=== PATIENT | male | born 1960 | race Caucasian/White ===

== ENCOUNTER 2016-05-22 06:26 | Inpatient (IN) | payer OTHER ==
[2016-05-04 11:10] VITALS: BMI 38.0
--- NOTE | 2016-05-04 11:44 | PAT Medication Instructions ---
Service Date May 04, 2016. Current Home Medication List Cyclobenzaprine Hcl (Flexeril), 10 MG PO TID PRN for PRN Ibuprofen (Ibuprofen), 600 MG PO PRN Magnesium Oxide (Mag-Ox), 400 MG PO PRN Scopolamine (Transderm-Scop), 1 DOSE TOP PRN Medication Instructions For Your Scheduled Surgery No Medications the morning of the surgery. You may take all of your medications the day prior to surgery. Nothing to eat or drink after midnight If you have any questions please call us at [phone] or [phone] or [phone]
[2016-05-04 12:28] LABS: URINE APPEARANCE CLEAR (CLEAR); URINE BILIRUBIN NEG (NEG); URINE COLOR YELLOW; URINE NITRITE NEG (NEG); URINE SPECIFIC GRAVITY 1.018 (1.000-1.030); UROBILINOGEN NEG (NEG)
[2016-05-04 12:29] LABS: MANUAL MICROSCOPIC REQUIRED? NO; REVIEW REQ? NO
[2016-05-04 12:40] LABS: BASO % 0.3 %; BASO ABS # 0.02 K/uL (0-0.2); COMPLETE YES; EOS % 1.1 %; HEMATOCRIT 42.6 % (42-52); IG% 0.2 %; LYMPH % 37.6 %; MEAN CELL VOLUME 88.6 fL (80-100); MEAN CORPUSCULAR HEMOGLOBIN 30.8 pg (25-34); MEAN CORPUSCULAR HGB CONC 34.7 g/dl (32-36); MEAN PLATELET VOLUME 9.8 fL (7.4-10.4); MONO % 11.4 %; NEUT % 49.4 %; PLATELET COUNT 284 K/uL (130-400); RED BLOOD COUNT 4.81 M/uL (4.7-6.1); WHITE BLOOD COUNT 6.39 K/uL (4.8-10.8)
[2016-05-04 12:42] LABS: PROTHROMBIN TIME (PATIENT) 10.7 SECONDS (9.0-12.0)
[2016-05-04 12:53] LABS: ESTIMATED AVERAGE GLUCOSE 117 mg/dl; HA1C FLAG Normal (Normal)
[2016-05-04 12:54] LABS: BUN/CREATININE RATIO 15.6 (10-20); CALCIUM 9.1 mg/dl (8.5-10.1); POTASSIUM 4.4 mmol/L (3.5-5.1)
--- NOTE | 2016-05-14 10:20 | HISTORY & PHYSICAL EXAMINATION ---
DATE OF ADMISSION: 05/22/2016 SUBJECTIVE CHIEF COMPLAINT: Left knee pain. HISTORY OF PRESENT ILLNESS: The patient is a 56-year-old male who is here for left knee pain. Says the pain has been getting progressively worse over time. It occurs constantly now. The pain is described as aching, sharp and throbbing. He would like to discuss a left total knee arthroplasty. He has failed conservative therapies which include nonsteroidal anti-inflammatories, physical therapy, cortisone and viscosupplementation. PAST MEDICAL HISTORY: The patient has no past medical history. PAST SURGICAL HISTORY: Elbow arthroscopy and appendectomy. SOCIAL HISTORY: The patient quit smoking in June 2014. Denies alcohol use. He denies IV drug use or illegal drug use. He lives in a 2-story house. 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 FAMILY HISTORY: Noncontributory. MEDICATIONS: None. ALLERGIES: No known drug allergies. REVIEW OF SYSTEMS: He denies fevers, chills, headaches, weight loss, double vision, blurry vision, sore throat, hearing loss, tremors, dizziness, numbness, tingling, tired, thirsty, hot and cold intolerance, abdominal pain, nausea, vomiting, diarrhea, heartburn, chest pain, swelling into the legs or feet, frequency going to the bathroom, pain or burning with urination, wheezing, cough, shortness of breath, depression, thoughts to harm himself or harm others, nervousness or anxiousness. He is positive for joint pain, stiffness and swelling of the left knee. OBJECTIVE: GENERAL APPEARANCE: The patient is a 56-year-old male who is in no acute distress. He is awake, alert and oriented x3. He is well dressed, well nourished. VITAL SIGNS: He is 6 foot 3 inches tall, 308 pounds, blood pressure is 110/80. HEAD, EYES, EARS, NOSE, AND THROAT: Extraocular movements are intact, PERRLA, mucosa was moist. No septal deviation. NECK: Supple, no lymphadenopathy, no JVD, no thyromegaly. HEART: Regular rate and rhythm. No murmurs or gallops. LUNGS: Clear to auscultation. No wheezing or rhonchi. ABDOMEN: Soft, nontender, nondistended. Normal bowel sounds, no hepatosplenomegaly. EXTREMITIES: Paying particular attention to the left knee, he is able to extend to 0 degrees actively, flex to 90 degrees actively. He has medial joint line tenderness, negative anterior drawer, negative posterior drawer, negative Marquez's. NEUROLOGIC: Cranial nerves II-XII are intact. Pulses were compared bilaterally and were equal. IMAGING: Four view x-ray shows [id number] medial compartment, osteophyte formation of the medial tibial plateau, subchondral sclerosis. IMPRESSION: Severe end-stage left knee osteoarthritis. PLAN: The patient is scheduled for a left total knee arthroplasty. He has failed conservative therapies which include cortisone injections, viscosupplementation, anti-inflammatories and physical therapy. He notes that the pain decreases his quality of life and he is unable to perform activities of daily living. He wishes to proceed with a left total knee arthroplasty. Risks and benefits to surgery were discussed and included but not limited to blood clot, nerve damage, blood vessel damage, infection, failure to relieve all symptoms, revision surgeries and anesthesia risks were all discussed and the patient wishes to proceed. The patient will go home with self care after the surgery. He is a potential study patient for the [facility] \T\ Nephew rehab study for total knee arthroplasties. We discussed with him entering the study and he will be contacted as to his decision. JOSAFAT
[~2016-05-22] VITALS: Ht 190.5 cm; Wt 139.3 kg
[2016-05-22] VITALS (7 sets, daily range): BP systolic 107–143; BP diastolic 63–91; PULSE 62–78; TEMP 36.8–36.9; O2SAT 95–98; Ht 190.5 cm; Wt 139.3 kg
[~2016-05-22 06:26] MED LIST: ACETAMINOPHEN 500 MG TAB PO SCH; BUPIVACAINE 0.5 % 5 MG/1 ML PF 10ML VIAL ONE; CEFAZOLIN 3000 MG/65 ML D5W 65 ML IV SCH; CYCL10TA6 PO; CeleBREX 200 MG CAP PO SCH; DEXAMETHASONE 4 MG TAB PO SCH; FAMOTIDINE 20 MG TAB PO SCH; GABAPENTIN 300 MG CAP PO SCH; IBUP1CAP9 PO; LACTATED RINGER'S 1000ML 1,000 ML IV SCH; LACTATED RINGER'S 1000ML IV SCH; LACTATED RINGER'S 500 ML IV SCH; MAGN400T6 PO; METOCLOPRAMIDE HCL 10 MG TAB PO SCH; ROPIVACAINE 5MG/ML 30 ML 150 MG, BUPIVACAINE/EPINEPHR 0.5% MPF 30 ML, KETOROLAC TROMETH... INFIL SCH; SCPTP TOP
[2016-05-22] MEDS: TRANEXAMIC ACID INJ 1,000 MG in SODIUM CHLORIDE 0.9% 100ML 100 ML IV SCH ×2 (06:30→07:53)
[2016-05-22] MEDS ORDERED: FENTANYL CITRATE INJ 50 MCG/1 ML 2 ML VIAL IV PRN (07:00)
[2016-05-22] MEDS ORDERED: ONDANSETRON INJ 2 MG/ML 2 ML VIAL IV PRN ×2 (07:00→11:15)
[2016-05-22] MEDS ORDERED: EpHEDrine SULFATE INJ 50 MG/ML AMP IV PRN (07:00)
[2016-05-22] MEDS ORDERED: ATROPINE SULFATE 0.1 MG/ML 5ML SYR IV PRN (07:00)
--- NOTE | 2016-05-22 07:05 | History & Physical Bridge Note ---
H&P Re-Evaluation Bridge Note: I have examined the patient, reviewed the History & Physical and in the interval since the performance of the History & Physical I have noted the following changes of clinical significance: No changes noted
[2016-05-22] MEDS ORDERED: FENTANYL CITRATE INJ 50 MCG/1 ML 2 ML VIAL ONE (07:32)
[2016-05-22] MEDS ORDERED: MIDAZOLAM HCL 1 MG/ML 2ML VIAL ONE ×2 (07:32→07:34)
[2016-05-22] MEDS ORDERED: PROPOFOL IV EMULSION 10 MG/ML 20 ML VIAL IV ONE ×3 (07:34→10:49)
[2016-05-22] MEDS ORDERED: BACITRACIN 50000 UNIT VIAL ONE (08:13)
[2016-05-22] MEDS ORDERED: ORTHO JOINT ANESTHETIC ONE (08:13)
[2016-05-22] MEDS ORDERED: POVIDONE-IODINE OP SOLN 30 ML BTL ONE (08:13)
[2016-05-22] MEDS ORDERED: LIDOCAINE HCL 2% 2 ML VIAL (20MG/ML) ONE (08:53)
--- NOTE | 2016-05-22 10:40 | [facility] Post Operative Brief Note ---
Immediate Operative Summary Operative Date May 22, 2016. Pre-Operative Diagnosis Severe end-stage left knee osteoarthritis Post-Operative Diagnosis Severe end-stage left knee osteoarthritis Procedure(s) Performed Left total knee arthroplasty Surgeon Dr Ferny Muniz [employer] Surgeon(s) Dr Josafat Lawson Estimated Blood Loss 20ML Findings above Specimens A: left knee bone and tissue Drains 2 hemovac Anesthesia spinal Complication(s) None Disposition Recovery Room / PACU
[2016-05-22] MEDS ORDERED: TAMSULOSIN HCL 0.4 MG CAP PO PRN (11:15)
[2016-05-22] MEDS ORDERED: ALUMINUM/MAGNESIUM/SIMETH (MAALOX MAX) 30 ML UDC PO PRN (11:15)
[2016-05-22] MEDS ORDERED: MAGNESIUM HYDROXIDE SUSP 30 ML UDC PO PRN (11:15)
[2016-05-22] MEDS ORDERED: ZOLPIDEM TARTRATE 5 MG TAB PO PRN (11:15)
[2016-05-22] MEDS ORDERED: BISACODYL 10 MG SUPP PR PRN (11:15)
[2016-05-22] MEDS ORDERED: MoRPHine SULFATE 2 MG/ML CARP IV PRN (11:15)
[2016-05-22] MEDS ORDERED: DiphenhydrAMINE HCL 50 MG/ML VIAL IV PRN (11:15)
--- NOTE | 2016-05-22 11:35 | OPERATIVE REPORT ---
DATE OF OPERATION: 05/22/2016 PREOPERATIVE DIAGNOSIS: Left knee degenerative joint disease. POSTOPERATIVE DIAGNOSIS: Same. PROCEDURE: Left total knee arthroplasty. SURGEON: Dr. Muniz. SALES OFFICE MANAGER: TESSA Horner, who was necessary for assistance with the procedure with positioning, prepping, draping, retraction and closure. ANESTHESIA: Spinal with adductor canal block. SPECIMEN: Bone and tissue. IMPLANTS: Spencer \T\ Nephew Journey version II. DRAINS: Two Hemovac. COMPLICATION: None. ESTIMATED BLOOD LOSS: 20 mL INDICATIONS: The patient is a 56-year-old male with longstanding degenerative joint disease of bilateral knees. He has failed conservative measures including injection, anti-inflammatories and rehab. Failing conservative measures, he wished to proceed with left total knee arthroplasty. Risks, benefits and alternatives of surgery including but not limited to infection, DVT, pain, stiffness, need for revision surgery, failure to relieve all symptoms, damage to blood vessels, damage to nerves, risks of anesthesia discussed with the patient and he wished to proceed. DESCRIPTION OF PROCEDURE: The patient was identified, laterality was confirmed and marked. He received a preoperative antibiotic as well as a spinal and adductor canal block. A well-padded tourniquet was placed on the thigh, and limb was prepped and draped in usual sterile manner with ChloraPrep. Limb was exsanguinated and tourniquet was inflated. I made a longitudinal incision on the anterior aspect of the knee, sharply incising through the skin, utilizing Bovie electrocautery to achieve hemostasis. I made a medial parapatellar arthrotomy, mobilized the patella laterally and then prepared the patella with a free hand cut with a sagittal saw and then sizing and drilling for a size 38 patella. I then elevated deep MCL as he had a fairly significant varus deformity, then excised the anterior horns of the medial and lateral menisci as well as the patellar fat pad. I then pinned into place a patient-matched distal femoral cutting guide, made my distal femoral resection, and then pinned in place a size 7, 5-in-1 cutting guide, made my anterior, posterior and chamfer cuts. I then pinned into place a tibial cutting guide, made my tibial resection. I then removed the remaining portions of the meniscus and the cruciates. We had preoperatively templated for a size 8 but this was a bit large, we downsized to a size 7 tibia, placed this 7 tibia into position and cut for the post, pinned it into place. We then removed the posterior osteophytes and placed the size [address] and then reamed for the trochlear component. I then started trialing with a size 9 tibia. He was tight in both flexion as well as in extension and still had a flexion contracture. I then removed the trial components, took an additional 2 mm off the tibia, and then placed the trial components once again, this gave us full range of motion and much better soft tissue balancing. I then placed the patella into position. He had good tracking to the patella, no lateral release was needed. Removed all the trial components. Wound was thoroughly irrigated. Deep tissues were anesthetized with Exparel solution and then with HV with gent cement, cemented my definitive components. This was Spencer \T\ Nephew Journey version II femur 7, tibia 7, poly 9, patella 38 oval. A deep drain was placed, a Betadine soak was performed prior to drain placement. Arthrotomy was closed with interrupted #1 Vicryl suture, subcutaneous tissue with interrupted 2-0 Vicryl suture, and skin with brenda. Sterile dressing was applied and the tourniquet was released. All needle and sponge counts were correct at the end of procedure. The patient was transferred to the PACU in stable condition without apparent complication. I attest to the content of the Intraoperative Record and any orders documented therein. Any exceptions are noted below. JOSAFAT
[2016-05-22] MEDS ORDERED: MoRPHine SULFATE 10 MG/ML CARP/VIAL IV PRN (11:45)
[2016-05-22] MEDS ORDERED: MoRPHine SULFATE 4 MG/ML 1 ML CARP\\VIAL IV PRN (11:45)
--- NOTE | 2016-05-22 11:56 | Anesthesiology Progress Note ---
Anesthesia Post Op Note Date & Time May 22, 2016 at 11:56 Vital Signs Pain Intensity: 0 Vital Signs Past 12 Hours Date Time Temp Pulse Resp B/P Pulse Ox O2 Delivery O2 Flow Rate FiO2 05/22/16 11:50 36.1 61 18 109/74 97 Nasal Cannula 2 05/22/16 11:40 66 17 102/66 95 Nasal Cannula 2 05/22/16 11:30 61 12 111/74 93 Nasal Cannula 2 05/22/16 11:20 64 12 108/73 95 Nasal Cannula 2 05/22/16 11:12 36.5 68 14 106/67 97 Nasal Cannula 2 05/22/16 06:54 36.8 65 20 143/91 95 Room Air Notes Mental Status: alert / awake / arousable, participated in evaluation Pt Amnestic to Procedure: Yes Nausea / Vomiting: adequately controlled Pain: adequately controlled Airway Patency, RR, SpO2: stable & adequate BP & HR: stable & adequate Hydration State: stable & adequate Neuraxial Anesthesia: was administered, sensory block is resolving Anesthetic Complications: no major complications apparent
--- NOTE | 2016-05-22 12:09 | DIAGNOSTIC IMAGING REPORT ---
LEFT KNEE 2 VIEWS History: Left total knee arthroplasty. Degenerative arthritis. Postop. FINDINGS: The patient is status post a left total knee arthroplasty. The hardware is intact. No fracture or dislocation. Skin brenda and surgical drains are in place. IMPRESSION: Left total knee arthroplasty. No evidence for hardware complication. Electronically signed by: Glenroy Membreno M.D. 05/22/2016 12:08 PM Dictated Date/Time: 05/22/2016 12:07 PM
[2016-05-22] MEDS: ACETAMINOPHEN 500 MG TAB PO SCH ×2 (14:30→22:11)
[2016-05-22] MEDS: D5W AND 1/2NSS + 20MEQ KCL 1,000 ML IV SCH ×2 (14:30→23:58)
[2016-05-22] MEDS: CEFAZOLIN IV 2,000 MG in DEXTROSE 5% 50ML 50 ML IV SCH ×2 (18:04→23:58)
[2016-05-22] MEDS: KETOROLAC TROMETHAMINE 30 MG/ML VIAL IV. SCH ×2 (18:05→22:15)
[2016-05-22] MEDS: FERROUS GLUCONATE 324 MG TAB PO SCH (18:14)
[2016-05-22] MEDS: OXYCODONE HCL IR 5 MG TAB (IMMEDIATE RELEASE) PO PRN (18:15)
[2016-05-22] MEDS: OXYCODONE HCL 10 MG TABCR (OXYCONTIN) PO SCH (22:10)
[2016-05-22] MEDS: DOCUSATE SODIUM 100 MG CAP PO SCH (22:11)
[2016-05-22] MEDS: SENNA 8.6 MG TAB PO SCH (22:11)
[2016-05-22] MEDS: ASPIRIN 81 MG ECTAB PO SCH (22:12)
[2016-05-23] VITALS (7 sets, daily range): BP systolic 117–135; BP diastolic 66–106; PULSE 61–86; TEMP 36.5–37; O2SAT 96–97
[2016-05-23] MEDS: KETOROLAC TROMETHAMINE 30 MG/ML VIAL IV. SCH ×2 (03:28→09:13)
[2016-05-23] MEDS: ACETAMINOPHEN 500 MG TAB PO SCH ×3 (05:34→16:15)
[2016-05-23 05:40] LABS: HEMATOCRIT 34.4 % (42-52); MEAN CELL VOLUME 87.8 fL (80-100); MEAN CORPUSCULAR HEMOGLOBIN 30.1 pg (25-34); MEAN CORPUSCULAR HGB CONC 34.3 g/dl (32-36); MEAN PLATELET VOLUME 9.5 fL (7.4-10.4); PLATELET COUNT 254 K/uL (130-400); RED BLOOD COUNT 3.92 M/uL (4.7-6.1); WHITE BLOOD COUNT 17.04 K/uL (4.8-10.8)
[2016-05-23 06:19] LABS: BUN/CREATININE RATIO 16.1 (10-20); CALCIUM 8.3 mg/dl (8.5-10.1); CREATININE 0.95 mg/dl (0.60-1.40); POTASSIUM 4.4 mmol/L (3.5-5.1)
--- NOTE | 2016-05-23 06:45 | Orthopedic Progress Note ---
Orthopedic Progress Note Date of Service May 23, 2016. Subjective Post OP Day: 1 (s/p Left TKA) Reports: feeling well, pain controlled w PO medications, Denies: SOB, calf pain , chest pain, complaints, light headedness, nausea / vomiting Objective calves soft nontender, N/V intact, capillary refill less than 2 sec., dressing C /D/I, A&O x3, toes mobile, hemovac drainage (225cc/8 hours) Date Time Temp Pulse Resp B/P Pulse Ox O2 Delivery O2 Flow Rate FiO2 05/23/16 03:21 36.9 76 16 119/72 96 Room Air 05/23/16 00:00 37.0 86 15 117/66 96 Room Air 05/23/16 00:00 Room Air 05/22/16 20:04 36.8 78 16 107/63 96 Room Air 05/22/16 16:00 95 Nasal Cannula 2.0 05/22/16 15:21 36.9 65 16 117/78 95 Nasal Cannula 2.0 05/22/16 13:53 73 16 115/76 98 2.0 05/22/16 13:07 62 16 120/80 96 2.0 05/22/16 12:00 36.9 64 16 112/73 97 Nasal Cannula 2.0 05/22/16 12:00 97 Nasal Cannula 2.0 05/22/16 12:00 97 Nasal Cannula 05/22/16 11:50 36.1 61 18 109/74 97 Nasal Cannula 2 05/22/16 11:40 66 17 102/66 95 Nasal Cannula 2 05/22/16 11:30 61 12 111/74 93 Nasal Cannula 2 05/22/16 11:20 64 12 108/73 95 Nasal Cannula 2 05/22/16 11:12 36.5 68 14 106/67 97 Nasal Cannula 2 05/22/16 06:54 36.8 65 20 143/91 95 Room Air Laboratory Results 24 Hours: Test 05/23/16 05:30 Hematocrit 34.4 % Hemoglobin 11.8 g/dL Assessment & Plan Assessment: POD #1 s/p Left TKA -PT/OT -dvt proph with ASHLEY/SCD/ASA Discharge Planning DVT Prophylaxis: TEDs, SCDs, ASA Therapy: Physical Therapy
[2016-05-23] MEDS: MULTIVITAMIN TAB PO SCH (08:56)
[2016-05-23] MEDS: ASPIRIN 81 MG ECTAB PO SCH ×2 (08:56→20:45)
[2016-05-23] MEDS: PANTOprazole SOD 40 MG TAB PO SCH (08:56)
[2016-05-23] MEDS: DOCUSATE SODIUM 100 MG CAP PO SCH ×2 (08:58→20:45)
[2016-05-23] MEDS: FERROUS GLUCONATE 324 MG TAB PO SCH ×3 (08:58→17:59)
[2016-05-23] MEDS: OXYCODONE HCL 10 MG TABCR (OXYCONTIN) PO SCH ×2 (09:10→20:46)
[2016-05-23] MEDS: OXYCODONE HCL IR 5 MG TAB (IMMEDIATE RELEASE) PO PRN ×3 (09:10→19:28)
[2016-05-23] MEDS: D5W AND 1/2NSS + 20MEQ KCL 1,000 ML IV SCH (09:13)
[2016-05-23] MEDS: SENNA 8.6 MG TAB PO SCH (20:45)
[2016-05-24 00:22] VITALS: BP 141/93; PULSE 79; TEMP 36.6; O2SAT 100
[2016-05-24] MEDS: OXYCODONE HCL IR 5 MG TAB (IMMEDIATE RELEASE) PO PRN ×3 (00:26→10:40)
[2016-05-24 06:04] VITALS: BP 139/91; PULSE 78; TEMP 36.8; O2SAT 99
[2016-05-24] MEDS: ACETAMINOPHEN 500 MG TAB PO SCH (06:10)
[2016-05-24] MEDS ORDERED: KETOROLAC TROMETHAMINE 30 MG/ML VIAL IV STA (06:24)
--- NOTE | 2016-05-24 06:25 | Orthopedic Progress Note ---
Orthopedic Progress Note Date of Service May 24, 2016. Subjective Post OP Day: 2 Reports: feeling well, Denies: SOB, calf pain, chest pain, complaints, light headedness, nausea / vomiting Additional Notes: increased pain through the night, states when he is due for his meds his pain is controlled. Objective calves soft nontender, N/V intact, capillary refill less than 2 sec., dressing C /D/I, A&O x3, toes mobile Date Time Temp Pulse Resp B/P Pulse Ox O2 Delivery O2 Flow Rate FiO2 05/24/16 06:04 36.8 78 16 139/91 99 Room Air 05/24/16 00:22 36.6 79 18 141/93 100 Room Air 05/23/16 23:25 Room Air 05/23/16 16:15 97 Room Air 05/23/16 15:29 36.5 64 18 118/78 97 Room Air 05/23/16 11:55 36.5 66 18 135/106 97 Room Air 05/23/16 10:20 97 Room Air 05/23/16 08:03 36.7 61 18 124/78 97 Room Air Assessment & Plan Assessment: POD #2 s/p Left TKA -PT/OT -dvt proph with ASHLEY/SCD/ASA Discharge Planning Discharge Planning: home with oppt DVT Prophylaxis: TEDs, SCDs, ASA Therapy: Physical Therapy
[2016-05-24] MEDS ORDERED: ACET-1138 PO (06:30)
[2016-05-24] MEDS ORDERED: ASPEC81 PO (06:30)
[2016-05-24] MEDS ORDERED: OXYSR10 PO (06:30)
[2016-05-24] MEDS ORDERED: CLC100 PO (06:30)
[2016-05-24] MEDS ORDERED: RXC5 PO (06:30)
[2016-05-24] MEDS ORDERED: ONDA8TAB6 PO (06:30)
[2016-05-24] MEDS ORDERED: CLB200 PO (06:30)
--- NOTE | 2016-05-24 06:32 | Discharge Instructions ---
Discharge Instructions Admission Reason for Admission: Left Knee Osteoarthritis Discharge Discharge Diagnosis / Problem: Left Total Knee Replacement Discharge Goals Goal(s): Decrease discomfort, Improve function, Increase independence Activity Recommendations Activity Limitations: as noted below Weightbearing Status: Left weightbearing (as tolerated) . Instructions / Follow-Up Instructions / Follow-Up ACTIVITY RECOMMENDATIONS: SELF CARE INSTRUCTIONS AFTER TOTAL KNEE REPLACEMENT A. You may need to continue a physical therapy program after discharge from the hospital. There are several options available to you. Your doctor will assist you in selecting the best one for you. 1. An out-patient facility 2 to 3 times a week for therapy or home therapy. 2. Continue working on all exercises taught to you in the hospital. Your goals should be to increase bending of your knee to 90 degrees and beyond and to fully straighten your knee. B. You may progress at your own pace from walking with a walker or crutches to a cane; then to no assistive devices. C. Make walking a part of your daily routine. Be up as much as comfortable with rest periods throughout the day. Rest with leg elevation is very important. Use the ice wrap frequently for the first 3-4 weeks. D. There are no restrictions on activities. You may ride in a car, shop, participate in installation service representative and all social activities. E. Wear the long elastic stockings (ASHLEY hose) 20 hours a day for 2 weeks after surgery. They can be removed several times a day for laundering and for a bath. F. You may shower, no tub baths until cleared by your doctor. SPECIAL CARE INSTRUCTIONS: VERY IMPORTANT TO READ AND REVIEW A. There are a few signs you need to watch for after you are home. Call [facility] if you notice any of the followin. Increased severe knee pain. Some pain is expected especially when you exercise. 2. Increased swelling in your leg or knee; pain or swelling of the calf muscle in either lower leg. 3. Any fluid drainage from the incision. 4. Shortness of breath or chest pain. B. Please call [facility] at if you have any concerns or questions about your operation or recovery. The doctor or his nurse will return your call promptly. C. You must take antibiotics before dental work, bladder, bowel or other surgery. Your doctor will provide you with a permanent care to carry describing this precaution. IMPORTANT: * REMEMBER TO TAKE ASPIRIN, 81 MG, TWICE DAILY FOR 4 WEEKS UNLESS OTHERWISE DIRECTED. THIS IS YOUR BLOOD THINNER. * HIGH RISK PATIENTS MAY BE PRESCRIBED A STRONGER BLOOD THINNER. THIS WILL BE PROVIDED AT DISCHARGE. * CALL IF INCREASED PAIN, REDNESS, DRAINAGE OR FEVER GREATER THAT 101. * WEAR ASHLEY HOSE 20 HOURS PER DAY FOR 2 WEEKS. * YOU MAY HAVE A LARGE BAND-AID LIKE DRESSING (SILVERON). THIS WILL REMAIN ON YOUR INCISION FOR 7 DAYS, THEN CAN BE REMOVED. IF INCISION IS LEAKING THROUGH DRESSING, CALL THE OFFICE . FOLLOW UP VISIT: If appointment is not already scheduled: Please call [facility] to make a follow-up appointment for 2 weeks after your surgery at . Current Hospital Diet Patient's current hospital diet: Regular Diet Discharge Diet Recommended Diet: Regular Diet Procedures Procedures Performed: Left total knee arthroplasty Pending Studies Studies pending at discharge: no Laboratory Results Hemoglobin A1c Test 05/04/16 11:53 Range/Units Estimated Average Glucose 117 mg/dl Hemoglobin A1c 5.7 H 4.5-5.6 % Medical Emergencies . Who to Call and When: Medical Emergencies: If at any time you feel your situation is an emergency, please call [phone] immediately. . Non-Emergent Contact Non-Emergency issues call your: Primary Care Provider, Surgeon . "Provider Documentation" section prepared by Chandrakant Sethi. VTE Core Measure Inpt VTE Proph given/why not?: Other Anticoagulation (ASA 81mg po bid x 1 month ), T.E.D. Stockings, SCD's
[2016-05-24] MEDS: FERROUS GLUCONATE 324 MG TAB PO SCH (07:39)
[2016-05-24] MEDS: DOCUSATE SODIUM 100 MG CAP PO SCH (07:39)
[2016-05-24] MEDS: ASPIRIN 81 MG ECTAB PO SCH (07:39)
[2016-05-24] MEDS: MULTIVITAMIN TAB PO SCH (07:39)
[2016-05-24] MEDS: PANTOprazole SOD 40 MG TAB PO SCH (07:39)
[2016-05-24] MEDS: OXYCODONE HCL 10 MG TABCR (OXYCONTIN) PO SCH (07:40)
[2016-05-24 08:43] VITALS: BP 110/62
[2016-05-24 10:05] VITALS: BP 110/62; PULSE 78; TEMP 36.8; O2SAT 99
--- NOTE | 2016-05-25 16:04 | DISCHARGE SUMMARY ---
DISCHARGE DIAGNOSIS: Degenerative joint disease, left knee. SECONDARY DIAGNOSES: Essentially benign and the patient used to be a smoker, but quit in 2014. CONSULTATIONS: None. COMPLICATIONS: None. PROCEDURES: Left total knee arthroplasty performed by Dr. Muniz on 05/22/2016. BRIEF HISTORY OF PRESENT ILLNESS: As dictated in history and physical. HOSPITAL SUMMARY: The patient was admitted on the above date and had the above-noted surgery performed which he tolerated well. On his first postoperative day, he was feeling well and pain was controlled. He had no complaints. Calves were soft, nontender, neurovascularly intact. Capillary refill was less than 2 seconds. Dressings were clean, dry and intact. Toes were mobile. Vital signs were stable. He was afebrile. Hemoglobin was 11.8 and he was started on physical therapy protocol and continued on DVT prophylaxis and pain management. By his second postoperative day, he was feeling well. He denied shortness of breath, calf pain or chest pain. He has had increased pain through the night but says when he was due for his meds, his pain was controlled. Calves were soft and nontender, neurovascularly intact. Dressings were clean, dry and intact. Toes were mobile. Vital signs were stable. He was afebrile. He was progressing well with his physical therapy, had remained stable and it was felt he could be discharged to home with home health PT. For further review, please see chart. LABORATORY AND X-RAY DATA: As per chart. DISCHARGE INSTRUCTIONS: The patient was discharged to home in satisfactory condition on 05/24/2016. DIET: Regular. ACTIVITY: Weightbearing as tolerated left lower extremity. Follow TKA instruction sheets and special care instructions as noted. Follow up with Dr. Muniz in 2 weeks. The patient to call for appointment if one has not been made for you. DISCHARGE MEDICATIONS: Acetaminophen 1000 mg p.o. q. 8 hours, aspirin 81 mg p.o. b.i.d., Celebrex 200 mg p.o. b.i.d., Colace 100 mg p.o. b.i.d., Zofran 8 mg p.o. q. 8 hours p.r.n. nausea, OxyContin 10 mg p.o. q. 12 hours, oxycodone 5-10 mg p.o. q. 4 hours p.r.n. Continue taking Flexeril 10 mg p.o. t.i.d. p.r.n., Mag-Ox 400 mg p.o. p.r.n., scopolamine 1.5 mg transdermal patch 1 dose topically p.r.n. and stop taking ibuprofen.
--- NOTE | 2016-05-27 13:49 | DISCHARGE SUMMARY ---
ADMISSION DIAGNOSIS: Left knee DJD. DISCHARGE DIAGNOSIS: Status post left TKA. CONSULTS: None. PROCEDURE: On 05/22/2016 the patient had a left TKA performed. HISTORY OF PRESENT ILLNESS: The patient is a 56-year-old male who is here for left knee pain. He says the pain has been getting progressively worse over time and occurs constantly. Now the pain is described as aching, sharp and throbbing. He would like to discuss left total knee arthroplasty. He has failed conservative therapies which include nonsteroidal antiinflammatories, physical therapy, cortisone and viscosupplementation. HOSPITAL COURSE: Postop day 1 the patient was feeling well. Pain was controlled with p.o. medications. He denied shortness of breath, calf pain, chest pain, lightheadedness or dizziness. His Hemovac drainage was 225 cc per 8 hours. Postop day 2 the patient is feeling well. The pain increased through the night and once given his pain medication it was controlled. He denied shortness of breath, chest pain, lightheadedness, nausea or vomiting. His discharge condition was stable. DISPOSITION: Home with home health. MEDICATIONS: Acetaminophen 1000 mg by mouth every 8 hours, aspirin 81 mg by mouth twice daily for 30 days, Celebrex 200 mg by out twice daily, docusate 100 mg by mouth twice daily for 10 days, Zofran 8 mg by mouth every 8 hours as needed for nausea, OxyContin 10 mg by mouth every 12 hours, oxycodone 5-10 mg by mouth every 4 hours as needed for pain, Flexeril 10 mg by mouth three times daily as needed, magnesium 400 mg by mouth as needed. The patient is to be weightbearing on the left lower extremity as tolerated. He is allowed to have a regular diet. He is to wear long elastic stockings 20 hours a day for 2 weeks after the surgery. He is to start physical therapy 2-3 times a week once discharged home. He may shower, no bathtubs, no hot tubs until cleared by the doctor. He is to call [facility] if he notices severe increase in knee pain, increased swelling or drainage from the incision site, shortness of breath or chest pain. He is to remember to take 81 mg twice a day for four weeks. He is to keep the Silverlon dressing on for 7 days and then it can be removed. He is to followup with Dr. Muniz or his PA in two weeks after the surgery. JOSAFAT
== END 2016-05-24 11:20 | disposition home health service (06) | DRG 470 ==
LOC: ENRESERVTM → ENRESERVDT → C.ACU 06:26 → C.3E 11:20
PROVIDERS: ADMIT Orthopaedic Surgery; ATTEND Orthopaedic Surgery
PROC: 0SRD0J9 Replacement of Left Knee Joint with Synthetic Substitute, Cemented, Open Approach (ICD-10-PCS; principal; 2016-05-22 08:45)
DX: M17.12 Unilateral primary osteoarthritis, left knee (principal); E66.9 Obesity, unspecified; Z68.38 Body mass index [BMI] 38.0-38.9, adult; Z79.1 Long term (current) use of non-steroidal anti-inflammatories (NSAID); Z87.891 Personal history of nicotine dependence; Z79.899 Other long term (current) drug therapy

== ENCOUNTER → 2016-08-04 | Outpatient (CLI) | payer OTHER ==
[~2016-08-04] MED LIST changes: +ACET-1138 PO; -ACETAMINOPHEN 500 MG TAB PO SCH; +ASPEC81 PO; -BUPIVACAINE 0.5 % 5 MG/1 ML PF 10ML VIAL ONE; -CEFAZOLIN 3000 MG/65 ML D5W 65 ML IV SCH; +CLB200 PO; +CLC100 PO; -CeleBREX 200 MG CAP PO SCH; -DEXAMETHASONE 4 MG TAB PO SCH; -FAMOTIDINE 20 MG TAB PO SCH; -GABAPENTIN 300 MG CAP PO SCH; -IBUP1CAP9 PO; -LACTATED RINGER'S 1000ML 1,000 ML IV SCH; -LACTATED RINGER'S 1000ML IV SCH; -LACTATED RINGER'S 500 ML IV SCH; -METOCLOPRAMIDE HCL 10 MG TAB PO SCH; +ONDA8TAB6 PO; +OXYSR10 PO; -ROPIVACAINE 5MG/ML 30 ML 150 MG, BUPIVACAINE/EPINEPHR 0.5% MPF 30 ML, KETOROLAC TROMETH... INFIL SCH; +RXC5 PO
== END | disposition home or self-care (01) ==
LOC: C.PATHSPEC 17:23
PROVIDERS: ATTEND Nurse Practitioner Adult Health
DX: R31.29 Other microscopic hematuria (principal)

== ENCOUNTER → 2016-08-05 | Outpatient (CLI) | payer OTHER ==
[~2016-08-05] MED LIST changes: +OPTIRAY 320 IV PRN
--- NOTE | 2016-08-05 16:52 | DIAGNOSTIC IMAGING REPORT ---
ABDOMEN AND PELVIS CT EXAMINATION PRE AND POST INTRAVENOUS CONTRAST CT DOSE: 2320.62 mGycm HISTORY: Hematuria R31.29 Microhematuria not diabetic, no latex allergy, no iodine a TECHNIQUE: Multiaxial CT images of the abdomen and pelvis were performed pre and post intravenous contrast enhancement. COMPARISON STUDY: 06/23/2010. FINDINGS: no abnormal calcifications. Kidneys enhance uniformly. Collecting systems appear unremarkable. No significant filling defects within the bladder. Bowel pattern is considered nonobstructive. Liver spleen and pancreas are unremarkable. IMPRESSION: No significant abnormality identified within the abdomen or pelvis. Electronically signed by: Chandrakant Lowe M.D. 08/05/2016 4:51 PM Dictated Date/Time: 08/05/2016 4:41 PM
== END | disposition home or self-care (01) ==
LOC: C.CTS 16:10
PROVIDERS: ATTEND Nurse Practitioner Adult Health
DX: R31.29 Other microscopic hematuria (principal)

== ENCOUNTER 2017-03-31 17:57 | Emergency (ER) | payer OTHER ==
[~2017-03-31] VITALS: Ht 190.5 cm; Wt 140.4 kg
[~2017-03-31 17:57] MED LIST changes: -ASPEC81 PO; +ASPI-320 PO; -ONDA8TAB6 PO; -OPTIRAY 320 IV PRN
[2017-03-31 18:01] VITALS: TEMP 36.5; Ht 190.5 cm; Wt 140.4 kg
[2017-03-31] MEDS ORDERED: PANTOprazole SOD 40 MG TAB PO STA (18:05)
[2017-03-31] MEDS ORDERED: SODIUM CHLORIDE 0.9% 1000ML 1,000 ML IV STA (18:05)
[2017-03-31] MEDS ORDERED: THIAMINE HCL 100 MG/ML 2 ML VIAL IV STA (18:05)
--- NOTE | 2017-03-31 18:07 | EMERGENCY ROOM VISIT NOTE ---
History Report prepared by Tae: Mark Thomas Under the Supervision of: Dr. Mahendra Burns D.O. First contact with patient: 17:58 Chief Complaint: ALCOHOL OVERDOSE Stated Complaint: ETOH History of Present Illness The patient is a 57 year old male who presents to the Emergency Room with complaints of a constant alcohol overdose that began recently. Patient is present with his son, who is acting as a deck builder. Son states that the patient has been drinking "a lot" for the past 4 days. Son adds that the patient has been drinking vodka, wine, beer, and champagne. He states that this has happened before with the patient. Patient has a history of alcoholism. Son states that the patient does not drink all the time, but when he does it is for a week straight. In previous instances, the patient has both detoxified himself at home and has also previously been admitted to a hospital to be detoxified. The last time the patient was detoxified was a month ago. Son states that the patient has associated symptoms of heart "aches" and lower back pain. Son states that the patient has chronic lower back pain. EMS states that the patient was vomiting upon arrival. Patient denies passing out or falling down. Pertinent past medical history includes knee surgery 6 months ago. Patient denies any allergies to medications. He denies a history of hypertension and diabetes. Patient denies any depression symptoms and suicidal ideations. Patient denies a history of recent falls. He denies taking medications every day. Source of History: family (Son) History Limited By: language (History obtained by son) Onset: Recent Position: other (Alcohol overdose) Timing: constant Associated Symptoms: + vomiting, + back pain (Lower) Note: Patient has heart "aches". Patient denies any suicidal ideations and recent falls. Review of Systems See HPI for pertinent positives & negatives. A total of 10 systems reviewed and were otherwise negative. Past Medical & Surgical Medical Problems: (1) Alcoholism (2) Appendectomy (3) Left knee DJD Family History Unobtainable Social History Smoking Status: Former Smoker Alcohol Use: heavy Marital Status: Housing Status: lives with significant other Current/Historical Medications Unable to Obtain Active Prescriptions or Reported Meds Allergies Coded Allergies: No Known Allergies (Verified , 05/22/16) Physical Exam Vital Signs Date Time Temp Pulse Resp B/P (MAP) Pulse Ox O2 Delivery O2 Flow Rate FiO2 1/3/18 21:30 95 18 126/89 94 03/31/17 19:47 91 18 134/79 93 Room Air 03/31/17 19:34 97 03/31/17 18:01 36.5 93 12 101/87 93 Room Air Physical Exam GENERAL: Patient is awake, alert, and mildly anxious but overall comfortable. EYES: Pupils were dilated but reactive to light bilaterally, bilaterally conjunctiva bilateral. EARS, NOSE, MOUTH AND THROAT: The nose is without any evidence of any deformity. Mucous membranes are moist tongue is midline NECK: The neck is nontender and supple. RESPIRATORY: Normal respiratory effort is noted there is no evidence of wheezing rhonchi or rales CARDIOVASCULAR: Regular rate and rhythm noted there no murmurs rubs or gallops normal S1 normal S2 GASTROINTESTINAL: Mildly distended abdomen but soft with no guarding or rigidity. MUSCULOSKELETAL/EXTREMITIES: There is no evidence of gross deformity full range of motion is noted in the hips and shoulders SKIN: There is no obvious evidence of any rash. There are no petechiae, pallor or cyanosis noted. NEUROLOGIC: At baseline according to son. Moves all extremities symmetrically. Patellar tendon movement 2+ bilaterally. Medical Decision & Procedures ER Provider Diagnostic Interpretation: Radiology results as stated below per my review and radiologist interpretation: CHEST ONE VIEW PORTABLE CLINICAL HISTORY: 57 years-old Male presenting with ABDOMINAL PAIN/GI. TECHNIQUE: Portable upright AP view of the chest was obtained. COMPARISON: 09/13/2015. FINDINGS: Multiple overlying leads degrade image quality. Atherosclerosis of the aortic arch. Cardiac silhouette remains enlarged. Minimal basilar opacities. No pleural effusion or pneumothorax. Degenerative changes of the thoracic spine. IMPRESSION: 1. Cardiomegaly. 2. Minimal basilar atelectasis. 3. Otherwise no evidence of acute cardiopulmonary disease. Electronically signed by: Ferny Sales M.D. 03/31/2017 6:55 PM Laboratory Results 03/31/17 18:20 Red Blood Count 4.57, Mean Corpuscular Volume 83.8, Mean Corpuscular Hemoglobin 29.8, Mean Corpuscular Hemoglobin Concent 35.5, Mean Platelet Volume 8.7, Neutrophils (%) (Auto) 63.7, Lymphocytes (%) (Auto) 31.1, Monocytes (%) (Auto) 4.7, Eosinophils (%) (Auto) 0.0, Basophils (%) (Auto) 0.3, Neutrophils # (Auto) 7.02, Lymphocytes # (Auto) 3.42, Monocytes # (Auto) 0.52, Eosinophils # (Auto) 0.00, Basophils # (Auto) 0.03 03/31/17 18:20 Test 03/31/17 18:20 03/31/17 19:17 White Blood Count 11.01 K/uL (4.8-10.8) Red Blood Count 4.57 M/uL (4.7-6.1) Hemoglobin 13.6 g/dL (14.0-18.0) Hematocrit 38.3 % (42-52) Mean Corpuscular Volume 83.8 fL (80-100) Mean Corpuscular Hemoglobin 29.8 pg (25-34) Mean Corpuscular Hemoglobin Concent 35.5 g/dl (32-36) Platelet Count 252 K/uL (130-400) Mean Platelet Volume 8.7 fL (7.4-10.4) Neutrophils (%) (Auto) 63.7 % Lymphocytes (%) (Auto) 31.1 % Monocytes (%) (Auto) 4.7 % Eosinophils (%) (Auto) 0.0 % Basophils (%) (Auto) 0.3 % Neutrophils # (Auto) 7.02 K/uL (1.4-6.5) Lymphocytes # (Auto) 3.42 K/uL (1.2-3.4) Monocytes # (Auto) 0.52 K/uL (0.11-0.59) Eosinophils # (Auto) 0.00 K/uL (0-0.5) Basophils # (Auto) 0.03 K/uL (0-0.2) RDW Standard Deviation 52.9 fL (36.4-46.3) RDW Coefficient of Variation 17.2 % (11.5-14.5) Immature Granulocyte % (Auto) 0.2 % Immature Granulocyte # (Auto) 0.02 K/uL (0.00-0.02) Prothrombin Time 10.3 SECONDS (9.0-12.0) Prothromb Time International Ratio 1.0 (0.9-1.1) Activated Partial Thromboplast Time 24.5 SECONDS (21.0-31.0) Partial Thromboplastin Ratio 0.9 Anion Gap 8.0 mmol/L (3-11) Est Creatinine Clear Calc Drug Dose 127.2 ml/min Estimated GFR () 99.5 Estimated GFR (Non- 85.8 BUN/Creatinine Ratio 8.6 (10-20) Calcium Level 8.1 mg/dl (8.5-10.1) Total Bilirubin 0.4 mg/dl (0.2-1) Direct Bilirubin < 0.1 mg/dl (0-0.2) Aspartate Amino Transf (AST/SGOT) 58 U/L (15-37) Alanine Aminotransferase (ALT/SGPT) 44 U/L (12-78) Alkaline Phosphatase 137 U/L (45-117) Total Creatine Kinase 1637 U/L (39-308) Creatine Kinase MB 10.2 ng/ml (0.5-3.6) Creatine Kinase MB Ratio 0.6 (0-3.0) Troponin I < 0.015 ng/ml (0-0.045) Total Protein 8.0 gm/dl (6.4-8.2) Albumin 3.9 gm/dl (3.4-5.0) Amylase Level 68 U/L (25-115) Lipase 297 U/L (73-393) Ethyl Alcohol mg/dL 399.0 mg/dl (0-3) Urine Color YELLOW Urine Appearance CLEAR (CLEAR) Urine pH 6.5 (4.5-7.5) Urine Specific [place] 1.009 (1.000-1.030) Urine Protein NEG (NEG) Urine Glucose (UA) NEG (NEG) Urine Ketones NEG (NEG) Urine Occult Blood 1+ (NEG) Urine Nitrite NEG (NEG) Urine Bilirubin NEG (NEG) Urine Urobilinogen NEG (NEG) Urine Leukocyte Esterase NEG (NEG) Urine WBC (Auto) 0 /hpf (0-5) Urine RBC (Auto) 0-4 /hpf (0-4) Urine Hyaline Casts (Auto) 0 /lpf (0-5) Urine Epithelial Cells (Auto) 0-5 /lpf (0-5) Urine Bacteria (Auto) NEG (NEG) Urine Opiates Screen NEG (NEG) Urine Methadone, Qualitative NEG (NEG) Urine Barbiturates NEG (NEG) Urine Phencyclidine (PCP) Level NEG (NEG) Ur Amphetamine/Methamphetamine NEG (NEG) MDMA (Ecstasy) Screen NEG (NEG) Urine Benzodiazepines Screen NEG (NEG) Urine Cocaine Metabolite NEG (NEG) Urine Marijuana (THC) NEG (NEG) Laboratory results per my review. Medications Administered Medications (Trade) Dose Ordered Sig/Key Route Start Time Stop Time Status Last Admin Dose Admin Sodium Chloride 1,000 ml @ 999 mls/hr Q1H1M STAT IV 03/31/17 18:05 03/31/17 19:05 DC 03/31/17 19:00 999 MLS/HR Thiamine HCl (Vitamin B-1 Inj) 100 mg NOW STAT IV 03/31/17 18:05 03/31/17 18:07 DC 03/31/17 19:15 100 MG Pantoprazole Sodium (Protonix Tab) 40 mg NOW STAT PO 03/31/17 18:05 03/31/17 18:07 DC 03/31/17 19:14 40 MG ECG Indication: other (Alcohol overdose) Rate (beats per minute): 92 Rhythm: normal sinus Findings: no ectopy, other (No acute ST segment changes) Comparison ECG Date: 05/04/16 Change: no significant change ED Course 1800: The patient was evaluated in room C9. A complete history and physical examination were performed. 1805: Protonix Tab 40mg PO, Thiamine HCl 100mg IV, NSS 1,000 ml @ 999 mls/hr IV 2040: Upon reevaluation, the patient is resting comfortably. I discussed the results and treatment plan with him. He verbalized agreement of the treatment plan. He was discharged home. Medical Decision Differential diagnosis: Etiologies such as cardiac ischemia, aortic dissection, pulmonary embolism, pneumonia, pneumothorax, musculoskeletal, infections, pericarditis, myocarditis , esophageal rupture, gastrointestinal, as well as others were entertained. Nursing notes reviewed. The patient is a 57-year-old male who presented to the emergency department with his son. The patient has a history of alcohol abuse. The patient has been drinking much more than usual. He's also been complaining of other symptoms such as chest and abdominal pain. I discussed the patient's laboratory and radiographic studies with him and his son. He appeared to have an elevated CPK which could be from the alcohol use. His alcohol level was also significantly elevated. He was evaluated by the mental health rehabilitation caseworker and given information about detox. I also recommended that he be evaluated by the hospitalist for further inpatient management especially with the chest pain and the elevated CPK. The patient did not wish to stay in the hospital and chose to leave. He was encouraged to drink plenty clear liquids and follow-up with his family doctor soon as possible. He was also encouraged to avoid any further alcohol beverages and not drive a vehicle for next 24 hours. I also discussed with his son bring him back to the emergency apartment immediately if symptoms change worsen or the need arises. Medication Reconcilliation Current Medication List: was personally reviewed by me Blood Pressure Screening Patient's blood pressure: Normal blood pressure Blood pressure disposition: Did not require urgent referral Impression Primary Impression: Chest pain Additional Impressions: Rhabdomyolysis Alcohol intoxication Scribe Attestation The scribe's documentation has been prepared under my direction and personally reviewed by me in its entirety. I confirm that the note above accurately reflects all work, treatment, procedures, and medical decision making performed by me. Departure Information Dispostion Home / Self-Care Prescriptions Unable to Obtain Active Prescriptions or Reported Meds Referrals Jason Renee MD (PCP) Forms HOME CARE DOCUMENTATION FORM, IMPORTANT VISIT INFORMATION Patient Instructions Addiction Alcohol, ED Chest Pain Atypical Unkn Cause, [facility], Rhabdomyolysis Additional Instructions Call your family to schedule a follow-up appointment. Drink plenty clear liquids. Avoid any further alcoholic beverages. Do not operate any heavy machinery including driving a vehicle for the next 24 hours. Return to the emergency apartment immediately if symptoms change worsen or the need arises. Problem Qualifiers Primary Impression: Chest pain Chest pain type: unspecified Qualified Codes: R07.9 - Chest pain, unspecified Additional Impressions: Rhabdomyolysis Rhabdomyolysis type: non-traumatic Qualified Codes: M62.82 - Rhabdomyolysis Alcohol intoxication Complication of substance-induced condition: uncomplicated Qualified Codes: F10.920 - Alcohol use, unspecified with intoxication, uncomplicated
[2017-03-31 18:40] LABS: BASO % 0.3 %; BASO ABS # 0.03 K/uL (0-0.2); HEMATOCRIT 38.3 % (42-52); HEMOGLOBIN 13.6 g/dL (14.0-18.0); IG# 0.02 K/uL (0.00-0.02); LYMPH % 31.1 %; LYMPH ABS # 3.42 K/uL (1.2-3.4); MEAN CELL VOLUME 83.8 fL (80-100); MEAN CORPUSCULAR HEMOGLOBIN 29.8 pg (25-34); MEAN CORPUSCULAR HGB CONC 35.5 g/dl (32-36); MEAN PLATELET VOLUME 8.7 fL (7.4-10.4); MONO % 4.7 %; MONO ABS # 0.52 K/uL (0.11-0.59); NEUT % 63.7 %; NEUT ABS # 7.02 K/uL (1.4-6.5); PLATELET COUNT 252 K/uL (130-400); RED CELL DISTRIBUTION WIDTH CV 17.2 % (11.5-14.5); RED CELL DISTRIBUTION WIDTH SD 52.9 fL (36.4-46.3); WHITE BLOOD COUNT 11.01 K/uL (4.8-10.8)
[2017-03-31 18:55] LABS: PTT PATIENT 24.5 SECONDS (21.0-31.0)
--- NOTE | 2017-03-31 18:56 | DIAGNOSTIC IMAGING REPORT ---
CHEST ONE VIEW PORTABLE CLINICAL HISTORY: 57 years-old Male presenting with ABDOMINAL PAIN/GI. TECHNIQUE: Portable upright AP view of the chest was obtained. COMPARISON: 09/13/2015. FINDINGS: Multiple overlying leads degrade image quality. Atherosclerosis of the aortic arch. Cardiac silhouette remains enlarged. Minimal basilar opacities. No pleural effusion or pneumothorax. Degenerative changes of the thoracic spine. IMPRESSION: 1. Cardiomegaly. 2. Minimal basilar atelectasis. 3. Otherwise no evidence of acute cardiopulmonary disease. Electronically signed by: Ferny Sales M.D. 03/31/2017 6:55 PM Dictated Date/Time: 03/31/2017 6:54 PM
[2017-03-31 19:02] LABS: ALBUMIN 3.9 gm/dl (3.4-5.0); ALT/SGPT 44 U/L (12-78); AST/SGOT 58 U/L (15-37); BLOOD UREA NITROGEN 8 mg/dl (7-18); CALCIUM 8.1 mg/dl (8.5-10.1); CARBON DIOXIDE 26 mmol/L (21-32); CREATININE 0.98 mg/dl (0.60-1.40); GLUCOSE 111 mg/dl (70-99); LIPASE 297 U/L (73-393); POTASSIUM 3.5 mmol/L (3.5-5.1); SODIUM 140 mmol/L (136-145)
[2017-03-31 19:15] LABS: ALKALINE PHOSPHATASE 137 U/L (45-117); CKMB 10.2 ng/ml (0.5-3.6)
[2017-03-31 21:30] VITALS: BP 126/89; PULSE 95; O2SAT 94
== END 2017-03-31 22:12 | disposition home or self-care (01) ==
LOC: EDBD 17:57 → C.EDC 17:58
DX: F10.229 Alcohol dependence with intoxication, unspecified (principal); R07.9 Chest pain, unspecified; M62.82 Rhabdomyolysis; R10.9 Unspecified abdominal pain; I51.7 Cardiomegaly; Z87.891 Personal history of nicotine dependence

== ENCOUNTER 2021-05-11 15:10 | Inpatient (IN) ==
--- NOTE | 2021-05-11 15:30 | Emergency Department Note ---
Impression & Plan Alcohol abuse, Thrombocytopenia, Weakness, Elevated lactic acid level, Elevated LFTs, Myalgia, Contusion of abdominal wall, Hypokalemia ED Provider Note Provider: Maximo Lowry MD DATE OF SERVICE: 05/11/2021 CHIEF COMPLAINT: Body pain, heavy drinking HISTORY OF PRESENT ILLNESS: Patient is a 61-year-old gentleman history of alcohol use presenting via ambulance from his home today. Citizen Of [place] translation services used. Patient relays over the past 2 weeks heavy drinking of vodka at least a quart every day. States over the past weeks developed diffuse pain everywhere. States he initially had some diarrhea but that stopped has not been able to eat anything. Is unsure if he is fallen. Reports diffuse pain to his head, chest, abdomen, and limbs. Patient denies anybody else being sick to his knowledge but lives at home with his . Patient states this has happened before sometimes with heavy drinking. He knows the drinking is a problem. Patient states he just wants us to help him as everything hurts. REVIEW OF SYSTEMS: A total of 10 review of systems was obtained and negative except as stated above in the HPI. PAST MEDICAL HISTORY: As noted above MEDICATIONS: None reported SOCIAL HISTORY: Lives at home with , history of alcohol abuse, primary language Citizen Of [place] PHYSICAL EXAM: GENERAL: alert and oriented in no acute distress on stretcher fatigued appearing Head: normocephalic and atraumatic EYES: No injection, discharge or icterus. PERRL NECK: Trachea midline. Supple. ENT: Mucous membranes pink and moist. LUNGS: Airway patent. No retractions. Breath sounds clear HEART: Regular rate and rhythm. No chest wall tenderness ABDOMEN: Soft mild diffuse tenderness. A little bit of bruising approximately 5 cm in the right side of the abdomen noted in the subcutaneous region. No fluctuance or wound noted here. SKIN: Acyanotic, warm, dry EXTREMITIES: Trace edema. No significant tenderness or deformity of the lower legs. NEUROLOGICAL: No focal deficits. No facial droop or slurred speech. Normal strength and tone in the extremities. Sensation to gross touch normal. EK bpm sinus rhythm with first-degree AV block. No PVC or PAC. No acute ST segment elevation or depression. QTC 443. CONTINUOUS CARDIAC MONITORING: was ordered and showed a heart rate of 70s-80s bpm in normal sinus rhythm Patient's laboratory studies and imaging reviewed. Differential includes Infection, dehydration, metabolic abnormality, hypo/hyperglycemia, electrolyte disturbance, anemia, hypoxia, cardiac sources, intracerebral event, toxicologic, neurologic, as well as other pathologies. IMPRESSION/MEDICAL DECISION MAKING: Patient with some diffuse body pains and reported heavy alcohol use the last 2 weeks. Mild contusion of the right abdomen. He is unsure if he is fallen. Blood work without leukocytosis and minimal anemia. Significant thrombocytopeni a. INR not elevated today. Some hypokalemia noted with some anion gap and an elevated lactate of 3.5. Questions related to decreased intake. Procalcitonin not significantly elevated do not see clear infectious etiology at this time. Alcohol level is elevated today. Covid test negative. AST ALT and alkaline phosphatase mildly elevated. Lipase mildly elevated. CT head and cervical spine given questionable history was obtained without evidence per radiology of acute traumatic injury or bleeding. IV fluids were given. Potassium chloride given IV for mild hypokalemia. CT of the chest without noted acute traumatic injury or pulmonary embolism. No pneumonia noted per radiology. (Transient episode of hypoxia on room air to 89% likely related to positioning is a quickly improved.) CT the abdomen pelvis per radiology with some hepatic steatosis but no other acute abnormality noted. Patient reassessment still feeling weak and fatigued. Given mild LFT abnormality we will give a small dose of Toradol rather than Tylenol. Discussed with the patient via translation services findings. Patient does have a history of hallucinations but no seizures in the past with alcohol withdrawal. Would be interested in alcohol rehab services but he is unsure of the financial considerations. Believe the majority of his symptoms are related to his binge of alcohol drinking recently. DIAGNOSIS: Alcohol abuse, thrombocytopenia, elevated lactate, weakness, myalgia, elevate LFTs, abdominal wall contusion, hypokalemia DISPOSITION: Hospitalist will evaluate Patient was agreeable with this plan. Past Med/Surg History Medical History Alcoholism History of violent behavior Per daughter (Lindsey), pt will become violent when drinking Morbid obesity Osteoarthritis Surgical History Hx of elbow surgery ? 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 Beliefs That Will Affect Care: None Current Living Situation: Spouse Assistive Devices: Denture - Upper and Denture - Lower Allergies Allergies Allergy/AdvReac Type Severity Reaction Status Date / Time No Known Allergies Allergy Verified 05/11/21 15:42 Home Meds Home Medications Medication Instructions Recorded Confirmed No Known Home Medications 05/11/21 05/11/21 Results & Data (ED) Vital Signs Vital Signs - 24 hr 05/11/21 15:29 05/11/21 15:32 05/11/21 17:04 Temperature 37.1 C Temperature Source Oral Pulse Rate 86 84 Pulse Rate [Left Radial] 80 87 Pulse Rhythm Regular Regular Pulse Rhythm [Left Radial] Regular Regular Pulse Strength Normal Pulse Strength [Left Radial] Normal Normal Respiratory Rate 14 14 14 Respiratory Effort / Characteristics Non-Labored Non-Labored Non-Labored Respiratory Depth Normal Normal Normal Respiratory Pattern Regular Regular Regular Blood Pressure 162/99 H Blood Pressure [Left Arm] 147/95 H 116/88 Blood Pressure Mean 120 Blood Pressure Mean [Left Arm] 112 97 Blood Pressure Position Lying Blood Pressure Position [Left Arm] Lying Lying Pulse Oximetry 94 98 98 Oxygen Delivery Method Room Air Room Air Room Air Sepsis Recent Fever Within 48 Hours No Sepsis New/Unexplained Change in Mental Status No Sepsis Action Taken by Nursing No Action Required 05/11/21 19:00 Temperature Temperature Source Pulse Rate Pulse Rate [Left Radial] 80 Pulse Rhythm Pulse Rhythm [Left Radial] Regular Pulse Strength Pulse Strength [Left Radial] Normal Respiratory Rate 14 Respiratory Effort / Characteristics Non-Labored Respiratory Depth Normal Respiratory Pattern Regular Blood Pressure Blood Pressure [Left Arm] 162/92 H Blood Pressure Mean Blood Pressure Mean [Left Arm] 115 Blood Pressure Position Blood Pressure Position [Left Arm] Lying Pulse Oximetry 98 Oxygen Delivery Method Room Air Sepsis Recent Fever Within 48 Hours Sepsis New/Unexplained Change in Mental Status Sepsis Action Taken by Nursing Laboratory Data Result diagrams: 05/11/21 15:40 05/11/21 15:40 Lab Results 05/11/21 05/11/2122 Range/Units 15:40 15:40 15:40 WBC 6.26 (4.8-10.8) K/uL RBC 4.69 L (4.7-6.1) M/uL Hgb 13.5 L (14.0-18.0) g/dL Hct 39.9 L (42-52) % MCV 85.1 (80-100) fL MCH 28.8 (25-34) pg MCHC 33.8 (32-36) g/dL RDW Std Deviation 55.4 H (36.4-46.3) fL RDW Coeff of Vincenzo 18.4 H (11.5-14.5) % Plt Count 45 L (130-400) K/uL MPV 10.0 (7.4-10.4) fL Immature Gran % (Auto) 0.6 % Neut % (Auto) 76.3 % Lymph % (Auto) 17.1 % [place] % (Auto) 5.8 % Eos % (Auto) 0.0 % Baso % (Auto) 0.2 % Neut # (Auto) 4.78 (1.4-6.5) K/uL Lymph # (Auto) 1.07 L (1.2-3.4) K/uL [place] # (Auto) 0.36 (0.11-0.59) K/uL Eos # (Auto) 0.00 (0-0.5) K/uL Baso # (Auto) 0.01 (0-0.2) K/uL Immature Gran # (Auto) 0.04 H (0.00-0.02) K/uL Platelet Estimate Decreased L (Normal) Target Cells 1+ PT 10.6 (9.0-12.0) Seconds INR 1.0 (0.9-1.1) APTT 26.1 (21.0-31.0) Seconds PTT Ratio 1.0 Sodium (136-145) mmol/L Potassium (3.5-5.1) mmol/L Chloride (98-107) mmol/L Carbon Dioxide (21-32) mmol/L Anion Gap (3-11) BUN (6-23) mg/dl Creatinine (0.6-1.4) mg/dl Est Cr Clr Drug Dosing Est GFR ( Amer) ml/min Est GFR (Non-Af Amer) ml/min BUN/Creatinine Ratio (10-20) Glucose (70-99(Fasting)) mg/dl Lactate 3.5 H* (0.4-2.0) mmol/L Calcium (8.5-10.1) mg/dl Magnesium (1.7-2.4) mg/dl Total Bilirubin (0.2-1.0) mg/dl AST (13-39) U/L ALT (7-52) U/L Alkaline Phosphatase (34-104) U/L Ammonia (18-72) umol/L Total Creatine Kinase (30-223) U/L Troponin I (0-0.04) ng/ml Total Protein (6.0-8.3) gm/dl Albumin (3.4-5.0) gm/dl Globulin (2.5-4.0) gm/dl Albumin/Globulin Ratio (0.9-2) Lipase (11-82) U/L Procalcitonin (0-0.5) ng/ml TSH (0.300-4.500) uIu/ml Urine Color Urine Appearance (Clear) Urine pH (4.5-7.5) Ur Specific [place] (1.000-1.030) Urine Protein (Negative) Urine Glucose (UA) (Negative) Urine Ketones (Negative) Urine Blood (Negative) Urine Nitrite (Negative) Urine Bilirubin (Negative) Urine Urobilinogen (Negative) Ur Leukocyte Esterase (Negative) Urine WBC (Auto) (0-5) /hpf Urine RBC (Auto) (0-4) /hpf U Hyaline Cast (Auto) (0-5) /lpf U Epithel Cells (Auto) (0-5) /lpf Urine Bacteria (Auto) (Negative) Ethyl Alcohol mg/dL (<10.0) mg/dl SARS-CoV-2, RNA, NAAT (NEGATIVE) 05/11/21 05/11/21 05/11/21 Range/Units 15:40 15:40 15:40 WBC (4.8-10.8) K/uL RBC (4.7-6.1) M/uL Hgb (14.0-18.0) g/dL Hct (42-52) % MCV (80-100) fL MCH (25-34) pg MCHC (32-36) g/dL RDW Std Deviation (36.4-46.3) fL RDW Coeff of Vincenzo (11.5-14.5) % Plt Count (130-400) K/uL MPV (7.4-10.4) fL Immature Gran % (Auto) % Neut % (Auto) % Lymph % (Auto) % [place] % (Auto) % Eos % (Auto) % Baso % (Auto) % Neut # (Auto) (1.4-6.5) K/uL Lymph # (Auto) (1.2-3.4) K/uL [place] # (Auto) (0.11-0.59) K/uL Eos # (Auto) (0-0.5) K/uL Baso # (Auto) (0-0.2) K/uL Immature Gran # (Auto) (0.00-0.02) K/uL Platelet Estimate (Normal) Target Cells PT (9.0-12.0) Seconds INR (0.9-1.1) APTT (21.0-31.0) Seconds PTT Ratio Sodium 139 (136-145) mmol/L Potassium 3.1 L (3.5-5.1) mmol/L Chloride 97 L (98-107) mmol/L Carbon Dioxide 24 (21-32) mmol/L Anion Gap 18 H (3-11) BUN 8 (6-23) mg/dl Creatinine 0.83 (0.6-1.4) mg/dl Est Cr Clr Drug Dosing Not Reportable Est GFR ( Amer) 110.8 ml/min Est GFR (Non-Af Amer) 95.6 ml/min BUN/Creatinine Ratio 9.6 L (10-20) Glucose 92 (70-99(Fasting)) mg/dl Lactate (0.4-2.0) mmol/L Calcium 8.2 L (8.5-10.1) mg/dl Magnesium 1.8 (1.7-2.4) mg/dl Total Bilirubin 1.1 H (0.2-1.0) mg/dl AST 98 H (13-39) U/L ALT 70 H (7-52) U/L Alkaline Phosphatase 112 H (34-104) U/L Ammonia (18-72) umol/L Total Creatine Kinase 298 H (30-223) U/L Troponin I < 0.03 (0-0.04) ng/ml Total Protein 7.0 (6.0-8.3) gm/dl Albumin 4.1 (3.4-5.0) gm/dl Globulin 2.9 (2.5-4.0) gm/dl Albumin/Globulin Ratio 1.4 (0.9-2) Lipase 133 H (11-82) U/L Procalcitonin (0-0.5) ng/ml TSH 0.916 (0.300-4.500) uIu/ml Urine Color Urine Appearance (Clear) Urine pH (4.5-7.5) Ur Specific [place] (1.000-1.030) Urine Protein (Negative) Urine Glucose (UA) (Negative) Urine Ketones (Negative) Urine Blood (Negative) Urine Nitrite (Negative) Urine Bilirubin (Negative) Urine Urobilinogen (Negative) Ur Leukocyte Esterase (Negative) Urine WBC (Auto) (0-5) /hpf Urine RBC (Auto) (0-4) /hpf U Hyaline Cast (Auto) (0-5) /lpf U Epithel Cells (Auto) (0-5) /lpf Urine Bacteria (Auto) (Negative) Ethyl Alcohol mg/dL 273.0 H (<10.0) mg/dl SARS-CoV-2, RNA, NAAT (NEGATIVE) 05/11/21 05/11/21 05/11/21 Range/Units 15:40 15:40 15:40 WBC (4.8-10.8) K/uL RBC (4.7-6.1) M/uL Hgb (14.0-18.0) g/dL Hct (42-52) % MCV (80-100) fL MCH (25-34) pg MCHC (32-36) g/dL RDW Std Deviation (36.4-46.3) fL RDW Coeff of Vincenzo (11.5-14.5) % Plt Count (130-400) K/uL MPV (7.4-10.4) fL Immature Gran % (Auto) % Neut % (Auto) % Lymph % (Auto) % [place] % (Auto) % Eos % (Auto) % Baso % (Auto) % Neut # (Auto) (1.4-6.5) K/uL Lymph # (Auto) (1.2-3.4) K/uL [place] # (Auto) (0.11-0.59) K/uL Eos # (Auto) (0-0.5) K/uL Baso # (Auto) (0-0.2) K/uL Immature Gran # (Auto) (0.00-0.02) K/uL Platelet Estimate (Normal) Target Cells PT (9.0-12.0) Seconds INR (0.9-1.1) APTT (21.0-31.0) Seconds PTT Ratio Sodium (136-145) mmol/L Potassium (3.5-5.1) mmol/L Chloride (98-107) mmol/L Carbon Dioxide (21-32) mmol/L Anion Gap (3-11) BUN (6-23) mg/dl Creatinine (0.6-1.4) mg/dl Est Cr Clr Drug Dosing Est GFR ( Amer) ml/min Est GFR (Non-Af Amer) ml/min BUN/Creatinine Ratio (10-20) Glucose (70-99(Fasting)) mg/dl Lactate (0.4-2.0) mmol/L Calcium (8.5-10.1) mg/dl Magnesium (1.7-2.4) mg/dl Total Bilirubin (0.2-1.0) mg/dl AST (13-39) U/L ALT (7-52) U/L Alkaline Phosphatase (34-104) U/L Ammonia (18-72) umol/L Total Creatine Kinase (30-223) U/L Troponin I (0-0.04) ng/ml Total Protein (6.0-8.3) gm/dl Albumin (3.4-5.0) gm/dl Globulin (2.5-4.0) gm/dl Albumin/Globulin Ratio (0.9-2) Lipase (11-82) U/L Procalcitonin 0.08 (0-0.5) ng/ml TSH (0.300-4.500) uIu/ml Urine Color [place] Urine Appearance Clear (Clear) Urine pH 6.5 (4.5-7.5) Ur Specific [place] 1.021 (1.000-1.030) Urine Protein 2+ H (Negative) Urine Glucose (UA) Negative (Negative) Urine Ketones 3+ H (Negative) Urine Blood 2+ H (Negative) Urine Nitrite Negative (Negative) Urine Bilirubin 1+ H (Negative) Urine Urobilinogen Negative (Negative) Ur Leukocyte Esterase Negative (Negative) Urine WBC (Auto) 1-5 (0-5) /hpf Urine RBC (Auto) 10-30 H (0-4) /hpf U Hyaline Cast (Auto) 1-5 (0-5) /lpf U Epithel Cells (Auto) 10-20 H (0-5) /lpf Urine Bacteria (Auto) Negative (Negative) Ethyl Alcohol mg/dL (<10.0) mg/dl SARS-CoV-2, RNA, NAAT NEGATIVE (NEGATIVE) 05/11/21 05/11/21 Range/Units 18:01 18:01 WBC (4.8-10.8) K/uL RBC (4.7-6.1) M/uL Hgb (14.0-18.0) g/dL Hct (42-52) % MCV (80-100) fL MCH (25-34) pg MCHC (32-36) g/dL RDW Std Deviation (36.4-46.3) fL RDW Coeff of Vincenzo (11.5-14.5) % Plt Count (130-400) K/uL MPV (7.4-10.4) fL Immature Gran % (Auto) % Neut % (Auto) % Lymph % (Auto) % [place] % (Auto) % Eos % (Auto) % Baso % (Auto) % Neut # (Auto) (1.4-6.5) K/uL Lymph # (Auto) (1.2-3.4) K/uL [place] # (Auto) (0.11-0.59) K/uL Eos # (Auto) (0-0.5) K/uL Baso # (Auto) (0-0.2) K/uL Immature Gran # (Auto) (0.00-0.02) K/uL Platelet Estimate (Normal) Target Cells PT (9.0-12.0) Seconds INR (0.9-1.1) APTT (21.0-31.0) Seconds PTT Ratio Sodium (136-145) mmol/L Potassium (3.5-5.1) mmol/L Chloride (98-107) mmol/L Carbon Dioxide (21-32) mmol/L Anion Gap (3-11) BUN (6-23) mg/dl Creatinine (0.6-1.4) mg/dl Est Cr Clr Drug Dosing Est GFR ( Amer) ml/min Est GFR (Non-Af Amer) ml/min BUN/Creatinine Ratio (10-20) Glucose (70-99(Fasting)) mg/dl Lactate 3.2 H* (0.4-2.0) mmol/L Calcium (8.5-10.1) mg/dl Magnesium (1.7-2.4) mg/dl Total Bilirubin (0.2-1.0) mg/dl AST (13-39) U/L ALT (7-52) U/L Alkaline Phosphatase (34-104) U/L Ammonia 29.0 (18-72) umol/L Total Creatine Kinase (30-223) U/L Troponin I (0-0.04) ng/ml Total Protein (6.0-8.3) gm/dl Albumin (3.4-5.0) gm/dl Globulin (2.5-4.0) gm/dl Albumin/Globulin Ratio (0.9-2) Lipase (11-82) U/L Procalcitonin (0-0.5) ng/ml TSH (0.300-4.500) uIu/ml Urine Color Urine Appearance (Clear) Urine pH (4.5-7.5) Ur Specific [place] (1.000-1.030) Urine Protein (Negative) Urine Glucose (UA) (Negative) Urine Ketones (Negative) Urine Blood (Negative) Urine Nitrite (Negative) Urine Bilirubin (Negative) Urine Urobilinogen (Negative) Ur Leukocyte Esterase (Negative) Urine WBC (Auto) (0-5) /hpf Urine RBC (Auto) (0-4) /hpf U Hyaline Cast (Auto) (0-5) /lpf U Epithel Cells (Auto) (0-5) /lpf Urine Bacteria (Auto) (Negative) Ethyl Alcohol mg/dL (<10.0) mg/dl SARS-CoV-2, RNA, NAAT (NEGATIVE) Administered Medications Discontinued Medications Multivitamins 10 ml/ Thiamine HCl 100 mg/ Folic Acid 1 mg/Sodium Chloride 1,011.2 mls @ 1,011.2 mls/hr IV .Q1H ONE Stop: 05/11/21 16:34 Last Infusion: 05/11/21 16:50 Dose: 0 mls/hr Documented by: [id number] Admin: 05/11/21 15:48 Dose: 1,011.2 mls/hr Documented by: [id number] Lactated Ringer's (Lr) 1,000 mls @ 999 mls/hr IV .Q1H1M ONE Stop: 05/11/21 17:25 Last Infusion: 05/11/21 18:06 Dose: 0 mls/hr Documented by: [id number] Admin: 05/11/21 17:03 Dose: 999 mls/hr Documented by: [id number] Potassium Chloride (K Greg / Wtr) 10 meq in 100 mls @ 100 mls/hr IV ONE ONE; Protocol Stop: 05/11/21 17:25 Last Infusion: 05/11/21 18:06 Dose: 0 mls/hr Documented by: [id number] Admin: 05/11/21 17:03 Dose: 100 mls/hr Documented by: [id number] Ioversol (Optiray 320 125ml) 117 ml IV ONCE ONE Stop: 05/11/21 16:54 Last Admin: 05/11/21 16:54 Dose: 117 ml Documented by: [id number] Ketorolac Tromethamine (Ketorolac Tromethamine 15 Mg/Ml Vial) 15 mg IV NOW STA Stop: 05/11/21 17:56 Last Admin: 05/11/21 18:05 Dose: 15 mg Documented by: [id number] Imaging Data Radiologist's Impression: Abdomen/Pelvis CT 05/11/21 15:23 CT abd pelvis IV con only CLINICAL HISTORY: etoh, pain, brusing TECHNIQUE: Helical axial images of the abdomen and pelvis were obtained and displayed. Automated dose lowering techniques and/or adjustment according to patient size were utilized for this exam. This exam was performed with intravenous contrast. COMPARISON: Comparison is made to CT abdomen pelvis 08/05/2016 FINDINGS: Lower chest: No acute abnormality Liver: Hepatic steatosis is noted. Gallbladder and biliary tree: No calcified gallstones. Normal caliber wall. No intra- or extrahepatic biliary ductal dilation. Pancreas: Unremarkable, no focal lesions. Spleen: Unremarkable. Adrenals: Unremarkable. Kidneys and ureters: Subcentimeter hypodensities are too small to characterize. Bladder: Unremarkable. Reproductive organs: Prostatomegaly is seen. Bowel: Unremarkable. Lymph nodes Retroperitoneal: Unremarkable. Mesenteric: Unremarkable. Pelvic: Unremarkable. Peritoneum: Normal. Vessels: Unremarkable. Abdominal wall: Bilateral fat-containing inguinal hernias are seen. Minimal soft tissue stranding is seen in the right mid abdomen. Bones: Degenerative changes in the visualized spine. IMPRESSION: 1. No evidence of acute fracture. No acute abnormality is seen. 2. Hepatic steatosis. 3. Prostatomegaly. ACT 112: Negative or not required by law. Electronically signed by: Pino Aldrich M.D. 05/11/2021 5:[address] 05/11/21 15:23 CT cervical spine wo con CLINICAL HISTORY: pains, etoh TECHNIQUE: Multidetector row helical CT of the cervical spine was performed without administration of intravenous contrast. Coronal and sagittal reformations were obtained. Automated dose lowering techniques and/or adjustment according to patient size were utilized for this exam. Comparison: None available at the time of this dictation. FINDINGS: No acute fractures or subluxations are identified. Degenerative changes are seen in the visualized spine. The alignment is normal. Incidentally noted is sinus disease in the bilateral sphenoid and right maxillary sinus. IMPRESSION: Degenerative changes without evidence of acute bony injury. ACT 112: Negative or not required by law. Electronically signed by: Pino Aldrich M.D. 05/11/2021 5:05 PM Chest X-Ray 05/11/21 15:23 XR chest 1V portable CLINICAL HISTORY: weakness TECHNIQUE: Single frontal radiograph of the chest was obtained. Comparison: Comparison is made to chest 2 views 11/01/2020 FINDINGS: No lines and tubes are seen. The cardiomediastinal silhouette is normal. The lungs are clear. No evidence of pleural effusion or pneumothorax. IMPRESSION: No acute chest disease. ACT 112: Negative or not required by law. Electronically signed by: Pino Aldrich M.D. 05/11/2021 4:[address] 05/11/21 15:23 CT head/brain wo con CLINICAL HISTORY: weak, pain, etoh Technique: Contiguous axial CT images of the head were acquired from the base of the skull to the vertex without intravenous contrast administration. Images were viewed in brain, subdural and bone windows. Automated dose lowering techniques and/or adjustment according to patient size were utilized for this exam. Comparison: Comparison is made to CT head 06/15/2012 Findings: The ventricles, basal cisterns, and cerebral sulci are normal. There is no acute intracranial hemorrhage or evidence of acute territorial infarction. Neither mass effect, shift of the midline structures, nor abnormal extra-axial fluid collections are shown. Imaged portions of the paranasal sinuses and mastoid air cells are clear. The orbits appear normal. There are no acute fractures of the calvaria or scalp swelling. Impression: No acute intracranial hemorrhage, no evidence of acute territorial infarction or other acute intracranial disease process. ACT 112: Negative or not required by law. Electronically signed by: Pino Aldrich M.D. 05/11/2021 5:02 PM Chest CTA 05/11/21 16:24 CT angio chest PE protocol CLINICAL HISTORY: PE, weak sob, hypoxia, falls TECHNIQUE: Multidetector row helical CT of the chest was performed. Coronal and sagittal reformations were obtained. Coronal and sagittal MIPS were obtained from the axial data set and were submitted for review. Automated dose lowering techniques and/or adjustment according to patient size were utilized for this exam. Comparison: None available at the time of this dictation. FINDINGS: Lungs and pleura: Normal. Heart and pericardium: Heart size is normal. No pericardial effusion. Vessels: No evidence of pulmonary embolism. Mediastinum and aric: Subcentimeter lymph nodes are seen. Chest wall and lower neck: Unremarkable. Abdomen: For findings below the diaphragm, please refer to CT of the abdomen dated the same. Bones: Degenerative changes in the thoracic spine. No evidence of acute fractures. IMPRESSION: No acute abnormality. No pulmonary embolism. ACT 112: Negative or not required by law. Electronically signed by: Pino Aldrich M.D. 05/11/2021 5:13 PM Discharge Plan Visit Data Chief Complaint: Illness ED Provider: Maximo Lowry Discharge Problem: Alcohol abuse, Thrombocytopenia, Weakness, Elevated lactic acid level, Elevated LFTs, Myalgia, Contusion of abdominal wall, Hypokalemia Patient Disposition: Being Evaluated by Hospitalist Forms Stand Alone Forms: [facility] [employer] Prescriptions Prescriptions: No Action No Known Home Medications RF: 0 Referrals Referrals: Jason Renee MD [Primary Care Provider] -
[2021-05-11] MEDS ORDERED: MULTI-VITAMIN INFUSION 10 ML, THIAMINE HCL 100 MG, FOLIC ACID 1 MG in SODIUM CHLORIDE 0... IV ONE (15:35)
--- NOTE | 2021-05-11 16:06 | XRay Report ---
XR chest 1V portable CLINICAL HISTORY: weakness TECHNIQUE: Single frontal radiograph of the chest was obtained. Comparison: Comparison is made to chest 2 views 11/01/2020 FINDINGS: No lines and tubes are seen. The cardiomediastinal silhouette is normal. The lungs are clear. No evid ence of pleural effusion or pneumothorax. IMPRESSION: No acute chest disease. ACT 112: Negative or not required by law. Electronically signed by: Pino Aldrich M.D. 05/11/2021 4:04 PM
[2021-05-11 16:13] LABS: Partial Thromboplastin Time 26.1 Seconds (21.0-31.0); Prothrombin Time 10.6 Seconds (9.0-12.0)
[2021-05-11 16:16] LABS: Alanine Aminotransferase 70 U/L (7-52); Albumin Globulin Ratio 1.4 (0.9-2); Albumin Level 4.1 gm/dl (3.4-5.0); Alkaline Phosphatase 112 U/L (34-104); Anion Gap 18 (3-11); Aspartate Aminotransferase 98 U/L (13-39); BUN Creatinine Ratio 9.6 (10-20); Bilirubin,Total 1.1 mg/dl (0.2-1.0); Blood Urea Nitrogen 8 mg/dl (6-23); Calcium 8.2 mg/dl (8.5-10.1); Carbon Dioxide 24 mmol/L (21-32); Chloride 97 mmol/L (98-107); Creatine Kinase 298 U/L (30-223); Est GFR (African American) 110.8 ml/min; Est GFR (Non-African American) 95.6 ml/min; Globulin 2.9 gm/dl (2.5-4.0); Glucose 92 mg/dl (70-99(Fasting)); Lipase 133 U/L (11-82); Magnesium 1.8 mg/dl (1.7-2.4); Potassium 3.1 mmol/L (3.5-5.1); Sodium 139 mmol/L (136-145)
[2021-05-11 16:18] LABS: Troponin I < 0.03 ng/ml (0-0.04)
[2021-05-11 16:23] LABS: Basophils # (auto) 0.01 K/uL (0-0.2); Basophils % (auto) 0.2 %; Hematocrit (blood only) 39.9 % (42-52); Hemoglobin 13.5 g/dL (14.0-18.0); Immature Granulocytes # (auto) 0.04 K/uL (0.00-0.02); Immature Granulocytes % (auto) 0.6 %; Lymphocytes # (auto) 1.07 K/uL (1.2-3.4); Lymphocytes % (auto) 17.1 %; Mean Corpuscular Hemoglobin 28.8 pg (25-34); Mean Corpuscular Hgb Conc 33.8 g/dL (32-36); Mean Corpuscular Volume 85.1 fL (80-100); Monocytes # (auto) 0.36 K/uL (0.11-0.59); Monocytes % (auto) 5.8 %; Neutrophils # (auto) 4.78 K/uL (1.4-6.5); Neutrophils % (auto) 76.3 %; Platelet Count 45 K/uL (130-400); Platelet Estimate Decreased (Normal); RDW Coefficient of Variation 18.4 % (11.5-14.5); RDW Standard Deviation 55.4 fL (36.4-46.3); Red Blood Count 4.69 M/uL (4.7-6.1); Target Cells 1+; White Blood Count 6.26 K/uL (4.8-10.8)
[2021-05-11] MEDS ORDERED: LACTATED RINGER'S 1,000 ML IV ONE (16:25)
[2021-05-11] MEDS ORDERED: POTASSIUM CHLORIDE / WTR 10 MEQ/100 ML PLCT IV ONE (16:26)
[2021-05-11 16:53] LABS: Appearance Urine Clear (Clear); Bacteria Urine Automated Negative (Negative); Blood Urine 2+ (Negative); Color Urine Orange; Glucose Urine UA Negative (Negative); Ketones Urine 3+ (Negative); Leukocyte Esterase Urine Negative (Negative); Nitrite Urine Negative (Negative); Protein Urine 2+ (Negative); Specific Gravity Urine 1.021 (1.000-1.030); Urobilinogen Urine Negative (Negative); pH Urine 6.5 (4.5-7.5)
[2021-05-11] MEDS ORDERED: OPTIRAY 320 125ml IV ONE (16:53)
[2021-05-11 16:55] LABS: Bilirubin Urine 1+ (Negative)
--- NOTE | 2021-05-11 17:04 | CT Scan Report ---
CT head/brain wo con CLINICAL HISTORY: weak, pain, etoh Technique: Contiguous axial CT images of the head were acquired from the base of the skull to the mary dontrell without intravenous contrast administration. Images were viewed in brain, subdural and bone [facility] . Automated dose lowering techniques and/or adjustment according to patient size were utilized for this exam. Comparison: Comparison is made to CT head 06/15/2012 Findings: The ventricles, basal cisterns, and cerebral sulci are normal. There is no acute intracranial hemorrh age or evidence of acute territorial infarction. Neither mass effect, shift of the midline structures , nor abnormal extra-axial fluid collections are shown. Imaged portions of the paranasal sinuses and mastoid air cells are clear. The orbits appear normal. There are no acute fractures of the calvaria or scalp swelling. Impression: No acute intracranial hemorrhage, no evidence of acute territorial infarction or other acute intracra nial disease process. ACT 112: Negative or not required by law. Electronically signed by: Pino Aldrich M.D. 05/11/2021 5:02 PM
--- NOTE | 2021-05-11 17:07 | CT Scan Report ---
CT cervical spine wo con CLINICAL HISTORY: pains, etoh TECHNIQUE: Multidetector row helical CT of the cervical spine was performed without administration of intravenous contrast. Coronal and sagittal reformations were obtained. Automated dose lowering techn iques and/or adjustment according to patient size were utilized for this exam. Comparison: None available at the time of this dictation. FINDINGS: No acute fractures or subluxations are identified. Degenerative changes are seen in the visualized sp ine. The alignment is normal. Incidentally noted is sinus disease in the bilateral sphenoid and right maxillary sinus. IMPRESSION: Degenerative changes without evidence of acute bony injury. ACT 112: Negative or not required by law. Electronically signed by: Pino Aldrich M.D. 05/11/2021 5:05 PM
--- NOTE | 2021-05-11 17:14 | CT Scan Report ---
CT angio chest PE protocol CLINICAL HISTORY: PE, weak sob, hypoxia, falls TECHNIQUE: Multidetector row helical CT of the chest was performed. Coronal and sagittal reformations were obtained. Coronal and sagittal MIPS were obtained from the axial data set and were submitted fo r review. Automated dose lowering techniques and/or adjustment according to patient size were utiliz ed for this exam. Comparison: None available at the time of this dictation. FINDINGS: Lungs and pleura: Normal. Heart and pericardium: Heart size is normal. No pericardial effusion. Vessels: No evidence of pulmonary embolism. Mediastinum and aric: Subcentimeter lymph nodes are seen. Chest wall and lower neck: Unremarkable. Abdomen: For findings below the diaphragm, please refer to CT of the abdomen dated the same. Bones: Degenerative changes in the thoracic spine. No evidence of acute fractures. IMPRESSION: No acute abnormality. No pulmonary embolism. ACT 112: Negative or not required by law. Electronically signed by: Pino Aldrich M.D. 05/11/2021 5:13 PM
--- NOTE | 2021-05-11 17:24 | CT Scan Report ---
CT abd pelvis IV con only CLINICAL HISTORY: etoh, pain, brusing TECHNIQUE: Helical axial images of the abdomen and pelvis were obtained and displayed. Automated dose lowering techniques and/or adjustment according to patient size were utilized for this exam. This e xam was performed with intravenous contrast. COMPARISON: Comparison is made to CT abdomen pelvis 08/05/2016 FINDINGS: Lower chest: No acute abnormality Liver: Hepatic steatosis is noted. Gallbladder and biliary tree: No calcified gallstones. Normal caliber wall. No intra- or extrahepatic biliary ductal dilation. Pancreas: Unremarkable, no focal lesions. Spleen: Unremarkable. Adrenals: Unremarkable. Kidneys and ureters: Subcentimeter hypodensities are too small to characterize. Bladder: Unremarkable. Reproductive organs: Prostatomegaly is seen. Bowel: Unremarkable. Lymph nodes Retroperitoneal: Unremarkable. Mesenteric: Unremarkable. Pelvic: Unremarkable. Peritoneum: Normal. Vessels: Unremarkable. Abdominal wall: Bilateral fat-containing inguinal hernias are seen. Minimal soft tissue stranding is seen in the right mid abdomen. Bones: Degenerative changes in the visualized spine. IMPRESSION: 1. No evidence of acute fracture. No acute abnormality is seen. 2. Hepatic steatosis. 3. Prostatomegaly. ACT 112: Negative or not required by law. Electronically signed by: Pino Aldrich M.D. 05/11/2021 5:23 PM
[2021-05-11] MEDS ORDERED: KETOROLAC TROMETHAMINE 15 MG/ML VIAL IV STA (17:55)
[2021-05-11 19:21] LABS: Amphetamines+Metham, Urine Neg (Neg); Barbiturates, Urine Neg (Neg); Benzodiazepine, Urine Neg (Neg); Cocaine, Urine Neg (Neg); MDMA (Ecstacy), Urine Neg (Neg); Methadone, Urine Neg (Neg); Opiate, Urine Neg (Neg); Phencyclidine, Urine Neg (Neg)
--- NOTE | 2021-05-11 19:44 | History & Physical Report ---
Date of Service May 11, 2021 Assessment & Plan (1) Alcohol withdrawal: Plan: Starting gabapentin protocol and PRN Lorazepam, starting with 4mg IV now in the ER. Patient has a h/o violent behavior per chart. He is currently mentating clearly but is high risk for delirium. Monitor on telemetry. Supportive care with antiemetics as needed. (2) Alcohol abuse: Plan: Heavy abuse, reports drinking for two weeks continuously. Cont with alcohol withdrawal protocol as above. Advocate for rehab once through withdrawal. (3) Thrombocytopenia: Plan: Likely secondary thrombocytopenia, possible related to liver disease vs other. Hold any further NSAIDs (received ketorolac in the ER) and avoid DVT chemoprophylaxis. No evidence of active bleeding at this time. Repeat CBC in am. (4) Elevated LFTs: Plan: 2/2 alcohol use in setting of hepatic steatosis. Trend in am. (5) Elevated blood pressure reading: Plan: Likely situational related to active alcohol withdrawal. Doesn't take anti hypertensives regularly at home. (6) Bacterial conjunctivitis of left eye: Plan: Polymyxin drops ordered. (7) Morbid obesity: (8) DVT prophylaxis: Plan: SCDs, chemoprophylaxis contraindicated in setting of thrombocytopenia. Full Code Dispo-to telemetry. DO Favio [place] Hospitalist History of Present Illness Chief Complaint: heavy alcohol use, withdrawing Primary Care Provider: Jason Renee MD 61 yo Panamanian speaking man presents to the ER today after two weeks of drinking constantly reporting not feeling well. He doesn't states anything hurts focally, just generally feels pain everywhere. He is retching and reports severe nausea. He reports not eating much, only drinking water recently. He reports some diarrhea that has resolved; he cannot tell me if any blood was present. He denies chest pain or shortness of breath. He reports prison heavy drinking but the daily amount was unclear through the interpretation. He has some drainage from his eye but "doesn't know" if it is infected. "anything is possible." He is having trouble sleeping and reports occasional OTC medication for insomnia, but cannot tell me what he takes. He also reports smoking 1 ppd cigarettes, and no other drug use. Allergies Allergy/AdvReac Type Severity Reaction Status Date / Time No Known Allergies Allergy Verified 05/11/21 15:42 Home Medications Medication Instructions Recorded Confirmed Type No Known Home Medications 05/11/21 05/11/21 History Past Med/Surg History Medical History Alcoholism History of violent behavior Per daughter (Lindsey), pt will become violent when drinking Morbid obesity Osteoarthritis Surgical History Hx of elbow surgery ? Left Hx of total knee arthroplasty Right Family History Other No family history of adverse response to anesthesia Social History (Updated 05/11/21 @ 20:10 by Klarissa Bentley DO) Smoking Status: Current every day smoker Cigarettes Per Day: 20+ cigs/day; Second Hand Exposure: Yes; Hx Alcohol Use: Yes Alcohol type: beer and hard liquor Hx Substance Use: No Preferred Language: Panamanian Communication Ability: Impaired Communication Tools: IPad, Facial Expression and Physical Gestures Services Engineer Required: Yes Beliefs That Will Affect Care: None Current Living Situation: Spouse Assistive Devices: Denture - Upper and Denture - Lower Review of Systems Review of Systems: All systems were reviewed and negative except as indicated in HPI above. Physical Exam Physical Exam: CONSTITUTIONAL: obese, vitals as above, generally ill- appearing. EYES: pupils are round and requal bilaterally, injected conjunctivae, no scleral icterus, +left white purulent drainage and tearing with inflammatory changes around eyelid. ENT: external ear and nose normal, oropharynx clear, no TM abnormality, no maxillary or ethmoid sinus tenderness NECK: trachea midline, no lymphadenopathy, normal thyroid RESPIRATORY: clear to auscultation bilaterally, no crackles, rales or wheezes, normal respiratory effort CARDIOVASCULAR: regular rate and rhythm, S1 and 2 heard without murmurs, gallops or rubs, no JVD, no peripheral edema CHEST: inspection of chest was normal GASTROINTESTINAL: soft, generalized tenderness, nondistended, protuberant MUSCULOSKELETAL: strength 5/5 throughout, head is normocephalic and atraumatic SKIN: warm and dry NEUROLOGIC: CN 2-12 grossly intact, normal cognition, normal speech, +tremor PSYCHIATRIC: alert, agitated, frustrated with line of questioning, cooperative and oriented, answering questions appropriately. Makes eye contact, language and speech intact. Results & Data Results & Data ([facility]) Vital Signs (Past 12 Hours) Vital Signs Temp Pulse Pulse Resp BP BP Pulse Ox 05/11/21 19:00 80 14 162/92 H 98 05/11/21 17:04 87 14 116/88 98 05/11/21 15:32 84 80 14 147/95 H 98 05/11/21 15:29 37.1 C 86 14 162/99 H 94 Laboratory Results Short CBC 05/11/21 Range/Units 15:40 WBC 6.26 (4.8-10.8) K/uL Hgb 13.5 L (14.0-18.0) g/dL Hct 39.9 L (42-52) % Plt Count 45 L (130-400) K/uL BMP 05/11/21 15:40 Sodium 139 Potassium 3.1 L Chloride 97 L Carbon Dioxide 24 BUN 8 Creatinine 0.83 Glucose 92 Calcium 8.2 L Cardiac Enzymes 05/11/21 Range/Units 15:40 Total Creatine Kinase 298 H (30-223) U/L Troponin I < 0.03 (0-0.04) ng/ml Liver Function 05/11/21 Range/Units 15:40 Total Bilirubin 1.1 H (0.2-1.0) mg/dl AST 98 H (13-39) U/L ALT 70 H (7-52) U/L Alkaline Phosphatase 112 H (34-104) U/L Albumin 4.1 (3.4-5.0) gm/dl Urine 05/11/21 Range/Units 15:40 Urine Color [place] Urine Appearance Clear (Clear) Urine pH 6.5 (4.5-7.5) Ur Specific [place] 1.021 (1.000-1.030) Urine Protein 2+ H (Negative) Urine Glucose (UA) Negative (Negative) Diagnostic Findings Abdomen/Pelvis CT 05/11/21 15:23 CT abd pelvis IV con only CLINICAL HISTORY: etoh, pain, brusing TECHNIQUE: Helical axial images of the abdomen and pelvis were obtained and displayed. Automated dose lowering techniques and/or adjustment according to patient size were utilized for this exam. This exam was performed with intravenous contrast. COMPARISON: Comparison is made to CT abdomen pelvis 08/05/2016 FINDINGS: Lower chest: No acute abnormality Liver: Hepatic steatosis is noted. Gallbladder and biliary tree: No calcified gallstones. Normal caliber wall. No intra- or extrahepatic biliary ductal dilation. Pancreas: Unremarkable, no focal lesions. Spleen: Unremarkable. Adrenals: Unremarkable. Kidneys and ureters: Subcentimeter hypodensities are too small to characterize. Bladder: Unremarkable. Reproductive organs: Prostatomegaly is seen. Bowel: Unremarkable. Lymph nodes Retroperitoneal: Unremarkable. Mesenteric: Unremarkable. Pelvic: Unremarkable. Peritoneum: Normal. Vessels: Unremarkable. Abdominal wall: Bilateral fat-containing inguinal hernias are seen. Minimal soft tissue stranding is seen in the right mid abdomen. Bones: Degenerative changes in the visualized spine. IMPRESSION: 1. No evidence of acute fracture. No acute abnormality is seen. 2. Hepatic steatosis. 3. Prostatomegaly. ACT 112: Negative or not required by law. Electronically signed by: Pino Aldrich M.D. 05/11/2021 5:[address] 05/11/21 15:23 CT cervical spine wo con CLINICAL HISTORY: pains, etoh TECHNIQUE: Multidetector row helical CT of the cervical spine was performed without administration of intravenous contrast. Coronal and sagittal reformations were obtained. Automated dose lowering techniques and/or adjustment according to patient size were utilized for this exam. Comparison: None available at the time of this dictation. FINDINGS: No acute fractures or subluxations are identified. Degenerative changes are seen in the visualized spine. The alignment is normal. Incidentally noted is sinus disease in the bilateral sphenoid and right maxillary sinus. IMPRESSION: Degenerative changes without evidence of acute bony injury. ACT 112: Negative or not required by law. Electronically signed by: Pino Aldrich M.D. 05/11/2021 5:05 PM Chest X-Ray 05/11/21 15:23 XR chest 1V portable CLINICAL HISTORY: weakness TECHNIQUE: Single frontal radiograph of the chest was obtained. Comparison: Comparison is made to chest 2 views 11/01/2020 FINDINGS: No lines and tubes are seen. The cardiomediastinal silhouette is normal. The lungs are clear. No evidence of pleural effusion or pneumothorax. IMPRESSION: No acute chest disease. ACT 112: Negative or not required by law. Electronically signed by: Pino Aldrich M.D. 05/11/2021 4:[address] 05/11/21 15:23 CT head/brain wo con CLINICAL HISTORY: weak, pain, etoh Technique: Contiguous axial CT images of the head were acquired from the base of the skull to the vertex without intravenous contrast administration. Images were viewed in brain, subdural and bone windows. Automated dose lowering techniques and/or adjustment according to patient size were utilized for this exam. Comparison: Comparison is made to CT head 06/15/2012 Findings: The ventricles, basal cisterns, and cerebral sulci are normal. There is no acute intracranial hemorrhage or evidence of acute territorial infarction. Neither mass effect, shift of the midline structures, nor abnormal extra-axial fluid collections are shown. Imaged portions of the paranasal sinuses and mastoid air cells are clear. The orbits appear normal. There are no acute fractures of the calvaria or scalp swelling. Impression: No acute intracranial hemorrhage, no evidence of acute territorial infarction or other acute intracranial disease process. ACT 112: Negative or not required by law. Electronically signed by: Pino Aldrich M.D. 05/11/2021 5:02 PM Chest CTA 05/11/21 16:24 CT angio chest PE protocol CLINICAL HISTORY: PE, weak sob, hypoxia, falls TECHNIQUE: Multidetector row helical CT of the chest was performed. Coronal and sagittal reformations were obtained. Coronal and sagittal MIPS were obtained from the axial data set and were submitted for review. Automated dose lowering techniques and/or adjustment according to patient size were utilized for this exam. Comparison: None available at the time of this dictation. FINDINGS: Lungs and pleura: Normal. Heart and pericardium: Heart size is normal. No pericardial effusion. Vessels: No evidence of pulmonary embolism. Mediastinum and aric: Subcentimeter lymph nodes are seen. Chest wall and lower neck: Unremarkable. Abdomen: For findings below the diaphragm, please refer to CT of the abdomen dated the same. Bones: Degenerative changes in the thoracic spine. No evidence of acute fractures. IMPRESSION: No acute abnormality. No pulmonary embolism. ACT 112: Negative or not required by law. Electronically signed by: Pino Aldrich M.D. 05/11/2021 5:13 PM Medications Administered Lorazepam 4mg IV now Zofran 4mg IV now Toradol 15mg IV x 1 Code Status & VTE Plan VTE Prophylaxis Plan VTE Prophylaxis will be ordered: Yes
[2021-05-11] MEDS ORDERED: ONDANSETRON INJ 2 MG/ML 2 ML VIAL IV STA (20:03)
[2021-05-11] MEDS ORDERED: GABAPENTIN 1200MG ALCOHOL WITHDRAWAL LOAD PO STA (20:05)
[2021-05-11] MEDS ORDERED: LORazepam 4 MG/8 ML VIAL IV ONE (20:15)
[2021-05-11] MEDS ORDERED: LORazepam 3 MG/6 ML VIAL IV PRN (21:02)
[2021-05-11] MEDS ORDERED: POLYETHYLENE (MIRALAX) 17 GM PACK PO PRN (21:02)
[2021-05-11] MEDS ORDERED: ATIVAN IV ALCOHOL WITHDRAWL IV PRN (21:02)
[2021-05-11] MEDS: TRIMETHOPRIM/POLYMYXIN B OPL SCH (21:51)
[2021-05-11] MEDS ORDERED: GABAPENTIN 600 MG TAB PO ONE (22:00)
[2021-05-11] MEDS: FOLIC ACID 1 MG TAB PO SCH ×2 (22:43→23:17)
[2021-05-11] MEDS: THIAMINE HCL 100 MG TAB PO SCH ×2 (22:43→23:18)
[2021-05-12] MEDS: TRIMETHOPRIM/POLYMYXIN B OPL SCH ×6 (00:18→21:20)
[2021-05-12] MEDS: GABAPENTIN 600 MG TAB PO SCH ×2 (05:54→12:59)
[2021-05-12 06:28] LABS: Hematocrit (blood only) 37.4 % (42-52); Hemoglobin 12.3 g/dL (14.0-18.0); Mean Corpuscular Hemoglobin 28.5 pg (25-34); Mean Corpuscular Hgb Conc 32.9 g/dL (32-36); Mean Corpuscular Volume 86.6 fL (80-100); RDW Coefficient of Variation 18.8 % (11.5-14.5); RDW Standard Deviation 58.4 fL (36.4-46.3); Red Blood Count 4.32 M/uL (4.7-6.1); White Blood Count 5.04 K/uL (4.8-10.8)
[2021-05-12 06:34] LABS: Mean Platelet Volume 10.8 fL (7.4-10.4); Platelet Count 46 K/uL (130-400)
[2021-05-12 06:38] LABS: Alanine Aminotransferase 60 U/L (7-52); Albumin Level 3.9 gm/dl (3.4-5.0); Alkaline Phosphatase 99 U/L (34-104); Anion Gap 13 (3-11); Aspartate Aminotransferase 79 U/L (13-39); BUN Creatinine Ratio 11.3 (10-20); Bilirubin Direct 0.3 mg/dl (0-0.2); Bilirubin,Total 1.4 mg/dl (0.2-1.0); Blood Urea Nitrogen 9 mg/dl (6-23); Calcium 8.2 mg/dl (8.5-10.1); Carbon Dioxide 28 mmol/L (21-32); Chloride 99 mmol/L (98-107); Est GFR (African American) 112.5 ml/min; Est GFR (Non-African American) 97.1 ml/min; Glucose 77 mg/dl (70-99(Fasting)); Magnesium 1.7 mg/dl (1.7-2.4); Phosphorus 2.7 mg/dl (2.5-4.9); Potassium 3.3 mmol/L (3.5-5.1); Sodium 140 mmol/L (136-145); Total Protein 6.7 gm/dl (6.0-8.3)
[2021-05-12 07:46] LABS: Estimated Average Glucose 114 mg/dl; Hemoglobin A1C 5.6 % (4.5-5.6)
[2021-05-12] MEDS: THIAMINE HCL 100 MG TAB PO SCH (08:39)
[2021-05-12] MEDS: FOLIC ACID 1 MG TAB PO SCH (08:39)
[2021-05-12] MEDS: ONDANSETRON INJ 2 MG/ML 2 ML VIAL IV PRN (09:55)
[2021-05-12] MEDS: LORazepam 2 MG/4 ML VIAL IV PRN ×2 (12:59→18:48)
[2021-05-12] MEDS: ACETAMINOPHEN 325 MG TAB PO PRN (16:43)
[2021-05-12] MEDS ORDERED: POTASSIUM CHLORIDE CRTAB 20 MEQ TABCR PO STA (18:11)
--- NOTE | 2021-05-12 18:23 | Hospitalist Progress Note ---
Date of Service May 12, 2021 Assessment & Plan (1) Alcohol withdrawal: Plan: continue gabapentin protocol and PRN Lorazepam. Patient has a h/o violent behavior per chart. Monitor on telemetry. Supportive care with antiemetics as needed. (2) Alcohol abuse: Plan: Heavy abuse, reports drinking for two weeks continuously. Cont with alcohol withdrawal protocol as above. Advocate for rehab once through withdrawal. (3) Thrombocytopenia: Plan: Likely due to ongoing alcohol abuse (4) Elevated LFTs: Plan: 2/2 alcohol use in setting of hepatic steatosis. (5) Elevated blood pressure reading: Plan: Likely situational related to active alcohol withdrawal. Doesn't take antihypertensives regularly at home. (6) Bacterial conjunctivitis of left eye: Plan: Polymyxin drops ordered. (7) Morbid obesity: (8) DVT prophylaxis: Plan: SCDs, chemoprophylaxis contraindicated in setting of thrombocytopenia. Full Code PCU-telemetry Admission and Anticipated Discharge Date Admission Date: May 11, 2021 Subjective Poor historian. Impulsive, tremulous Physical Exam Physical Exam: diaphoretic, tremulous, poor historian Respiratory: breathing comfortably. no wheezing/rhonchi/rales Cardiovascular: tachycardic, no murmurs/rubs/gallops Gastrointestinal (Abdomen): soft, non tender Musculoskeletal: no edema Neurologic: awake, appears confused, spontaneously moving extremities. Results & Data Results & Data ([facility]) Vital Signs (Past 12 Hours) Vital Signs Temp Pulse Pulse Resp BP Pulse Ox 05/12/21 15:15 36.9 C 88 96 H 22 151/83 H 94 05/12/21 14:09 37.2 C 93 H 20 155/102 H 96 05/12/21 11:00 37.0 C 110 H 20 130/89 100 05/12/21 07:30 37.1 C 77 22 179/101 H 95 Laboratory Results Short CBC 05/12/21 Range/Units 05:54 WBC 5.04 (4.8-10.8) K/uL Hgb 12.3 L (14.0-18.0) g/dL Hct 37.4 L (42-52) % Plt Count 46 L (130-400) K/uL BMP 05/12/21 05:54 Sodium 140 Potassium 3.3 L Chloride 99 Carbon Dioxide 28 BUN 9 Creatinine 0.80 Glucose 77 Calcium 8.2 L Liver Function 05/12/21 Range/Units 05:54 Total Bilirubin 1.4 H (0.2-1.0) mg/dl Direct Bilirubin 0.3 H (0-0.2) mg/dl AST 79 H (13-39) U/L ALT 60 H (7-52) U/L Alkaline Phosphatase 99 (34-104) U/L Albumin 3.9 (3.4-5.0) gm/dl Medications Administered Current Inpatient Medications Acetaminophen (Acetaminophen 325 Mg Tab) 650 mg PO Q4H PRN PRN Reason: Pain or Fever Stop: 06/10/21 21:01 Last Admin: 05/12/21 16:43 Dose: 650 mg Documented by: Folic Acid (Folic Acid 1 Mg Tab) 1 mg PO QAM ISABEL Stop: 06/10/21 21:01 Last Admin: 05/12/21 08:39 Dose: 1 mg Documented by: Gabapentin (Gabapentin 600 Mg Tab) 600 mg PO Q8H ISABEL Stop: 05/13/21 14:01 Gabapentin (Gabapentin 600 Mg Tab) 600 mg PO Q12H ISABEL Stop: 05/14/21 12:01 Gabapentin (Gabapentin 600 Mg Tab) 600 mg PO Q24H ISABEL Stop: 05/15/21 12:01 Lorazepam (Ativan) 1 mg in 2 mls @ 2 mls/min IV UD PRN; Protocol PRN Reason: EtOH Withdrawl AWSS Score 6,7 Stop: 06/10/21 21:01 Lorazepam (Ativan) 2 mg in 4 mls @ 4 mls/min IV UD PRN; Protocol PRN Reason: EtOH Withdrawl AWSS Score 8,9 Stop: 06/10/21 21:01 Last Admin: 05/12/21 12:59 Dose: 4 mls/min Documented by: Lorazepam (Ativan) 3 mg in 6 mls @ 4 mls/min IV ONCE PRN; Protocol PRN Reason: EtOH Withdrawl AWSS Score >=10 Stop: 06/10/21 21:01 Ondansetron HCl (Ondansetron Inj 2 Mg/Ml 2 Ml Vial) 4 mg IV Q6H PRN PRN Reason: Nausea Stop: 06/10/21 21:01 Ondansetron HCl (Ondansetron Inj 2 Mg/Ml 2 Ml Vial) 4 mg IV Q6H PRN PRN Reason: Nausea And Vomiting Stop: 06/11/21 09:37 Last Admin: 05/12/21 09:55 Dose: 4 mg Documented by: Polyethylene Glycol (Polyethylene (Miralax) 17 Gm Pack) 17 gm PO DAILY PRN PRN Reason: Constipation Stop: 06/10/21 21:01 Polymyxin/Trimethoprim Sulfate (Trimethoprim/Polymyxin B) 1 drops OPL Q4H [facility] Stop: 05/18/21 20:14 Last Admin: 05/12/21 16:44 Dose: 1 drops Documented by: Thiamine HCl (Thiamine Hcl 100 Mg Tab) 100 mg PO QAM [facility] Stop: 06/10/21 21:01 Last Admin: 05/12/21 08:39 Dose: 100 mg Documented by:
[2021-05-12] MEDS ORDERED: chlordiazePOXIDE ALCOHOL WITHDRAWL 25MG PO STA (20:51)
[2021-05-12] MEDS ORDERED: cloNIDine HCL 0.1 MG TAB PO ONE (20:53)
[2021-05-12] MEDS: LORazepam 1 MG/2 ML VIAL IV PRN (21:16)
[2021-05-12] MEDS: chlordiazePOXIDE HCl 25 MG CAP PO SCH (21:54)
[2021-05-12] MEDS ORDERED: GABAPENTIN 600 MG TAB PO SCH (22:00)
--- NOTE | 2021-05-12 22:22 | Electrocardiogram Report ---
Test Reason : Blood Pressure : / mmHG Vent. Rate : 077 BPM Atrial Rate : 077 BPM P-R Int : 222 ms QRS Dur : 100 ms QT Int : 392 ms P-R-T Axes : 055 053 035 degrees QTc Int : 443 ms Sinus rhythm with 1st degree A-V block Otherwise normal ECG When compared with ECG of 01-NOV-2020 11:28, No significant change was found Confirmed by Colby Gomez ([id number]) on 05/12/2021 10:22:23 PM Referred By: REFERRED SELF Confirmed By:Colby Gomez
[2021-05-13] MEDS: NICOTINE 21 MG/24 HR TDSY TD SCH ×2 (00:46→23:06)
[2021-05-13] MEDS: TRIMETHOPRIM/POLYMYXIN B OPL SCH ×7 (01:15→23:08)
[2021-05-13] MEDS: chlordiazePOXIDE HCl 25 MG CAP PO SCH ×4 (03:59→20:15)
[2021-05-13] MEDS: LORazepam 1 MG/2 ML VIAL IV PRN ×6 (04:00→22:21)
[2021-05-13] MEDS: CALCIUM CARBONATE 500 MG CHEWABLE TAB PO PRN ×2 (06:20→20:16)
[2021-05-13 07:53] LABS: Hematocrit (blood only) 35.4 % (42-52); Mean Corpuscular Hemoglobin 29.8 pg (25-34); Mean Corpuscular Hgb Conc 33.9 g/dL (32-36); Mean Corpuscular Volume 87.8 fL (80-100); RDW Coefficient of Variation 18.6 % (11.5-14.5); RDW Standard Deviation 59.5 fL (36.4-46.3); Red Blood Count 4.03 M/uL (4.7-6.1); White Blood Count 3.51 K/uL (4.8-10.8)
[2021-05-13 07:59] LABS: Mean Platelet Volume 9.6 fL (7.4-10.4); Platelet Count 41 K/uL (130-400)
[2021-05-13 08:11] LABS: Albumin Globulin Ratio 1.4 (0.9-2); Albumin Level 3.7 gm/dl (3.4-5.0); BUN Creatinine Ratio 17.9 (10-20); Bilirubin,Total 1.6 mg/dl (0.2-1.0); Calcium 8.7 mg/dl (8.5-10.1); Est GFR (Non-African American) 104.4 ml/min; Globulin 2.7 gm/dl (2.5-4.0); Magnesium 1.6 mg/dl (1.7-2.4); Phosphorus 2.4 mg/dl (2.5-4.9); Potassium 3.2 mmol/L (3.5-5.1); Total Protein 6.4 gm/dl (6.0-8.3)
[2021-05-13] MEDS: THIAMINE HCL 100 MG TAB PO SCH (08:43)
[2021-05-13] MEDS: FOLIC ACID 1 MG TAB PO SCH (08:43)
[2021-05-13] MEDS: ACETAMINOPHEN 325 MG TAB PO PRN (14:29)
--- NOTE | 2021-05-13 17:12 | Hospitalist Progress Note ---
Date of Service May 13, 2021 Assessment & Plan (1) Alcohol withdrawal: Plan: No DT or hallucinations. CIWA 6-10, continue librium taper, PRN Lorazepam. CIWA protocol, Monitor on telemetry. Supportive care (2) Alcohol abuse: Plan: Heavy abuse, reports drinking for two weeks continuously. Cont with alcohol withdrawal protocol as above. Advocate for rehab once through withdrawal. (3) Thrombocytopenia: Plan: Stable. Likely related to ongoing alcohol abuse (4) Elevated LFTs: Plan: 2/2 alcohol use in setting of hepatic steatosis. Monitor (5) Elevated blood pressure reading: Plan: Likely situational related to active alcohol withdrawal. Doesn't take antihypertensives regularly at home. (6) Bacterial conjunctivitis of left eye: Plan: On Polymyxin drops . (7) Morbid obesity: Plan: Weight loss recomended (8) DVT prophylaxis: Plan: SCDs, chemoprophylaxis contraindicated in setting of thrombocytopenia. Full Code PCU-telemetry Admission and Anticipated Discharge Date Admission Date: May 11, 2021 Subjective Poor historian and limited due to language barrier. Feels about the same. Complains of generalized abdominal pain but chronic. Denies any nausea, vomiting, hallucinations. Physical Exam Physical Exam: Seen and examined at bedside. Obese, lying in bed, not in acute distress Eyes: JEN, nystagmus + Respiratory: Clear breath sounds bilaterally, no wheezes or crackles Cardiovascular: Regular, normal heart sounds, no murmurs Gastrointestinal (Abdomen): Soft, non tender, bowel sounds present Musculoskeletal: Moving extremities independently Skin: no rash Neurologic: Awake, alert, answering questions appropriately- limited due to language barrier, follows commands. Past pointing, end intention tremors Psychiatric: Not agitated, no hallucinations Results & Data Results & Data ([facility]) Vital Signs (Past 12 Hours) Vital Signs Temp Pulse Pulse Resp BP Pulse Ox 05/13/21 15:48 36.6 C 89 20 148/95 H 97 05/13/21 15:33 80 05/13/21 14:24 36.8 C 89 16 150/92 H 92 05/13/21 10:44 36.7 C 72 16 157/101 H 95 05/13/21 08:36 36.7 C 85 16 155/96 H 93 05/13/21 07:31 36.7 C 78 20 146/92 H 91 05/13/21 07:24 80 02/15/22 06:08 86 18 150/94 H 94 Laboratory Results Short CBC 05/13/21 Range/Units 07:33 WBC 3.51 L (4.8-10.8) K/uL Hgb 12.0 L (14.0-18.0) g/dL Hct 35.4 L (42-52) % Plt Count 41 L (130-400) K/uL BMP 05/13/21 07:33 Sodium 136 Potassium 3.2 L Chloride 97 L Carbon Dioxide 28 BUN 12 Creatinine 0.67 Glucose 94 Calcium 8.7 Liver Function 05/13/21 Range/Units 07:33 Total Bilirubin 1.6 H (0.2-1.0) mg/dl AST 158 H (13-39) U/L ALT 79 H (7-52) U/L Alkaline Phosphatase 91 (34-104) U/L Albumin 3.7 (3.4-5.0) gm/dl Diagnostic Findings Reviewed Medications Administered Current Inpatient Medications Acetaminophen (Acetaminophen 325 Mg Tab) 650 mg PO Q4H PRN PRN Reason: Pain or Fever Stop: 06/10/21 21:01 Last Admin: 05/13/21 14:29 Dose: 650 mg Documented by: Calcium Carbonate (Calcium Carbonate 500 Mg Chewable Tab) 500 mg PO Q6H PRN PRN Reason: Heartburn Stop: 06/12/21 06:08 Last Admin: 05/13/21 06:20 Dose: 500 mg Documented by: Chlordiazepoxide HCl (Chlordiazepoxide Hcl 25 Mg Cap) 25 mg PO Q6H ISABEL; Taper Stop: 05/14/21 20:59 Last Admin: 05/13/21 14:29 Dose: 25 mg Documented by: Chlordiazepoxide HCl (Chlordiazepoxide Hcl 10 Mg Cap) 10 mg PO Q8H ISABEL Stop: 05/15/21 13:01 Chlordiazepoxide HCl (Chlordiazepoxide Hcl 5 Mg Cap) 5 mg PO Q12H [facility] Stop: 05/16/21 09:01 Folic Acid (Folic Acid 1 Mg Tab) 1 mg PO QAM ISABEL Stop: 06/10/21 21:01 Last Admin: 05/13/21 08:43 Dose: 1 mg Documented by: Lorazepam (Ativan) 1 mg in 2 mls @ 2 mls/min IV UD PRN; Protocol PRN Reason: EtOH Withdrawl AWSS Score 6,7 Stop: 06/10/21 21:01 Last Admin: 05/13/21 08:43 Dose: 2 mls/min Documented by: Lorazepam (Ativan) 2 mg in 4 mls @ 4 mls/min IV UD PRN; Protocol PRN Reason: EtOH Withdrawl AWSS Score 8,9 Stop: 06/10/21 21:01 Last Admin: 05/12/21 18:48 Dose: 4 mls/min Documented by: Lorazepam (Ativan) 3 mg in 6 mls @ 4 mls/min IV ONCE PRN; Protocol PRN Reason: EtOH Withdrawl AWSS Score >=10 Stop: 06/10/21 21:01 Last Admin: 05/12/21 20:15 Dose: 4 mls/min Documented by: Miscellaneous (Remove Nicoderm Patch) 1 ea N/A DAILY@[id number] [facility] Stop: 06/12/21 08:58 Last Admin: 05/13/21 08:44 Dose: 1 ea Documented by: Nicotine (Nicotine 21 Mg/24 Hr Tdsy) 21 mg TD [facility] Stop: 06/11/21 23:24 Last Admin: 05/13/21 00:46 Dose: 21 mg Documented by: Ondansetron HCl (Ondansetron Inj 2 Mg/Ml 2 Ml Vial) 4 mg IV Q6H PRN PRN Reason: Nausea Stop: 06/10/21 21:01 Ondansetron HCl (Ondansetron Inj 2 Mg/Ml 2 Ml Vial) 4 mg IV Q6H PRN PRN Reason: Nausea And Vomiting Stop: 06/11/21 09:37 Last Admin: 05/12/21 09:55 Dose: 4 mg Documented by: Polyethylene Glycol (Polyethylene (Miralax) 17 Gm Pack) 17 gm PO DAILY PRN PRN Reason: Constipation Stop: 06/10/21 21:01 Polymyxin/Trimethoprim Sulfate (Trimethoprim/Polymyxin B) 1 drops OPL Q4H [facility] Stop: 05/18/21 20:14 Last Admin: 05/13/21 15:38 Dose: 1 drops Documented by: Thiamine HCl (Thiamine Hcl 100 Mg Tab) 100 mg PO QAM [facility] Stop: 06/10/21 21:01 Last Admin: 05/13/21 08:43 Dose: 100 mg Documented by:
[2021-05-14] MEDS ORDERED: GABAPENTIN 600 MG TAB PO SCH
[2021-05-14] MEDS: LORazepam 1 MG/2 ML VIAL IV PRN ×8 (00:14→22:23)
[2021-05-14] MEDS: TRIMETHOPRIM/POLYMYXIN B OPL SCH ×5 (04:04→22:21)
[2021-05-14] MEDS: chlordiazePOXIDE HCl 25 MG CAP PO SCH ×2 (06:06→11:29)
[2021-05-14 07:31] LABS: Hematocrit (blood only) 37.7 % (42-52); Hemoglobin 12.7 g/dL (14.0-18.0); Mean Corpuscular Hemoglobin 29.3 pg (25-34); Mean Corpuscular Hgb Conc 33.7 g/dL (32-36); Mean Corpuscular Volume 87.1 fL (80-100); RDW Coefficient of Variation 18.6 % (11.5-14.5); RDW Standard Deviation 57.6 fL (36.4-46.3); Red Blood Count 4.33 M/uL (4.7-6.1); White Blood Count 4.36 K/uL (4.8-10.8)
[2021-05-14 07:32] LABS: Mean Platelet Volume 10.1 fL (7.4-10.4); Platelet Count 57 K/uL (130-400)
[2021-05-14 07:57] LABS: Albumin Globulin Ratio 1.3 (0.9-2); Albumin Level 3.9 gm/dl (3.4-5.0); BUN Creatinine Ratio 18.6 (10-20); Bilirubin,Total 1.2 mg/dl (0.2-1.0); Calcium 9.1 mg/dl (8.5-10.1); Creatinine Clr Calc Pharmacy 172.6 ml/min; Est GFR (African American) 127.5 ml/min; Globulin 2.9 gm/dl (2.5-4.0); Magnesium 1.8 mg/dl (1.7-2.4); Potassium 3.2 mmol/L (3.5-5.1); Total Protein 6.8 gm/dl (6.0-8.3)
[2021-05-14] MEDS: NICOTINE 21 MG/24 HR TDSY TD SCH (09:07)
[2021-05-14] MEDS: FOLIC ACID 1 MG TAB PO SCH (09:09)
[2021-05-14] MEDS: THIAMINE HCL 100 MG TAB PO SCH (09:09)
[2021-05-14] MEDS ORDERED: POTASSIUM CHLORIDE 10 MEQ TABCR PO STA (10:28)
--- NOTE | 2021-05-14 12:36 | Hospitalist Progress Note ---
Date of Service May 14, 2021 Assessment & Plan (1) Alcohol withdrawal: Plan: No DT or hallucinations. CIWA reviewed. Continue librium taper, PRN Lorazepam which he has not required. [facility] protocol, Telemetry reviewed.. Discussed about alcohol rehab with patient, family and family caseworker. CM to look into it. PT/OT ordered. Fall (2) Alcohol abuse: Plan: Heavy abuse, reports drinking for two weeks continuously. Cont with alcohol withdrawal protocol as above. Advocate for rehab once through withdrawal. (3) Thrombocytopenia: Plan: Improved. Likely related to ongoing alcohol abuse (4) Elevated LFTs: Plan: 2/2 alcohol use in setting of hepatic steatosis. Relatively stable, Monitor (5) Elevated blood pressure reading: Plan: Likely situational related to active alcohol withdrawal. Doesn't take antihypertensives regularly at home. (6) Bacterial conjunctivitis of left eye: Plan: On Polymyxin drops . (7) Morbid obesity: Plan: Weight loss recomended (8) DVT prophylaxis: Plan: Plan: Fall: Likely mechanical. No head trauma or syncope. No indication for imaging at this point. PT/OT evaluation. Hypokalemia: Repleted, recheck in am DVT prophyalxis: SCDs, chemoprophylaxis contraindicated in setting of thrombocytopenia. Full Code PCU-telemetry Contact: Daughter updated over the phone Disposition: Likely will be stable for discharge to alcohol rehab tomorrow Admission and Anticipated Discharge Date Admission Date: May 11, 2021 Subjective Patient was seen and examined at bedside with director private music therapy agency. Feels slightly better. No new issues. States he dropped his teeth in the bathroom and when he came back to his bed to get a cane, he fell down on his butt and could not get up. Denies any passing out or hitting head. Feels fine, pain is controlled. Discussed in detail about alcohol rehab. He wanted me to reach out to his family to discuss further. Spoke to his daughter and the family caseworker. Physical Exam Physical Exam: General: Obese, sitting at bedside, eating breakfast, not in distress, on room air HEENT: EOMI, JEN, MMM Chest: Clear breath sounds bilaterally, no wheezes or crackles CVS: Regular rate and rhythm, normal heart sounds, no murmur Abdomen: Soft, non tender, not distended, normal bowel sounds Neuro: Awake, alert, oriented, conversing appropriately, moving all extremities, End intention tremors, nystagmus, past pointing Extremities: No cyanosis, clubbing or edema Psych: Calm, cooperative Results & Data Results & Data ([facility]) Vital Signs (Past 12 Hours) Vital Signs Temp Pulse Pulse Resp BP Pulse Ox 05/14/21 11:20 36.7 C 94 H 16 152/96 H 94 05/14/21 09:01 36.6 C 105 H 16 156/108 H 92 05/14/21 07:54 36.8 C 108 H 20 164/112 H 92 05/14/21 07:02 74 05/14/21 06:11 36.9 C 74 18 167/103 H 96 05/14/21 04:02 36.8 C 83 18 161/107 H 96 05/14/21 02:14 37.0 C 76 20 164/106 H 98 Laboratory Results Short CBC 05/14/21 Range/Units 07:19 WBC 4.36 L (4.8-10.8) K/uL Hgb 12.7 L (14.0-18.0) g/dL Hct 37.7 L (42-52) % Plt Count 57 L (130-400) K/uL BMP 05/14/21 07:19 Sodium 136 Potassium 3.2 L Chloride 97 L Carbon Dioxide 29 BUN 11 Creatinine 0.59 L Glucose 99 Calcium 9.1 Liver Function 05/14/21 Range/Units 07:19 Total Bilirubin 1.2 H (0.2-1.0) mg/dl AST 154 H (13-39) U/L ALT 108 H (7-52) U/L Alkaline Phosphatase 102 (34-104) U/L Albumin 3.9 (3.4-5.0) gm/dl Diagnostic Findings Reviewed Medications Administered Current Inpatient Medications Acetaminophen (Acetaminophen 325 Mg Tab) 650 mg PO Q4H PRN PRN Reason: Pain or Fever Stop: 06/10/21 21:01 Last Admin: 05/13/21 14:29 Dose: 650 mg Documented by: Calcium Carbonate (Calcium Carbonate 500 Mg Chewable Tab) 500 mg PO Q6H PRN PRN Reason: Heartburn Stop: 06/12/21 06:08 Last Admin: 05/13/21 20:16 Dose: 500 mg Documented by: Chlordiazepoxide HCl (Chlordiazepoxide Hcl 25 Mg Cap) 25 mg PO Q8H [facility]; Taper Stop: 05/14/21 20:59 Last Admin: 05/14/21 11:29 Dose: 25 mg Documented by: Chlordiazepoxide HCl (Chlordiazepoxide Hcl 10 Mg Cap) 10 mg PO Q8H [facility] Stop: 05/15/21 13:01 Chlordiazepoxide HCl (Chlordiazepoxide Hcl 5 Mg Cap) 5 mg PO Q12H [facility] Stop: 05/16/21 09:01 Folic Acid (Folic Acid 1 Mg Tab) 1 mg PO QAM [facility] Stop: 06/10/21 21:01 Last Admin: 05/14/21 09:09 Dose: 1 mg Documented by: Lorazepam (Ativan) 1 mg in 2 mls @ 2 mls/min IV UD PRN; Protocol PRN Reason: EtOH Withdrawl AWSS Score 6,7 Stop: 06/10/21 21:01 Last Admin: 05/14/21 11:28 Dose: 2 mls/min Documented by: Lorazepam (Ativan) 2 mg in 4 mls @ 4 mls/min IV UD PRN; Protocol PRN Reason: EtOH Withdrawl AWSS Score 8,9 Stop: 06/10/21 21:01 Last Admin: 05/12/21 18:48 Dose: 4 mls/min Documented by: Lorazepam (Ativan) 3 mg in 6 mls @ 4 mls/min IV ONCE PRN; Protocol PRN Reason: EtOH Withdrawl AWSS Score >=10 Stop: 06/10/21 21:01 Last Admin: 05/12/21 20:15 Dose: 4 mls/min Documented by: Miscellaneous (Remove Nicoderm Patch) 1 ea N/A DAILY@0859 [facility] Stop: 06/12/21 08:58 Last Admin: 05/14/21 09:08 Dose: 1 ea Documented by: Nicotine (Nicotine 21 Mg/24 Hr Tdsy) 21 mg TD QAM [facility] Stop: 06/11/21 23:24 Last Admin: 05/14/21 09:07 Dose: 21 mg Documented by: Ondansetron HCl (Ondansetron Inj 2 Mg/Ml 2 Ml Vial) 4 mg IV Q6H PRN PRN Reason: Nausea Stop: 06/10/21 21:01 Ondansetron HCl (Ondansetron Inj 2 Mg/Ml 2 Ml Vial) 4 mg IV Q6H PRN PRN Reason: Nausea And Vomiting Stop: 06/11/21 09:37 Last Admin: 05/12/21 09:55 Dose: 4 mg Documented by: Polyethylene Glycol (Polyethylene (Miralax) 17 Gm Pack) 17 gm PO DAILY PRN PRN Reason: Constipation Stop: 06/10/21 21:01 Last Admin: 05/13/21 20:16 Dose: 17 gm Documented by: Polymyxin/Trimethoprim Sulfate (Trimethoprim/Polymyxin B) 1 drops OPL Q4H [facility] Stop: 05/18/21 20:14 Last Admin: 05/14/21 11:29 Dose: 1 drops Documented by: Thiamine HCl (Thiamine Hcl 100 Mg Tab) 100 mg PO QAM [facility] Stop: 06/10/21 21:01 Last Admin: 05/14/21 09:09 Dose: 100 mg Documented by:
[2021-05-14] MEDS: ACETAMINOPHEN 325 MG TAB PO PRN ×2 (13:45→22:32)
[2021-05-14] MEDS: LORazepam 2 MG/4 ML VIAL IV PRN (15:47)
[2021-05-14] MEDS: ONDANSETRON INJ 2 MG/ML 2 ML VIAL IV PRN ×2 (16:56→22:32)
[2021-05-14] MEDS: CALCIUM CARBONATE 500 MG CHEWABLE TAB PO PRN (22:21)
[2021-05-15] MEDS: TRIMETHOPRIM/POLYMYXIN B OPL SCH ×6 (00:52→21:43)
[2021-05-15] MEDS: LORazepam 2 MG/4 ML VIAL IV PRN (00:52)
[2021-05-15] MEDS: LORazepam 1 MG/2 ML VIAL IV PRN ×4 (02:19→21:43)
[2021-05-15] MEDS: ACETAMINOPHEN 325 MG TAB PO PRN ×3 (04:25→21:43)
[2021-05-15 07:02] LABS: Hematocrit (blood only) 39.7 % (42-52); Hemoglobin 13.3 g/dL (14.0-18.0); Mean Corpuscular Hemoglobin 29.6 pg (25-34); Mean Corpuscular Hgb Conc 33.5 g/dL (32-36); Mean Corpuscular Volume 88.4 fL (80-100); RDW Coefficient of Variation 19.2 % (11.5-14.5); RDW Standard Deviation 59.3 fL (36.4-46.3); Red Blood Count 4.49 M/uL (4.7-6.1); White Blood Count 5.17 K/uL (4.8-10.8)
[2021-05-15 07:17] LABS: Mean Platelet Volume 9.4 fL (7.4-10.4); Platelet Count 82 K/uL (130-400)
[2021-05-15 07:22] LABS: Albumin Globulin Ratio 1.4 (0.9-2); Albumin Level 3.8 gm/dl (3.4-5.0); BUN Creatinine Ratio 16.3 (10-20); Bilirubin,Total 1.1 mg/dl (0.2-1.0); Calcium 9.2 mg/dl (8.5-10.1); Creatinine Clr Calc Pharmacy 118.1 ml/min; Est GFR (African American) 109.2 ml/min; Est GFR (Non-African American) 94.3 ml/min; Globulin 2.8 gm/dl (2.5-4.0); Potassium 3.5 mmol/L (3.5-5.1); Total Protein 6.6 gm/dl (6.0-8.3)
[2021-05-15] MEDS: NICOTINE 21 MG/24 HR TDSY TD SCH (09:37)
[2021-05-15] MEDS: FOLIC ACID 1 MG TAB PO SCH (09:37)
[2021-05-15] MEDS: THIAMINE HCL 100 MG TAB PO SCH (09:37)
[2021-05-15] MEDS ORDERED: GABAPENTIN 600 MG TAB PO SCH (12:00)
--- NOTE | 2021-05-15 15:34 | Hospitalist Progress Note ---
Date of Service May 15, 2021 Assessment & Plan (1) Alcohol withdrawal: Plan: No DT or hallucinations. CIWA reviewed, now at 4. Continue librium taper, PRN Lorazepam which he has not required. [facility] protocol, Telemetry reviewed. Discussed about alcohol rehab with patient, family and adult protective caseworker. CM following. PT/OT ordered. Fall (2) Alcohol abuse: Plan: Heavy abuse, reports drinking for two weeks continuously. Cont with alcohol withdrawal protocol as above. Advocate for rehab once through withdrawal. (3) Thrombocytopenia: Plan: Improving, Likely related to ongoing alcohol abuse (4) Elevated LFTs: Plan: 2/2 alcohol use in setting of hepatic steatosis. Relatively stable, Monitor (5) Elevated blood pressure reading: Plan: Likely situational related to active alcohol withdrawal. Doesn't take antihypertensives regularly at home. (6) Bacterial conjunctivitis of left eye: Plan: On Polymyxin drops . (7) Fall: Plan: Fall 05/14: Likely mechanical. No head trauma or syncope. No indication for imaging at this point. PT/OT evaluation. (8) Morbid obesity: Plan: Weight loss recomended (9) DVT prophylaxis: Plan: (10) Hypokalemia: Plan: resolved Plan: DVT prophyalxis: will start on sc heparin as thrombocytopenia improving. Full Code PCU-telemetry Contact: Daughter updated over the phone Disposition: Likely will be stable for discharge to alcohol rehab tomorrow Admission and Anticipated Discharge Date Admission Date: May 11, 2021 Subjective Patient was seen and examined at bedside with program manager transportation. Feels much better today. No new issues. Tremors improved. Appetite better. States has trouble sleeping at night and asking for medication. Had questions regarding alcohol rehab. Physical Exam Physical Exam: General: Obese, lying in bed, not in distress, on room air HEENT: EOMI, JEN, MMM Chest: Clear breath sounds bilaterally, no wheezes or crackles CVS: Regular rate and rhythm, normal heart sounds, no murmur Abdomen: Soft, non tender, not distended, normal bowel sounds Neuro: Awake, alert, oriented, conversing appropriately, moving all extremities, end intention tremors and past pointing significantly improved Extremities: No cyanosis, clubbing or edema Psych: Calm, cooperative, denies any hallucination Results & Data Results & Data ([facility]) Vital Signs (Past 12 Hours) Vital Signs Temp Pulse Pulse Pulse Resp BP Pulse Ox 05/15/21 15:06 98 H 05/15/21 12:00 36.3 C L 85 20 141/95 H 91 05/15/21 08:00 77 05/15/21 06:13 36.9 C 77 17 171/98 H 95 05/15/21 03:48 37.0 C 93 H 20 181/100 H 94
[2021-05-15] MEDS: ONDANSETRON INJ 2 MG/ML 2 ML VIAL IV PRN (21:43)
[2021-05-15] MEDS: HEPARIN SOD 5,000 UNIT/0.5 ML VIAL SQ SCH (21:44)
[2021-05-15] MEDS: CALCIUM CARBONATE 500 MG CHEWABLE TAB PO PRN (21:44)
[2021-05-15] MEDS: MELATONIN 3 MG TAB PO SCH (21:44)
[2021-05-15] MEDS: chlordiazePOXIDE HCl 5 MG CAP PO SCH (21:52)
[2021-05-16] MEDS: TRIMETHOPRIM/POLYMYXIN B OPL SCH ×6 (01:20→20:11)
[2021-05-16] MEDS: ACETAMINOPHEN 325 MG TAB PO PRN (03:35)
[2021-05-16] MEDS: LORazepam 1 MG/2 ML VIAL IV PRN (03:36)
[2021-05-16 06:23] LABS: Hematocrit (blood only) 38.1 % (42-52); Hemoglobin 12.6 g/dL (14.0-18.0); Mean Corpuscular Hemoglobin 29.2 pg (25-34); Mean Corpuscular Hgb Conc 33.1 g/dL (32-36); Mean Corpuscular Volume 88.2 fL (80-100); Mean Platelet Volume 10.1 fL (7.4-10.4); Platelet Count 114 K/uL (130-400); RDW Coefficient of Variation 19.5 % (11.5-14.5); RDW Standard Deviation 60.6 fL (36.4-46.3); Red Blood Count 4.32 M/uL (4.7-6.1); White Blood Count 5.03 K/uL (4.8-10.8)
[2021-05-16 06:44] LABS: Albumin Globulin Ratio 1.2 (0.9-2); Albumin Level 3.6 gm/dl (3.4-5.0); BUN Creatinine Ratio 18.3 (10-20); Bilirubin,Total 0.9 mg/dl (0.2-1.0); Calcium 8.8 mg/dl (8.5-10.1); Est GFR (African American) 118.2 ml/min; Potassium 3.1 mmol/L (3.5-5.1); Total Protein 6.6 gm/dl (6.0-8.3)
[2021-05-16] MEDS: FOLIC ACID 1 MG TAB PO SCH (09:04)
[2021-05-16] MEDS: THIAMINE HCL 100 MG TAB PO SCH (09:04)
[2021-05-16] MEDS: NICOTINE 21 MG/24 HR TDSY TD SCH (09:04)
[2021-05-16] MEDS: HEPARIN SOD 5,000 UNIT/0.5 ML VIAL SQ SCH ×2 (09:05→20:12)
[2021-05-16] MEDS: POTASSIUM CHLORIDE CRTAB 20 MEQ TABCR PO SCH ×2 (09:10→20:10)
[2021-05-16] MEDS: chlordiazePOXIDE HCl 5 MG CAP PO SCH (09:11)
[2021-05-16 09:24] LABS: Magnesium 1.8 mg/dl (1.7-2.4); Phosphorus 3.8 mg/dl (2.5-4.9)
--- NOTE | 2021-05-16 13:45 | Hospitalist Progress Note ---
Date of Service May 16, 2021 Assessment & Plan (1) Alcohol withdrawal: Plan: Is still requiring PRN IV ativan, last dose this morning continue monitoring for withdrawal symptos Fall (2) Alcohol abuse: Plan: Plan for alcohol rehab or counseling likely as outpatient (3) Thrombocytopenia: Plan: Improving, Likely related to ongoing alcohol abuse (4) Elevated LFTs: Plan: 2/2 alcohol use in setting of hepatic steatosis. Relatively stable, Monitor (5) Elevated blood pressure reading: Plan: Persistent will start amlodipine 5mg daily. He will need to follow up with PCP after discharge for further management (6) Bacterial conjunctivitis of left eye: Plan: On Polymyxin drops . (7) Fall: Plan: Fall 05/14: Likely mechanical. No head trauma or syncope. No indication for imaging at this point. PT/OT evaluation--patient recommended for inpatient rehab (8) Morbid obesity: Plan: Weight loss recomended (9) DVT prophylaxis: Plan: SQ heparin (10) Hypokalemia: Plan: repleted Plan: Dispo--Patient needs inpatient physical rehab for weakness/debility (alcohol related). Afterwards, can attend outpatient alcohol rehab. If no facilities are available due to his unvaccinated state, he may need to return home with famil and attend OP PT or home PT and OP alcohol rehab. CM to discuss with family Admission and Anticipated Discharge Date Admission Date: May 11, 2021 Subjective No events overnight Awaiting rehab Physical Exam Physical Exam: Comfortable. laying in bed and watching shows on his phone Respiratory: breathing comfortably on room air, no wheezing/rhonchi/rales Cardiovascular: regular rate and rhythm, no murmurs/rubs/gallops Gastrointestinal (Abdomen): soft, non tender, non distended Skin: no edema Neurologic: awake, spontaneously moving extremities Results & Data Results & Data ([facility]) Vital Signs (Past 12 Hours) Vital Signs Temp Pulse Pulse Pulse Resp BP Pulse Ox 05/16/21 11:13 36.7 C 76 20 159/101 H 95 05/16/21 08:27 36.4 C L 78 19 158/106 H 95 05/16/21 07:00 69 05/16/21 05:30 36.8 C 71 18 153/96 H 95 05/16/21 03:19 36.5 C 75 20 158/105 H 94 Laboratory Results Short CBC 05/16/21 Range/Units 06:03 WBC 5.03 (4.8-10.8) K/uL Hgb 12.6 L (14.0-18.0) g/dL Hct 38.1 L (42-52) % Plt Count 114 L (130-400) K/uL BMP 05/16/21 06:03 Sodium 137 Potassium 3.1 L Chloride 101 Carbon Dioxide 29 BUN 13 Creatinine 0.71 Glucose 107 H Calcium 8.8 Liver Function 05/16/21 Range/Units 06:03 Total Bilirubin 0.9 (0.2-1.0) mg/dl AST 67 H (13-39) U/L ALT 91 H (7-52) U/L Alkaline Phosphatase 83 (34-104) U/L Albumin 3.6 (3.4-5.0) gm/dl Medications Administered Current Inpatient Medications Acetaminophen (Acetaminophen 325 Mg Tab) 650 mg PO Q4H PRN PRN Reason: Pain or Fever Stop: 06/10/21 21:01 Last Admin: 05/16/21 03:35 Dose: 650 mg Documented by: Calcium Carbonate (Calcium Carbonate 500 Mg Chewable Tab) 500 mg PO Q6H PRN PRN Reason: Heartburn Stop: 06/12/21 06:08 Last Admin: 05/15/21 21:44 Dose: 500 mg Documented by: Folic Acid (Folic Acid 1 Mg Tab) 1 mg PO QAM [facility] Stop: 06/10/21 21:01 Last Admin: 05/16/21 09:04 Dose: 1 mg Documented by: Heparin Sodium (Porcine) (Heparin Sod 5,000 Unit/0.5 Ml Vial) 5,000 units SQ Q12 [facility] Stop: 06/14/21 20:59 Last Admin: 05/16/21 09:05 Dose: 5,000 units Documented by: Lorazepam (Ativan) 1 mg in 2 mls @ 2 mls/min IV UD PRN; Protocol PRN Reason: EtOH Withdrawl AWSS Score 6,7 Stop: 06/10/21 21:01 Last Admin: 05/16/21 03:36 Dose: 2 mls/min Documented by: Lorazepam (Ativan) 2 mg in 4 mls @ 4 mls/min IV UD PRN; Protocol PRN Reason: EtOH Withdrawl AWSS Score 8,9 Stop: 06/10/21 21:01 Last Admin: 05/15/21 00:52 Dose: 4 mls/min Documented by: Lorazepam (Ativan) 3 mg in 6 mls @ 4 mls/min IV ONCE PRN; Protocol PRN Reason: EtOH Withdrawl AWSS Score >=10 Stop: 06/10/21 21:01 Last Admin: 05/12/21 20:15 Dose: 4 mls/min Documented by: Melatonin (Melatonin 3 Mg Tab) 6 mg PO HS [facility] Stop: 06/14/21 20:59 Last Admin: 05/15/21 21:44 Dose: 6 mg Documented by: Miscellaneous (Remove Nicoderm Patch) 1 ea N/A DAILY@0859 [facility] Stop: 06/12/21 08:58 Last Admin: 05/16/21 09:04 Dose: 1 ea Documented by: Nicotine (Nicotine 21 Mg/24 Hr Tdsy) 21 mg TD QAM [facility] Stop: 06/11/21 23:24 Last Admin: 05/16/21 09:04 Dose: 21 mg Documented by: Ondansetron HCl (Ondansetron Inj 2 Mg/Ml 2 Ml Vial) 4 mg IV Q6H PRN PRN Reason: Nausea Stop: 06/10/21 21:01 Last Admin: 05/15/21 21:43 Dose: 4 mg Documented by: Ondansetron HCl (Ondansetron Inj 2 Mg/Ml 2 Ml Vial) 4 mg IV Q6H PRN PRN Reason: Nausea And Vomiting Stop: 06/11/21 09:37 Last Admin: 05/14/21 16:56 Dose: 4 mg Documented by: Polyethylene Glycol (Polyethylene (Miralax) 17 Gm Pack) 17 gm PO DAILY PRN PRN Reason: Constipation Stop: 06/10/21 21:01 Last Admin: 05/13/21 20:16 Dose: 17 gm Documented by: Polymyxin/Trimethoprim Sulfate (Trimethoprim/Polymyxin B) 1 drops OPL Q4H [facility] Stop: 05/18/21 20:14 Last Admin: 05/16/21 09:04 Dose: 1 drops Documented by: Potassium Chloride (Potassium Chloride Crtab 20 Meq Tabcr) 40 meq PO BID [facility] Stop: 05/16/21 21:01 Last Admin: 05/16/21 09:10 Dose: 40 meq Documented by: Thiamine HCl (Thiamine Hcl 100 Mg Tab) 100 mg PO QAM [facility] Stop: 06/10/21 21:01 Last Admin: 05/16/21 09:04 Dose: 100 mg Documented by:
[2021-05-16] MEDS: MELATONIN 3 MG TAB PO SCH (20:10)
[2021-05-16] MEDS: cloNIDine HCL 0.1 MG TAB PO PRN (20:36)
[2021-05-17] MEDS: TRIMETHOPRIM/POLYMYXIN B OPL SCH ×7 (00:16→23:53)
[2021-05-17 06:47] LABS: Calcium 8.7 mg/dl (8.5-10.1); Creatinine Clr Calc Pharmacy 128.7 ml/min; Est GFR (African American) 115.6 ml/min; Est GFR (Non-African American) 99.7 ml/min; Magnesium 1.9 mg/dl (1.7-2.4); Phosphorus 3.3 mg/dl (2.5-4.9); Potassium 3.8 mmol/L (3.5-5.1)
[2021-05-17] MEDS: NICOTINE 21 MG/24 HR TDSY TD SCH (08:35)
[2021-05-17] MEDS: FOLIC ACID 1 MG TAB PO SCH (08:36)
[2021-05-17] MEDS: THIAMINE HCL 100 MG TAB PO SCH (08:36)
[2021-05-17] MEDS: HEPARIN SOD 5,000 UNIT/0.5 ML VIAL SQ SCH ×2 (08:38→21:25)
[2021-05-17] MEDS ORDERED: amLODIPine BESYLATE 5 MG TAB PO SCH (09:00)
[2021-05-17] MEDS: ONDANSETRON INJ 2 MG/ML 2 ML VIAL IV PRN (13:20)
[2021-05-17] MEDS: ACETAMINOPHEN 325 MG TAB PO PRN (15:44)
[2021-05-17] MEDS ORDERED: traZODone HCL 50 MG TAB PO ONE (17:49)
--- NOTE | 2021-05-17 18:00 | Hospitalist Progress Note ---
Date of Service May 17, 2021 Assessment & Plan (1) Alcohol withdrawal: Plan: No further withdrawal symptoms Will d/c IV ativan and telemetry (2) Alcohol abuse: Plan: Plan for alcohol rehab or counseling likely as outpatient (3) Thrombocytopenia: Plan: Improving, Likely related to ongoing alcohol abuse (4) Elevated LFTs: Plan: due to alcohol abuse. Improved (5) Elevated blood pressure reading: Plan: Persistent will start amlodipine 5mg daily-- will increase to 10mg daily (6) Bacterial conjunctivitis of left eye: Plan: On Polymyxin drops . (7) Fall: Plan: Fall 05/14: Likely mechanical. No head trauma or syncope. No indication for imaging at this point. 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 No further withdrawal symptoms Reports bilateral lower back pain chronically and also with leg pain chronically Reports difficulty sleeping, suffers from insomnia. Melatonin not helpful Physical Exam Physical Exam: Obese, no acute distress, laying in bed Respiratory: breathing comfortably on room air, no wheezing/rhonchi/rales Cardiovascular: regular rate and rhythm, no murmurs/rubs/gallops Gastrointestinal (Abdomen): Obese, soft, non tender Musculoskeletal: NO midline back tenderness. Bilateral lower lateral back pain Neurologic: awake, alert, spontaneously moving extremities but movement limited by pain Results & Data Results & Data ([facility]) Vital Signs (Past 12 Hours) Vital Signs Temp Pulse Pulse Resp BP Pulse Ox 05/17/21 14:50 74 05/17/21 11:50 36.7 C 68 20 167/93 H 95 05/17/21 07:53 36.6 C 83 20 155/105 H 96 05/17/21 07:34 66 Laboratory Results [facility] 05/17/21 05:17 Sodium 139 Potassium 3.8 D Chloride 104 Carbon Dioxide 30 BUN 12 Creatinine 0.75 Glucose 107 H Calcium 8.7 Medications Administered Current Inpatient Medications Acetaminophen (Acetaminophen 325 Mg Tab) 650 mg PO Q4H PRN PRN Reason: Pain or Fever Stop: 06/10/21 21:01 Last Admin: 05/17/21 15:44 Dose: 650 mg Documented by: Amlodipine Besylate (Amlodipine Besylate 5 Mg Tab) [facility] Stop: 06/17/21 08:59 Calcium Carbonate (Calcium Carbonate 500 Mg Chewable Tab) 500 mg PO Q6H PRN PRN Reason: Heartburn Stop: 06/12/21 06:08 Last Admin: 05/15/21 21:44 Dose: 500 mg Documented by: Clonidine HCl (Clonidine Hcl 0.1 Mg Tab) 0.1 mg PO Q4H PRN PRN Reason: Hypertension Stop: 06/15/21 19:52 Last Admin: 05/16/21 20:36 Dose: 0.1 mg Documented by: Folic Acid (Folic Acid 1 Mg Tab) [facility] Stop: 06/10/21 21:01 Last Admin: 05/17/21 08:36 Dose: 1 mg Documented by: Heparin Sodium (Porcine) (Heparin Sod 5,000 Unit/0.5 Ml Vial) 5,000 units SQ Q12 [facility] Stop: 06/14/21 20:59 Last Admin: 05/17/21 08:38 Dose: 5,000 units Documented by: Miscellaneous (Remove Nicoderm Patch) 1 ea N/A DAILY@0859 [facility] Stop: 06/12/21 08:58 Last Admin: 05/17/21 08:35 Dose: 1 ea Documented by: Nicotine (Nicotine 21 Mg/24 Hr Tdsy) 21 mg TD [facility] Stop: 06/11/21 23:24 Last Admin: 05/17/21 08:35 Dose: 21 mg Documented by: Ondansetron HCl (Ondansetron Inj 2 Mg/Ml 2 Ml Vial) 4 mg IV Q6H PRN PRN Reason: Nausea Stop: 06/10/21 21:01 Last Admin: 05/17/21 13:20 Dose: 4 mg Documented by: Ondansetron HCl (Ondansetron Inj 2 Mg/Ml 2 Ml Vial) 4 mg IV Q6H PRN PRN Reason: Nausea And Vomiting Stop: 06/11/21 09:37 Last Admin: 05/14/21 16:56 Dose: 4 mg Documented by: Polyethylene Glycol (Polyethylene (Miralax) 17 Gm Pack) 17 gm PO DAILY PRN PRN Reason: Constipation Stop: 06/10/21 21:01 Last Admin: 05/13/21 20:16 Dose: 17 gm Documented by: Polymyxin/Trimethoprim Sulfate (Trimethoprim/Polymyxin B) 1 drops OPL Q4H [facility] Stop: 05/18/21 20:14 Last Admin: 05/17/21 15:44 Dose: 1 drops Documented by: Thiamine HCl (Thiamine Hcl 100 Mg Tab) 100 mg PO QAM [facility] Stop: 06/10/21 21:01 Last Admin: 05/17/21 08:36 Dose: 100 mg Documented by: Trazodone HCl (Trazodone Hcl 50 Mg Tab) 25 mg PO HS [facility] Stop: 05/17/21 17:50
[2021-05-17] MEDS ORDERED: LIDOCAINE 5% 1 PATCH TD SCH ×2 (18:15)
[2021-05-17] MEDS: cloNIDine HCL 0.1 MG TAB PO PRN (21:19)
[2021-05-17] MEDS: LIDOCAINE 5% 1 PATCH TD SCH (21:21)
[2021-05-18] MEDS: TRIMETHOPRIM/POLYMYXIN B OPL SCH ×4 (03:58→16:45)
[2021-05-18] MEDS: THIAMINE HCL 100 MG TAB PO SCH (08:39)
[2021-05-18] MEDS: amLODIPine BESYLATE 5 MG TAB PO SCH (08:39)
[2021-05-18] MEDS: FOLIC ACID 1 MG TAB PO SCH (08:39)
[2021-05-18] MEDS: NICOTINE 21 MG/24 HR TDSY TD SCH (08:40)
[2021-05-18] MEDS: HEPARIN SOD 5,000 UNIT/0.5 ML VIAL SQ SCH ×2 (08:42→21:01)
[2021-05-18] MEDS: LIDOCAINE 5% 1 PATCH TD SCH ×2 (08:42→20:59)
[2021-05-18] MEDS: hydrOXYzine HCl 25 MG TAB PO PRN (12:54)
--- NOTE | 2021-05-18 15:42 | Hospitalist Progress Note ---
Date of Service May 18, 2021 Assessment & Plan (1) Alcohol withdrawal: Plan: No further withdrawal symptoms IV ativan and telemetry discontinued (2) Alcohol abuse: Plan: Plan for alcohol rehab or counseling likely as outpatient (3) Thrombocytopenia: Plan: Improving, Likely related to ongoing alcohol abuse (4) Elevated LFTs: Plan: due to alcohol abuse. Improved (5) Elevated blood pressure reading: Plan: improved with amlodipine 10mg daily low salt diet Patient has bags of chips, soda, etc in his room. Offered recessing machine operator consult which he declined (6) Bacterial conjunctivitis of left eye: Plan: On Polymyxin drops . (7) Fall: Plan: Fall 05/14: Likely mechanical. No head trauma or syncope. No indication for imaging at this point. PT/OT evaluation--patient recommended for inpatient rehab (8) Morbid obesity: Plan: Weight loss recomended (9) DVT prophylaxis: Plan: SQ heparin (10) Hypokalemia: Plan: repleted Plan: Lower back Pain -Likely due to obesity and increased abdominal girth, exam not consistent with lumbar spine disease -CT A/P with contrast on admission was unremarkable -improved with lidoderm patch, needs ongoing PT Insomnia -not relieved with melatonin or melatonin -will order ambien PRN Disposition-- Patient is medically stable for discharge pending safe dispo plan Admission and Anticipated Discharge Date Admission Date: May 11, 2021 Subjective Received trazodone last night for sleep, it did not help Asking for different sleep aid Reports lidocaine patches helped his back We reviewed his high blood pressure and obesity--I recommended he be on a low salt diet and explained that his lower back pain is likely due to increased abdominal girth/obesity. I advised him that he needs to be on a weight loss plan and offered recessing machine operator consult while he is here, he declines Physical Exam Physical Exam: Obese, no acute distress Respiratory: breathing comfortably on room air, no wheezing/rhonchi/rales Cardiovascular: regular rate and rhythm, no murmurs/rubs/gallops Gastrointestinal (Abdomen): Obese, soft, non tender Musculoskeletal: no edema, no midline back pain Neurologic: awake, alert, spontaneously moving extremities Results & Data Results & Data ([facility]) Vital Signs (Past 12 Hours) Vital Signs Temp Pulse Resp BP Pulse Ox 05/18/21 07:19 36.5 C 70 20 143/90 H 96 Medications Administered Current Inpatient Medications Acetaminophen (Acetaminophen 325 Mg Tab) 650 mg PO Q4H PRN PRN Reason: Pain or Fever Stop: 06/10/21 21:01 Last Admin: 05/17/21 15:44 Dose: 650 mg Documented by: Amlodipine Besylate (Amlodipine Besylate 5 Mg Tab) 10 mg PO QAM [facility] Stop: 06/17/21 08:59 Last Admin: 05/18/21 08:39 Dose: 10 mg Documented by: Calcium Carbonate (Calcium Carbonate 500 Mg Chewable Tab) 500 mg PO Q6H PRN PRN Reason: Heartburn Stop: 06/12/21 06:08 Last Admin: 05/15/21 21:44 Dose: 500 mg Documented by: Folic Acid (Folic Acid 1 Mg Tab) [facility] Stop: 06/10/21 21:01 Last Admin: 05/18/21 08:39 Dose: 1 mg Documented by: Heparin Sodium (Porcine) (Heparin Sod 5,000 Unit/0.5 Ml Vial) 5,000 units SQ Q12 [facility] Stop: 06/14/21 20:59 Last Admin: 05/18/21 08:42 Dose: 5,000 units Documented by: Hydroxyzine HCl (Hydroxyzine Hcl 25 Mg Tab) 25 mg PO TID PRN PRN Reason: anxiety Stop: 06/17/21 12:01 Last Admin: 05/18/21 12:54 Dose: 25 mg Documented by: Lidocaine (Lidocaine 5% 1 Patch) 2 patch TD QAM [facility] Stop: 06/16/21 18:59 Last Admin: 05/18/21 08:42 Dose: Not Given Documented by: Miscellaneous (Remove Nicoderm Patch) 1 ea N/A DAILY@0859 [facility] Stop: 06/12/21 08:58 Last Admin: 05/18/21 08:40 Dose: 1 ea Documented by: Miscellaneous (Remove Lidoderm Patch) 2 ea N/A DAILY@2100 [facility] Stop: 06/16/21 20:59 Last Admin: 05/17/21 21:24 Dose: 2 ea Documented by: Nicotine (Nicotine 21 Mg/24 Hr Tdsy) 21 mg TD QAM [facility] Stop: 06/11/21 23:24 Last Admin: 05/18/21 08:40 Dose: 21 mg Documented by: Ondansetron HCl (Ondansetron Inj 2 Mg/Ml 2 Ml Vial) 4 mg IV Q6H PRN PRN Reason: Nausea Stop: 06/10/21 21:01 Last Admin: 05/17/21 13:20 Dose: 4 mg Documented by: Ondansetron HCl (Ondansetron Inj 2 Mg/Ml 2 Ml Vial) 4 mg IV Q6H PRN PRN Reason: Nausea And Vomiting Stop: 06/11/21 09:37 Last Admin: 05/14/21 16:56 Dose: 4 mg Documented by: Polyethylene Glycol (Polyethylene (Miralax) 17 Gm Pack) 17 gm PO DAILY PRN PRN Reason: Constipation Stop: 06/10/21 21:01 Last Admin: 05/13/21 20:16 Dose: 17 gm Documented by: Polymyxin/Trimethoprim Sulfate (Trimethoprim/Polymyxin B) 1 drops OPL Q4H [facility] Stop: 05/18/21 20:14 Last Admin: 05/18/21 12:54 Dose: 1 drops Documented by: Thiamine HCl (Thiamine Hcl 100 Mg Tab) 100 mg PO QAM [facility] Stop: 06/10/21 21:01 Last Admin: 05/18/21 08:39 Dose: 100 mg Documented by: Zolpidem Tartrate (Zolpidem Tartrate 10 Mg Tab) 10 mg PO HS PRN PRN Reason: Sleep Stop: 06/17/21 12:01
[2021-05-18] MEDS ORDERED: Nursing to Pharmacy Communication SCH (20:15)
[2021-05-18] MEDS: ZOLPIDEM TARTRATE 10 MG TAB PO PRN (20:57)
[2021-05-19] MEDS: amLODIPine BESYLATE 5 MG TAB PO SCH (08:17)
[2021-05-19] MEDS: HEPARIN SOD 5,000 UNIT/0.5 ML VIAL SQ SCH ×2 (08:17→21:03)
[2021-05-19] MEDS: THIAMINE HCL 100 MG TAB PO SCH (08:17)
[2021-05-19] MEDS: NICOTINE 21 MG/24 HR TDSY TD SCH (08:17)
[2021-05-19] MEDS: FOLIC ACID 1 MG TAB PO SCH (08:17)
[2021-05-19] MEDS: hydrOXYzine HCl 25 MG TAB PO PRN (16:54)
--- NOTE | 2021-05-19 19:28 | Hospitalist Progress Note ---
Date of Service May 19, 2021 Assessment & Plan (1) Fall: (2) Alcohol withdrawal: Plan: (1) Alcohol withdrawal: Plan: No further withdrawal symptoms resolved Patient advised against drinking alcohol, is agreeable. (2) Alcohol abuse: Plan: Plan for alcohol rehab or counseling likely as outpatient (3) Thrombocytopenia: Plan: Improving, Likely related to ongoing alcohol abuse (4) Elevated LFTs: Plan: due to alcohol abuse. Improved (5) Elevated blood pressure reading: Plan: improved with amlodipine 10mg daily low salt diet Patient has bags of chips, soda, etc in his room. Prior attending offered sales support engineer consult which he declined (6) Bacterial conjunctivitis of left eye: Plan: On Polymyxin drops . (7) Fall: Plan: Fall 05/14: Likely mechanical. No head trauma or syncope. No indication for imaging at this point. PT/OT evaluation--patient recommended for inpatient rehab (8) Morbid obesity: Plan: Weight loss recomended Patient declined dietitian consult, counselled on healthy diet. (9) DVT prophylaxis: Plan: SQ heparin (10) Lower back Pain -Likely due to obesity and increased abdominal girth, exam not consistent with lumbar spine disease -CT A/P with contrast on admission was unremarkable -improved with lidoderm patch, needs ongoing PT #. Insomnia -not relieved with melatonin or trazodone -on ambien PRN Disposition-- Patient is medically stable for discharge pending safe dispo plan, PT/OT reevaluation, CM to assist with DC planning regarding placement/alcoholic rehab. Admission and Anticipated Discharge Date Admission Date: May 11, 2021 Subjective Patient seen and examined at bedside for alcohol abuse, obesity, uncontrolled blood pressure. Patient was sitting up in bed, on room air, NAD, no new acute events overnight. Patient denies any pain or discomfort or headache or dizziness or chest pain or palpitation or belly pain or other review of symptoms. Patient reports improvement in his low back pain. Patient reports eating and moving bowels okay. Results & Data Results & Data ([facility]) Vital Signs (Past 12 Hours) Vital Signs Temp Pulse Pulse Resp BP BP Pulse Ox 05/19/21 19:19 37.0 C 105 H 16 148/93 H 96 05/19/21 15:28 37.0 C 82 14 144/97 H 97 05/19/21 07:29 36.4 C L 68 16 137/93 97
[2021-05-19] MEDS: LIDOCAINE 5% 1 PATCH TD SCH (21:05)
[2021-05-19] MEDS: ZOLPIDEM TARTRATE 10 MG TAB PO PRN (21:08)
[2021-05-20 06:59] LABS: BUN Creatinine Ratio 11.3 (10-20); Calcium 8.8 mg/dl (8.5-10.1); Creatinine Clr Calc Pharmacy 111.2 ml/min; Est GFR (Non-African American) 75.9 ml/min; Magnesium 2.3 mg/dl (1.7-2.4); Phosphorus 4.7 mg/dl (2.5-4.9); Potassium 4.3 mmol/L (3.5-5.1)
[2021-05-20] MEDS: FOLIC ACID 1 MG TAB PO SCH (08:35)
[2021-05-20] MEDS: THIAMINE HCL 100 MG TAB PO SCH (08:35)
[2021-05-20] MEDS: amLODIPine BESYLATE 5 MG TAB PO SCH (08:35)
[2021-05-20] MEDS: HEPARIN SOD 5,000 UNIT/0.5 ML VIAL SQ SCH (08:36)
[2021-05-20] MEDS: NICOTINE 21 MG/24 HR TDSY TD SCH (08:36)
--- NOTE | 2021-05-20 17:20 | Discharge Summary ---
Date of Service May 20, 2021 Admission HPI Per Admitting Provider 61 yo [place] speaking man presents to the ER today after two weeks of drinking constantly reporting not feeling well. He doesn't states anything hurts focally, just generally feels pain everywhere. He is retching and reports severe nausea. He reports not eating much, only drinking water recently. He reports some diarrhea that has resolved; he cannot tell me if any blood was present. He denies chest pain or shortness of breath. He reports buttermaker continuous churn heavy drinking but the daily amount was unclear through the interpretation. He has some drainage from his eye but "doesn't know" if it is infected. "anything is possible." He is having trouble sleeping and reports occasional OTC medication for insomnia, but cannot tell me what he takes. He also reports smoking 1 ppd cigarettes, and no other drug use. Admission Exam Per Admitting Provider CONSTITUTIONAL: obese, vitals as above, generally ill-appearing. EYES: pupils are round and requal bilaterally, injected conjunctivae, no scleral icterus, +left white purulent drainage and tearing with inflammatory changes around eyelid. ENT: external ear and nose normal, oropharynx clear, no TM abnormality, no maxillary or ethmoid sinus tenderness NECK: trachea midline, no lymphadenopathy, normal thyroid RESPIRATORY: clear to auscultation bilaterally, no crackles, rales or wheezes, normal respiratory effort CARDIOVASCULAR: regular rate and rhythm, S1 and 2 heard without murmurs, gallops or rubs, no JVD, no peripheral edema CHEST: inspection of chest was normal GASTROINTESTINAL: soft, generalized tenderness, nondistended, protuberant MUSCULOSKELETAL: strength 5/5 throughout, head is normocephalic and atraumatic SKIN: warm and dry NEUROLOGIC: CN 2-12 grossly intact, normal cognition, normal speech, +tremor PSYCHIATRIC: alert, agitated, frustrated with line of questioning, cooperative and oriented, answering questions appropriately. Makes eye contact, language and speech intact. Principal Diagnosis Alcohol abuse, alcohol withdrawal Discharge Exam please refer to Dr. Roa's addendum for physical exam Discharge Data Allergies Allergy/AdvReac Type Severity Reaction Status Date / Time No Known Allergies Allergy Verified 05/11/21 15:42 Ordered Studies Laboratory Results WBC 5.03 K/uL (4.8-10.8) 05/16/21 06:03 RBC 4.32 M/uL (4.7-6.1) L 05/16/21 06:03 Hgb 12.6 g/dL (14.0-18.0) L 05/16/21 06:03 Hct 38.1 % (42-52) L 05/16/21 06:03 MCV 88.2 fL (80-100) 05/16/21 06:03 MCH 29.2 pg (25-34) 05/16/21 06:03 MCHC 33.1 g/dL (32-36) 05/16/21 06:03 RDW Std Deviation 60.6 fL (36.4-46.3) H 05/16/21 06:03 RDW Coeff of Vincenzo 19.5 % (11.5-14.5) H 05/16/21 06:03 Plt Count 114 K/uL (130-400) L 05/16/21 06:03 MPV 10.1 fL (7.4-10.4) 05/16/21 06:03 Immature Gran % (Auto) 0.6 % 05/11/21 15:40 Neut % (Auto) 76.3 % 05/11/21 15:40 Lymph % (Auto) 17.1 % 05/11/21 15:40 Winston % (Auto) 5.8 % 05/11/21 15:40 Eos % (Auto) 0.0 % 05/11/21 15:40 Baso % (Auto) 0.2 % 05/11/21 15:40 Neut # (Auto) 4.78 K/uL (1.4-6.5) 05/11/21 15:40 Lymph # (Auto) 1.07 K/uL (1.2-3.4) L 05/11/21 15:40 Winston # (Auto) 0.36 K/uL (0.11-0.59) 05/11/21 15:40 Eos # (Auto) 0.00 K/uL (0-0.5) 05/11/21 15:40 Baso # (Auto) 0.01 K/uL (0-0.2) 05/11/21 15:40 Immature Gran # (Auto) 0.04 K/uL (0.00-0.02) H 05/11/21 15:40 Platelet Estimate Decreased (Normal) L 05/11/21 15:40 Target Cells 1+ 05/11/21 15:40 PT 10.6 Seconds (9.0-12.0) 05/11/21 15:40 INR 1.0 (0.9-1.1) 05/11/21 15:40 APTT 26.1 Seconds (21.0-31.0) 05/11/21 15:40 PTT Ratio 1.0 05/11/21 15:40 Sodium 139 mmol/L (136-145) 05/20/21 06:13 Potassium 4.3 mmol/L (3.5-5.1) 05/20/21 06:13 Chloride 105 mmol/L (98-107) 05/20/21 06:13 Carbon Dioxide 30 mmol/L (21-32) 05/20/21 06:13 Anion Gap 4 (3-11) 05/20/21 06:13 BUN 12 mg/dl (6-23) 05/20/21 06:13 Creatinine 1.06 mg/dl (0.6-1.4) 05/20/21 06:13 Est Cr Clr Drug Dosing 111.2 ml/min 05/20/21 06:13 Est GFR ( Amer) 88.0 ml/min 05/20/21 06:13 Est GFR (Non-Af Amer) 75.9 ml/min 05/20/21 06:13 BUN/Creatinine Ratio 11.3 (10-20) 05/20/21 06:13 Glucose 94 mg/dl (70-99(Fasting)) 05/20/21 06:13 Estimat Average Glucose 114 mg/dl 05/12/21 05:54 Hemoglobin A1c 5.6 % (4.5-5.6) 05/12/21 05:54 Lactate 3.2 mmol/L (0.4-2.0) H* 05/11/21 18:01 Calcium 8.8 mg/dl (8.5-10.1) 05/20/21 06:13 Phosphorus 4.7 mg/dl (2.5-4.9) 05/20/21 06:13 Magnesium 2.3 mg/dl (1.7-2.4) 05/20/21 06:13 Total Bilirubin 0.9 mg/dl (0.2-1.0) 05/16/21 06:03 Direct Bilirubin 0.3 mg/dl (0-0.2) H 05/12/21 05:54 AST 67 U/L (13-39) H 05/16/21 06:03 ALT 91 U/L (7-52) H 05/16/21 06:03 Alkaline Phosphatase 83 U/L (34-104) 05/16/21 06:03 Ammonia 29.0 umol/L (18-72) 05/11/21 18:01 Total Creatine Kinase 298 U/L (30-223) H 05/11/21 15:40 Troponin I < 0.03 ng/ml (0-0.04) 05/11/21 15:40 Total Protein 6.6 gm/dl (6.0-8.3) 05/16/21 06:03 Albumin 3.6 gm/dl (3.4-5.0) 05/16/21 06:03 Globulin 3.0 gm/dl (2.5-4.0) 05/16/21 06:03 Albumin/Globulin Ratio 1.2 (0.9-2) 05/16/21 06:03 Lipase 133 U/L (11-82) H 05/11/21 15:40 Procalcitonin 0.08 ng/ml (0-0.5) 05/11/21 15:40 TSH 0.916 uIu/ml (0.300-4.500) 05/11/21 15:40 Urine Color [place] 05/11/21 15:40 Urine Appearance Clear (Clear) 05/11/21 15:40 Urine pH 6.5 (4.5-7.5) 05/11/21 15:40 Ur Specific [place] 1.021 (1.000-1.030) 05/11/21 15:40 Urine Protein 2+ (Negative) H 05/11/21 15:40 Urine Glucose (UA) Negative (Negative) 05/11/21 15:40 Urine Ketones 3+ (Negative) H 05/11/21 15:40 Urine Blood 2+ (Negative) H 05/11/21 15:40 Urine Nitrite Negative (Negative) 05/11/21 15:40 Urine Bilirubin 1+ (Negative) H 05/11/21 15:40 Urine Urobilinogen Negative (Negative) 05/11/21 15:40 Ur Leukocyte Esterase Negative (Negative) 05/11/21 15:40 Urine WBC (Auto) 1-5 /hpf (0-5) 05/11/21 15:40 Urine RBC (Auto) 10-30 /hpf (0-4) H 05/11/21 15:40 U Hyaline Cast (Auto) 1-5 /lpf (0-5) 05/11/21 15:40 U Epithel Cells (Auto) 10-20 /lpf (0-5) H 05/11/21 15:40 Urine Bacteria (Auto) Negative (Negative) 05/11/21 15:40 Urine Opiates Screen Neg (Neg) 05/11/21 15:40 Ur Methadone, Qual Neg (Neg) 05/11/21 15:40 Urine Barbiturates Neg (Neg) 05/11/21 15:40 Ur Phencyclidine (PCP) Neg (Neg) 05/11/21 15:40 U Amphetamin/Meth Scrn Neg (Neg) 05/11/21 15:40 MDMA (Ecstasy) Screen Neg (Neg) 05/11/21 15:40 U Benzodiazepines Scrn Neg (Neg) 05/11/21 15:40 Ur Cocaine Metabolite Neg (Neg) 05/11/21 15:40 U Marijuana (THC) Screen Neg (Neg) 05/11/21 15:40 Ethyl Alcohol mg/dL 273.0 mg/dl (<10.0) H 05/11/21 15:40 SARS-CoV-2, RNA, NAAT NEGATIVE (NEGATIVE) 05/11/21 15:40 Impressions Abdomen/Pelvis CT 05/11/21 15:23 CT abd pelvis IV con only CLINICAL HISTORY: etoh, pain, brusing TECHNIQUE: Helical axial images of the abdomen and pelvis were obtained and disp layed. Automated dose lowering techniques and/or adjustment according to patient size were utilized for this exam. This exam was performed with intravenous contrast. COMPARISON: Comparison is made to CT abdomen pelvis 08/05/2016 FINDINGS: Lower chest: No acute abnormality Liver: Hepatic steatosis is noted. Gallbladder and biliary tree: No calcified gallstones. Normal caliber wall. No intra- or extrahepatic biliary ductal dilation. Pancreas: Unremarkable, no focal lesions. Spleen: Unremarkable. Adrenals: Unremarkable. Kidneys and ureters: Subcentimeter hypodensities are too small to characterize. Bladder: Unremarkable. Reproductive organs: Prostatomegaly is seen. Bowel: Unremarkable. Lymph nodes Retroperitoneal: Unremarkable. Mesenteric: Unremarkable. Pelvic: Unremarkable. Peritoneum: Normal. Vessels: Unremarkable. Abdominal wall: Bilateral fat-containing inguinal hernias are seen. Minimal soft tissue stranding is seen in the right mid abdomen. Bones: Degenerative changes in the visualized spine. IMPRESSION: 1. No evidence of acute fracture. No acute abnormality is seen. 2. Hepatic steatosis. 3. Prostatomegaly. ACT 112: Negative or not required by law. Electronically signed by: Pino Aldrich M.D. 05/11/2021 5:[address] 05/11/21 15:23 CT cervical spine wo con CLINICAL HISTORY: pains, etoh TECHNIQUE: Multidetector row helical CT of the cervical spine was performed without administration of intravenous contrast. Coronal and sagittal reformations were obtained. Automated dose lowering techniques and/or adjustment according to patient size were utilized for this exam. Comparison: None available at the time of this dictation. FINDINGS: No acute fractures or subluxations are identified. Degenerative changes are seen in the visualized spine. The alignment is normal. Incidentally noted is sinus disease in the bilateral sphenoid and right maxillary sinus. IMPRESSION: Degenerative changes without evidence of acute bony injury. ACT 112: Negative or not required by law. Electronically signed by: Pino Aldrich M.D. 05/11/2021 5:05 PM Chest X-Ray 05/11/21 15:23 XR chest 1V portable CLINICAL HISTORY: weakness TECHNIQUE: Single frontal radiograph of the chest was obtained. Comparison: Comparison is made to chest 2 views 11/01/2020 FINDINGS: No lines and tubes are seen. The cardiomediastinal silhouette is normal. The lungs are clear. No evidence of pleural effusion or pneumothorax. IMPRESSION: No acute chest disease. ACT 112: Negative or not required by law. Electronically signed by: Pino Aldrich M.D. 05/11/2021 4:[address] 05/11/21 15:23 CT head/brain wo con CLINICAL HISTORY: weak, pain, etoh Technique: Contiguous axial CT images of the head were acquired from the base of the skull to the vertex without intravenous contrast administration. Images were viewed in brain, subdural and bone windows. Automated dose lowering techniques and/or adjustment according to patient size were utilized for this exam. Comparison: Comparison is made to CT head 06/15/2012 Findings: The ventricles, basal cisterns, and cerebral sulci are normal. There is no acute intracranial hemorrhage or evidence of acute territorial infarction. Neither mass effect, shift of the midline structures, nor abnormal extra-axial fluid collections are shown. Imaged portions of the paranasal sinuses and mastoid air cells are clear. The orbits appear normal. There are no acute fractures of the calvaria or scalp swelling. Impression: No acute intracranial hemorrhage, no evidence of acute territorial infarction or other acute intracranial disease process. ACT 112: Negative or not required by law. Electronically signed by: Pino Aldrich M.D. 05/11/2021 5:02 PM Chest CTA 05/11/21 16:24 CT angio chest PE protocol CLINICAL HISTORY: PE, weak sob, hypoxia, falls TECHNIQUE: Multidetector row helical CT of the chest was performed. Coronal and sagittal reformations were obtained. Coronal and sagittal MIPS were obtained from the axial data set and were submitted for review. Automated dose lowering techniques and/or adjustment according to patient size were utilized for this exam. Comparison: None available at the time of this dictation. FINDINGS: Lungs and pleura: Normal. Heart and pericardium: Heart size is normal. No pericardial effusion. Vessels: No evidence of pulmonary embolism. Mediastinum and aric: Subcentimeter lymph nodes are seen. Chest wall and lower neck: Unremarkable. Abdomen: For findings below the diaphragm, please refer to CT of the abdomen dated the same. Bones: Degenerative changes in the thoracic spine. No evidence of acute fractures. IMPRESSION: No acute abnormality. No pulmonary embolism. ACT 112: Negative or not required by law. Electronically signed by: Pino Aldrich M.D. 05/11/2021 5:13 PM Hospital Course (1) Fall: (2) Alcohol withdrawal: (1) Alcohol withdrawal: Plan: Received gabapentin per protocol and as needed lorazepam Started on thiamine and folic acid Resolved Patient advised against drinking alcohol, is agreeable. Information on outpatient alcohol rehab services provided to patient (2) Alcohol abuse: Plan: Plan for alcohol rehab and counseling as an outpatient (3) Thrombocytopenia: Plan: Platelet 114K on 05/16/21 Improving, Likely related to ongoing alcohol abuse Recommending rechecking a CBC within 1 week (4) Elevated LFTs: Plan: Likely due to alcohol use, improving CT ABD/pelvis showing hepatic steatosis Recommend rechecking LFTs within 1 week (5) Elevated blood pressure reading: Plan: Started on amlodipine 10 mg daily Educated regarding low-salt diet (6) Bacterial conjunctivitis of left eye: Plan: On Polymyxin drops Resolved (7) Fall: Plan: Fall 05/14: Likely mechanical. No head trauma or syncope. No indication for imaging at this point. PT/OT initially recommending rehab however reeval today shows that patient can go home. (8) Morbid obesity: Plan: Weight loss recommended Patient declined dietitian consult, counselled on healthy diet. (9) Lower back Pain -Likely due to obesity and increased abdominal girth, exam not consistent with lumbar spine disease -CT A/P with contrast on admission was unremarkable -improved with Lidoderm patch (10). Insomnia -not relieved with melatonin or trazodone -Received Ambien as needed while admitted however will not provide prescription at discharge. Follow-up with PCP Total Time Total Time Spent Total Time Spent (In Minutes): 35 Discharge Plan Discharge Items Patient Disposition: Home - Self-Care Reason For Visit: ALCOHOL WITHDRAWAL Discharge Diagnosis: Alcohol abuse, alcohol withdrawal Activity: Resume your previous activity Non-emergency contact: Primary Care Provider Call non-emergency contact if: you have any medication questions, your symptoms worsen, your pain is not controlled and you have a fever Follow-up/Referrals: Jason Renee MD [Primary Care Provider] - (Date & Time 05/29/2021 11:20 AM Provider Jason Renee MD Department General Internal Medicine [facility] ) Diet: Low Sodium (2gm) Addtl Attending Provider Instructions: You came to the hospital with complaints of generally not feeling well. This is likely due to longstanding alcohol use. CONTINUE TO ABSTAIN FROM ALCOHOL You were started on thiamine and folic acid, continue to take these until you discuss further with your PCP. Your liver functions were elevated and platelet count was low. These improved during admission. Recommend PCP rechecking in a week or so. You were started on medication for high blood pressure. Amlodipine (Norvasc) 10 mg daily. Also recommend a low-salt diet to help with blood pressure control. Case management provided resources for you to establish with an outpatient alcohol rehab program. It was a pleasure taking care of you. If you need to reach a member of the [facility]ist team Frank [place], please call [phone]. DAVIS Ahn Pending Studies at Discharge: No Stand-Alone Forms: [facility] Sm[facility] Cess[facility] Medications and DC Order Prescriptions: New amlodipine [Norvasc] 5 mg Tablet 10 mg PO QAM Qty: 30 RF: 0 folic acid 1 mg Tablet 1 mg PO QAM Qty: 30 RF: 0 thiamine HCl (vitamin B1) 100 mg Tablet 100 mg PO QAM Qty: 30 RF: 0 Discharge Orders: Discharge Order (Routine); Ordered 05/20/21 Ordered By: Sandy Burns/Other Patient Handouts: Low-Salt Choices, Alcohol Withdrawal: What to Expect, Low Salt Diet Dc Admission Data Admit Date/Time: 05/11/21 18:18 Attending Provider: Lj Roa Admit Provider: Klarissa Bentley Primary Care Provider: Jason Renee Other Providers: Talta Underwood ; [place],[facility] ; [facility] ; Klarissa Bentley Other Interventions: Discharge Summary Assessment (RN) Last Done: 05/20/21 12:56 Supervising Physician Co-Signing Physician Notes Patient seen and examined at bedside for follow-up of alcohol withdrawal and fall. PT reevaluated and deemed discharged to home appropriate. Talked with patient with the help of button pusher in the morning, no new complaints. Upon examination: GENERAL: Alert and oriented x3. NAD, on RA. HEENT: No pallor, no icterus. Pupils equal, round and reactive to light. Oral mucosa moist. NECK: No JVD, no neck masses. HEART: S1 and S2 heard. Regular rate and rhythm. No murmur, no gallop. RESPIRATORY SYSTEM: Normal AP diameter. No accessory muscle use. No wheezing, no crackles. ABDOMEN: Soft, bowel sounds present, nontender, no distention. CENTRAL NERVOUS SYSTEM: No facial droop. Speech is clear. Obeys simple commands. Moves extremities. EXTREMITIES: Trace BLE edema, no erythema seen. Patient advised to follow-up with outpatient alcohol rehab services. I have seen and examined the patient and have discussed the case with the provider above. I agree with the assessment and plan as stated.
== END 2021-05-20 14:58 | disposition home or self-care (01) | DRG 897 ==
LOC: ED 15:10 → SUATTDRO 18:18 → EDINP 18:18 → 2W 05-12 15:11 → 3N 05-18 23:45

== ENCOUNTER 2022-03-07 13:27 | Inpatient (IN) ==
--- NOTE | 2022-03-07 13:35 | Emergency Department Note ---
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 The patient reportedly has a history of drinking and not eating. The patient last drank this morning and typically drinks about 1/5 of vodka per day and has done so for the last 5 days without any eating. The patient does complain of some mild chest discomfort but primarily upper abdominal pain. No blood in the vomit. Patient reportedly did have a fall but no reported head strike or LOC this is a witnessed fall by the son. EMS was called by the son today. Patient denies any numbness or tingling and no weakness. ROS: See HPI for pertinent positives and negatives. A total of 10 systems were reviewed and otherwise negative. Past medical history: See below Surgical history: See below Social history: See below Physical Exam: GENERAL: NAD, wearing a mask, non-toxic. Wearing glasses, vomitus at the corners of the mouth. EYE EXAM: Normal conjunctiva. PERRL, no anisocoria and EOM's grossly intact w/o pain. Head: No TTP or obvious deformity NECK: Supple, no nuchal rigidity, no adenopathy, non-tender. No signs of meningismus. FROM of the neck with good chin to chest and neck extension. No stridor. No TTP LUNGS: Clear to auscultation. Normal chest wall mechanics. HEART: NSR, no MRG. ABDOMEN: Abdomen soft, upper abdominal pain without lower abdominal pain, not peritonitic, normo-active bowel sounds, no masses, no rebound or guarding. BACK: No CVA TTP. SKIN: No rashes. UPPER EXTREMITIES: Upper extremities are grossly normal. No TTP or obvious deformity. LOWER EXTREMITIES: Grossly normal, no edema. No TTP or obvious deformity. NEURO EXAM: A&O x3, cranial nerves II-XII grossly intact, normal speech, moves all 4 extremities. Differential diagnoses: Appendicitis, testicular torsion, infections, diverticulitis, UTI, obstruction, mesenteric ischemia, aortic pathology, inflammatory bowel disease, renal colic, PUD, pancreatitis, biliary pathology, hernia, volvulus, constipation, as well as other pathologies. Course: Patient was seen and evaluated the bedside. Full history physical exam was performed. EKG interpreted by me A. fib, rate of 84, normal QRS and axis no ST elevations. Maurice danielle is new from comparison EKG of sinus rhythm noted on May 11, 2021. Imaging Studies: See Below Cardiac monitoring: An order was placed for continuous cardiac monitoring. The monitor shows a rate of 82 with sinus rhythm. MDM: Patient was seen due to concern for abdominal pain. Blood work was obtained along with a CT of the head and CT abdomen pelvis given the patient's fall and abdominal pain. The patient did have a chest x-ray completed as the patient had also complained of some chest pain. Believe this is most likely related to the patient's abdominal pain nausea vomiting but this was ordered as a screener in addition to EKG and troponin. The patient was ordered a banana bag and alcohol level along with electrolytes. Patient was ordered IV Zofran. Narcotics were a voided initially given the patient's concern for intoxication. Patient has a normal white count H&H. Thrombocytopenia 108 which may be secondary to the patient's alcohol use. The patient does have an anion gap but normal BUN and creatinine. Hypocalcemia is noted with mild transaminitis. Patient was ordered replacement of his potassium and calcium. Alcohol 346. Patient was ordered p.o. Librium. [facility] protocols in place. COVID-negative. Patient's chest x-ray does not show any acute findings. CT on pelvis shows mild gallbladder distention and fatty liver. No bowel obstruction. The patient's head CT is negative. Gallbladder ultrasound shows moderate gallbladder distention but no evidence of acute cholecystitis. Troponin is positive at 161. Patient's chest pain is improved with just IV fluids alone. Patient's EKG does not show any obvious ischemic changes. Heparin avoided given the patient's intoxication and recent fall. This is at least deferred for the time being. I did speak the on-call hospitalist Dr. Mayorga who is in agreement. Patient was admitted to the medicine service. Past Med/Surg History Medical History Alcoholism History of violent behavior Per daughter (Lindsey), pt will become violent when drinking Morbid obesity Osteoarthritis Surgical History Hx of elbow surgery ? Left Hx of total knee arthroplasty Right Family History Other No family history of adverse response to anesthesia Social History Smoking Status: Unknown if ever smoked Cigarettes Per Day: 20+ cigs/day; Second Hand Exposure: No; Hx Alcohol Use: Yes Alcohol type: beer and hard liquor Hx Substance Use: No Preferred Language: Mosotho Communication Ability: Effective Communication Tools: IPad Impregnator Helper Required: Yes Beliefs That Will Affect Care: None marital status: Current Living Situation: Spouse Feels Safe at Home: Yes Assistive Devices: None Allergies Allergies Allergy/AdvReac Type Severity Reaction Status Date / Time No Known Allergies Allergy Verified 03/07/22 17:21 Home Meds Home Medications Medication Instructions Recorded Confirmed ibuprofen 200 mg tablet 600 mg PO DIRECTED PRN 03/07/22 03/07/22 pain/fever Results & Data (ED) Vital Signs Vital Signs - 24 hr 03/07/22 13:34 03/07/22 14:22 03/07/22 13:52 Temperature 36.7 C Temperature Source Oral Pulse Rate 82 94 H Pulse Rate from SpO2 Sensor 92 H Pulse Rhythm Regular Pulse Strength Normal Respiratory Rate 20 16 Respiratory Effort / Characteristics Non-Labored Spontaneous Respiratory Depth Normal Respiratory Pattern Regular Blood Pressure 126/87 Blood Pressure Mean 100 Blood Pressure Position Sitting Pulse Oximetry 96 92 94 Oxygen Delivery Method Room Air Room Air Sepsis Recent Fever Within 48 Hours No Sepsis New/Unexplained Change in Mental Status No Sepsis Action Taken by Nursing No Action Required 03/07/22 13:55 03/07/22 13:55 03/07/22 14:00 Temperature Temperature Source Pulse Rate 92 H 102 H Pulse Rate from SpO2 Sensor 103 H Pulse Rhythm Pulse Strength Respiratory Rate 21 18 Respiratory Effort / Characteristics Respiratory Depth Respiratory Pattern Blood Pressure 139/70 Blood Pressure Mean 93 Blood Pressure Position Pulse Oximetry 92 Oxygen Delivery Method Sepsis Recent Fever Within 48 Hours Sepsis New/Unexplained Change in Mental Status Sepsis Action Taken by Nursing 03/07/22 14:02 03/07/22 14:02 03/07/22 14:30 Temperature Temperature Source Pulse Rate 112 H Pulse Rate from SpO2 Sensor 104 H Pulse Rhythm Pulse Strength Respiratory Rate 20 Respiratory Effort / Characteristics Respiratory Depth Respiratory Pattern Blood Pressure 115/76 101/76 Blood Pressure Mean 89 84 Blood Pressure Position Pulse Oximetry 88 L Oxygen Delivery Method Sepsis Recent Fever Within 48 Hours Sepsis New/Unexplained Change in Mental Status Sepsis Action Taken by Nursing 03/07/22 14:30 03/07/22 15:00 03/07/22 15:00 Temperature Temperature Source Pulse Rate Pulse Rate from SpO2 Sensor 111 H 89 Pulse Rhythm Pulse Strength Respiratory Rate Respiratory Effort / Characteristics Respiratory Depth Respiratory Pattern Blood Pressure 133/96 Blood Pressure Mean 108 Blood Pressure Position Pulse Oximetry 94 95 Oxygen Delivery Method Sepsis Recent Fever Within 48 Hours Sepsis New/Unexplained Change in Mental Status Sepsis Action Taken by Nursing 03/07/22 15:30 03/07/22 15:30 Temperature Temperature Source Pulse Rate Pulse Rate from SpO2 Sensor 98 H Pulse Rhythm Pulse Strength Respiratory Rate Respiratory Effort / Characteristics Respiratory Depth Respiratory Pattern Blood Pressure 130/101 H Blood Pressure Mean 110 Blood Pressure Position Pulse Oximetry 93 Oxygen Delivery Method Sepsis Recent Fever Within 48 Hours Sepsis New/Unexplained Change in Mental Status Sepsis Action Taken by [facility] Medications Current Medication List: was personally reviewed by me Laboratory Data Attestation: I reviewed the patient's lab results. Result diagrams: 03/07/22 14:11 03/07/22 14:11 Lab Results 03/07/22 03/07/22 03/07/22 Range/Units 14:11 14:11 14:20 WBC 7.71 (4.8-10.8) K/ul RBC 4.86 (4.63-6.08) M/uL Hgb 14.2 (14.0-18.0) g/dl Hct 40.3 (40.1-51.0) % MCV 82.9 (80.0-100.0) fL MCH 29.2 (25.0-34.0) pg MCHC 35.2 (32.0-36.0) g/dL RDW Std Deviation 47.2 H (36.4-46.3) fL RDW Coeff of Vincenzo 15.9 H (11.5-14.5) % Plt Count 108 L (130-400) K/uL MPV 10.2 (9.4-12.4) fL Immature Gran % (Auto) 0.4 % Neut % (Auto) 72.0 % Lymph % (Auto) 23.3 % Elk % (Auto) 4.0 % Eos % (Auto) 0.0 % Baso % (Auto) 0.3 % Neut # (Auto) 5.55 (1.4-6.5) K/uL Lymph # (Auto) 1.80 (1.2-3.4) K/uL Elk # (Auto) 0.31 (0.24-0.82) K/uL Eos # (Auto) 0.00 (0-0.50) K/uL Baso # (Auto) 0.02 (0-0.2) K/uL Immature Gran # (Auto) 0.03 H (0.00-0.02) K/uL Sodium 136 (136-145) mmol/L Potassium 3.4 L (3.5-5.1) mmol/L Chloride 94 L (98-107) mmol/L Carbon Dioxide 25 (21-32) mmol/L Anion Gap 17 H (3-11) BUN 6 (6-23) mg/dl Creatinine 0.78 (0.6-1.4) mg/dl Est Cr Clr Drug Dosing 150.0 ml/min Est GFR ( Amer) 113.7 ml/min Est GFR (Non-Af Amer) 98.1 ml/min BUN/Creatinine Ratio 7.7 L (10-20) Glucose 103 H (70-99(Fasting)) mg/dl Calcium 8.2 L (8.5-10.1) mg/dl Phosphorus 3.0 (2.5-4.9) mg/dl Magnesium 2.0 (1.7-2.4) mg/dl Total Bilirubin 1.2 H (0.2-1.0) mg/dl AST 82 H (13-39) U/L ALT 68 H (7-52) U/L Alkaline Phosphatase 94 (34-104) U/L Troponin I High Sens 161.4 H* (0-20) pg/ml Total Protein 7.0 (6.0-8.3) gm/dl Albumin 4.2 (3.4-5.0) gm/dl Globulin 2.8 (2.5-4.0) gm/dl Albumin/Globulin Ratio 1.5 (0.9-2) Lipase 77 (11-82) U/L Urine Color Yellow Urine Appearance Clear (Clear) Urine pH 6.5 (4.5-7.5) Ur Specific [place] 1.005 (1.000-1.030) Urine Protein Trace H (Negative) Urine Glucose (UA) Negative (Negative) Urine Ketones 1+ H (Negative) Urine Blood Trace H (Negative) Urine Nitrite Negative (Negative) Urine Bilirubin Negative (Negative) Urine Urobilinogen Negative (Negative) Ur Leukocyte Esterase Negative (Negative) Urine RBC 0-4 (0-4) /hpf Urine WBC 5-10 H (0-5) /hpf Ur Epithelial Cells 0-5 (0-5) /lpf Urine Bacteria 1+ H (Negative) Ethyl Alcohol mg/dL (<10.0) mg/dl SARS-CoV-2, RNA, NAAT (NEGATIVE) 03/07/22 03/07/22 Range/Units 14:20 14:21 WBC (4.8-10.8) K/ul RBC (4.63-6.08) M/uL Hgb (14.0-18.0) g/dl Hct (40.1-51.0) % MCV (80.0-100.0) fL MCH (25.0-34.0) pg MCHC (32.0-36.0) g/dL RDW Std Deviation (36.4-46.3) fL RDW Coeff of Vincenzo (11.5-14.5) % Plt Count (130-400) K/uL MPV (9.4-12.4) fL Immature Gran % (Auto) % Neut % (Auto) % Lymph % (Auto) % Elk % (Auto) % Eos % (Auto) % Baso % (Auto) % Neut # (Auto) (1.4-6.5) K/uL Lymph # (Auto) (1.2-3.4) K/uL Elk # (Auto) (0.24-0.82) K/uL Eos # (Auto) (0-0.50) K/uL Baso # (Auto) (0-0.2) K/uL Immature Gran # (Auto) (0.00-0.02) K/uL Sodium (136-145) mmol/L Potassium (3.5-5.1) mmol/L Chloride (98-107) mmol/L Carbon Dioxide (21-32) mmol/L Anion Gap (3-11) BUN (6-23) mg/dl Creatinine (0.6-1.4) mg/dl Est Cr Clr Drug Dosing ml/min Est GFR ( Amer) ml/min Est GFR (Non-Af Amer) ml/min BUN/Creatinine Ratio (10-20) Glucose (70-99(Fasting)) mg/dl Calcium (8.5-10.1) mg/dl Phosphorus (2.5-4.9) mg/dl Magnesium (1.7-2.4) mg/dl Total Bilirubin (0.2-1.0) mg/dl AST (13-39) U/L ALT (7-52) U/L Alkaline Phosphatase (34-104) U/L Troponin I High Sens (0-20) pg/ml Total Protein (6.0-8.3) gm/dl Albumin (3.4-5.0) gm/dl Globulin (2.5-4.0) gm/dl Albumin/Globulin Ratio (0.9-2) Lipase (11-82) U/L Urine Color Urine Appearance (Clear) Urine pH (4.5-7.5) Ur Specific [place] (1.000-1.030) Urine Protein (Negative) Urine Glucose (UA) (Negative) Urine Ketones (Negative) Urine Blood (Negative) Urine Nitrite (Negative) Urine Bilirubin (Negative) Urine Urobilinogen (Negative) Ur Leukocyte Esterase (Negative) Urine RBC (0-4) /hpf Urine WBC (0-5) /hpf Ur Epithelial Cells (0-5) /lpf Urine Bacteria (Negative) Ethyl Alcohol mg/dL 346.5 H (<10.0) mg/dl SARS-CoV-2, RNA, NAAT NEGATIVE (NEGATIVE) Administered Medications Discontinued Medications Chlordiazepoxide HCl (Chlordiazepoxide Hcl 25 Mg Cap) 50 mg PO NOW ONE Stop: 03/07/22 17:05 Last Admin: 03/07/22 17:20 Dose: 50 mg Documented By: NMS Multivitamins 10 ml/ Thiamine HCl 100 mg/ Folic Acid 1 mg/Sodium Chloride 1,011.2 mls @ 1,011.2 mls/hr IV .Q1H ONE Stop: 03/07/22 14:50 Last Infusion: 03/07/22 16:58 Dose: 0 mls/hr Documented By: Admin: 03/07/22 14:55 Dose: 1,011.2 mls/hr Documented By: REHAN Calcium Gluconate () 1,000 mg in 60 mls @ 240 mls/hr IV NOW STA Stop: 03/07/22 15:45 Last Infusion: 03/07/22 16:45 Dose: 0 mls/hr Documented By: Admin: 03/07/22 16:05 Dose: 240 mls/hr Documented By: REHAN Potassium Chloride (K Greg / Wtr) 10 meq in 100 mls @ 100 mls/hr IV Q1H ISABEL; Protocol Stop: 03/07/22 17:44 Last Admin: 03/07/22 17:01 Dose: 100 mls/hr Documented By: Infusion: 03/07/22 17:01 Dose: 100 mls/hr Documented By: Admin: 03/07/22 16:05 Dose: 100 mls/hr Documented By: REHAN Sodium Chloride (Nss 1000ml) 1,000 mls @ 999 mls/hr IV .Q1H1M ONE Stop: 03/07/22 17:35 Last Admin: 03/07/22 16:59 Dose: 999 mls/hr Documented By: REHAN Ioversol (Optiray 350 100ml) 87 ml IV ONCE ONE Stop: 03/07/22 15:53 Last Admin: 03/07/22 15:53 Dose: 87 ml Documented By: DAVID Ondansetron HCl (Ondansetron Inj 2 Mg/Ml 2 Ml Vial) 4 mg IV NOW STA Stop: 03/07/22 13:52 Last Admin: 03/07/22 15:26 Dose: 4 mg Documented By: REHAN Imaging Data Radiologist's Impression: Abdomen/Pelvis CT 03/07/22 13:51 CT OF THE ABDOMEN AND PELVIS WITH CONTRAST CLINICAL HISTORY: Abdominal pain. COMPARISON STUDY: CT of the abdomen and pelvis May 11, 2021. TECHNIQUE: Following IV administration of 87 mL of Optiray, axial images of the abdomen and pelvis were obtained from the lung bases to the proximal femurs. Images were reviewed in the axial, sagittal, and coronal planes. IV contrast was administered without complication. Automated exposure control was utilized for the study. A dose lowering technique was utilized adhering to the principles of ALARA. CT DOSE: 3872.83 mGy.cm FINDINGS: This study is mildly compromised by motion artifact. No consolidation within the lower lungs is noted. Cardiomegaly is present. There is no pneumatosis, free air or portal venous gas. Severe hepatic steatosis is again noted. The gallbladder is mildly distended. Equivocal pericholecystic stranding is likely artifactual. The spleen, adrenal glands and pancreas are unremarkable. Probable cyst within the midpole of the right kidney is noted. There is no hydronephrosis. There is no lymphadenopathy. There is no evidence for a bowel obstruction. The caliber and wall thickness of small and large bowel are normal. No acute fractures within the visualized skeletal structures are present. There is severe bilateral hip osteoarthritis. IMPRESSION: 1. Mild gallbladder distention. If right upper quadrant pain, ultrasound is recommended. 2. Severe hepatic steatosis, similar to prior exam. 3. No bowel obstruction. No bowel wall thickening. ACT 112: Negative or not required by law. Electronically signed by: Gera Chen M.D. 03/07/2022 4:26 PM Chest X-Ray 03/07/22 13:55 XR chest 1V portable CLINICAL HISTORY: Atypical chest pain. COMPARISON STUDY: Chest radiograph and chest CT May 11, 2021. FINDINGS: Lung volumes are mildly diminished. Cardiomegaly is unchanged. There is no evidence for pulmonary edema. No pneumothorax or pleural effusion is present. Apparent opacities at the medial lung bases are likely due to ate lectasis or epicardial fat pad. IMPRESSION: No acute cardiopulmonary findings. ACT 112: Negative or not required by law. Electronically signed by: Gera Chen M.D. 03/07/2022 2:[address] 03/07/22 13:55 CT OF THE HEAD WITHOUT CONTRAST CLINICAL HISTORY: fall, vomiting COMPARISON STUDY: Head CT May 11, 2021 and MRI of the brain June 15, 2012. TECHNIQUE: Helical axial images of the head were obtained without IV contrast. Automated exposure control was utilized for the study. A dose lowering technique was utilized adhering to the principles of ALARA. FINDINGS: No acute intracranial hemorrhage, midline shift or mass effect is present. The ventricular system is unremarkable. The basal cisterns are patent. No extra-axial collections are present. There are no findings to suggest acute dural sinus thrombosis or acute territorial infarct. No significant calvarial abnormalities are present. Visualized portions of the sinuses and mastoid air cells are clear. IMPRESSION: 1. No acute intracranial findings. 2. No acute calvarial fracture. ACT 112: Negative or not required by law. Electronically signed by: Gera Chen M.D. 03/07/2022 4:08 PM Gallbladder Ultrasound 03/07/22 16:31 US gallbladder CLINICAL HISTORY: Abdominal pain, nausea and vomiting. COMPARISON STUDY: CT of the abdomen and pelvis performed earlier today. FINDINGS: Hepatic echogenicity is significantly increased. The liver is enlarged. No hepatic lesions are identified although sensitivity is diminished given suboptimal penetration. The gallbladder is moderately distended. No gallstones are noted. There is no gallbladder wall thickening. No sonographic Rollins sign was elicited. There is no biliary ductal dilatation. The pancreas is obscured. No right hydronephrosis is present. There is a 1.2 cm right renal cyst. IMPRESSION: 1. Moderate gallbladder distention. However, no gallstones. No sonographic Rollins sign. No evidence for acute cholecystitis. 2. No biliary ductal dilatation. 3. Hepatic steatosis and hepatomegaly. ACT 112: Negative or not required by law. Electronically signed by: Gera Chen M.D. 03/07/2022 5:54 PM Discharge Plan Visit Data Chief Complaint: Alcohol Intoxication Stated Complaint: ETOH, AB PAIN ED Provider: Jose Manuel Clemens Discharge Problem: Alcohol abuse, A-fib, Fall, Acute dehydration, Elevated troponin, Electrolyte abnormality Forms Stand Alone Forms: [employer] Prescriptions Prescriptions: No Action ibuprofen 200 mg Tablet 600 mg PO DIRECTED PRN (Reason: pain/fever) Referrals Referrals: Jason Renee MD [Primary Care Provider] - : A-fib Qualifiers: Atrial fibrillation type: unspecified Qualified Code(s): I48.91 - Unspecified atrial fibrillation Fall Qualifiers: Encounter type: initial encounter Qualified Code(s): W19.XXXA - Unspecified fall, initial encounter
[2022-03-07] MEDS ORDERED: LORazepam 1 MG TAB PO PRN ×4 (13:51)
[2022-03-07] MEDS ORDERED: ONDANSETRON INJ 2 MG/ML 2 ML VIAL IV STA (13:51)
[2022-03-07] MEDS ORDERED: Ativan PO Alcohol Withdrawal--Active Protocol PO PRN (13:51)
[2022-03-07] MEDS ORDERED: MULTI-VITAMIN INFUSION 10 ML, THIAMINE HCL 100 MG, FOLIC ACID 1 MG in SODIUM CHLORIDE 0... IV ONE (13:51)
--- NOTE | 2022-03-07 14:37 | XRay Report ---
XR chest 1V portable CLINICAL HISTORY: Atypical chest pain. COMPARISON STUDY: Chest radiograph and chest CT May 11, 2021. FINDINGS: Lung volumes are mildly diminished. Cardiomegaly is unchanged. There is no evidence for pul monary edema. No pneumothorax or pleural effusion is present. Apparent opacities at the medial lung b ases are likely due to atelectasis or epicardial fat pad. IMPRESSION: No acute cardiopulmonary findings. ACT 112: Negative or not required by law. Electronically signed by: Gera Chen M.D. 03/07/2022 2:36 PM
[2022-03-07 14:55] LABS: Basophils # (auto) 0.02 K/uL (0-0.2); Basophils % (auto) 0.3 %; Hematocrit (blood only) 40.3 % (40.1-51.0); Hemoglobin 14.2 g/dl (14.0-18.0); Immature Granulocytes # (auto) 0.03 K/uL (0.00-0.02); Immature Granulocytes % (auto) 0.4 %; Lymphocytes % (auto) 23.3 %; Mean Corpuscular Hemoglobin 29.2 pg (25.0-34.0); Mean Corpuscular Hgb Conc 35.2 g/dL (32.0-36.0); Mean Corpuscular Volume 82.9 fL (80.0-100.0); Mean Platelet Volume 10.2 fL (9.4-12.4); Monocytes # (auto) 0.31 K/uL (0.24-0.82); Neutrophils # (auto) 5.55 K/uL (1.4-6.5); Platelet Count 108 K/uL (130-400); RDW Coefficient of Variation 15.9 % (11.5-14.5); RDW Standard Deviation 47.2 fL (36.4-46.3); Red Blood Count 4.86 M/uL (4.63-6.08); White Blood Count 7.71 K/ul (4.8-10.8)
[2022-03-07 15:03] LABS: Appearance Urine Clear (Clear); Bilirubin Urine Negative (Negative); Blood Urine Trace (Negative); Color Urine Yellow; Glucose Urine UA Negative (Negative); Ketones Urine 1+ (Negative); Leukocyte Esterase Urine Negative (Negative); Nitrite Urine Negative (Negative); Protein Urine Trace (Negative); Specific Gravity Urine 1.005 (1.000-1.030); Urobilinogen Urine Negative (Negative); pH Urine 6.5 (4.5-7.5)
[2022-03-07 15:04] LABS: Albumin Globulin Ratio 1.5 (0.9-2); Albumin Level 4.2 gm/dl (3.4-5.0); BUN Creatinine Ratio 7.7 (10-20); Bilirubin,Total 1.2 mg/dl (0.2-1.0); Calcium 8.2 mg/dl (8.5-10.1); Est GFR (African American) 113.7 ml/min; Est GFR (Non-African American) 98.1 ml/min; Globulin 2.8 gm/dl (2.5-4.0); Potassium 3.4 mmol/L (3.5-5.1)
[2022-03-07 15:14] LABS: Troponin I High Sensitivity 161.4 pg/ml (0-20)
[2022-03-07 15:16] LABS: Bacteria Urine 1+ (Negative); Epithelial Cell Urine 0-5 /lpf (0-5); RBC Urine 0-4 /hpf (0-4)
[2022-03-07] MEDS ORDERED: CALCIUM GLUCONATE 1,000 MG/60 ML BAG IV STA (15:31)
[2022-03-07] MEDS ORDERED: OPTIRAY 350 100ml IV ONE (15:52)
[2022-03-07] MEDS: POTASSIUM CHLORIDE / WTR 10 MEQ/100 ML PLCT IV SCH ×2 (16:05→17:01)
--- NOTE | 2022-03-07 16:09 | CT Scan Report ---
CT OF THE HEAD WITHOUT CONTRAST CLINICAL HISTORY: fall, vomiting COMPARISON STUDY: Head CT May 11, 2021 and MRI of the brain June 15, 2012. TECHNIQUE: Helical axial images of the head were obtained without IV contrast. Automated exposure con trol was utilized for the study. A dose lowering technique was utilized adhering to the principles o f ALARA. FINDINGS: No acute intracranial hemorrhage, midline shift or mass effect is present. The ventricular system is unremarkable. The basal cisterns are patent. No extra-axial collections are present. There are no findings to suggest acute dural sinus thrombosis or acute territorial infarct. No significant calvarial abnormalities are present. Visualized portions of the sinuses and mastoid air cells are peterson ar. IMPRESSION: 1. No acute intracranial findings. 2. No acute calvarial fracture. ACT 112: Negative or not required by law. Electronically signed by: Gera Chen M.D. 03/07/2022 4:08 PM
--- NOTE | 2022-03-07 16:29 | CT Scan Report ---
CT OF THE ABDOMEN AND PELVIS WITH CONTRAST CLINICAL HISTORY: Abdominal pain. COMPARISON STUDY: CT of the abdomen and pelvis May 11, 2021. TECHNIQUE: Following IV administration of 87 mL of Optiray, axial images of the abdomen and pelvis we re obtained from the lung bases to the proximal femurs. Images were reviewed in the axial, sagittal, and coronal planes. IV contrast was administered without complication. Automated exposure control wa s utilized for the study. A dose lowering technique was utilized adhering to the principles of ALARA . CT DOSE: 3872.83 mGy.cm FINDINGS: This study is mildly compromised by motion artifact. No consolidation within the lower lung s is noted. Cardiomegaly is present. There is no pneumatosis, free air or portal venous gas. Severe h epatic steatosis is again noted. The gallbladder is mildly distended. Equivocal pericholecystic stran ding is likely artifactual. The spleen, adrenal glands and pancreas are unremarkable. Probable cyst w ithin the midpole of the right kidney is noted. There is no hydronephrosis. There is no lymphadenopat hy. There is no evidence for a bowel obstruction. The caliber and wall thickness of small and large b owel are normal. No acute fractures within the visualized skeletal structures are present. There is s evere bilateral hip osteoarthritis. IMPRESSION: 1. Mild gallbladder distention. If right upper quadrant pain, ultrasound is recommended. 2. Severe hepatic steatosis, similar to prior exam. 3. No bowel obstruction. No bowel wall thickening. ACT 112: Negative or not required by law. Electronically signed by: Gera Chen M.D. 03/07/2022 4:26 PM
[2022-03-07] MEDS ORDERED: SODIUM CHLORIDE 0.9% 1000ML 1,000 ML IV ONE (16:35)
[2022-03-07] MEDS ORDERED: chlordiazePOXIDE HCl 25 MG CAP PO ONE (17:04)
--- NOTE | 2022-03-07 17:55 | Ultrasound Report ---
US gallbladder CLINICAL HISTORY: Abdominal pain, nausea and vomiting. COMPARISON STUDY: CT of the abdomen and pelvis performed earlier today. FINDINGS: Hepatic echogenicity is significantly increased. The liver is enlarged. No hepatic lesions are identified although sensitivity is diminished given suboptimal penetration. The gallbladder is mo derately distended. No gallstones are noted. There is no gallbladder wall thickening. No sonographic Rollins sign was elicited. There is no biliary ductal dilatation. The pancreas is obscured. No right h ydronephrosis is present. There is a 1.2 cm right renal cyst. IMPRESSION: 1. Moderate gallbladder distention. However, no gallstones. No sonographic Rollins sign. No evidence f or acute cholecystitis. 2. No biliary ductal dilatation. 3. Hepatic steatosis and hepatomegaly. ACT 112: Negative or not required by law. Electronically signed by: Gera Chen M.D. 03/07/2022 5:54 PM
[2022-03-07] MEDS ORDERED: ALUMINUM/MAGNESIUM SUSP 30 ML UDC PO PRN (19:43)
[2022-03-07] MEDS ORDERED: ACETAMINOPHEN 325 MG TAB PO PRN (19:43)
[2022-03-07] MEDS ORDERED: METOPROLOL TARTRATE 1 MG/ML VIAL IV STA ×2 (19:46→21:04)
--- NOTE | 2022-03-07 19:55 | History & Physical Report ---
Date of Service March 07, 2022 Assessment & Plan (1) Alcohol abuse: (2) A-fib: (3) Fall: (4) Elevated troponin: (5) Electrolyte abnormality: (6) Elevated LFTs: Plan Presents to the ED with alcohol intoxication Found to have A. fib with RVR Elevated troponin likely secondary to demand During and slightly elevated. [id number] CT headno intracranial abnormality. Gallbladder ultrasound shows moderate gallbladder distention; no gallstone Plan: For A. fib with RVR; will start trial of metoprolol tartrate twice daily. If not to control with metoprolol; will start Cardizem drip. will start the patient on Lovenox for now. However, given patient history of alcohol abuse and repeated falls. Long-term anticoagulation needs to be discussed. Cardiology consulted For alcohol withdrawal, start on Valium 10 mg every 6 hours; will taper down. Also as needed Ativan. Full code DVT- lovenox Admission and Anticipated Discharge Date Admission Date: March 07, 2022 History of Present Illness Chief Complaint: Alcohol intoxication Primary Care Provider: Jason Renee MD Past medical history of alcohol use disorder Last admission in April 2021 with alcohol withdrawal, elevated LFTs and hypertension Patient was brought to the emergency department by his son due to concern for alcohol intoxication. Patient's sons report that patient had a fall with no loss of consciousness. Patient reports palpitation; no complaint of chest pain or shortness of breath. Patient reports that he has been drinking large amount of vodka since past 1 week. As per patient's son, patient has been drinking for several years. Patient denies fever, chills, abdomen pain or urinary symptoms. On presentation to the ED, patient was found to be hypertensive, tachycardic with atrial fibrillation with RVR, saturating well in room air. High- sensitivity troponin was elevated to 160. Blood alcohol level was elevated as well. Patient was given Librium, IV fluids and Ativan. , Allergies Allergy/AdvReac Type Severity Reaction Status Date / Time No Known Allergies Allergy Verified 03/07/22 17:21 Home Medications Medication Instructions Recorded Confirmed Type ibuprofen 200 mg tablet 600 mg PO DIRECTED PRN 03/07/22 03/07/22 History pain/fever Past Med/Surg History Medical History Alcoholism History of violent behavior Per daughter (Lindsey), pt will become violent when drinking Morbid obesity Osteoarthritis Surgical History Hx of elbow surgery ? Left Hx of total knee arthroplasty Right Family History Other No family history of adverse response to anesthesia Social History Smoking Status: Unknown if ever smoked Cigarettes Per Day: 20+ cigs/day; Second Hand Exposure: No; Hx Alcohol Use: Yes Alcohol type: beer and hard liquor Hx Substance Use: No Preferred Language: Hungarian Communication Ability: Effective Communication Tools: IPad Mainframe Applications Developer Required: Yes Beliefs That Will Affect Care: None marital status: Current Living Situation: Spouse Feels Safe at Home: Yes Assistive Devices: None Review of Systems Review of Systems: All systems reviewed & are unremarkable except as noted in Subjective Physical Exam Physical Exam: Constitutional: Awake, alert; appears intoxicated, morbidly obese Neck: trachea midline, no thyromegaly normal visual inspection Respiratory: normal respiratory effort, lungs clear to auscultation, no wheeze, rales, rhonchi. Normal insp/exp effort, no accessory muscle use Cardiovascular: Irregular no murmur, no edema Vessels: no JVD or carotid bruit Chest: normal inspection of chest Abdomen: normal bowel sounds, soft, nontender, no hepatosplenomegaly Musculoskeletal: no cyanosis or clubbing, extremities motor strength 5/5 Skin: no rashes, warm and dry normal turgor Neurologic: PERRL, EOMI, accommodation nl, no face palsy, no dysarthria CN's II- XI intact bilaterally and moves all extremities Psychiatric: A+Ox3, euthymic affect Lymphatic: no cervical or axillary lymphadenopathy : deferred Results & Data Results & Data ([facility]) Vital Signs (Past 12 Hours) Vital Signs Temp Pulse Resp BP Pulse Ox O2 Del Method 03/07/22 15:30 93 03/07/22 15:30 130/101 H 03/07/22 15:00 95 03/07/22 15:00 133/96 03/07/22 14:30 94 03/07/22 14:30 101/76 03/07/22 14:02 112 H 20 88 L 03/07/22 14:02 115/76 03/07/22 14:00 102 H 18 03/07/22 13:55 139/70 03/07/22 13:55 92 H 21 92 03/07/22 13:52 94 H 16 94 03/07/22 14:22 92 Room Air 03/07/22 13:34 36.7 C 82 20 126/87 96 Room Air Laboratory Results Laboratory Results WBC 7.71 K/ul (4.8-10.8) 03/07/22 14:11 RBC 4.86 M/uL (4.63-6.08) 03/07/22 14:11 Hgb 14.2 g/dl (14.0-18.0) 03/07/22 14:11 Hct 40.3 % (40.1-51.0) 03/07/22 14:11 MCV 82.9 fL (80.0-100.0) 03/07/22 14:11 MCH 29.2 pg (25.0-34.0) 03/07/22 14:11 MCHC 35.2 g/dL (32.0-36.0) 03/07/22 14:11 RDW Std Deviation 47.2 fL (36.4-46.3) H 03/07/22 14:11 RDW Coeff of Vincenzo 15.9 % (11.5-14.5) H 03/07/22 14:11 Plt Count 108 K/uL (130-400) L 03/07/22 14:11 MPV 10.2 fL (9.4-12.4) 03/07/22 14:11 Immature Gran % (Auto) 0.4 % 03/07/22 14:11 Neut % (Auto) 72.0 % 03/07/22 14:11 Lymph % (Auto) 23.3 % 03/07/22 14:11 Jefferson % (Auto) 4.0 % 03/07/22 14:11 Eos % (Auto) 0.0 % 03/07/22 14:11 Baso % (Auto) 0.3 % 03/07/22 14:11 Neut # (Auto) 5.55 K/uL (1.4-6.5) 03/07/22 14:11 Lymph # (Auto) 1.80 K/uL (1.2-3.4) 03/07/22 14:11 Jefferson # (Auto) 0.31 K/uL (0.24-0.82) 03/07/22 14:11 Eos # (Auto) 0.00 K/uL (0-0.50) 03/07/22 14:11 Baso # (Auto) 0.02 K/uL (0-0.2) 03/07/22 14:11 Immature Gran # (Auto) 0.03 K/uL (0.00-0.02) H 03/07/22 14:11 Sodium 136 mmol/L (136-145) 03/07/22 14:11 Potassium 3.4 mmol/L (3.5-5.1) L 03/07/22 14:11 Chloride 94 mmol/L (98-107) L 03/07/22 14:11 Carbon Dioxide 25 mmol/L (21-32) 03/07/22 14:11 Anion Gap 17 (3-11) H 03/07/22 14:11 BUN 6 mg/dl (6-23) 03/07/22 14:11 Creatinine 0.78 mg/dl (0.6-1.4) 03/07/22 14:11 Est Cr Clr Drug Dosing 150.0 ml/min 03/07/22 14:11 Est GFR ( Amer) 113.7 ml/min 03/07/22 14:11 Est GFR (Non-Af Amer) 98.1 ml/min 03/07/22 14:11 BUN/Creatinine Ratio 7.7 (10-20) L 03/07/22 14:11 Glucose 103 mg/dl (70-99(Fasting)) H 03/07/22 14:11 Calcium 8.2 mg/dl (8.5-10.1) L 03/07/22 14:11 Phosphorus 3.0 mg/dl (2.5-4.9) 03/07/22 14:11 Magnesium 2.0 mg/dl (1.7-2.4) 03/07/22 14:11 Total Bilirubin 1.2 mg/dl (0.2-1.0) H 03/07/22 14:11 AST 82 U/L (13-39) H 03/07/22 14:11 ALT 68 U/L (7-52) H 03/07/22 14:11 Alkaline Phosphatase 94 U/L (34-104) 03/07/22 14:11 Troponin I High Sens 161.4 pg/ml (0-20) H* 03/07/22 14:11 Total Protein 7.0 gm/dl (6.0-8.3) 03/07/22 14:11 Albumin 4.2 gm/dl (3.4-5.0) 03/07/22 14:11 Globulin 2.8 gm/dl (2.5-4.0) 03/07/22 14:11 Albumin/Globulin Ratio 1.5 (0.9-2) 03/07/22 14:11 Lipase 77 U/L (11-82) 03/07/22 14:11 Urine Color Yellow 03/07/22 14:20 Urine Appearance Clear (Clear) 03/07/22 14:20 Urine pH 6.5 (4.5-7.5) 03/07/22 14:20 Ur Specific [place] 1.005 (1.000-1.030) 03/07/22 14:20 Urine Protein Trace (Negative) H 03/07/22 14:20 Urine Glucose (UA) Negative (Negative) 03/07/22 14:20 Urine Ketones 1+ (Negative) H 03/07/22 14:20 Urine Blood Trace (Negative) H 03/07/22 14:20 Urine Nitrite Negative (Negative) 03/07/22 14:20 Urine Bilirubin Negative (Negative) 03/07/22 14:20 Urine Urobilinogen Negative (Negative) 03/07/22 14:20 Ur Leukocyte Esterase Negative (Negative) 03/07/22 14:20 Urine RBC 0-4 /hpf (0-4) 03/07/22 14:20 Urine WBC 5-10 /hpf (0-5) H 03/07/22 14:20 Ur Epithelial Cells 0-5 /lpf (0-5) 03/07/22 14:20 Urine Bacteria 1+ (Negative) H 03/07/22 14:20 Ethyl Alcohol mg/dL 346.5 mg/dl (<10.0) H 03/07/22 14:21 SARS-CoV-2, RNA, NAAT NEGATIVE (NEGATIVE) 03/07/22 14:20 Impressions Abdomen/Pelvis CT 03/07/22 13:51 CT OF THE ABDOMEN AND PELVIS WITH CONTRAST CLINICAL HISTORY: Abdominal pain. COMPARISON STUDY: CT of the abdomen and pelvis May 11, 2021. TECHNIQUE: Following IV administration of 87 mL of Optiray, axial images of the abdomen and pelvis were obtained from the lung bases to the proximal femurs. Images were reviewed in the axial, sagittal, and coronal planes. IV contrast was administered without complication. Automated exposure control was utilized for the study. A dose lowering technique was utilized adhering to the principles of ALARA. CT DOSE: 3872.83 mGy.cm FINDINGS: This study is mildly compromised by motion artifact. No consolidation within the lower lungs is noted. Cardiomegaly is present. There is no pneumatosis, free air or portal venous gas. Severe hepatic steatosis is again noted. The gallbladder is mildly distended. Equivocal pericholecystic stranding is likely artifactual. The spleen, adrenal glands and pancreas are unremarkable. Probable cyst within the midpole of the right kidney is noted. There is no hydronephrosis. There is no lymphadenopathy. There is no evidence for a bowel obstruction. The caliber and wall thickness of small and large bowel are normal. No acute fractures within the visualized skeletal structures are present. There is severe bilateral hip osteoarthritis. IMPRESSION: 1. Mild gallbladder distention. If right upper quadrant pain, ultrasound is recommended. 2. Severe hepatic steatosis, similar to prior exam. 3. No bowel obstruction. No bowel wall thickening. ACT 112: Negative or not required by law. Electronically signed by: Gera Chen M.D. 03/07/2022 4:26 PM Chest X-Ray 03/07/22 13:55 XR chest 1V portable CLINICAL HISTORY: Atypical chest pain. COMPARISON STUDY: Chest radiograph and chest CT May 11, 2021. FINDINGS: Lung volumes are mildly diminished. Cardiomegaly is unchanged. There is no evidence for pulmonary edema. No pneumothorax or pleural effusion is present. Apparent opacities at the medial lung bases are likely due to atelectasis or epicardial fat pad. IMPRESSION: No acute cardiopulmonary findings. ACT 112: Negative or not required by law. Electronically signed by: Gera Chen M.D. 03/07/2022 2:[address] 03/07/22 13:55 CT OF THE HEAD WITHOUT CONTRAST CLINICAL HISTORY: fall, vomiting COMPARISON STUDY: Head CT May 11, 2021 and MRI of the brain June 15, 2012. TECHNIQUE: Helical axial images of the head were obtained without IV contrast. Automated exposure control was utilized for the study. A dose lowering technique was utilized adhering to the principles of ALARA. FINDINGS: No acute intracranial hemorrhage, midline shift or mass effect is present. The ventricular system is unremarkable. The basal cisterns are patent. No extra-axial collections are present. There are no findings to suggest acute dural sinus thrombosis or acute territorial infarct. No significant calvarial abnormalities are present. Visualized portions of the sinuses and mastoid air cells are clear. IMPRESSION: 1. No acute intracranial findings. 2. No acute calvarial fracture. ACT 112: Negative or not required by law. Electronically signed by: Gera Chen M.D. 03/07/2022 4:08 PM Gallbladder Ultrasound 03/07/22 16:31 US gallbladder CLINICAL HISTORY: Abdominal pain, nausea and vomiting. COMPARISON STUDY: CT of the abdomen and pelvis performed earlier today. FINDINGS: Hepatic echogenicity is significantly increased. The liver is enlarged. No hepatic lesions are identified although sensitivity is diminished given suboptimal penetration. The gallbladder is moderately distended. No gallstones are noted. There is no gallbladder wall thickening. No sonographic Rollins sign was elicited. There is no biliary ductal dilatation. The pancreas is obscured. No right hydronephrosis is present. There is a 1.2 cm right renal cyst. IMPRESSION: 1. Moderate gallbladder distention. However, no gallstones. No sonographic Rollins sign. No evidence for acute cholecystitis. 2. No biliary ductal dilatation. 3. Hepatic steatosis and hepatomegaly. ACT 112: Negative or not required by law. Electronically signed by: Gera Chen M.D. 03/07/2022 5:54 PM Code Status & VTE Plan VTE Prophylaxis Plan VTE Prophylaxis will be ordered: No (1) A-fib Atrial fibrillation type: unspecified Qualified Code(s): I48.91 - Unspecified atrial fibrillation (2) Fall Encounter type: initial encounter Qualified Code(s): W19.XXXA - Unspecified fall, initial encounter
[2022-03-07] MEDS: diazePAM 5 MG TABLET PO SCH (20:05)
[2022-03-07] MEDS: METOPROLOL TARTRATE 50 MG TAB PO SCH (20:05)
[2022-03-07] MEDS: ENOXAPARIN 150 MG/ML SYR SC SCH (20:06)
[2022-03-07] MEDS ORDERED: MoRPHine SULFATE 4 MG/ML 1 ML CARP\\VIAL IV STA (21:04)
[2022-03-07] MEDS ORDERED: MoRPHine SULFATE 4 MG/ML 1 ML CARP\\VIAL ONE (21:07)
[2022-03-07] MEDS ORDERED: ALUMINUM/MAGNESIUM/SIMETH (MAALOX MAX) 30 ML UDC PO STA (21:08)
[2022-03-07] MEDS ORDERED: FAMOTIDINE 20 MG in SYRINGE 3 ML IV ONE (21:30)
[2022-03-07] MEDS ORDERED: LORazepam 1 MG TAB PO STA (22:13)
[2022-03-08] MEDS: diazePAM 5 MG TABLET PO SCH ×4 (02:20→21:14)
[2022-03-08 03:19] LABS: Albumin Globulin Ratio 1.6 (0.9-2); Albumin Level 3.9 gm/dl (3.4-5.0); Basophils # (auto) 0.02 K/uL (0-0.2); Basophils % (auto) 0.3 %; Calcium 7.8 mg/dl (8.5-10.1); Creatinine Clr Calc Pharmacy 160.1 ml/min; Eosinophils # (auto) 0.02 K/uL (0-0.50); Eosinophils % (auto) 0.3 %; Est GFR (African American) 116.9 ml/min; Est GFR (Non-African American) 100.8 ml/min; Globulin 2.4 gm/dl (2.5-4.0); Hemoglobin 12.4 g/dl (14.0-18.0); Immature Granulocytes # (auto) 0.04 K/uL (0.00-0.02); Immature Granulocytes % (auto) 0.6 %; Lymphocytes % (auto) 24.8 %; Mean Corpuscular Hemoglobin 29.5 pg (25.0-34.0); Mean Corpuscular Hgb Conc 34.4 g/dL (32.0-36.0); Mean Corpuscular Volume 85.7 fL (80.0-100.0); Monocytes # (auto) 0.28 K/uL (0.24-0.82); Monocytes % (auto) 4.1 %; Neutrophils % (auto) 69.9 %; Platelet Count 93 K/uL (130-400); Platelet Estimate Decreased (Normal); Potassium 3.3 mmol/L (3.5-5.1); RDW Coefficient of Variation 16.4 % (11.5-14.5); Total Protein 6.3 gm/dl (6.0-8.3); White Blood Count 6.86 K/ul (4.8-10.8)
[2022-03-08] MEDS: METOPROLOL TARTRATE 50 MG TAB PO SCH ×2 (08:56→20:02)
[2022-03-08] MEDS: ENOXAPARIN 150 MG/ML SYR SC SCH ×2 (08:56→20:02)
--- NOTE | 2022-03-08 12:58 | Cardiology Consultation ---
Date of Consultation March 08, 2022 Assessment & Plan (1) A-fib: (2) Fall: (3) Alcohol abuse: (4) Acute dehydration: (5) Electrolyte abnormality: (6) Morbid obesity: (7) Elevated LFTs: (8) Contusion of abdominal wall: Plan The pathophysiology and treatment options for atrial fibrillation were discussed with the patient through the aid of a Mongolian physics department chair He is currently rate controlled after being started on metoprolol tartrate 50 mg p.o. twice daily He has been acutely anticoagulated with Lovenox but I agree that given his frequent falls I do not believe him to be a long-term anticoagulation candidate unless he is able to commit to abstaining from alcohol Recommend continuing current dose of metoprolol Follow and replace electrolytes as necessary Continue to monitor on telemetry overnight History of Present Illness Reason for Consultation: New onset atrial fibrillation Requesting Physician: [facility] hospitalist group Attending Physician: Gerard Mayorga MD History of Present Illness Mr. Burnham is a very pleasant Mongolian-speaking 61-year-old gentleman who presented to [facility] on 03/07/2022 by his son who found him to be in acute alcohol intoxication. Interview was conducted through with the aid of a lpn or medical assistant. The patient states he has been having palpitations for the last few days feeling his heart beating irregularly in his chest but denies any chest pain or shortness of breath. The patient did have a fall at home without any loss of consciousness while he was intoxicated. According to review of medical records the patient has had a history of multiple mechanical falls while intoxicated in the past. Allergies Allergy/AdvReac Type Severity Reaction Status Date / Time No Known Allergies Allergy Verified 03/07/22 17:21 Home Medications Medication Instructions Recorded Confirmed Type ibuprofen 200 mg tablet 600 mg PO DIRECTED PRN 03/07/22 03/07/22 History pain/fever Patient History Medical History Alcoholism History of violent behavior Per daughter (Lindsey), pt will become violent when drinking Morbid obesity Osteoarthritis Surgical History Hx of elbow surgery ? Left Hx of total knee arthroplasty Right Family History Other No family history of adverse response to anesthesia Social History Smoking Status: Never smoker Cigarettes Per Day: 20+ cigs/day; Second Hand Exposure: No; Hx Alcohol Use: Yes Alcohol type: hard liquor Hx Substance Use: No Preferred Language: Mongolian Communication Ability: Effective Communication Tools: IPad Upholstery Technician Required: Yes Beliefs That Will Affect Care: None marital status: Current Living Situation: Alone Other Information That Helps Us Care for You: No Feels Safe at Home: Yes Safety Concerns: Feels Safe At This Time Assistive Devices: Denture - Upper, Denture - Lower and Glasses Review of Systems Review of Systems: All systems reviewed & are unremarkable except as noted in HPI & below Physical Exam Physical Exam: General: Awake, alert and oriented x 3. No acute distress. HEENT: Normocephalic, atraumatic. Pupils equal, round and reactive to light and accommodation. Extraocular muscles are intact. Anicteric sclera. Moist mucous membranes. Neck: No JVD. No bruit. Cardiovascular: irregularly irregular, unable to appreciate murmur, rub or gallop. Pulmonary: Clear to auscultation bilaterally. No rales, rhonchi, or wheezing. Abdomen: Bowel sounds x 4, soft. No rebound, guarding or tenderness. No organomegaly. Extremities: No clubbing, cyanosis or edema. +2 pedal pulses bilaterally. Skin: Warm and dry. Results & Data ([facility]) Vital Signs (Past 12 Hours) Vital Signs Temp Pulse Resp BP Pulse Ox O2 Del Method 03/08/22 11:35 37.2 C 83 18 95/61 L 95 Room Air 03/08/22 08:29 36.7 C 87 17 124/79 92 Room Air 03/08/22 02:28 36.8 C 96 H 18 126/69 92 Room Air (1) A-fib Atrial fibrillation type: unspecified Qualified Code(s): I48.91 - Unspecified atrial fibrillation (2) Fall Encounter type: initial encounter Qualified Code(s): W19.XXXA - Unspecified fall, initial encounter (3) Contusion of abdominal wall Encounter type: initial encounter Qualified Code(s): S30.1XXA - Contusion of abdominal wall, initial encounter
--- NOTE | 2022-03-08 14:18 | Hospitalist Progress Note ---
Date of Service March 08, 2022 Assessment & Plan (1) Alcohol abuse: (2) A-fib: (3) Fall: (4) Elevated troponin: (5) Electrolyte abnormality: (6) Elevated LFTs: Plan Presents to the ED with alcohol intoxication Found to have A. fib with RVR Elevated troponin likely secondary to demand [id number] CT headno intracranial abnormality. Gallbladder ultrasound shows moderate gallbladder distention; no gallstone Echocardiogram shows mild concentric LVH with EF of 60 to 65%; no significant valvular pathology. Plan: Cardiology on board; agree with metoprolol 50 twice daily. Ventricular rate improved overnight on same regimen. Currently on Lovenox. Patient has long history of alcohol abuse; has history of falls. There is high risk of life-threatening bleeding if he continues to abuse alcohol. He needs to follow-up with his primary care doctor and cardiology; and decide on long-term anticoagulation. For alcohol withdrawal, continue on Valium scheduled for now. Ativan as needed. Full code [id number] lovenox Admission and Anticipated Discharge Date Admission Date: March 07, 2022 Subjective Patient seen and examined at bedside. [place] health manager used to communicate. Patient is comfortably sitting up; not in any distress. He he reports improvement in the symptom of palpitation. He denies any chest pain or shortness of breath. Review of Systems Review of Systems: All systems reviewed & are unremarkable except as noted in Subjective Physical Exam Physical Exam: Constitutional: Awake, alert; comfortable. Not in distress. Neck: trachea midline, no thyromegaly normal visual inspection Respiratory: normal respiratory effort, lungs clear to auscultation, no wheeze, rales, rhonchi. Normal insp/exp effort, no accessory muscle use Cardiovascular: Irregular no murmur, no edema Vessels: no JVD or carotid bruit Chest: normal inspection of chest Abdomen: normal bowel sounds, soft, nontender, no hepatosplenomegaly Musculoskeletal: no cyanosis or clubbing, extremities motor strength 5/5 Skin: no rashes, warm and dry normal turgor Neurologic: PERRL, EOMI, accommodation nl, no face palsy, no dysarthria CN's II- XI intact bilaterally and moves all extremities Psychiatric: A+Ox3, euthymic affect Lymphatic: no cervical or axillary lymphadenopathy : deferred Results & Data Results & Data ([facility]) Vital Signs (Past 12 Hours) Vital Signs Temp Pulse Resp BP Pulse Ox O2 Del Method 03/08/22 11:35 37.2 C 83 18 95/61 L 95 Room Air 03/08/22 08:29 36.7 C 87 17 124/79 92 Room Air 03/08/22 02:28 36.8 C 96 H 18 126/69 92 Room Air Laboratory Results Laboratory Results WBC 6.86 K/ul (4.8-10.8) 03/08/22 02:21 RBC 4.20 M/uL (4.63-6.08) L 03/08/22 02:21 Hgb 12.4 g/dl (14.0-18.0) L 03/08/22 02:21 Hct 36.0 % (40.1-51.0) L 03/08/22 02:21 MCV 85.7 fL (80.0-100.0) 03/08/22 02:21 MCH 29.5 pg (25.0-34.0) 03/08/22 02:21 MCHC 34.4 g/dL (32.0-36.0) 03/08/22 02:21 RDW Std Deviation 50.0 fL (36.4-46.3) H 03/08/22 02:21 RDW Coeff of Vincenzo 16.4 % (11.5-14.5) H 03/08/22 02:21 Plt Count 93 K/uL (130-400) L 03/08/22 02:21 MPV 10.0 fL (9.4-12.4) 03/08/22 02:21 Immature Gran % (Auto) 0.6 % 03/08/22 02:21 Neut % (Auto) 69.9 % 03/08/22 02:21 Lymph % (Auto) 24.8 % 03/08/22 02:21 [place] % (Auto) 4.1 % 03/08/22 02:21 Eos % (Auto) 0.3 % 03/08/22 02:21 Baso % (Auto) 0.3 % 03/08/22 02:21 Neut # (Auto) 4.80 K/uL (1.4-6.5) 03/08/22 02:21 Lymph # (Auto) 1.70 K/uL (1.2-3.4) 03/08/22 02:21 [place] # (Auto) 0.28 K/uL (0.24-0.82) 03/08/22 02:21 Eos # (Auto) 0.02 K/uL (0-0.50) 03/08/22 02:21 Baso # (Auto) 0.02 K/uL (0-0.2) 03/08/22 02:21 Immature Gran # (Auto) 0.04 K/uL (0.00-0.02) H 03/08/22 02:21 Platelet Estimate Decreased (Normal) L 03/08/22 02:21 Sodium 138 mmol/L (136-145) 03/08/22 02:21 Potassium 3.3 mmol/L (3.5-5.1) L 03/08/22 02:21 Chloride 101 mmol/L (98-107) 03/08/22 02:21 Carbon Dioxide 23 mmol/L (21-32) 03/08/22 02:21 Anion Gap 14 (3-11) H 03/08/22 02:21 BUN 8 mg/dl (6-23) 03/08/22 02:21 Creatinine 0.73 mg/dl (0.6-1.4) 03/08/22 02:21 Est Cr Clr Drug Dosing 160.1 ml/min 03/08/22 02:21 Est GFR ( Amer) 116.9 ml/min 03/08/22 02:21 Est GFR (Non-Af Amer) 100.8 ml/min 03/08/22 02:21 BUN/Creatinine Ratio 11.0 (10-20) 03/08/22 02:21 Glucose 88 mg/dl (70-99(Fasting)) 03/08/22 02:21 Calcium 7.8 mg/dl (8.5-10.1) L 03/08/22 02:21 Phosphorus 3.0 mg/dl (2.5-4.9) 03/07/22 14:11 Magnesium 2.0 mg/dl (1.7-2.4) 03/07/22 14:11 Total Bilirubin 1.0 mg/dl (0.2-1.0) 03/08/22 02:21 AST 68 U/L (13-39) H 03/08/22 02:21 ALT 59 U/L (7-52) H 03/08/22 02:21 Alkaline Phosphatase 91 U/L (34-104) 03/08/22 02:21 Troponin I High Sens 106.9 pg/ml (0-20) H* D 03/08/22 08:09 Total Protein 6.3 gm/dl (6.0-8.3) 03/08/22 02:21 Albumin 3.9 gm/dl (3.4-5.0) 03/08/22 02:21 Globulin 2.4 gm/dl (2.5-4.0) L 03/08/22 02:21 Albumin/Globulin Ratio 1.6 (0.9-2) 03/08/22 02:21 Lipase 77 U/L (11-82) 03/07/22 14:11 Urine Color Yellow 03/07/22 14:20 Urine Appearance Clear (Clear) 03/07/22 14:20 Urine pH 6.5 (4.5-7.5) 03/07/22 14:20 Ur Specific [place] 1.005 (1.000-1.030) 03/07/22 14:20 Urine Protein Trace (Negative) H 03/07/22 14:20 Urine Glucose (UA) Negative (Negative) 03/07/22 14:20 Urine Ketones 1+ (Negative) H 03/07/22 14:20 Urine Blood Trace (Negative) H 03/07/22 14:20 Urine Nitrite Negative (Negative) 03/07/22 14:20 Urine Bilirubin Negative (Negative) 03/07/22 14:20 Urine Urobilinogen Negative (Negative) 03/07/22 14:20 Ur Leukocyte Esterase Negative (Negative) 03/07/22 14:20 Urine RBC 0-4 /hpf (0-4) 03/07/22 14:20 Urine WBC 5-10 /hpf (0-5) H 03/07/22 14:20 Ur Epithelial Cells 0-5 /lpf (0-5) 03/07/22 14:20 Urine Bacteria 1+ (Negative) H 03/07/22 14:20 Ethyl Alcohol mg/dL 346.5 mg/dl (<10.0) H 03/07/22 14:21 SARS-CoV-2, RNA, NAAT NEGATIVE (NEGATIVE) 03/07/22 14:20 Impressions Abdomen/Pelvis CT 03/07/22 13:51 CT OF THE ABDOMEN AND PELVIS WITH CONTRAST CLINICAL HISTORY: Abdominal pain. COMPARISON STUDY: CT of the abdomen and pelvis May 11, 2021. TECHNIQUE: Following IV administration of 87 mL of Optiray, axial images of the abdomen and pelvis were obtained from the lung bases to the proximal femurs. Images were reviewed in the axial, sagittal, and coronal planes. IV contrast was administered without complication. Automated exposure control was utilized for the study. A dose lowering technique was utilized adhering to the principles of ALARA. CT DOSE: 3872.83 mGy.cm FINDINGS: This study is mildly compromised by motion artifact. No consolidation within the lower lungs is noted. Cardiomegaly is present. There is no pneumatosis, free air or portal venous gas. Severe hepatic steatosis is again noted. The gallbladder is mildly distended. Equivocal pericholecystic stranding is likely artifactual. The spleen, adrenal glands and pancreas are unremarkable. Probable cyst within the midpole of the right kidney is noted. There is no hydronephrosis. There is no lymphadenopathy. There is no evidence for a bowel obstruction. The caliber and wall thickness of small and large bowel are normal. No acute fractures within the visualized skeletal structures are present. There is severe bilateral hip osteoarthritis. IMPRESSION: 1. Mild gallbladder distention. If right upper quadrant pain, ultrasound is recommended. 2. Severe hepatic steatosis, similar to prior exam. 3. No bowel obstruction. No bowel wall thickening. ACT 112: Negative or not required by law. Electronically signed by: Gera Chen M.D. 03/07/2022 4:26 PM Chest X-Ray 03/07/22 13:55 XR chest 1V portable CLINICAL HISTORY: Atypical chest pain. COMPARISON STUDY: Chest radiograph and chest CT May 11, 2021. FINDINGS: Lung volumes are mildly diminished. Cardiomegaly is unchanged. There is no evidence for pulmonary edema. No pneumothorax or pleural effusion is present. Apparent opacities at the medial lung bases are likely due to atelectasis or epicardial fat pad. IMPRESSION: No acute cardiopulmonary findings. ACT 112: Negative or not required by law. Electronically signed by: Gera Chen M.D. 03/07/2022 2:[address] 03/07/22 13:55 CT OF THE HEAD WITHOUT CONTRAST CLINICAL HISTORY: fall, vomiting COMPARISON STUDY: Head CT May 11, 2021 and MRI of the brain June 15, 2012. TECHNIQUE: Helical axial images of the head were obtained without IV contrast. Automated exposure control was utilized for the study. A dose lowering technique was utilized adhering to the principles of ALARA. FINDINGS: No acute intracranial hemorrhage, midline shift or mass effect is present. The ventricular system is unremarkable. The basal cisterns are patent. No extra-axial collections are present. There are no findings to suggest acute dural sinus thrombosis or acute territorial infarct. No significant calvarial abnormalities are present. Visualized portions of the sinuses and mastoid air cells are clear. IMPRESSION: 1. No acute intracranial findings. 2. No acute calvarial fracture. ACT 112: Negative or not required by law. Electronically signed by: Gera Chen M.D. 03/07/2022 4:08 PM Gallbladder Ultrasound 03/07/22 16:31 US gallbladder CLINICAL HISTORY: Abdominal pain, nausea and vomiting. COMPARISON STUDY: CT of the abdomen and pelvis performed earlier today. FINDINGS: Hepatic echogenicity is significantly increased. The liver is enlarged. No hepatic lesions are identified although sensitivity is diminished given suboptimal penetration. The gallbladder is moderately distended. No gallstones are noted. There is no gallbladder wall thickening. No sonographic Rollins sign was elicited. There is no biliary ductal dilatation. The pancreas is obscured. No right hydronephrosis is present. There is a 1.2 cm right renal cyst. IMPRESSION: 1. Moderate gallbladder distention. However, no gallstones. No sonographic Rollins sign. No evidence for acute cholecystitis. 2. No biliary ductal dilatation. 3. Hepatic steatosis and hepatomegaly. ACT 112: Negative or not required by law. Electronically signed by: Gera Chen M.D. 03/07/2022 5:54 PM (1) A-fib Atrial fibrillation type: unspecified Qualified Code(s): I48.91 - Unspecified atrial fibrillation (2) Fall Encounter type: initial encounter Qualified Code(s): W19.XXXA - Unspecified fall, initial encounter
[2022-03-08] MEDS ORDERED: traZODone HCL 50 MG TAB PO ONE (19:40)
--- NOTE | 2022-03-09 06:02 | Electrocardiogram Report ---
Test Reason : Blood Pressure : / mmHG Vent. Rate : 084 BPM Atrial Rate : 300 BPM P-R Int : 000 ms QRS Dur : 102 ms QT Int : 366 ms P-R-T Axes : 000 043 021 degrees QTc Int : 432 ms Atrial fibrillation Abnormal ECG When compared with ECG of 11-MAY-2021 15:36, Atrial fibrillation has replaced Sinus rhythm Confirmed by Gustavo Madera ([id number]) on 03/09/2022 6:01:58 AM Referred By: REFERRED SELF Confirmed By:Gustavo Madera
--- NOTE | 2022-03-09 06:11 | Electrocardiogram Report ---
Test Reason : Blood Pressure : / mmHG Vent. Rate : 128 BPM Atrial Rate : 122 BPM P-R Int : 000 ms QRS Dur : 102 ms QT Int : 340 ms P-R-T Axes : 000 060 -17 degrees QTc Int : 496 ms Atrial fibrillation with rapid ventricular response T wave abnormality, consider inferior ischemia Abnormal ECG When compared with ECG of 07-MAR-2022 16:05, Vent. rate has increased BY 44 BPM T wave inversion now evident in Inferior leads Confirmed by Gustavo Madera ([id number]) on 03/09/2022 6:11:35 AM Referred By: REFERRED SELF Confirmed By:Gustavo Madera
--- NOTE | 2022-03-09 06:13 | Electrocardiogram Report ---
Test Reason : Blood Pressure : / mmHG Vent. Rate : 112 BPM Atrial Rate : 312 BPM P-R Int : 000 ms QRS Dur : 102 ms QT Int : 338 ms P-R-T Axes : 000 059 -09 degrees QTc Int : 461 ms Atrial fibrillation with rapid ventricular response Nonspecific T wave abnormality Abnormal ECG When compared with ECG of 07-MAR-2022 19:40, No significant change was found Confirmed by Gustavo Madera ([id number]) on 03/09/2022 6:13:01 AM Referred By: REFERRED SELF Confirmed By:Gustavo Madera
[2022-03-09] MEDS: diazePAM 5 MG TABLET PO SCH ×2 (06:17→16:43)
--- NOTE | 2022-03-09 06:21 | Electrocardiogram Report ---
Test Reason : Blood Pressure : / mmHG Vent. Rate : 084 BPM Atrial Rate : 102 BPM P-R Int : 000 ms QRS Dur : 098 ms QT Int : 360 ms P-R-T Axes : 000 054 017 degrees QTc Int : 425 ms Atrial fibrillation Abnormal ECG When compared with ECG of 07-MAR-2022 20:58, No significant change was found Confirmed by Gustavo Madera ([id number]) on 03/09/2022 6:21:29 AM Referred By: REFERRED SELF Confirmed By:Gustavo Madera
[2022-03-09 06:49] LABS: Hematocrit (blood only) 37.8 % (40.1-51.0); Mean Corpuscular Hemoglobin 29.3 pg (25.0-34.0); Mean Corpuscular Hgb Conc 34.4 g/dL (32.0-36.0); Mean Corpuscular Volume 85.1 fL (80.0-100.0); Mean Platelet Volume 11.6 fL (9.4-12.4); Platelet Count 84 K/uL (130-400); RDW Coefficient of Variation 16.5 % (11.5-14.5); RDW Standard Deviation 50.8 fL (36.4-46.3); Red Blood Count 4.44 M/uL (4.63-6.08)
[2022-03-09 07:03] LABS: BUN Creatinine Ratio 11.5 (10-20); Calcium 8.1 mg/dl (8.5-10.1); Creatinine Clr Calc Pharmacy 135.6 ml/min; Est GFR (African American) 108.7 ml/min; Est GFR (Non-African American) 93.8 ml/min; Potassium 3.1 mmol/L (3.5-5.1)
[2022-03-09 07:34] LABS: Basophils # (auto) 0.02 K/uL (0-0.2); Basophils % (auto) 0.4 %; Eosinophils # (auto) 0.05 K/uL (0-0.50); Immature Granulocytes # (auto) 0.05 K/uL (0.00-0.02); Lymphocytes # (auto) 1.79 K/uL (1.2-3.4); Lymphocytes % (auto) 35.8 %; Monocytes # (auto) 0.24 K/uL (0.24-0.82); Monocytes % (auto) 4.8 %; Neutrophils # (auto) 2.85 K/uL (1.4-6.5); Polychromasia 1+
[2022-03-09] MEDS ORDERED: POTASSIUM CHLORIDE CRTAB 20 MEQ TABCR PO STA (07:36)
[2022-03-09] MEDS: ENOXAPARIN 150 MG/ML SYR SC SCH (07:58)
[2022-03-09] MEDS: METOPROLOL TARTRATE 50 MG TAB PO SCH ×2 (07:59→22:04)
--- NOTE | 2022-03-09 09:08 | Electrocardiogram Report ---
Test Reason : Blood Pressure : / mmHG Vent. Rate : 078 BPM Atrial Rate : 144 BPM P-R Int : 000 ms QRS Dur : 100 ms QT Int : 382 ms P-R-T Axes : 000 051 019 degrees QTc Int : 435 ms Atrial fibrillation Abnormal ECG When compared with ECG of 08-MAR-2022 05:43, No significant change was found Confirmed by Felton Ambriz ([id number]) on 03/09/2022 9:08:09 AM Referred By: REFERRED SELF Confirmed By:Felton Ambriz
--- NOTE | 2022-03-09 12:39 | Cardiology Progress Note ---
Date of Service March 09, 2022 Assessment & Plan (1) A-fib: (2) Fall: (3) Alcohol abuse: (4) Acute dehydration: (5) Electrolyte abnormality: (6) Morbid obesity: (7) Elevated LFTs: (8) Contusion of abdominal wall: Plan the patient has remained in rate controlled afib with improvement of symptoms. no further cardiac testing or intervention is necessary at this time unfortunately, given ongoing alcoholism and frequent falls he is not an anticoagulation candidate at this time. luckily, ChADS-VASC score of 0 cont current dose of metoprolol ok to d/c to home from a cardiac standpoint f/u with cardiology as an outpatient in 2-4 weeks counseled on need for abstaning from alcohol Admission and Anticipated Discharge Date Admission Date: March 07, 2022 Subjective Patient seen and examined. Chart reviewed. Telemetry reviewed. Review of Systems Review of Systems: All systems reviewed & are unremarkable except as noted in HPI & below Physical Exam Physical Exam: General: Awake, alert and oriented x 3. No acute distress. HEENT: Normocephalic, atraumatic. Pupils equal, round and reactive to light and accommodation. Extraocular muscles are intact. Anicteric sclera. Moist mucous membranes. Neck: No JVD. No bruit. Cardiovascular: irregularly irregular, unable to appreciate murmur, rub or gallop. Pulmonary: Clear to auscultation bilaterally. No rales, rhonchi, or wheezing. Abdomen: Bowel sounds x 4, soft. No rebound, guarding or tenderness. No organomegaly. Extremities: No clubbing, cyanosis or edema. +2 pedal pulses bilaterally. Skin: Warm and dry. Results & Data ([facility]) Vital Signs (Past 12 Hours) Vital Signs Temp Pulse Pulse Resp BP Pulse Ox O2 Del Method 03/09/22 12:00 36.6 C 84 18 122/86 98 Room Air 03/09/22 07:22 36.9 C 63 18 109/72 95 Room Air 03/09/22 07:00 87 03/09/22 04:43 36.8 C 75 18 137/94 96 Room Air (1) Contusion of abdominal wall Encounter type: initial encounter Qualified Code(s): S30.1XXA - Contusion of abdominal wall, initial encounter (2) A-fib Atrial fibrillation type: unspecified Qualified Code(s): I48.91 - Unspecified atrial fibrillation (3) Fall Encounter type: initial encounter Qualified Code(s): W19.XXXA - Unspecified fall, initial encounter
--- NOTE | 2022-03-09 13:09 | Hospitalist Progress Note ---
Date of Service March 09, 2022 Assessment & Plan (1) Alcohol abuse: (2) A-fib: (3) Fall: (4) Elevated troponin: (5) Electrolyte abnormality: (6) Elevated LFTs: Plan Presents to the ED with alcohol intoxication Found to have A. fib with RVR Elevated troponin likely secondary to demand [id number] CT headno intracranial abnormality. Gallbladder ultrasound shows moderate gallbladder distention; no gallstone Echocardiogram shows mild concentric LVH with EF of 60 to 65%; no significant valvular pathology. Plan: Cardiology on board; agree with metoprolol 50 twice daily. Ventricular rate improved overnight on same regimen. Patient has long history of alcohol abuse; has history of falls. There is high risk of life-threatening bleeding if he continues to abuse alcohol. [id number]- VASc score0. Lovenox stopped. For alcohol withdrawal, continue on Valium scheduled for now. Dose decreased to 5 mg 3 times daily. Full code DVT- lovenox Dispositionpatient continues to be hospitalized as he demonstrates some symptoms of alcohol withdrawal. We will monitor him overnight; DC in a.m. Admission and Anticipated Discharge Date Admission Date: March 07, 2022 Subjective Patient seen and examined at bedside. He is comfortably lying in the bed; not in any distress. Denies any palpitation or chest pain. Telemetry showed A. fib with ventricular rate of 80s to 90s Review of Systems Review of Systems: All systems reviewed & are unremarkable except as noted in Subjective Physical Exam Physical Exam: Constitutional: Awake, alert; comfortable. Not in distress. Neck: trachea midline, no thyromegaly normal visual inspection Respiratory: normal respiratory effort, lungs clear to auscultation, no wheeze, rales, rhonchi. Normal insp/exp effort, no accessory muscle use Cardiovascular: Irregular no murmur, no edema Vessels: no JVD or carotid bruit Chest: normal inspection of chest Abdomen: normal bowel sounds, soft, nontender, no hepatosplenomegaly Musculoskeletal: no cyanosis or clubbing, extremities motor strength 5/5 Skin: no rashes, warm and dry normal turgor Neurologic: PERRL, EOMI, accommodation nl, no face palsy, no dysarthria CN's II- XI intact bilaterally and moves all extremities Psychiatric: A+Ox3, euthymic affect Lymphatic: no cervical or axillary lymphadenopathy : deferred Results & Data Results & Data ([facility]) Vital Signs (Past 12 Hours) Vital Signs Temp Pulse Pulse Resp BP Pulse Ox O2 Del Method 03/09/22 12:00 36.6 C 84 18 122/86 98 Room Air 03/09/22 07:22 36.9 C 63 18 109/72 95 Room Air 03/09/22 07:00 87 03/09/22 04:43 36.8 C 75 18 137/94 96 Room Air Laboratory Results Laboratory Results WBC 5.00 K/ul (4.8-10.8) 03/09/22 06:03 RBC 4.44 M/uL (4.63-6.08) L 03/09/22 06:03 Hgb 13.0 g/dl (14.0-18.0) L 03/09/22 06:03 Hct 37.8 % (40.1-51.0) L 03/09/22 06:03 MCV 85.1 fL (80.0-100.0) 03/09/22 06:03 MCH 29.3 pg (25.0-34.0) 03/09/22 06:03 MCHC 34.4 g/dL (32.0-36.0) 03/09/22 06:03 RDW Std Deviation 50.8 fL (36.4-46.3) H 03/09/22 06:03 RDW Coeff of Vincenzo 16.5 % (11.5-14.5) H 03/09/22 06:03 Plt Count 84 K/uL (130-400) L 03/09/22 06:03 MPV 11.6 fL (9.4-12.4) 03/09/22 06:03 Immature Gran % (Auto) 1.0 % 03/09/22 06:03 Neut % (Auto) 57.0 % 03/09/22 06:03 Lymph % (Auto) 35.8 % 03/09/22 06:03 Wilkes % (Auto) 4.8 % 03/09/22 06:03 Eos % (Auto) 1.0 % 03/09/22 06:03 Baso % (Auto) 0.4 % 03/09/22 06:03 Neut # (Auto) 2.85 K/uL (1.4-6.5) 03/09/22 06:03 Lymph # (Auto) 1.79 K/uL (1.2-3.4) 03/09/22 06:03 Wilkes # (Auto) 0.24 K/uL (0.24-0.82) 03/09/22 06:03 Eos # (Auto) 0.05 K/uL (0-0.50) 03/09/22 06:03 Baso # (Auto) 0.02 K/uL (0-0.2) 03/09/22 06:03 Immature Gran # (Auto) 0.05 K/uL (0.00-0.02) H 03/09/22 06:03 Platelet Estimate Decreased (Normal) L 03/08/22 02:21 Polychromasia 1+ 03/09/22 06:03 Sodium 138 mmol/L (136-145) 03/09/22 06:03 Potassium 3.1 mmol/L (3.5-5.1) L 03/09/22 06:03 Chloride 100 mmol/L (98-107) 03/09/22 06:03 Carbon Dioxide 33 mmol/L (21-32) H 03/09/22 06:03 Anion Gap 5 (3-11) 03/09/22 06:03 BUN 10 mg/dl (6-23) 03/09/22 06:03 Creatinine 0.87 mg/dl (0.6-1.4) 03/09/22 06:03 Est Cr Clr Drug Dosing 135.6 ml/min 03/09/22 06:03 Est GFR ( Amer) 108.7 ml/min 03/09/22 06:03 Est GFR (Non-Af Amer) 93.8 ml/min 03/09/22 06:03 BUN/Creatinine Ratio 11.5 (10-20) 03/09/22 06:03 Glucose 99 mg/dl (70-99(Fasting)) 03/09/22 06:03 Calcium 8.1 mg/dl (8.5-10.1) L 03/09/22 06:03 Phosphorus 3.0 mg/dl (2.5-4.9) 03/07/22 14:11 Magnesium 2.0 mg/dl (1.7-2.4) 03/07/22 14:11 Total Bilirubin 1.0 mg/dl (0.2-1.0) 03/08/22 02:21 AST 68 U/L (13-39) H 03/08/22 02:21 ALT 59 U/L (7-52) H 03/08/22 02:21 Alkaline Phosphatase 91 U/L (34-104) 03/08/22 02:21 Troponin I High Sens 106.9 pg/ml (0-20) H* D 03/08/22 08:09 Total Protein 6.3 gm/dl (6.0-8.3) 03/08/22 02:21 Albumin 3.9 gm/dl (3.4-5.0) 03/08/22 02:21 Globulin 2.4 gm/dl (2.5-4.0) L 03/08/22 02:21 Albumin/Globulin Ratio 1.6 (0.9-2) 03/08/22 02:21 Lipase 77 U/L (11-82) 03/07/22 14:11 Urine Color Yellow 03/07/22 14:20 Urine Appearance Clear (Clear) 03/07/22 14:20 Urine pH 6.5 (4.5-7.5) 03/07/22 14:20 Ur Specific Beverly 1.005 (1.000-1.030) 03/07/22 14:20 Urine Protein Trace (Negative) H 03/07/22 14:20 Urine Glucose (UA) Negative (Negative) 03/07/22 14:20 Urine Ketones 1+ (Negative) H 03/07/22 14:20 Urine Blood Trace (Negative) H 03/07/22 14:20 Urine Nitrite Negative (Negative) 03/07/22 14:20 Urine Bilirubin Negative (Negative) 03/07/22 14:20 Urine Urobilinogen Negative (Negative) 03/07/22 14:20 Ur Leukocyte Esterase Negative (Negative) 03/07/22 14:20 Urine RBC 0-4 /hpf (0-4) 03/07/22 14:20 Urine WBC 5-10 /hpf (0-5) H 03/07/22 14:20 Ur Epithelial Cells 0-5 /lpf (0-5) 03/07/22 14:20 Urine Bacteria 1+ (Negative) H 03/07/22 14:20 Ethyl Alcohol mg/dL 346.5 mg/dl (<10.0) H 03/07/22 14:21 SARS-CoV-2, RNA, NAAT NEGATIVE (NEGATIVE) 03/07/22 14:20 Impressions Abdomen/Pelvis CT 03/07/22 13:51 CT OF THE ABDOMEN AND PELVIS WITH CONTRAST CLINICAL HISTORY: Abdominal pain. COMPARISON STUDY: CT of the abdomen and pelvis May 11, 2021. TECHNIQUE: Following IV administration of 87 mL of Optiray, axial images of the abdomen and pelvis were obtained from the lung bases to the proximal femurs. Images were reviewed in the axial, sagittal, and coronal planes. IV contrast was administered without complication. Automated exposure control was utilized for the study. A dose lowering technique was utilized adhering to the principles of ALARA. CT DOSE: 3872.83 mGy.cm FINDINGS: This study is mildly compromised by motion artifact. No consolidation within the lower lungs is noted. Cardiomegaly is present. There is no pneumatosis, free air or portal venous gas. Severe hepatic steatosis is again noted. The gallbladder is mildly distended. Equivocal pericholecystic stranding is likely artifactual. The spleen, adrenal glands and pancreas are unremarkable. Probable cyst within the midpole of the right kidney is noted. There is no hydronephrosis. There is no lymphadenopathy. There is no evidence for a bowel obstruction. The caliber and wall thickness of small and large bowel are normal. No acute fractures within the visualized skeletal structures are present. There is severe bilateral hip osteoarthritis. IMPRESSION: 1. Mild gallbladder distention. If right upper quadrant pain, ultrasound is recommended. 2. Severe hepatic steatosis, similar to prior exam. 3. No bowel obstruction. No bowel wall thickening. ACT 112: Negative or not required by law. Electronically signed by: Gera Chen M.D. 03/07/2022 4:26 PM Chest X-Ray 03/07/22 13:55 XR chest 1V portable CLINICAL HISTORY: Atypical chest pain. COMPARISON STUDY: Chest radiograph and chest CT May 11, 2021. FINDINGS: Lung volumes are mildly diminished. Cardiomegaly is unchanged. There is no evidence for pulmonary edema. No pneumothorax or pleural effusion is present. Apparent opacities at the medial lung bases are likely due to atelectasis or epicardial fat pad. IMPRESSION: No acute cardiopulmonary findings. ACT 112: Negative or not required by law. Electronically signed by: Gera Chen M.D. 03/07/2022 2:[address] 03/07/22 13:55 CT OF THE HEAD WITHOUT CONTRAST CLINICAL HISTORY: fall, vomiting COMPARISON STUDY: Head CT May 11, 2021 and MRI of the brain June 15, 2012. TECHNIQUE: Helical axial images of the head were obtained without IV contrast. Automated exposure control was utilized for the study. A dose lowering t echnique was utilized adhering to the principles of ALARA. FINDINGS: No acute intracranial hemorrhage, midline shift or mass effect is present. The ventricular system is unremarkable. The basal cisterns are patent. No extra-axial collections are present. There are no findings to suggest acute dural sinus thrombosis or acute territorial infarct. No significant calvarial abnormalities are present. Visualized portions of the sinuses and mastoid air cells are clear. IMPRESSION: 1. No acute intracranial findings. 2. No acute calvarial fracture. ACT 112: Negative or not required by law. Electronically signed by: Gera Chen M.D. 03/07/2022 4:08 PM Gallbladder Ultrasound 03/07/22 16:31 US gallbladder CLINICAL HISTORY: Abdominal pain, nausea and vomiting. COMPARISON STUDY: CT of the abdomen and pelvis performed earlier today. FINDINGS: Hepatic echogenicity is significantly increased. The liver is enlarged. No hepatic lesions are identified although sensitivity is diminished given suboptimal penetration. The gallbladder is moderately distended. No gallstones are noted. There is no gallbladder wall thickening. No sonographic Rollins sign was elicited. There is no biliary ductal dilatation. The pancreas is obscured. No right hydronephrosis is present. There is a 1.2 cm right renal cyst. IMPRESSION: 1. Moderate gallbladder distention. However, no gallstones. No sonographic Rollins sign. No evidence for acute cholecystitis. 2. No biliary ductal dilatation. 3. Hepatic steatosis and hepatomegaly. ACT 112: Negative or not required by law. Electronically signed by: Gera Chen M.D. 03/07/2022 5:54 PM (1) A-fib Atrial fibrillation type: unspecified Qualified Code(s): I48.91 - Unspecified atrial fibrillation (2) Fall Encounter type: initial encounter Qualified Code(s): W19.XXXA - Unspecified fall, initial encounter
[2022-03-09] MEDS ORDERED: traZODone HCL 50 MG TAB PO ONE (21:20)
[2022-03-10] MEDS: diazePAM 5 MG TABLET PO SCH ×2 (01:01→08:20)
[2022-03-10 08:04] LABS: Hematocrit (blood only) 39.7 % (40.1-51.0); Hemoglobin 13.3 g/dl (14.0-18.0); Mean Corpuscular Hemoglobin 29.6 pg (25.0-34.0); Mean Corpuscular Hgb Conc 33.5 g/dL (32.0-36.0); Mean Corpuscular Volume 88.2 fL (80.0-100.0); Mean Platelet Volume 10.2 fL (9.4-12.4); Platelet Count 106 K/uL (130-400); RDW Standard Deviation 53.6 fL (36.4-46.3)
[2022-03-10 08:12] LABS: Basophils # (auto) 0.03 K/uL (0-0.2); Basophils % (auto) 0.6 %; Eosinophils # (auto) 0.08 K/uL (0-0.50); Eosinophils % (auto) 1.5 %; Immature Granulocytes # (auto) 0.04 K/uL (0.00-0.02); Immature Granulocytes % (auto) 0.8 %; Lymphocytes # (auto) 1.95 K/uL (1.2-3.4); Lymphocytes % (auto) 37.5 %; Monocytes # (auto) 0.28 K/uL (0.24-0.82); Monocytes % (auto) 5.4 %; Neutrophils # (auto) 2.82 K/uL (1.4-6.5); Neutrophils % (auto) 54.2 %; Polychromasia 1+
[2022-03-10 08:16] LABS: BUN Creatinine Ratio 11.1 (10-20); Calcium 8.2 mg/dl (8.5-10.1); Creatinine Clr Calc Pharmacy 131.1 ml/min; Est GFR (African American) 107.2 ml/min; Est GFR (Non-African American) 92.5 ml/min; Potassium 3.8 mmol/L (3.5-5.1)
[2022-03-10] MEDS: METOPROLOL TARTRATE 50 MG TAB PO SCH (08:19)
--- NOTE | 2022-03-10 10:55 | Cardiology Progress Note ---
Date of Service March 10, 2022 Assessment & Plan (1) A-fib: (2) Fall: (3) Alcohol abuse: (4) Acute dehydration: (5) Electrolyte abnormality: (6) Morbid obesity: (7) Elevated LFTs: (8) Contusion of abdominal wall: Plan the patient has remained in rate controlled afib with improvement of symptoms. no further cardiac testing or intervention is necessary at this time unfortunately, given ongoing alcoholism and frequent falls he is not an anticoagulation candidate at this time. luckily, ChADS-VASC score of 0 cont current dose of metoprolol ok to d/c to home from a cardiac standpoint f/u with cardiology as an outpatient in 2-4 weeks counseled on need for abstaning from alcohol Admission and Anticipated Discharge Date Admission Date: March 07, 2022 Subjective Patient seen and examined. Chart reviewed. Telemetry reviewed. Review of Systems Review of Systems: All systems reviewed & are unremarkable except as noted in HPI & below Physical Exam Physical Exam: General: Awake, alert and oriented x 3. No acute distress. HEENT: Normocephalic, atraumatic. Pupils equal, round and reactive to light and accommodation. Extraocular muscles are intact. Anicteric sclera. Moist mucous membranes. Neck: No JVD. No bruit. Cardiovascular: irregularly irregular, unable to appreciate murmur, rub or gallop. Pulmonary: Clear to auscultation bilaterally. No rales, rhonchi, or wheezing. Abdomen: Bowel sounds x 4, soft. No rebound, guarding or tenderness. No organomegaly. Extremities: No clubbing, cyanosis or edema. +2 pedal pulses bilaterally. Skin: Warm and dry. Results & Data ([facility]) Vital Signs (Past 12 Hours) Vital Signs Temp Pulse Pulse Resp BP Pulse Ox O2 Del Method 03/10/22 10:06 36.7 C 78 19 130/82 98 03/10/22 07:34 36.7 C 78 19 130/82 98 Room Air 03/10/22 03:47 36.3 C L 75 18 128/89 97 Room Air 03/10/22 00:00 97 H 03/09/22 23:44 36.7 C 87 20 92/60 L 99 Room Air (1) A-fib Atrial fibrillation type: unspecified Qualified Code(s): I48.91 - Unspecified atrial fibrillation (2) Fall Encounter type: initial encounter Qualified Code(s): W19.XXXA - Unspecified fall, initial encounter (3) Contusion of abdominal wall Encounter type: initial encounter Qualified Code(s): S30.1XXA - Contusion of abdominal wall, initial encounter
--- NOTE | 2022-03-10 12:30 | Discharge Summary ---
Date of Service March 10, 2022 Admission HPI Per Admitting Provider Past medical history of alcohol use disorder Last admission in April 2021 with alcohol withdrawal, elevated LFTs and hypertension Patient was brought to the emergency department by his son due to concern for alcohol intoxication. Patient's sons report that patient had a fall with no loss of consciousness. Patient reports palpitation; no complaint of chest pain or shortness of breath. Patient reports that he has been drinking large amount of vodka since past 1 week. As per patient's son, patient has been drinking for several years. Patient denies fever, chills, abdomen pain or urinary symptoms. On presentation to the ED, patient was found to be hypertensive, tachycardic with atrial fibrillation with RVR, saturating well in room air. High- sensitivity troponin was elevated to 160. Blood alcohol level was elevated as well. Patient was given Librium, IV fluids and Ativan. Admission Exam Per Admitting Provider Constitutional: Awake, alert; appears intoxicated, morbidly obese Neck: trachea midline, no thyromegaly normal visual inspection Respiratory: normal respiratory effort, lungs clear to auscultation, no wheeze, rales, rhonchi. Normal insp/exp effort, no accessory muscle use Cardiovascular: Irregular no murmur, no edema Vessels: no JVD or carotid bruit Chest: normal inspection of chest Abdomen: normal bowel sounds, soft, nontender, no hepatosplenomegaly Musculoskeletal: no cyanosis or clubbing, extremities motor strength 5/5 Skin: no rashes, warm and dry normal turgor Neurologic: PERRL, EOMI, accommodation nl, no face palsy, no dysarthria CN's II- XI intact bilaterally and moves all extremities Psychiatric: A+Ox3, euthymic affect Lymphatic: no cervical or axillary lymphadenopathy : deferred Principal Diagnosis (1) Alcohol abuse: (2) A-fib: (3) Fall: (4) Elevated troponin: (5) Electrolyte abnormality: (6) Elevated LFTs Discharge Exam Constitutional: Awake, alert; appears intoxicated, morbidly obese Neck: trachea midline, no thyromegaly normal visual inspection Respiratory: normal respiratory effort, lungs clear to auscultation, no wheeze, rales, rhonchi. Normal insp/exp effort, no accessory muscle use Cardiovascular: Irregular no murmur, no edema Vessels: no JVD or carotid bruit Chest: normal inspection of chest Abdomen: normal bowel sounds, soft, nontender, no hepatosplenomegaly Musculoskeletal: no cyanosis or clubbing, extremities motor strength 5/5 Skin: no rashes, warm and dry normal turgor Neurologic: PERRL, EOMI, accommodation nl, no face palsy, no dysarthria CN's II- XI intact bilaterally and moves all extremities Psychiatric: A+Ox3, euthymic affect Lymphatic: no cervical or axillary lymphadenopathy : deferre Discharge Data Allergies Allergy/AdvReac Type Severity Reaction Status Date / Time No Known Allergies Allergy Verified 03/07/22 17:21 Consultations 03/07/22 18:05 ED Decision to Admit Stat 03/07/22 19:43 Consult Cardiology Routine Ordered Studies 03/07/22 13:51 CT abd pelvis IV con only Stat 03/07/22 13:55 CT head/brain wo con Stat 03/07/22 16:31 US gallbladder Stat Hospital Course (1) Alcohol abuse: (2) A-fib: (3) Fall: (4) Elevated troponin: (5) Electrolyte abnormality: (6) Elevated LFTs: Plan Patient is a 61-year-old male with past medical history of alcohol abuse disorder was brought to the hospital by his son due to concern for alcohol into xication. Patient was also reported to have a fall with no loss of consciousness. He was found to be in A. fib with RVR. His high-sensitivity troponin was elevated to 160. Blood alcohol level was elevated to 300s. Patient was started on metoprolol and Lovenox for anticoagulation; admitted to telemetry floor. He was also started on tapering dose of Valium for concern of alcohol withdrawal. Cardiology was consulted. Patient underwent echocardiogram which showed normal LV systolic function of 60 to 65% with no segmental wall motion abnormalities. His ventricular rate was controlled in the range of 80s to 90s during the hospitalization. Anticoagulation was stopped as patient [id number] score was 0 and due to patient's history of repeated falls due to alcohol intoxication. Extensive discussion was done regarding alcohol abstinence. Patient was discharged with metoprolol 50 mg twice daily. He will follow-up with his primary care doctor for further care. Total Time Total Time Spent Total Time Spent (In Minutes): 40 Total Time Includes: Examination of the Patient, Discharge Planning, Medication Reconciliation, Communication With Other Providers and Other Discharge Plan Discharge Items Patient Disposition: Home - Self-Care Reason For Visit: A FIB WITH RVR, ALCOHOL INTOXICATION Discharge Diagnosis: (1) Alcohol abuse: (2) A-fib: (3) Fall: (4) Elevated troponin: (5) Electrolyte abnormality: (6) Elevated LFTs Activity: Resume your previous activity Non-emergency contact: Primary Care Provider Call non-emergency contact if: you have any medication questions and your symptoms worsen Follow-up/Referrals: Jason Renee MD [Primary Care Provider] - 03/16/22 12:00 pm (Date & Time 03/16/2022 12:00 PM Provider Jason Renee MD Department General Internal Medicine [facility] ) Diet: Regular Addtl Attending Provider Instructions: You were admitted to the hospital with A. fib with RVR. Echocardiogram was done which showed good ejection fraction of 60%. Cardiology evaluated you during the hospitalization. You are started on metoprolol 50 mg twice daily. Please abstain from drinking alcohol. It increases the risks of falls and atrial fibrillation. Pending Studies at Discharge: No Stand-Alone Forms: [facility] [employer], Smoking Cessation Medications and DC Order Prescriptions: New metoprolol tartrate 50 mg Tablet 50 mg PO BID Qty: 60 0RF Discontinued ibuprofen 200 mg Tablet 600 mg PO DIRECTED PRN (Reason: pain/fever) Discharge Orders: Discharge Order (Routine); Ordered 03/10/22 Ordered By: Gerard Mayorga Admission Data Admit Date/Time: 03/07/22 18:22 Attending Provider: Gerard Mayorga Admit Provider: Gerard Mayorga Primary Care Provider: Jason Renee Other Providers: Gerard Mayorga ; Brandon Gaston Other Interventions: Discharge Summary Assessment (RN) Last Done: 03/10/22 10:06
--- NOTE | 2022-03-10 13:52 | Electrocardiogram Report ---
Test Reason : Blood Pressure : / mmHG Vent. Rate : 078 BPM Atrial Rate : 107 BPM P-R Int : 000 ms QRS Dur : 102 ms QT Int : 350 ms P-R-T Axes : 000 053 019 degrees QTc Int : 399 ms Poor data quality, interpretation may be adversely affected Atrial fibrillation Abnormal ECG When compared with ECG of 09-MAR-2022 06:24, No significant change was found Confirmed by Felton Ambriz ([id number]) on 03/10/2022 1:51:42 PM Referred By: REFERRED SELF Confirmed By:Felton Ambriz
== END 2022-03-10 16:32 | disposition home or self-care (01) | DRG 309 ==
LOC: ED 13:27 → 2S 18:22

== ENCOUNTER 2022-04-10 15:08 | Inpatient (IN) ==
[2022-04-10] MEDS ORDERED: ONDANSETRON INJ 2 MG/ML 2 ML VIAL IV STA (15:29)
[2022-04-10] MEDS ORDERED: MULTI-VITAMIN INFUSION 10 ML, THIAMINE HCL 100 MG, FOLIC ACID 1 MG in SODIUM CHLORIDE 0... IV ONE (15:29)
[2022-04-10] MEDS ORDERED: SODIUM CHLORIDE 0.9% 1000ML 1,000 ML IV SCH (15:30)
[2022-04-10] MEDS ORDERED: SODIUM CHLORIDE 0.9% 1000ML 1,000 ML IV ONE ×2 (15:34→18:06)
--- NOTE | 2022-04-10 15:34 | Emergency Department Note ---
Impression & Plan Generalized weakness, Alcohol intoxication, Physical deconditioning, Elevated lactic acid level ED Provider Note HISTORY OF PRESENT ILLNESS: Patient is a 62-year-old male presenting with weakness and physical deconditioning. Patient's family called 911 today, as the patient's been sitting in bed drinking for 2 months and has not gotten out of bed. He had some vomiting today and shortness of breath, prompting the family to call 911. Patient is a chronic alcoholic and drinks about a half of vodka a day. He reports his last drink was early this morning. Family was concerned that patient has not gotten up out of bed in 2 months. Patient was found by EMS to be covered in urine and feces. Patient denies any chest pain or shortness of breath. ROS: as above PHYSICAL EXAM: Constitutional: Patient appears in no acute distress. HENT: Head: Normocephalic and atraumatic. Eyes: EOMI, PERRL Mouth/Throat: Mucous membranes moist. Neck: Trachea midline. Neck supple. Cardiovascular: Tachycardia with irregular irregular rhythm. No murmurs, rubs or gallops. Intact distal pulses. Pulmonary/Chest: No respiratory distress. Breath sounds clear and equal bilaterally. No wheezes or rales. No chest wall tenderness to palpation. Abdominal: BS +. Abdomen soft, no tenderness, rebound or guarding. Back: No midline spinal tenderness, no paraspinal tenderness, no CVA tenderness. Musculoskeletal: No edema, tenderness or deformity noted. Skin: Warm and dry. Several small wounds and areas of skin breakdown on right lateral pelvis and hip and lower abdominal pannus. Psychiatric: Appropriate mood and affect for situation. Neurological: Alert and keenly responsive. CN II-XII grossly intact, moving all extremities equally and fully. MDM: - Vitals signs showed tachycardia. - History obtained via EMS. Patient presents with generalized weakness and physical deconditioning. Patient's family called 911 today, as the patient has not been up out of bed in over 2 months. They report he just sits in bed and drinks vodka and beer daily. He has a history of alcohol abuse. No reported physical complaints on arrival. - Chronic conditions affecting care: Afib; alcohol abuse - Differential diagnoses include, but are not limited to: ACS; UTI; pneumonia; alcohol intoxication; electrolyte abnormality - Order placed for continuous cardiac monitoring. At this time, monitor showed rate of 114 bpm with irregular rhythm, per my interpretation. - External medical records reviewed. EMS sheet reviewed. Patient was vitally stable in route though tachycardic. He was given 4 mg of IV Zofran secondary to vomiting. - EKG reviewed by myself showed atrial fibrillation with RVR. Rate of 116 bpm. No acute ischemic changes. Normal intervals. QTc 447. - Laboratory workup interpreted by myself showed normal WBC; chronic anemia; chronic thrombocytopenia; stable electrolytes; elevated anion gap (28); elevated lactate (3.7 --> 2.6); normal troponin; elevated alcohol level (157) - VBG shows slight acidosis (pH 7.34), likely secondary to lactic acid elevation - UA showed positive nitrites, but no bacteria. Will not treat for UTI at this time. - COVID negative. - Patient given 2 NS and banana bag in ER. Given 4 mg IV zofran for nausea. - CXR negative for acute cardiopulmonary pathology, per my interpretation. Noted to have cardiomegaly. - Discussion was had with child protective services social worker about patient's case and need for admission. - Hospitalist consulted for admission. - Patient admitted to [facility] for further evaluation and management. ASSESSMENT AND PLAN: Diagnosis: generalized weakness; alcohol abuse; alcohol intoxication; physical deconditioning; elevated lactic acid level Plan: admit Past Med/Surg History Medical History Alcoholism History of violent behavior Per daughter (Lindsey), pt will become violent when drinking Morbid obesity Osteoarthritis Surgical History Hx of elbow surgery ? Left Hx of total knee arthroplasty Right Family History Other No family history of adverse response to anesthesia Social History Smoking Status: Never smoker Cigarettes Per Day: 20+ cigs/day; Second Hand Exposure: No; Hx Alcohol Use: Yes Alcohol type: hard liquor Hx Substance Use: No Preferred Language: Guamanian Communication Ability: Effective Communication Tools: IPad Liquid Sugar Melter Required: Yes Beliefs That Will Affect Care: None marital status: Current Living Situation: Alone Feels Safe at Home: Yes Assistive Devices: Denture - Upper, Denture - Lower and Glasses Allergies Allergies Allergy/AdvReac Type Severity Reaction Status Date / Time No Known Allergies Allergy Verified 04/10/22 19:32 Home Meds Previous Rx's Medication Instructions Recorded metoprolol tartrate 50 mg tablet 50 mg PO BID #60 tabs 03/10/22 Results & Data (ED) Vital Signs Vital Signs - 24 hr 04/10/22 15:48 04/10/22 15:55 04/10/22 15:55 Temperature 36.7 C Temperature Source Oral Pulse Rate 134 H 112 H Pulse Rate [Apical] 120 H Pulse Rate from SpO2 Sensor Pulse Rhythm Irregular Irregular Pulse Rhythm [Apical] Irregular Pulse Strength Normal Pulse Strength [Apical] Normal Respiratory Rate 24 22 25 H Respiratory Effort / Characteristics Non-Labored Spontaneous Short of Breath Respiratory Depth Normal Respiratory Pattern Regular Tachypnea Blood Pressure 142/80 H Blood Pressure [Left Arm] Blood Pressure Mean 100 Blood Pressure Mean [Left Arm] Pulse Oximetry 92 92 92 Oxygen Delivery Method Room Air Room Air Sepsis Recent Fever Within 48 Hours No Sepsis New/Unexplained Change in Mental Status No Sepsis Action Taken by Nursing Physician Notified 04/10/22 15:58 04/10/22 15:22 04/10/22 15:27 Temperature Temperature Source Pulse Rate 124 H Pulse Rate [Apical] Pulse Rate from SpO2 Sensor Pulse Rhythm Pulse Rhythm [Apical] Pulse Strength Pulse Strength [Apical] Respiratory Rate 21 Respiratory Effort / Characteristics Respiratory Depth Respiratory Pattern Blood Pressure 146/114 H Blood Pressure [Left Arm] Blood Pressure Mean 124 Blood Pressure Mean [Left Arm] Pulse Oximetry 92 Oxygen Delivery Method Room Air Sepsis Recent Fever Within 48 Hours Sepsis New/Unexplained Change in Mental Status Sepsis Action Taken by Nursing 04/10/22 15:27 04/10/22 15:30 04/10/22 15:30 Temperature Temperature Source Pulse Rate 114 H 120 H Pulse Rate [Apical] Pulse Rate from SpO2 Sensor 118 H 117 H Pulse Rhythm Pulse Rhythm [Apical] Pulse Strength Pulse Strength [Apical] Respiratory Rate 22 22 Respiratory Effort / Characteristics Respiratory Depth Respiratory Pattern Blood Pressure 131/90 Blood Pressure [Left Arm] Blood Pressure Mean 103 Blood Pressure Mean [Left Arm] Pulse Oximetry 92 92 Oxygen Delivery Method Sepsis Recent Fever Within 48 Hours Sepsis New/Unexplained Change in Mental Status Sepsis Action Taken by Nursing 04/10/22 15:40 04/10/22 15:45 04/10/22 15:45 Temperature Temperature Source Pulse Rate 112 H 107 H Pulse Rate [Apical] Pulse Rate from SpO2 Sensor 113 H 105 H Pulse Rhythm Pulse Rhythm [Apical] Pulse Strength Pulse Strength [Apical] Respiratory Rate 25 H 23 Respiratory Effort / Characteristics Respiratory Depth Respiratory Pattern Blood Pressure 142/80 H Blood Pressure [Left Arm] Blood Pressure Mean 100 Blood Pressure Mean [Left Arm] Pulse Oximetry 89 L 90 Oxygen Delivery Method Sepsis Recent Fever Within 48 Hours Sepsis New/Unexplained Change in Mental Status Sepsis Action Taken by Nursing 04/10/22 15:50 04/10/22 16:00 04/10/22 16:00 Temperature Temperature Source Pulse Rate 122 H 112 H Pulse Rate [Apical] Pulse Rate from SpO2 Sensor 113 H 106 H Pulse Rhythm Pulse Rhythm [Apical] Pulse Strength Pulse Strength [Apical] Respiratory Rate 16 20 Respiratory Effort / Characteristics Respiratory Depth Respiratory Pattern Blood Pressure 141/83 H Blood Pressure [Left Arm] Blood Pressure Mean 102 Blood Pressure Mean [Left Arm] Pulse Oximetry 91 91 Oxygen Delivery Method Sepsis Recent Fever Within 48 Hours Sepsis New/Unexplained Change in Mental Status Sepsis Action Taken by Nursing 04/10/22 16:10 04/10/22 16:15 04/10/22 16:15 Temperature Temperature Source Pulse Rate 103 H 103 H Pulse Rate [Apical] Pulse Rate from SpO2 Sensor 113 H 99 H Pulse Rhythm Pulse Rhythm [Apical] Pulse Strength Pulse Strength [Apical] Respiratory Rate 14 22 Respiratory Effort / Characteristics Respiratory Depth Respiratory Pattern Blood Pressure 125/78 Blood Pressure [Left Arm] Blood Pressure Mean 93 Blood Pressure Mean [Left Arm] Pulse Oximetry 92 92 Oxygen Delivery Method Sepsis Recent Fever Within 48 Hours Sepsis New/Unexplained Change in Mental Status Sepsis Action Taken by Nursing 04/10/22 16:20 04/10/22 16:30 04/10/22 16:30 Temperature Temperature Source Pulse Rate 121 H 119 H Pulse Rate [Apical] Pulse Rate from SpO2 Sensor 128 H 116 H Pulse Rhythm Pulse Rhythm [Apical] Pulse Strength Pulse Strength [Apical] Respiratory Rate 15 16 Respiratory Effort / Characteristics Respiratory Depth Respiratory Pattern Blood Pressure 159/87 H Blood Pressure [Left Arm] Blood Pressure Mean 111 Blood Pressure Mean [Left Arm] Pulse Oximetry 93 93 Oxygen Delivery Method Sepsis Recent Fever Within 48 Hours Sepsis New/Unexplained Change in Mental Status Sepsis Action Taken by Nursing 04/10/22 16:40 04/10/22 16:45 04/10/22 16:45 Temperature Temperature Source Pulse Rate 116 H 109 H Pulse Rate [Apical] Pulse Rate from SpO2 Sensor 115 H 116 H Pulse Rhythm Pulse Rhythm [Apical] Pulse Strength Pulse Strength [Apical] Respiratory Rate 24 Respiratory Effort / Characteristics Respiratory Depth Respiratory Pattern Blood Pressure 148/106 H Blood Pressure [Left Arm] Blood Pressure Mean 120 Blood Pressure Mean [Left Arm] Pulse Oximetry 93 94 Oxygen Delivery Method Sepsis Recent Fever Within 48 Hours Sepsis New/Unexplained Change in Mental Status Sepsis Action Taken by Nursing 04/10/22 16:50 04/10/22 17:00 04/10/22 17:00 Temperature Temperature Source Pulse Rate 122 H 124 H Pulse Rate [Apical] Pulse Rate from SpO2 Sensor 123 H 112 H Pulse Rhythm Pulse Rhythm [Apical] Pulse Strength Pulse Strength [Apical] Respiratory Rate Respiratory Effort / Characteristics Respiratory Depth Respiratory Pattern Blood Pressure 151/91 H Blood Pressure [Left Arm] Blood Pressure Mean 111 Blood Pressure Mean [Left Arm] Pulse Oximetry 93 94 Oxygen Delivery Method Sepsis Recent Fever Within 48 Hours Sepsis New/Unexplained Change in Mental Status Sepsis Action Taken by Nursing 04/10/22 17:10 04/10/22 17:15 04/10/22 17:15 Temperature Temperature Source Pulse Rate 114 H 102 H Pulse Rate [Apical] Pulse Rate from SpO2 Sensor 106 H 107 H Pulse Rhythm Pulse Rhythm [Apical] Pulse Strength Pulse Strength [Apical] Respiratory Rate Respiratory Effort / Characteristics Respiratory Depth Respiratory Pattern Blood Pressure 159/82 H Blood Pressure [Left Arm] Blood Pressure Mean 107 Blood Pressure Mean [Left Arm] Pulse Oximetry 92 92 Oxygen Delivery Method Sepsis Recent Fever Within 48 Hours Sepsis New/Unexplained Change in Mental Status Sepsis Action Taken by Nursing 04/10/22 17:20 04/10/22 17:30 04/10/22 17:30 Temperature Temperature Source Pulse Rate 112 H 125 H Pulse Rate [Apical] Pulse Rate from SpO2 Sensor 107 H 105 H Pulse Rhythm Pulse Rhythm [Apical] Pulse Strength Pulse Strength [Apical] Respiratory Rate Respiratory Effort / Characteristics Respiratory Depth Respiratory Pattern Blood Pressure 122/91 Blood Pressure [Left Arm] Blood Pressure Mean 101 Blood Pressure Mean [Left Arm] Pulse Oximetry 92 93 Oxygen Delivery Method Sepsis Recent Fever Within 48 Hours Sepsis New/Unexplained Change in Mental Status Sepsis Action Taken by Nursing 04/10/22 17:40 04/10/22 17:45 04/10/22 17:45 Temperature Temperature Source Pulse Rate 111 H 116 H Pulse Rate [Apical] Pulse Rate from SpO2 Sensor 112 H 117 H Pulse Rhythm Pulse Rhythm [Apical] Pulse Strength Pulse Strength [Apical] Respiratory Rate Respiratory Effort / Characteristics Respiratory Depth Respiratory Pattern Blood Pressure 134/90 Blood Pressure [Left Arm] Blood Pressure Mean 104 Blood Pressure Mean [Left Arm] Pulse Oximetry 93 93 Oxygen Delivery Method Sepsis Recent Fever Within 48 Hours Sepsis New/Unexplained Change in Mental Status Sepsis Action Taken by Nursing 04/10/22 17:50 04/10/22 18:00 04/10/22 18:00 Temperature Temperature Source Pulse Rate 111 H 114 H Pulse Rate [Apical] Pulse Rate from SpO2 Sensor 107 H 107 H Pulse Rhythm Pulse Rhythm [Apical] Pulse Strength Pulse Strength [Apical] Respiratory Rate 17 16 Respiratory Effort / Characteristics Respiratory Depth Respiratory Pattern Blood Pressure 123/87 Blood Pressure [Left Arm] Blood Pressure Mean 99 Blood Pressure Mean [Left Arm] Pulse Oximetry 93 91 Oxygen Delivery Method Sepsis Recent Fever Within 48 Hours Sepsis New/Unexplained Change in Mental Status Sepsis Action Taken by Nursing 04/10/22 18:10 04/10/22 18:15 04/10/22 18:15 Temperature Temperature Source Pulse Rate 103 H 110 H Pulse Rate [Apical] Pulse Rate from SpO2 Sensor 104 H 111 H Pulse Rhythm Pulse Rhythm [Apical] Pulse Strength Pulse Strength [Apical] Respiratory Rate 15 16 Respiratory Effort / Characteristics Respiratory Depth Respiratory Pattern Blood Pressure 142/86 H Blood Pressure [Left Arm] Blood Pressure Mean 104 Blood Pressure Mean [Left Arm] Pulse Oximetry 92 94 Oxygen Delivery Method Sepsis Recent Fever Within 48 Hours Sepsis New/Unexplained Change in Mental Status Sepsis Action Taken by Nursing 04/10/22 18:20 04/10/22 18:30 04/10/22 18:30 Temperature Temperature Source Pulse Rate 105 H 108 H Pulse Rate [Apical] Pulse Rate from SpO2 Sensor 111 H 114 H Pulse Rhythm Pulse Rhythm [Apical] Pulse Strength Pulse Strength [Apical] Respiratory Rate 17 15 Respiratory Effort / Characteristics Respiratory Depth Respiratory Pattern Blood Pressure 159/101 H Blood Pressure [Left Arm] Blood Pressure Mean 120 Blood Pressure Mean [Left Arm] Pulse Oximetry 94 94 Oxygen Delivery Method Sepsis Recent Fever Within 48 Hours Sepsis New/Unexplained Change in Mental Status Sepsis Action Taken by Nursing 04/10/22 18:40 04/10/22 18:45 04/10/22 18:45 Temperature Temperature Source Pulse Rate 99 H 109 H Pulse Rate [Apical] Pulse Rate from SpO2 Sensor 100 H 113 H Pulse Rhythm Pulse Rhythm [Apical] Pulse Strength Pulse Strength [Apical] Respiratory Rate Respiratory Effort / Characteristics Respiratory Depth Respiratory Pattern Blood Pressure 143/99 H Blood Pressure [Left Arm] Blood Pressure Mean 113 Blood Pressure Mean [Left Arm] Pulse Oximetry 94 95 Oxygen Delivery Method Sepsis Recent Fever Within 48 Hours Sepsis New/Unexplained Change in Mental Status Sepsis Action Taken by Nursing 04/10/22 18:50 04/10/22 19:00 04/10/22 19:00 Temperature Temperature Source Pulse Rate 95 H 95 H Pulse Rate [Apical] Pulse Rate from SpO2 Sensor 94 H 106 H Pulse Rhythm Pulse Rhythm [Apical] Pulse Strength Pulse Strength [Apical] Respiratory Rate Respiratory Effort / Characteristics Respiratory Depth Respiratory Pattern Blood Pressure 151/87 H Blood Pressure [Left Arm] Blood Pressure Mean 108 Blood Pressure Mean [Left Arm] Pulse Oximetry 95 92 Oxygen Delivery Method Sepsis Recent Fever Within 48 Hours Sepsis New/Unexplained Change in Mental Status Sepsis Action Taken by Nursing 04/10/22 19:10 04/10/22 19:15 04/10/22 19:15 Temperature Temperature Source Pulse Rate 101 H 110 H Pulse Rate [Apical] Pulse Rate from SpO2 Sensor 103 H 115 H Pulse Rhythm Pulse Rhythm [Apical] Pulse Strength Pulse Strength [Apical] Respiratory Rate 14 Respiratory Effort / Characteristics Respiratory Depth Respiratory Pattern Blood Pressure 141/90 H Blood Pressure [Left Arm] Blood Pressure Mean 107 Blood Pressure Mean [Left Arm] Pulse Oximetry 94 94 Oxygen Delivery Method Sepsis Recent Fever Within 48 Hours Sepsis New/Unexplained Change in Mental Status Sepsis Action Taken by Nursing 04/10/22 19:20 04/10/22 19:30 04/10/22 19:30 Temperature Temperature Source Pulse Rate 113 H Pulse Rate [Apical] Pulse Rate from SpO2 Sensor 121 H 109 H Pulse Rhythm Pulse Rhythm [Apical] Pulse Strength Pulse Strength [Apical] Respiratory Rate 19 Respiratory Effort / Characteristics Respiratory Depth Respiratory Pattern Blood Pressure 134/94 Blood Pressure [Left Arm] Blood Pressure Mean 107 Blood Pressure Mean [Left Arm] Pulse Oximetry 93 94 Oxygen Delivery Method Sepsis Recent Fever Within 48 Hours Sepsis New/Unexplained Change in Mental Status Sepsis Action Taken by Nursing 04/10/22 19:40 04/10/22 19:45 04/10/22 19:45 Temperature Temperature Source Pulse Rate 115 H 107 H Pulse Rate [Apical] Pulse Rate from SpO2 Sensor 111 H 106 H Pulse Rhythm Pulse Rhythm [Apical] Pulse Strength Pulse Strength [Apical] Respiratory Rate 17 Respiratory Effort / Characteristics Respiratory Depth Respiratory Pattern Blood Pressure 137/98 Blood Pressure [Left Arm] Blood Pressure Mean 111 Blood Pressure Mean [Left Arm] Pulse Oximetry 93 93 Oxygen Delivery Method Sepsis Recent Fever Within 48 Hours Sepsis New/Unexplained Change in Mental Status Sepsis Action Taken by Nursing 04/10/22 20:00 Temperature Temperature Source Pulse Rate Pulse Rate [Apical] 119 H Pulse Rate from SpO2 Sensor Pulse Rhythm Pulse Rhythm [Apical] Irregular Pulse Strength Pulse Strength [Apical] Respiratory Rate 25 H Respiratory Effort / Characteristics Non-Labored Spontaneous Respiratory Depth Respiratory Pattern Blood Pressure Blood Pressure [Left Arm] 127/90 Blood Pressure Mean Blood Pressure Mean [Left Arm] 102 Pulse Oximetry 94 Oxygen Delivery Method Room Air Sepsis Recent Fever Within 48 Hours Sepsis New/Unexplained Change in Mental Status Sepsis Action Taken by Nursing Laboratory Data 04/10/22 15:44 04/10/22 15:44 Lab Results 04/10/22 04/10/22 04/10/22 Range/Units 15:44 15:44 15:44 WBC 4.78 L (4.8-10.8) K/ul RBC 4.40 L (4.63-6.08) M/uL Hgb 13.7 L (14.0-18.0) g/dl Hct 37.6 L (40.1-51.0) % MCV 85.5 (80.0-100.0) fL MCH 31.1 (25.0-34.0) pg MCHC 36.4 H (32.0-36.0) g/dL RDW Std Deviation 60.4 H (36.4-46.3) fL RDW Coeff of Vincenzo 19.8 H (11.5-14.5) % Plt Count 111 L (130-400) K/uL MPV 10.0 (9.4-12.4) fL Immature Gran % (Auto) 1.7 % Neut % (Auto) 73.8 % Lymph % (Auto) 15.3 % [facility] % (Auto) 8.6 % Eos % (Auto) 0.0 % Baso % (Auto) 0.6 % Neut # (Auto) 3.53 (1.4-6.5) K/uL Lymph # (Auto) 0.73 L (1.2-3.4) K/uL [facility] # (Auto) 0.41 (0.24-0.82) K/uL Eos # (Auto) 0.00 (0-0.50) K/uL Baso # (Auto) 0.03 (0-0.2) K/uL Immature Gran # (Auto) 0.08 H (0.00-0.02) K/uL PT (9.0-12.0) Seconds INR (0.9-1.1) VBG pH (7.36-7.41) VBG pCO2 (38-50) mmHg VBG pO2 mmHg VBG HCO3 mmol/L VBG O2 Saturation % VBG Base Excess mEq/L Sodium 136 (136-145) mmol/L Potassium 3.6 (3.5-5.1) mmol/L Chloride 91 L (98-107) mmol/L Carbon Dioxide 17 L (21-32) mmol/L Anion Gap 28 H (3-11) BUN 11 (6-23) mg/dl Creatinine 0.70 (0.6-1.4) mg/dl Est Cr Clr Drug Dosing 161.5 ml/min Est GFR ( Amer) 118.1 ml/min Est GFR (Non-Af Amer) 101.9 ml/min BUN/Creatinine Ratio 15.7 (10-20) Glucose 84 (70-99(Fasting)) mg/dl Lactate 3.7 H* (0.4-2.0) mmol/L Calcium 8.3 L (8.5-10.1) mg/dl Magnesium 2.0 (1.7-2.4) mg/dl Total Bilirubin 3.6 H (0.2-1.0) mg/dl Direct Bilirubin 2.0 H (0-0.2) mg/dl AST 266 H (13-39) U/L ALT 143 H (7-52) U/L Alkaline Phosphatase 93 (34-104) U/L Troponin I High Sens 8.8 (0-20) pg/ml Total Protein 7.0 (6.0-8.3) gm/dl Albumin 4.0 (3.4-5.0) gm/dl Procalcitonin (0-0.5) ng/ml Urine Color Urine Appearance (Clear) Urine pH (4.5-7.5) Ur Specific [place] (1.000-1.030) Urine Protein (Negative) Urine Glucose (UA) (Negative) Urine Ketones (Negative) Urine Blood (Negative) Urine Nitrite (Negative) Urine Bilirubin (Negative) Urine Urobilinogen (Negative) Ur Leukocyte Esterase (Negative) Urine WBC (Auto) (0-5) /hpf Urine RBC (Auto) (0-4) /hpf U Hyaline Cast (Auto) (0-5) /lpf U Epithel Cells (Auto) (0-5) /lpf Urine Bacteria (Auto) (Negative) Ethyl Alcohol mg/dL (<10.0) mg/dl SARS-CoV-2, RNA, NAAT (NEGATIVE) 04/10/22 04/10/22 04/10/22 Range/Units 15:44 15:44 15:44 WBC (4.8-10.8) K/ul RBC (4.63-6.08) M/uL Hgb (14.0-18.0) g/dl Hct (40.1-51.0) % MCV (80.0-100.0) fL MCH (25.0-34.0) pg MCHC (32.0-36.0) g/dL RDW Std Deviation (36.4-46.3) fL RDW Coeff of Vincenzo (11.5-14.5) % Plt Count (130-400) K/uL MPV (9.4-12.4) fL Immature Gran % (Auto) % Neut % (Auto) % Lymph % (Auto) % [facility] % (Auto) % Eos % (Auto) % Baso % (Auto) % Neut # (Auto) (1.4-6.5) K/uL Lymph # (Auto) (1.2-3.4) K/uL [facility] # (Auto) (0.24-0.82) K/uL Eos # (Auto) (0-0.50) K/uL Baso # (Auto) (0-0.2) K/uL Immature Gran # (Auto) (0.00-0.02) K/uL PT 11.9 (9.0-12.0) Seconds INR 1.1 (0.9-1.1) VBG pH 7.34 L (7.36-7.41) VBG pCO2 35 L (38-50) mmHg VBG pO2 55 mmHg VBG HCO3 19 mmol/L VBG O2 Saturation 82.3 % VBG Base Excess -6.1 mEq/L Sodium (136-145) mmol/L Potassium (3.5-5.1) mmol/L Chloride (98-107) mmol/L Carbon Dioxide (21-32) mmol/L Anion Gap (3-11) BUN (6-23) mg/dl Creatinine (0.6-1.4) mg/dl Est Cr Clr Drug Dosing ml/min Est GFR ( Amer) ml/min Est GFR (Non-Af Amer) ml/min BUN/Creatinine Ratio (10-20) Glucose (70-99(Fasting)) mg/dl Lactate (0.4-2.0) mmol/L Calcium (8.5-10.1) mg/dl Magnesium (1.7-2.4) mg/dl Total Bilirubin (0.2-1.0) mg/dl Direct Bilirubin (0-0.2) mg/dl AST (13-39) U/L ALT (7-52) U/L Alkaline Phosphatase (34-104) U/L Troponin I High Sens (0-20) pg/ml Total Protein (6.0-8.3) gm/dl Albumin (3.4-5.0) gm/dl Procalcitonin 0.15 (0-0.5) ng/ml Urine Color Urine Appearance (Clear) Urine pH (4.5-7.5) Ur Specific [place] (1.000-1.030) Urine Protein (Negative) Urine Glucose (UA) (Negative) Urine Ketones (Negative) Urine Blood (Negative) Urine Nitrite (Negative) Urine Bilirubin (Negative) Urine Urobilinogen (Negative) Ur Leukocyte Esterase (Negative) Urine WBC (Auto) (0-5) /hpf Urine RBC (Auto) (0-4) /hpf U Hyaline Cast (Auto) (0-5) /lpf U Epithel Cells (Auto) (0-5) /lpf Urine Bacteria (Auto) (Negative) Ethyl Alcohol mg/dL (<10.0) mg/dl SARS-CoV-2, RNA, NAAT (NEGATIVE) 04/10/22 04/10/22 04/10/22 Range/Units 16:16 17:27 17:31 WBC (4.8-10.8) K/ul RBC (4.63-6.08) M/uL Hgb (14.0-18.0) g/dl Hct (40.1-51.0) % MCV (80.0-100.0) fL MCH (25.0-34.0) pg MCHC (32.0-36.0) g/dL RDW Std Deviation (36.4-46.3) fL RDW Coeff of Vincenzo (11.5-14.5) % Plt Count (130-400) K/uL MPV (9.4-12.4) fL Immature Gran % (Auto) % Neut % (Auto) % Lymph % (Auto) % [facility] % (Auto) % Eos % (Auto) % Baso % (Auto) % Neut # (Auto) (1.4-6.5) K/uL Lymph # (Auto) (1.2-3.4) K/uL [facility] # (Auto) (0.24-0.82) K/uL Eos # (Auto) (0-0.50) K/uL Baso # (Auto) (0-0.2) K/uL Immature Gran # (Auto) (0.00-0.02) K/uL PT (9.0-12.0) Seconds INR (0.9-1.1) VBG pH (7.36-7.41) VBG pCO2 (38-50) mmHg VBG pO2 mmHg VBG HCO3 mmol/L VBG O2 Saturation % VBG Base Excess mEq/L Sodium (136-145) mmol/L Potassium (3.5-5.1) mmol/L Chloride (98-107) mmol/L Carbon Dioxide (21-32) mmol/L Anion Gap (3-11) BUN (6-23) mg/dl Creatinine (0.6-1.4) mg/dl Est Cr Clr Drug Dosing ml/min Est GFR ( Amer) ml/min Est GFR (Non-Af Amer) ml/min BUN/Creatinine Ratio (10-20) Glucose (70-99(Fasting)) mg/dl Lactate 2.6 H* (0.4-2.0) mmol/L Calcium (8.5-10.1) mg/dl Magnesium (1.7-2.4) mg/dl Total Bilirubin (0.2-1.0) mg/dl Direct Bilirubin (0-0.2) mg/dl AST (13-39) U/L ALT (7-52) U/L Alkaline Phosphatase (34-104) U/L Troponin I High Sens (0-20) pg/ml Total Protein (6.0-8.3) gm/dl Albumin (3.4-5.0) gm/dl Procalcitonin (0-0.5) ng/ml Urine Color Dark Yellow Urine Appearance Clear (Clear) Urine pH 5.5 (4.5-7.5) Ur Specific [place] 1.026 (1.000-1.030) Urine Protein 3+ H (Negative) Urine Glucose (UA) Negative (Negative) Urine Ketones 4+ H (Negative) Urine Blood 2+ H (Negative) Urine Nitrite Positive A (Negative) Urine Bilirubin 1+ H (Negative) Urine Urobilinogen Negative (Negative) Ur Leukocyte Esterase Negative (Negative) Urine WBC (Auto) 1-5 (0-5) /hpf Urine RBC (Auto) 5-10 H (0-4) /hpf U Hyaline Cast (Auto) 5-10 H (0-5) /lpf U Epithel Cells (Auto) 10-20 H (0-5) /lpf Urine Bacteria (Auto) Negative (Negative) Ethyl Alcohol mg/dL 157.0 H (<10.0) mg/dl SARS-CoV-2, RNA, NAAT (NEGATIVE) 04/10/22 Range/Units 20:03 WBC (4.8-10.8) K/ul RBC (4.63-6.08) M/uL Hgb (14.0-18.0) g/dl Hct (40.1-51.0) % MCV (80.0-100.0) fL MCH (25.0-34.0) pg MCHC (32.0-36.0) g/dL RDW Std Deviation (36.4-46.3) fL RDW Coeff of Vincenzo (11.5-14.5) % Plt Count (130-400) K/uL MPV (9.4-12.4) fL Immature Gran % (Auto) % Neut % (Auto) % Lymph % (Auto) % [facility] % (Auto) % Eos % (Auto) % Baso % (Auto) % Neut # (Auto) (1.4-6.5) K/uL Lymph # (Auto) (1.2-3.4) K/uL [facility] # (Auto) (0.24-0.82) K/uL Eos # (Auto) (0-0.50) K/uL Baso # (Auto) (0-0.2) K/uL Immature Gran # (Auto) (0.00-0.02) K/uL PT (9.0-12.0) Seconds INR (0.9-1.1) VBG pH (7.36-7.41) VBG pCO2 (38-50) mmHg VBG pO2 mmHg VBG HCO3 mmol/L VBG O2 Saturation % VBG Base Excess mEq/L Sodium (136-145) mmol/L Potassium (3.5-5.1) mmol/L Chloride (98-107) mmol/L Carbon Dioxide (21-32) mmol/L Anion Gap (3-11) BUN (6-23) mg/dl Creatinine (0.6-1.4) mg/dl Est Cr Clr Drug Dosing ml/min Est GFR ( Amer) ml/min Est GFR (Non-Af Amer) ml/min BUN/Creatinine Ratio (10-20) Glucose (70-99(Fasting)) mg/dl Lactate (0.4-2.0) mmol/L Calcium (8.5-10.1) mg/dl Magnesium (1.7-2.4) mg/dl Total Bilirubin (0.2-1.0) mg/dl Direct Bilirubin (0-0.2) mg/dl AST (13-39) U/L ALT (7-52) U/L Alkaline Phosphatase (34-104) U/L Troponin I High Sens (0-20) pg/ml Total Protein (6.0-8.3) gm/dl Albumin (3.4-5.0) gm/dl Procalcitonin (0-0.5) ng/ml Urine Color Urine Appearance (Clear) Urine pH (4.5-7.5) Ur Specific [place] (1.000-1.030) Urine Protein (Negative) Urine Glucose (UA) (Negative) Urine Ketones (Negative) Urine Blood (Negative) Urine Nitrite (Negative) Urine Bilirubin (Negative) Urine Urobilinogen (Negative) Ur Leukocyte Esterase (Negative) Urine WBC (Auto) (0-5) /hpf Urine RBC (Auto) (0-4) /hpf U Hyaline Cast (Auto) (0-5) /lpf U Epithel Cells (Auto) (0-5) /lpf Urine Bacteria (Auto) (Negative) Ethyl Alcohol mg/dL (<10.0) mg/dl SARS-CoV-2, RNA, NAAT NEGATIVE (NEGATIVE) Administered Medications Lactated Ringer's (Lr) 1,000 mls @ 250 mls/hr IV .Q4H ONE Stop: 04/10/22 23:18 Last Admin: 04/10/22 19:55 Dose: 250 mls/hr Documented By: BORIS Discontinued Medications Sodium Chloride (Nss 1000ml) 1,000 mls @ 999 mls/hr IV .Q1H1M ISABEL Stop: 04/10/22 16:30 Last Infusion: 04/10/22 17:19 Dose: 0 mls/hr Documented By: Admin: 04/10/22 16:03 Dose: 999 mls/hr Documented By: SHAGUFTA Multivitamins 10 ml/ Thiamine HCl 100 mg/ Folic Acid 1 mg/Sodium Chloride 1,011.2 mls @ 1,011.2 mls/hr IV .Q1H ONE Stop: 04/10/22 16:28 Last Infusion: 04/10/22 18:40 Dose: 0 mls/hr Documented By: [facility] Admin: 04/10/22 17:20 Dose: 1,011.2 mls/hr Documented By: SHAGUFTA Sodium Chloride (Nss 1000ml) 1,000 mls @ 999 mls/hr IV .Q1H1M ONE Stop: 04/10/22 16:34 Last Infusion: 04/10/22 17:19 Dose: 0 mls/hr Documented By: [facility] Admin: 04/10/22 16:01 Dose: 999 mls/hr Documented By: [facility] Sodium Chloride (Nss 1000ml) 1,000 mls @ 999 mls/hr IV .Q1H1M ONE Stop: 04/10/22 19:06 Last Infusion: 04/10/22 19:55 Dose: 0 mls/hr Documented By: [facility] Admin: 04/10/22 18:39 Dose: 999 mls/hr Documented By: SHAGUFTA Cefepime HCl (Maxipime) 2,000 mg in 20 mls @ 5 mls/min IV NOW STA; Protocol Stop: 04/10/22 19:33 Last Admin: 04/10/22 19:55 Dose: 5 mls/min Documented By: SHAGUFTA Metoprolol Tartrate (Metoprolol Tartrate 50 Mg Tab) 50 mg PO NOW STA Stop: 04/10/22 19:31 Last Admin: 04/10/22 19:55 Dose: 50 mg Documented By: SHAGUFTA Ondansetron HCl (Ondansetron Inj 2 Mg/Ml 2 Ml Vial) 4 mg IV NOW STA Stop: 04/10/22 15:30 Last Admin: 04/10/22 16:04 Dose: 4 mg Documented By: SHAGUFTA Imaging Data Radiologist's Impression: Chest X-Ray 04/10/22 15:29 XR chest 1V portable CLINICAL HISTORY: Sepsis TECHNIQUE: Single frontal radiograph of the chest was obtained. Comparison: Comparison is made to chest radiograph 05/08/2021 FINDINGS: No lines and tubes are seen. Cardiomegaly is noted. The lungs are clear. No evidence of pleural effusion or pneumothorax. IMPRESSION: Cardiomegaly without evidence of pneumonia. ACT 112: Negative or not required by law. Electronically signed by: Pino Aldrich M.D. 04/10/2022 4:44 PM Discharge Plan Visit Data Chief Complaint: Alcohol Intoxication Stated Complaint: ETOH ED Provider: Bhumika Kim Discharge Problem: Generalized weakness, Alcohol intoxication, Physical deconditioning, Elevated l actic acid level Patient Disposition: Admitted As Inpatient Forms Stand Alone Forms: My [facility] Prescriptions Prescriptions: No Action metoprolol tartrate 50 mg Tablet 50 mg PO BID Qty: 60 0RF Referrals Referrals: Jason Renee MD [Primary Care Provider] -
[2022-04-10 15:56] LABS: Base Excess VBG -6.1 mEq/L; HCO3 VBG 19 mmol/L; Oxygen Saturation VBG 82.3 %; PCO2 VBG 35 mmHg (38-50); PO2 VBG 55 mmHg; pH VBG 7.34 (7.36-7.41)
[2022-04-10 16:05] LABS: Hematocrit (blood only) 37.6 % (40.1-51.0); Hemoglobin 13.7 g/dl (14.0-18.0); Mean Corpuscular Hemoglobin 31.1 pg (25.0-34.0); Mean Corpuscular Hgb Conc 36.4 g/dL (32.0-36.0); Mean Corpuscular Volume 85.5 fL (80.0-100.0); Platelet Count 111 K/uL (130-400); RDW Coefficient of Variation 19.8 % (11.5-14.5); RDW Standard Deviation 60.4 fL (36.4-46.3); White Blood Count 4.78 K/ul (4.8-10.8)
[2022-04-10 16:24] LABS: BUN Creatinine Ratio 15.7 (10-20); Bilirubin,Total 3.6 mg/dl (0.2-1.0); Calcium 8.3 mg/dl (8.5-10.1); Creatinine Clr Calc Pharmacy 161.5 ml/min; Est GFR (African American) 118.1 ml/min; Est GFR (Non-African American) 101.9 ml/min; Potassium 3.6 mmol/L (3.5-5.1)
[2022-04-10 16:30] LABS: Troponin I High Sensitivity 8.8 pg/ml (0-20)
--- NOTE | 2022-04-10 16:45 | XRay Report ---
XR chest 1V portable CLINICAL HISTORY: Sepsis TECHNIQUE: Single frontal radiograph of the chest was obtained. Comparison: Comparison is made to chest radiograph 05/08/2021 FINDINGS: No lines and tubes are seen. Cardiomegaly is noted. The lungs are clear. No evidence of pleural effus ion or pneumothorax. IMPRESSION: Cardiomegaly without evidence of pneumonia. ACT 112: Negative or not required by law. Electronically signed by: Pino Aldrich M.D. 04/10/2022 4:44 PM
[2022-04-10 16:47] LABS: Basophils # (auto) 0.03 K/uL (0-0.2); Basophils % (auto) 0.6 %; Immature Granulocytes # (auto) 0.08 K/uL (0.00-0.02); Immature Granulocytes % (auto) 1.7 %; Lymphocytes # (auto) 0.73 K/uL (1.2-3.4); Lymphocytes % (auto) 15.3 %; Monocytes # (auto) 0.41 K/uL (0.24-0.82); Monocytes % (auto) 8.6 %; Neutrophils # (auto) 3.53 K/uL (1.4-6.5); Neutrophils % (auto) 73.8 %
[2022-04-10 18:00] LABS: Appearance Urine Clear (Clear); Bacteria Urine Automated Negative (Negative); Blood Urine 2+ (Negative); Color Urine Dark Yellow; Glucose Urine UA Negative (Negative); Ketones Urine 4+ (Negative); Leukocyte Esterase Urine Negative (Negative); Nitrite Urine Positive (Negative); Protein Urine 3+ (Negative); Specific Gravity Urine 1.026 (1.000-1.030); Urobilinogen Urine Negative (Negative); pH Urine 5.5 (4.5-7.5)
[2022-04-10 18:04] LABS: Bilirubin Urine 1+ (Negative)
[2022-04-10] MEDS ORDERED: LACTATED RINGER'S 1,000 ML IV ONE (19:19)
[2022-04-10] MEDS ORDERED: DOXYCYCLINE HYCLATE 100 MG in DEXTROSE 5% 100 ML IV STA (19:29)
[2022-04-10] MEDS ORDERED: CEFEPIME 2,000 MG/20 ML VIAL IV STA (19:30)
[2022-04-10] MEDS ORDERED: POTASSIUM CHLORIDE PWD 20 MEQ PACK PO STA (19:30)
[2022-04-10] MEDS ORDERED: METOPROLOL TARTRATE 50 MG TAB PO STA (19:30)
[2022-04-10 20:28] LABS: INR 1.1 (0.9-1.1); Prothrombin Time 11.9 Seconds (9.0-12.0)
[2022-04-10] MEDS ORDERED: PANTOprazole 80 MG in DEXTROSE 5% 100 ML IV STA (20:44)
[2022-04-10] MEDS ORDERED: LORazepam 2 MG/1 ML VIAL IV STA (20:44)
[2022-04-10] MEDS ORDERED: MoRPHine SULFATE 2 MG/ML CARP IV STA (20:44)
[2022-04-10] MEDS ORDERED: GABAPENTIN 600 MG TAB PO STA (20:44)
--- NOTE | 2022-04-10 20:46 | History & Physical Report ---
Date of Service April 10, 2022 Assessment & Plan (1) A-fib: Plan: Uncontrolled heart rate upon arrival at the ER secondary to illness and medication noncompliance Not on anticoagulation secondary to fall risk Alcohol withdrawal Abdominal pain Multifactorial: Alcoholic pancreatitis Alcohol hepatitis Complicated UTI, possible sepsis UGI B differentials include alcoholic gastritis, PUD (history of H. pylori as per records) Skin wound right flank chronic anemia, hemoglobin at baseline chronic thrombocytopenia likely from alcoholic cirrhosis given hepatomegaly prediabetes, hemoglobin A1c of 5.4 last May 2021 past tobacco abuse PCU Facilitate beta-norma and titrate as needed LYNSEY S, DT precautions Bowel rest, IVF for pancreatitis Urine CS, Cefepime for UTI IV PPI GI consult Re: UGI B, pancreatitis N.p.o. until patient seen by GI in anticipation of endoscopy Serial H&H, transfuse PRBC if hemoglobin less than 7 and or for symptomatic anemia Doxycycline for cutaneous wound infection PT OT eval once medically stable DVT prophylaxis. SCDs Re: GI bleed Full code Patient son requesting updates from providers. Mr. Javan Kasper, contact #[phone]. Text document was generated using [employer] voice recognition software. It may contain grammatical or spelling errors. Kindly contact undersigned for clarification of any documentation item in question. History of Present Illness Chief Complaint: Abdominal pain, vomiting Primary Care Provider: Jason Renee MD History obtained from patient, family, and records. History somewhat limited from patient secondary to language barrier. Medical history significant for A. fib not on anticoagulation secondary to fall risk, history H. pylori, fatty liver disease, chronic anemia (baseline hemoglobin 12-13), chronic thrombocytopenia, prediabetes, alcohol abuse, ongoing tobacco abuse, medication noncompliance. Two confinements last year for alcohol intoxication. Recent confinement last month for new onset A. fib in the setting of alcohol abuse. Patient discharged on metoprolol Rx. Anticoagulation not recommended by cardiology given patient's fall risk from alcohol abuse. Patient started drinking again shortly after hospital discharge. Not compliant with beta-norma. Patient started feeling sick this week. Achy abdominal pain with coffee-ground emesis. No fever, no chills, no chest pain, no shortness of breath, no headache. Patient not sure about black or bloody stools. Patient unable to get out of bed. Patient found at home by family covered in urine and feces. Patient brought to the ER for evaluation. Medical History as above 2021 EGD was normal, biopsy positive for H. 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 Required: Yes Beliefs That Will Affect Care: None marital status: Current Living Situation: Family Other Information That Helps Us Care for You: No Feels Safe at Home: Yes Safety Concerns: Feels Safe At This Time Assistive Devices: None Review of Systems Review of Systems: Limited due to language barrier Physical Exam Physical Exam: GENERAL: Uncomfortable, unkempt, morbidly obese, tremulous, no respiratory distress SKIN: Pallor,, warm HEENT: Pale palpebral conjunctivae, no ptosis, dried coffee-ground emesis over the mouth angles, dry buccal mucosa NECK : Supple, short neck, no tenderness CHEST : Decreased breath sounds, no tenderness HEART : Tachycardic, irregular, no obvious murmurs ABDOMEN: Erythematous right flank with skin breakdown, some distention, epigastric tenderness EXTREMITIES : No LE swelling, no LE tenderness, no other conspicuous deformities noted NEUROLOGIC : Coherent, no facial asymmetry, tremulous, gait and stance not assessed Results & Data Results & Data ([facility]) Vital Signs (Past 12 Hours) Vital Signs Temp Pulse Pulse Resp BP BP Pulse Ox 04/10/22 20:00 119 H 25 H 127/90 94 04/10/22 19:45 107 H 93 04/10/22 19:45 137/98 04/10/22 19:40 115 H 17 93 04/10/22 19:30 113 H 19 94 04/10/22 19:30 134/94 04/10/22 19:20 93 04/10/22 19:15 110 H 94 04/10/22 19:15 141/90 H 04/10/22 19:10 101 H 14 94 04/10/22 19:00 95 H 92 04/10/22 19:00 151/87 H 04/10/22 18:50 95 H 95 04/10/22 18:45 109 H 95 04/10/22 18:45 143/99 H 04/10/22 18:40 99 H 94 04/10/22 18:30 108 H 15 94 04/10/22 18:30 159/101 H 04/10/22 18:20 105 H 17 94 04/10/22 18:15 110 H 16 94 04/10/22 18:15 142/86 H 04/10/22 18:10 103 H 15 92 04/10/22 18:00 114 H 16 91 04/10/22 18:00 123/87 04/10/22 17:50 111 H 17 93 04/10/22 17:45 116 H 93 04/10/22 17:45 134/90 04/10/22 17:40 111 H 93 04/10/22 17:30 125 H 93 04/10/22 17:30 122/91 04/10/22 17:20 112 H 92 04/10/22 17:15 102 H 92 04/10/22 17:15 159/82 H 04/10/22 17:10 114 H 92 04/10/22 17:00 124 H 94 04/10/22 17:00 151/91 H 04/10/22 16:50 122 H 93 04/10/22 16:45 109 H 94 04/10/22 16:45 148/106 H 04/10/22 16:40 116 H 24 93 04/10/22 16:30 119 H 16 93 04/10/22 16:30 159/87 H 04/10/22 16:20 121 H 15 93 04/10/22 16:15 103 H 22 92 04/10/22 16:15 125/78 04/10/22 16:10 103 H 14 92 04/10/22 16:00 112 H 20 91 04/10/22 16:00 141/83 H 04/10/22 15:50 122 H 16 91 04/10/22 15:45 142/80 H 04/10/22 15:45 107 H 23 90 04/10/22 15:40 112 H 25 H 89 L 04/10/22 15:30 120 H 22 92 04/10/22 15:30 131/90 04/10/22 15:27 114 H 22 92 04/10/22 15:27 146/114 H 04/10/22 15:22 124 H 21 04/10/22 15:58 92 04/10/22 15:55 36.7 C 120 H 25 H 92 04/10/22 15:55 112 H 22 92 04/10/22 15:48 134 H 24 142/80 H 92 O2 Del Method 04/10/22 20:00 Room Air 04/10/22 19:45 04/10/22 19:45 04/10/22 19:40 04/10/22 19:30 04/10/22 19:30 04/10/22 19:20 04/10/22 19:15 04/10/22 19:15 04/10/22 19:10 04/10/22 19:00 04/10/22 19:00 04/10/22 18:50 04/10/22 18:45 04/10/22 18:45 04/10/22 18:40 04/10/22 18:30 04/10/22 18:30 04/10/22 18:20 04/10/22 18:15 04/10/22 18:15 04/10/22 18:10 04/10/22 18:00 04/10/22 18:00 04/10/22 17:50 04/10/22 17:45 04/10/22 17:45 04/10/22 17:40 04/10/22 17:30 04/10/22 17:30 04/10/22 17:20 04/10/22 17:15 04/10/22 17:15 04/10/22 17:10 04/10/22 17:00 04/10/22 17:00 04/10/22 16:50 04/10/22 16:45 04/10/22 16:45 04/10/22 16:40 04/10/22 16:30 04/10/22 16:30 04/10/22 16:20 04/10/22 16:15 04/10/22 16:15 04/10/22 16:10 04/10/22 16:00 04/10/22 16:00 04/10/22 15:50 04/10/22 15:45 04/10/22 15:45 04/10/22 15:40 04/10/22 15:30 04/10/22 15:30 04/10/22 15:27 04/10/22 15:27 04/10/22 15:22 04/10/22 15:58 Room Air 04/10/22 15:55 04/10/22 15:55 Room Air 04/10/22 15:48 Room Air Laboratory Results Laboratory Results WBC 4.78 K/ul (4.8-10.8) L 04/10/22 15:44 RBC 4.40 M/uL (4.63-6.08) L 04/10/22 15:44 Hgb 13.7 g/dl (14.0-18.0) L 04/10/22 15:44 Hct 37.6 % (40.1-51.0) L 04/10/22 15:44 MCV 85.5 fL (80.0-100.0) 04/10/22 15:44 MCH 31.1 pg (25.0-34.0) 04/10/22 15:44 MCHC 36.4 g/dL (32.0-36.0) H 04/10/22 15:44 RDW Std Deviation 60.4 fL (36.4-46.3) H 04/10/22 15:44 RDW Coeff of Vincenzo 19.8 % (11.5-14.5) H 04/10/22 15:44 Plt Count 111 K/uL (130-400) L 04/10/22 15:44 MPV 10.0 fL (9.4-12.4) 04/10/22 15:44 Immature Gran % (Auto) 1.7 % 04/10/22 15:44 Neut % (Auto) 73.8 % 04/10/22 15:44 Lymph % (Auto) 15.3 % 04/10/22 15:44 [place] % (Auto) 8.6 % 04/10/22 15:44 Eos % (Auto) 0.0 % 04/10/22 15:44 Baso % (Auto) 0.6 % 04/10/22 15:44 Neut # (Auto) 3.53 K/uL (1.4-6.5) 04/10/22 15:44 Lymph # (Auto) 0.73 K/uL (1.2-3.4) L 04/10/22 15:44 [place] # (Auto) 0.41 K/uL (0.24-0.82) 04/10/22 15:44 Eos # (Auto) 0.00 K/uL (0-0.50) 04/10/22 15:44 Baso # (Auto) 0.03 K/uL (0-0.2) 04/10/22 15:44 Immature Gran # (Auto) 0.08 K/uL (0.00-0.02) H 04/10/22 15:44 PT 11.9 Seconds (9.0-12.0) 04/10/22 15:44 INR 1.1 (0.9-1.1) 04/10/22 15:44 VBG pH 7.34 (7.36-7.41) L 04/10/22 15:44 VBG pCO2 35 mmHg (38-50) L 04/10/22 15:44 VBG pO2 55 mmHg 04/10/22 15:44 VBG HCO3 19 mmol/L 04/10/22 15:44 VBG O2 Saturation 82.3 % 04/10/22 15:44 VBG Base Excess -6.1 mEq/L 04/10/22 15:44 Sodium 136 mmol/L (136-145) 04/10/22 15:44 Potassium 3.6 mmol/L (3.5-5.1) 04/10/22 15:44 Chloride 91 mmol/L (98-107) L 04/10/22 15:44 Carbon Dioxide 17 mmol/L (21-32) L 04/10/22 15:44 Anion Gap 28 (3-11) H 04/10/22 15:44 BUN 11 mg/dl (6-23) 04/10/22 15:44 Creatinine 0.70 mg/dl (0.6-1.4) 04/10/22 15:44 Est Cr Clr Drug Dosing 161.5 ml/min 04/10/22 15:44 Est GFR ( Amer) 118.1 ml/min 04/10/22 15:44 Est GFR (Non-Af Amer) 101.9 ml/min 04/10/22 15:44 BUN/Creatinine Ratio 15.7 (10-20) 04/10/22 15:44 Glucose 84 mg/dl (70-99(Fasting)) 04/10/22 15:44 Lactate 2.6 mmol/L (0.4-2.0) H* 04/10/22 17:31 Calcium 8.3 mg/dl (8.5-10.1) L 04/10/22 15:44 Magnesium 2.0 mg/dl (1.7-2.4) 04/10/22 15:44 Total Bilirubin 3.6 mg/dl (0.2-1.0) H 04/10/22 15:44 Direct Bilirubin 2.0 mg/dl (0-0.2) H 04/10/22 15:44 AST 266 U/L (13-39) H 04/10/22 15:44 ALT 143 U/L (7-52) H 04/10/22 15:44 Alkaline Phosphatase 93 U/L (34-104) 04/10/22 15:44 Troponin I High Sens 8.8 pg/ml (0-20) 04/10/22 15:44 Total Protein 7.0 gm/dl (6.0-8.3) 04/10/22 15:44 Albumin 4.0 gm/dl (3.4-5.0) 04/10/22 15:44 Procalcitonin 0.15 ng/ml (0-0.5) 04/10/22 15:44 Urine Color Dark Yellow 04/10/22 17:27 Urine Appearance Clear (Clear) 04/10/22 17:27 Urine pH 5.5 (4.5-7.5) 04/10/22 17:27 Ur Specific [place] 1.026 (1.000-1.030) 04/10/22 17: Urine Protein 3+ (Negative) H 04/10/22 17:27 Urine Glucose (UA) Negative (Negative) 04/10/22 17: Urine Ketones 4+ (Negative) H 04/10/22 17: Urine Blood 2+ (Negative) H 04/10/22 17: Urine Nitrite Positive (Negative) A 04/10/22 17: Urine Bilirubin 1+ (Negative) H 04/10/22 17: Urine Urobilinogen Negative (Negative) 04/10/22 17: Ur Leukocyte Esterase Negative (Negative) 04/10/22 17: Urine WBC (Auto) 1-5 /hpf (0-5) 04/10/22 17: Urine RBC (Auto) 5-10 /hpf (0-4) H 04/10/22 17: U Hyaline Cast (Auto) 5-10 /lpf (0-5) H 04/10/22 17: U Epithel Cells (Auto) 10-20 /lpf (0-5) H 04/10/22 17:27 Urine Bacteria (Auto) Negative (Negative) 04/10/22 17: Ethyl Alcohol mg/dL 157.0 mg/dl (<10.0) H 04/10/22 16:16 SARS-CoV-2, RNA, NAAT NEGATIVE (NEGATIVE) 04/10/22 20:03 Impressions Chest X-Ray 04/10/22 15:29 XR chest 1V portable CLINICAL HISTORY: Sepsis TECHNIQUE: Single frontal radiograph of the chest was obtained. Comparison: Comparison is made to chest radiograph 05/08/2021 FINDINGS: No lines and tubes are seen. Cardiomegaly is noted. The lungs are clear. No evidence of pleural effusion or pneumothorax. IMPRESSION: Cardiomegaly without evidence of pneumonia. ACT 112: Negative or not required by law. Electronically signed by: Pino Aldrich M.D. 04/10/2022 4:[address] abdomen pelvis: 1. Streak and motion compromised examination. 2. Question mild infiltration around the pancreatic head. Correlate with clinical and laboratory findings for evidence of acute pancreatitis. 3. Hepatomegaly and severe hepatic steatosis. EKG as per my interpretation :Rate 115, A. fib, normal axis, T wave abnormalities inferior leads (1) A-fib Atrial fibrillation type: unspecified Qualified Code(s): I48.91 - Unspecified atrial fibrillation
[2022-04-10] MEDS ORDERED: OPTIRAY 320 500ml IV ONE (21:28)
--- NOTE | 2022-04-10 21:46 | CT Scan Report ---
CT SCAN OF THE ABDOMEN AND PELVIS WITH IV CONTRAST CLINICAL HISTORY: Generalized abdominal pain. COMPARISON STUDY: Abdominal CT dated 03/07/2022 TECHNIQUE: Following the IV administration of 110 cc of Optiray 320, CT scan of the abdomen and pelv is is performed from the lung bases to the proximal femora. Images are reviewed in the axial, sagitta l, and coronal planes. IV contrast was administered without complication. A dose lowering technique w as utilized adhering to the principles of ALARA. The examination is degraded by large body habitus, a nd by streak artifact from the body wall abutting the CT gantry. There is also motion artifact. CT DOSE: 1863.40 mGy.cm FINDINGS: Lung bases: The heart is top normal in size and without pericardial effusion. There are coronary rachael ry calcifications. The lung bases are clear. There is a small hiatal hernia. Liver: The contrast-enhanced liver is enlarged, measuring 28.6 cm in length. The liver demonstrates d iffusely demonstrated attenuation consistent with severe hepatic steatosis. There is no intrahepatic biliary ductal dilatation. The hepatic veins and portal veins are patent. Gallbladder: Unremarkable. Spleen: Normal in size and attenuation. Pancreas: Question mild infiltration around the head of the pancreas. The gland enhances throughout a nd the duct is normal in caliber. Adrenal glands: Unremarkable. Kidneys: The contrast enhanced kidneys are normal in size and without hydronephrosis. The kidneys enh ance symmetrically. A 12 mm cortical hypodensity in the interpolar right kidney is unchanged. The sec ond represents a cyst but cannot be definitively characterized due to small size and streak artifact. Abdominal vasculature: The abdominal aorta is normal in course and caliber noting scattered foci of a therosclerotic calcification. Bowel: There is no bowel obstruction. The appendix is not identified. Peritoneum: There is no intraperitoneal free air or abdominal ascites. There is a fat-containing umbi lical hernia. Lymphadenopathy: None. Pelvic viscera: The bladder, prostate, and seminal vesicles are normal as visualized. There are bilat eral fat-containing inguinal hernias. Skeletal structures: The skeletal structures are osteopenic. There is moderate lumbosacral spondylosi s. No lytic or blastic lesions are seen. IMPRESSION: 1. Streak and motion compromised examination. 2. Question mild infiltration around the pancreatic head. Correlate with clinical and laboratory find ings for evidence of acute pancreatitis. 3. Hepatomegaly and severe hepatic steatosis. 4. Additional findings as above. ACT 112: Negative or not required by law. Electronically signed by: Anam Hoffmann M.D. 04/10/2022 9:43 PM
[2022-04-10] MEDS ORDERED: GABAPENTIN 1200MG ALCOHOL WITHDRAWAL LOAD PO STA (22:30)
[2022-04-10] MEDS ORDERED: LORazepam 2 MG/1 ML VIAL IV PRN ×2 (22:30)
[2022-04-10] MEDS ORDERED: MoRPHine SULFATE 4 MG/ML 1 ML CARP\\VIAL IV PRN (22:30)
[2022-04-10] MEDS ORDERED: Ativan IV Alcohol Withdrawal--Active Protocol IV PRN (22:30)
[2022-04-10] MEDS: LACTATED RINGER'S 1,000 ML IV SCH (23:10)
[2022-04-10] MEDS ORDERED: LORazepam 0.5 MG TAB PO STA (23:13)
[2022-04-10 23:32] LABS: Hematocrit (blood only) 34.3 % (40.1-51.0)
[2022-04-11] MEDS: PANTOprazole 40 MG in DEXTROSE 5% 100 ML IV SCH ×3 (00:26→10:40)
[2022-04-11] MEDS: GABAPENTIN 600 MG TAB PO SCH ×3 (03:21→16:34)
[2022-04-11] MEDS: LACTATED RINGER'S 1,000 ML IV SCH ×4 (04:01→18:46)
[2022-04-11] MEDS: CEFEPIME 2,000 MG in SYRINGE 0 ML IV SCH ×3 (05:24→20:55)
[2022-04-11 05:40] LABS: Basophils # (auto) 0.02 K/uL (0-0.2); Basophils % (auto) 0.4 %; Eosinophils # (auto) 0.02 K/uL (0-0.50); Eosinophils % (auto) 0.4 %; Hemoglobin 11.5 g/dl (14.0-18.0); Immature Granulocytes # (auto) 0.07 K/uL (0.00-0.02); Immature Granulocytes % (auto) 1.5 %; Lymphocytes # (auto) 0.89 K/uL (1.2-3.4); Lymphocytes % (auto) 18.7 %; Mean Corpuscular Hemoglobin 30.7 pg (25.0-34.0); Mean Corpuscular Hgb Conc 34.8 g/dL (32.0-36.0); Mean Platelet Volume 9.1 fL (9.4-12.4); Monocytes # (auto) 0.34 K/uL (0.24-0.82); Monocytes % (auto) 7.2 %; Neutrophils # (auto) 3.41 K/uL (1.4-6.5); Neutrophils % (auto) 71.8 %; Platelet Count 85 K/uL (130-400); RDW Coefficient of Variation 19.8 % (11.5-14.5); RDW Standard Deviation 62.8 fL (36.4-46.3); Red Blood Count 3.75 M/uL (4.63-6.08); White Blood Count 4.75 K/ul (4.8-10.8)
[2022-04-11 06:07] LABS: Albumin Globulin Ratio 1.5 (0.9-2); Albumin Level 3.5 gm/dl (3.4-5.0); BUN Creatinine Ratio 10.8 (10-20); Bilirubin,Total 3.8 mg/dl (0.2-1.0); Calcium 7.6 mg/dl (8.5-10.1); Creatinine Clr Calc Pharmacy 153.6 ml/min; Est GFR (African American) 115.4 ml/min; Est GFR (Non-African American) 99.6 ml/min; Globulin 2.3 gm/dl (2.5-4.0); Potassium 3.4 mmol/L (3.5-5.1); Total Protein 5.8 gm/dl (6.0-8.3)
[2022-04-11] MEDS ORDERED: POTASSIUM CHLORIDE CRTAB 20 MEQ TABCR PO STA (06:27)
[2022-04-11] MEDS: THIAMINE HCL 100 MG TAB PO SCH (08:52)
[2022-04-11] MEDS: FOLIC ACID 1 MG TAB PO SCH (08:53)
[2022-04-11] MEDS: MULTIVITAMIN TAB PO SCH (08:53)
[2022-04-11] MEDS: METOPROLOL TARTRATE 50 MG TAB PO SCH ×2 (08:53→20:25)
[2022-04-11] MEDS: DOXYCYCLINE HYCLATE 100 MG CAP PO SCH ×2 (08:53→20:24)
[2022-04-11] MEDS: LORazepam 2 MG/1 ML VIAL IV PRN ×2 (09:00→16:34)
[2022-04-11 12:13] LABS: Hematocrit (blood only) 32.7 % (40.1-51.0); Hemoglobin 11.5 g/dl (14.0-18.0)
--- NOTE | 2022-04-11 13:27 | Gastrointestinal Consultation ---
Date of Consultation April 11, 2022 Assessment & Plan (1) Alcohol abuse: Advised 100% abstinence from alcohol as it is a known GI irritant and liver toxin (2) UGIB (upper gastrointestinal bleed): No overt GI Bleeding noted at present, therefore, will defer EGD to outpatient setting when acute issues resolve Recommend Pantoprazole 40 mg by mouth twice daily at present (3) Pancreatitis: Advance to full liquid diet as tolerated Continue LR 200 ml/hour for at least 24 hours, as this can improve perfusion of pancreatic parenchyma Continue supportive care History of Present Illness Reason for Consultation: Upper GI Bleed Attending Physician: Geovanny Sr MD History of Present Illness 62 yo male who presented to the ER yesterday via EMS secondary to acute alcohol intoxication, chronic alcohol abuse, and epigastric pain. The patient has been confined to bed for the past 2 months, and has been drinking up to a fifth of vodka daily. Upon arrival to the ER, he was noted to have elevated LFT's, elevated lipase, and a CT abd/Pelvis showed questionable findings of pancrea titis, hepatomegaly, and hepatic steatosis. He was subsequently admitted and started on a Protonix gtt 80 mg IV bolus followed by 8 mg/hour. At the time I saw the patient he was sitting up in bed. I did communicate with him using interpretive services. He states that he has been drinking very heavily over the past 2 months. He states that he has never had pancreatitis or hepatitis previously. He continues to complain of epigastric pain, rated 5/10 in intensity, achy, non-radiating. He denies any dysphagia, pyrosis, hematemesis, melena, or hematochezia. He states that he has undergone an EGD twice in the past few years, at [facility], as well as at [facility]. He informs me that there was no abnormal findings, however, I do not have these records at present. He denies any fevers, chills, nausea, vomiting, jaundice, acholic stools, dark urine or pruritus. He has no further complaints. Allergies Allergy/AdvReac Type Severity Reaction Status Date / Time No Known Allergies Allergy Verified 04/10/22 19:32 Home Medications Medication Instructions Recorded Confirmed Type metoprolol tartrate 50 mg tablet 50 mg PO BID #60 tabs 03/10/22 04/10/22 Rx Patient History Medical History Acute dehydration Alcoholism Contusion of abdominal wall Electrolyte abnormality Elevated LFTs Elevated troponin History of violent behavior Per daughter (Lindsey), pt will become violent when drinking Morbid obesity Osteoarthritis Surgical History Hx of elbow surgery ? 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 Beliefs That Will Affect Care: None marital status: Current Living Situation: Family Other Information That Helps Us Care for You: No Feels Safe at Home: Yes Safety Concerns: Feels Safe At This Time Assistive Devices: None Review of Systems Review of Systems: All systems reviewed & are unremarkable except as noted in Subjective Physical Exam Constitutional: + morbidly obese; no acute distress Eyes: sclerae not anicteric ENMT: external ear and nose normal, oropharynx normal Neck: normal visual inspection Respiratory: normal respiratory effort, lungs clear to auscultation Cardiovascular: RRR, no murmur, no edema Gastrointestinal (Abdomen): Inspection/Auscultation: + abdomen distended and normal bowel sounds Percussion/Palpation: + abdomen tender (Epigastric), abdomen soft and + hepatosplenomegaly (No appreciable Hepatosplenomegaly); no guarding and abdomen not rigid Skin: no rashes, warm and dry Psychiatric: A+Ox3, euthymic affect Results & Data ([facility]) Vital Signs (Past 12 Hours) Vital Signs Temp Pulse Pulse Resp BP Pulse Ox O2 Del Method 04/11/22 11:47 36.9 C 88 19 113/73 93 Room Air 04/11/22 08:00 91 H 04/11/22 08:00 Room Air 04/11/22 07:48 36.5 C 87 19 126/77 94 Room Air 04/11/22 03:50 67 04/11/22 03:30 36.7 C 80 22 122/72 93 Room Air PG Care Time/CCT Total # of Minutes Spent Total Time Spent with Patient: Total time spent is greater than 50% in coordination of care (as documented) at patient's floor/unit and/or counseling patient: Coding Level of Care Code INP/OBS CONSULT LVL 3, 45 MIN Diagnoses Alcohol abuse F10.10 UGIB (upper gastrointestinal bleed) K92.2 Pancreatitis K85.90
--- NOTE | 2022-04-11 13:59 | Hospitalist Progress Note ---
Date of Service April 11, 2022 Assessment & Plan (1) A-fib: Plan: Uncontrolled heart rate upon arrival at the ER secondary to illness and medication noncompliance Not on anticoagulation secondary to fall risk Heart rate is controlled and the patient denies any palpitation and/or chest pain or shortness of breath We will continue current medications Acute pancreatitis Likely secondary to use of alcohol Lipase was elevated to 1300 Patient has been feeling much better with minimal discomfort Appreciate GI input and recommendation Will start clears from today Alcohol withdrawal Having withdrawal symptoms from alcohol with tremors and palpitation No delirium tremens Has been on withdrawal protocol Alcohol hepatitis LFTs are abnormal secondary to alcohol and fatty liver disease LFTs are getting better Complicated UTI, possible sepsis Has been on intravenous Zosyn UGI B differentials include alcoholic gastritis, PUD (history of H. pylori as per records) Continue PPI Skin wound right flank Continue doxycycline Chronic anemia, hemoglobin at baseline Chronic thrombocytopenia likely from alcoholic cirrhosis given hepatomegaly Prediabetes, hemoglobin A1c of 5.4 last May 2021 Past tobacco abuse PT OT eval once medically stable DVT prophylaxis. SCDs Re: GI bleed Full code Admission and Anticipated Discharge Date Admission Date: April 10, 2022 Subjective 04/11/2022 The patient was seen and examined in telemetry unit He has been complaining of abdominal discomfort with nausea but no vomiting Has tremors of the outstretched hands but denies any palpitation and/or confusion No fever and or chills Review of Systems Review of Systems: All systems reviewed and are unremarkable except as noted below Gastrointestinal: Abdominal distention with discomfort and nausea Physical Exam Physical Exam: Lying in bed comfortably Constitutional: well developed, well nourished, + ill appearing and + obese Eyes: PERRL, conjunctivae normal, anicteric sclerae ENMT: external ear and nose normal, oropharynx normal Neck: trachea midline, no thyromegaly Respiratory: no respiratory distress Auscultation: + diminished lung sounds; no crackles Cardiovascular: Rate/Rhythm: regular rate and regular rhythm; not tachycardic Heart Sounds: normal S1 and normal S2; no murmur Extremities: + edema (Trace edema bilateral) Gastrointestinal (Abdomen): Inspection/Auscultation: + abdomen distended and normal bowel sounds Percussion/Palpation: + abdomen tender and abdomen soft Musculoskeletal: No acute arthritis in any joint Neurologic: normal touch/pain/proprioception and moves all extremities; no focal motor deficits Psychiatric: A+Ox3, euthymic affect Lymphatic: no cervical or axillary lymphadenopathy Results & Data Results & Data ([facility]) Vital Signs (Past 12 Hours) Vital Signs Temp Pulse Pulse Resp BP Pulse Ox O2 Del Method 04/11/22 11:47 36.9 C 88 19 113/73 93 Room Air 04/11/22 08:00 91 H 04/11/22 08:00 Room Air 04/11/22 07:48 36.5 C 87 19 126/77 94 Room Air 04/11/22 03:50 67 04/11/22 03:30 36.7 C 80 22 122/72 93 Room Air Laboratory Results Short CBC 04/10/22 04/10/22 04/11/22 Range/Units 15:44 22:51 05:25 WBC 4.78 L 4.75 L (4.8-10.8) K/ul Hgb 13.7 L 12.0 L 11.5 L (14.0-18.0) g/dl Hct 37.6 L 34.3 L 33.0 L (40.1-51.0) % Plt Count 111 L 85 L (130-400) K/uL 04/11/22 Range/Units 11:59 WBC (4.8-10.8) K/ul Hgb 11.5 L (14.0-18.0) g/dl Hct 32.7 L (40.1-51.0) % Plt Count (130-400) K/uL BMP 04/10/22 04/11/22 15:44 05:25 Sodium 136 134 L Potassium 3.6 3.4 L Chloride 91 L 97 L Carbon Dioxide 17 L 20 L BUN 11 8 Creatinine 0.70 0.74 Glucose 84 74 Calcium 8.3 L 7.6 L Liver Function 04/10/22 04/11/22 Range/Units 15:44 05:25 Total Bilirubin 3.6 H 3.8 H (0.2-1.0) mg/dl Direct Bilirubin 2.0 H (0-0.2) mg/dl AST 266 H 202 H (13-39) U/L ALT 143 H 113 H (7-52) U/L Alkaline Phosphatase 93 73 (34-104) U/L Albumin 4.0 3.5 (3.4-5.0) gm/dl Urine 04/10/22 Range/Units 17:27 Urine Color Dark Yellow Urine Appearance Clear (Clear) Urine pH 5.5 (4.5-7.5) Ur Specific [place] 1.026 (1.000-1.030) Urine Protein 3+ H (Negative) Urine Glucose (UA) Negative (Negative) Medications Administered Current Inpatient Medications Acetaminophen (Acetaminophen 325 Mg Tab) 325 mg PO Q6H PRN PRN Reason: Mild Pain Stop: 05/10/22 22:29 Doxycycline Hyclate (Doxycycline Hyclate 100 Mg Cap) 100 mg PO BID [facility] Stop: 04/18/22 08:59 Last Admin: 04/11/22 08:53 Dose: 100 mg Folic Acid (Folic Acid 1 Mg Tab) 1 mg PO QAM [facility] Stop: 05/11/22 08:59 Last Admin: 04/11/22 08:53 Dose: 1 mg Gabapentin (Gabapentin 600 Mg Tab) 600 mg PO Q8H [facility] Stop: 04/12/22 09:01 Gabapentin (Gabapentin 600 Mg Tab) 600 mg PO Q12H [facility] Stop: 04/13/22 09:01 Gabapentin (Gabapentin 600 Mg Tab) 600 mg PO Q24H [facility] Stop: 04/14/22 09:01 Promethazine HCl 12.5 mg/ (Sodium Chloride) 50.5 mls @ 202 mls/hr IV Q6H PRN PRN Reason: Nausea And Vomiting Stop: 05/10/22 20:43 Cefepime HCl 2,000 mg/ Syringe 20 mls @ 5 mls/min IV Q8H [facility]; Protocol Stop: 04/21/22 05:59 Last Admin: 04/11/22 05:24 Dose: 5 mls/min Lactated Ringer's (Lr) 1,000 mls @ 200 mls/hr IV .Q5H [facility] Stop: 05/11/22 00:00 Last Admin: 04/11/22 09:26 Dose: 200 mls/hr Pantoprazole Sodium 40 mg/ (Dextrose) 100 mls @ 20 mls/hr IV Q5H [facility] Stop: 05/11/22 00:14 Last Admin: 04/11/22 10:40 Dose: 8 mg/hr, 20 mls/hr Lorazepam (Lorazepam 2 Mg/1 Ml Vial) 1 mg IV UD PRN; Protocol PRN Reason: EtOH Withdrawal AWSS Score 6,7 Stop: 05/10/22 22:29 Last Admin: 04/11/22 09:00 Dose: 1 mg Lorazepam (Lorazepam 2 Mg/1 Ml Vial) 2 mg IV UD PRN; Protocol PRN Reason: EtOH Withdrawal AWSS Score 8,9 Stop: 05/10/22 22:29 Lorazepam (Lorazepam 2 Mg/1 Ml Vial) 3 mg IV ONCE PRN; Protocol PRN Reason: EtOH Withdrawal AWSS Score 10+ Metoprolol Tartrate (Metoprolol Tartrate 50 Mg Tab) 50 mg PO BID [facility] Stop: 05/11/22 08:59 Last Admin: 04/11/22 08:53 Dose: 50 mg Morphine Sulfate (Morphine Sulfate 4 Mg/Ml 1 Ml Carp\Vial) 4 mg IV Q4H PRN PRN Reason: Pain Stop: 04/24/22 22:29 [facility]it[facility] ([facility]amin Tab) [facility] [place]: 05/11/22 08:59 Last Admin: 04/11/22 08:53 Dose: 1 tab Oxycodone HCl (Oxycodone Hcl Ir 5 Mg Tab (Immediate Release)) 5 mg PO Q4H PRN PRN Reason: Pain Stop: 04/24/22 22:29 Thiamine HCl (Thiamine Hcl 100 Mg Tab) [facility] [place]: 05/11/22 08:59 Last Admin: 04/11/22 08:52 Dose: 100 mg (1) A-fib Atrial fibrillation type: unspecified Qualified Code(s): I48.91 - Unspecified atrial fibrillation
[2022-04-11] MEDS: ACETAMINOPHEN 325 MG TAB PO PRN (20:24)
[2022-04-11] MEDS: PANTOprazole 40 MG TAB PO SCH (20:25)
[2022-04-12] MEDS: LACTATED RINGER'S 1,000 ML IV SCH ×4 (00:02→18:06)
[2022-04-12] MEDS: GABAPENTIN 600 MG TAB PO SCH ×3 (00:21→19:42)
[2022-04-12] MEDS: CEFEPIME 2,000 MG in SYRINGE 0 ML IV SCH ×3 (05:04→21:44)
[2022-04-12] MEDS ORDERED: POTASSIUM CHLORIDE CRTAB 20 MEQ TABCR PO STA (08:49)
[2022-04-12] MEDS: METOPROLOL TARTRATE 50 MG TAB PO SCH ×2 (09:13→19:42)
[2022-04-12] MEDS: PANTOprazole 40 MG TAB PO SCH ×2 (09:13→19:43)
[2022-04-12] MEDS: DOXYCYCLINE HYCLATE 100 MG CAP PO SCH ×2 (09:14→19:42)
[2022-04-12] MEDS: MULTIVITAMIN TAB PO SCH (09:14)
[2022-04-12] MEDS: THIAMINE HCL 100 MG TAB PO SCH (09:14)
[2022-04-12] MEDS: FOLIC ACID 1 MG TAB PO SCH (09:14)
[2022-04-12] MEDS ORDERED: MoRPHine SULFATE 4 MG/ML 1 ML CARP\\VIAL IV STA (10:39)
[2022-04-12 11:34] LABS: A calco-baum cmplx NotReported Not Detected (NotDetected); Bact fragilis Not Reported Not Detected (NotDetected); C auris Not Reported Not Detected (NotDetected); Calbicans Not Reported Not Detected (NotDetected); Candida glabrata Not Reported Not Detected (NotDetected); Candida krusei Not Reported Not Detected (NotDetected); Cneoformans/gatti Not Reported Not Detected (NotDetected); Cparapsilosis Not Reported Not Detected (NotDetected); Ctropicalis Not Reported Not Detected (NotDetected); E cloacae compx Not Reported Not Detected (NotDetected); Efaecalis Not Reported Not Detected (NotDetected); Efaecium Not Reported Not Detected (NotDetected); Enterobacterales Not Reported Not Detected (NotDetected); Escherichia coli Not Reported Not Detected (NotDetected); H influenzae Not Reported Not Detected (NotDetected); K aerogenes Not Reported Not Detected (NotDetected); Koxytoca Not Reported Not Detected (NotDetected); Kpneumoniae grp Not Reported Not Detected (NotDetected); Lmonocyt Not Reported Not Detected (NotDetected); N meningitidis Not Reported Not Detected (NotDetected); P aeruginosa Not Reported Not Detected (NotDetected); Proteus spp Not Reported Not Detected (NotDetected); Salmonella spp Not Reported Not Detected (NotDetected); Smarcescens Not Reported Not Detected (NotDetected); Staph lugdunensis Not Reported Not Detected (NotDetected); Staph spp. Not Reported Not Detected (NotDetected); Staphaureus Not Reported Not Detected (NotDetected); Staphepi Not Reported Not Detected (NotDetected); Stenmaltophilia Not Reported Not Detected (NotDetected); Strep agal(GrpB) Not Reported Not Detected (NotDetected); Strep pneum Not Reported Not Detected (NotDetected); Strep pyog (GrpA) Not Reported Not Detected (NotDetected); Strep spp Not Reported Not Detected (NotDetected)
[2022-04-12] MEDS ORDERED: Nursing to Pharmacy Communication SCH (12:00)
--- NOTE | 2022-04-12 13:06 | Hospitalist Progress Note ---
Date of Service April 12, 2022 Assessment & Plan (1) A-fib: Plan: Uncontrolled heart rate upon arrival at the ER secondary to illness and medication noncompliance Not on anticoagulation secondary to fall risk Heart rate is controlled and the patient denies any palpitation and/or chest pain or shortness of breath We will continue current medications Rate is controlled Acute pancreatitis Likely secondary to use of alcohol Lipase was elevated to 1300 Patient has been feeling much better with minimal discomfort Appreciate GI input and recommendation Has been tolerating clears and will continue that for today as abdominal pain continues We will monitor labs Alcohol withdrawal Having withdrawal symptoms from alcohol with tremors and palpitation No delirium tremens Has been on withdrawal protocol No significant tremors involving the outstretched hands Alcohol hepatitis LFTs are abnormal secondary to alcohol and fatty liver disease LFTs are getting better We will check LFTs tomorrow Complicated UTI, possible sepsis Has been on intravenous cefepime and not Zosyn as mentioned earlier Blood culture is growing gram-positive bacilli UGI B differentials include alcoholic gastritis, PUD (history of H. pylori as per records) Continue PPI-had changed to oral Skin wound right flank Continue doxycycline Chronic anemia, hemoglobin at baseline Chronic thrombocytopenia likely from alcoholic cirrhosis given hepatomegaly Prediabetes, hemoglobin A1c of 5.4 last May 2021 Past tobacco abuse PT OT eval once medically stable DVT prophylaxis. SCDs Re: GI bleed Platelet count has been low Full code Discussed with the daughter Admission and Anticipated Discharge Date Admission Date: April 10, 2022 Subjective 04/11/2022 The patient was seen and examined in telemetry unit He has been complaining of abdominal discomfort with nausea but no vomiting Has tremors of the outstretched hands but denies any palpitation and/or confusion No fever and or chills 04/12/2022 The patient was seen and examined in telemetry unit He has been feeling a little better but he still has abdominal distention and pain, no fever and or chills, no nausea and or vomiting Denies any other significant symptoms Review of Systems Review of Systems: All systems reviewed and are unremarkable except as noted below Gastrointestinal: Abdominal distention with discomfort and nausea Physical Exam Physical Exam: Lying in bed comfortably with mild to moderate abdominal discomfort Constitutional: well developed, well nourished, + ill appearing and + obese Eyes: PERRL, conjunctivae normal, anicteric sclerae ENMT: external ear and nose normal, oropharynx normal Neck: trachea midline, no thyromegaly Respiratory: no respiratory distress Auscultation: + diminished lung sounds; no crackles Cardiovascular: Rate/Rhythm: regular rate and regular rhythm; not tachycardic Heart Sounds: normal S1 and normal S2; no murmur Extremities: + edema (Trace edema bilateral) Gastrointestinal (Abdomen): Inspection/Auscultation: + abdomen distended and normal bowel sounds Percussion/Palpation: + abdomen tender and abdomen soft Neurologic: normal touch/pain/proprioception and moves all extremities; no focal motor deficits Psychiatric: A+Ox3, euthymic affect Lymphatic: no cervical or axillary lymphadenopathy Results & Data Results & Data ([facility]) Vital Signs (Past 12 Hours) Vital Signs Temp Pulse Pulse Resp BP Pulse Ox O2 Del Method 04/12/22 11:39 36.9 C 86 18 134/85 94 Room Air 04/12/22 10:44 84 04/12/22 07:17 37.0 C 97 H 20 138/82 94 Room Air 04/12/22 03:20 95 Nasal Cannula 04/12/22 03:13 37.2 C 78 20 129/78 90 Room Air O2 Flow Rate 04/12/22 11:39 04/12/22 10:44 04/12/22 07:17 04/12/22 03:20 2 04/12/22 03:13 Medications Administered Current Inpatient Medications Acetaminophen (Acetaminophen 325 Mg Tab) 325 mg PO Q6H PRN PRN Reason: Mild Pain Stop: 05/10/22 22:29 Last Admin: 04/11/22 20:24 Dose: 325 mg Doxycycline Hyclate (Doxycycline Hyclate 100 Mg Cap) 100 mg PO BID [facility] Stop: 04/18/22 08:59 Last Admin: 04/12/22 09:14 Dose: 100 mg Folic Acid (Folic Acid 1 Mg Tab) 1 mg PO QAM [facility] Stop: 05/11/22 08:59 Last Admin: 04/12/22 09:14 Dose: 1 mg Gabapentin (Gabapentin 600 Mg Tab) 600 mg PO Q12H [facility] Stop: 04/13/22 09:01 Gabapentin (Gabapentin 600 Mg Tab) 600 mg PO Q24H [facility] Stop: 04/14/22 09:01 Promethazine HCl 12.5 mg/ (Sodium Chloride) 50.5 mls @ 202 mls/hr IV Q6H PRN PRN Reason: Nausea And Vomiting Stop: 05/10/22 20:43 Cefepime HCl 2,000 mg/ Syringe 20 mls @ 5 mls/min IV Q8H [facility]; Protocol Stop: 04/21/22 05:59 Last Admin: 04/12/22 05:04 Dose: 5 mls/min Lactated Ringer's (Lr) 1,000 mls @ 100 mls/hr IV .Q10H [facility] Stop: 05/11/22 00:00 Last Admin: 04/12/22 09:24 Dose: 100 mls/hr Lorazepam (Lorazepam 2 Mg/1 Ml Vial) 1 mg IV UD PRN; Protocol PRN Reason: EtOH Withdrawal AWSS Score 6,7 Stop: 05/10/22 22:29 Last Admin: 04/11/22 16:34 Dose: 1 mg Lorazepam (Lorazepam 2 Mg/1 Ml Vial) 2 mg IV UD PRN; Protocol PRN Reason: EtOH Withdrawal AWSS Score 8,9 Stop: 05/10/22 22:29 Lorazepam (Lorazepam 2 Mg/1 Ml Vial) 3 mg IV ONCE PRN; Protocol PRN Reason: EtOH Withdrawal AWSS Score 10+ Metoprolol Tartrate (Metoprolol Tartrate 50 Mg Tab) 50 mg PO BID [facility] Stop: 05/11/22 08:59 Last Admin: 04/12/22 09:13 Dose: 50 mg Morphine Sulfate (Morphine Sulfate 4 Mg/Ml 1 Ml Carp\Vial) 4 mg IV Q4H PRN PRN Reason: Pain Stop: 04/24/22 22:29 Multivitamins (Multivitamin Tab) [facility] [place] Stop: 05/11/22 08:59 Last Admin: 04/12/22 09:14 Dose: 1 tab Oxycodone HCl (Oxycodone Hcl Ir 5 Mg Tab (Immediate Release)) 5 mg PO Q4H PRN PRN Reason: Pain Stop: 04/24/22 22:29 Pantoprazole Sodium (Pantoprazole 40 Mg Tab) 40 mg PO BID [facility] Stop: 05/11/22 20:59 Last Admin: 04/12/22 09:13 Dose: 40 mg Thiamine HCl (Thiamine Hcl 100 Mg Tab) 100 mg PO QAM [facility] Stop: 05/11/22 08:59 Last Admin: 04/12/22 09:14 Dose: 100 mg (1) A-fib Atrial fibrillation type: unspecified Qualified Code(s): I48.91 - Unspecified atrial fibrillation
--- NOTE | 2022-04-12 20:52 | Electrocardiogram Report ---
Test Reason : Blood Pressure : / mmHG Vent. Rate : 116 BPM Atrial Rate : 129 BPM P-R Int : 000 ms QRS Dur : 090 ms QT Int : 322 ms P-R-T Axes : 000 054 -13 degrees QTc Int : 447 ms Atrial fibrillation with rapid ventricular response Abnormal QRS-T angle, consider primary T wave abnormality Abnormal ECG When compared with ECG of 10-MAR-2022 10:59, Vent. rate has increased BY 38 BPM T wave inversion more evident in Inferior leads Confirmed by Colby Gomez ([id number]) on 04/12/2022 8:51:26 PM Referred By: REFERRED SELF Confirmed By:Colby Gomez
[2022-04-13] MEDS: LACTATED RINGER'S 1,000 ML IV SCH ×3 (03:13→23:24)
[2022-04-13] MEDS: CEFEPIME 2,000 MG in SYRINGE 0 ML IV SCH ×2 (06:11→13:35)
[2022-04-13 08:31] LABS: Hematocrit (blood only) 35.8 % (40.1-51.0); Hemoglobin 12.6 g/dl (14.0-18.0); Mean Corpuscular Hemoglobin 31.3 pg (25.0-34.0); Mean Corpuscular Hgb Conc 35.2 g/dL (32.0-36.0); Mean Corpuscular Volume 88.8 fL (80.0-100.0); Mean Platelet Volume 10.9 fL (9.4-12.4); Platelet Count 132 K/uL (130-400); RDW Coefficient of Variation 19.4 % (11.5-14.5); RDW Standard Deviation 62.2 fL (36.4-46.3); Red Blood Count 4.03 M/uL (4.63-6.08); White Blood Count 4.42 K/ul (4.8-10.8)
[2022-04-13] MEDS: MULTIVITAMIN TAB PO SCH (08:34)
[2022-04-13] MEDS: FOLIC ACID 1 MG TAB PO SCH (08:34)
[2022-04-13] MEDS: DOXYCYCLINE HYCLATE 100 MG CAP PO SCH ×2 (08:34→21:08)
[2022-04-13] MEDS: PANTOprazole 40 MG TAB PO SCH ×2 (08:34→21:08)
[2022-04-13] MEDS: GABAPENTIN 600 MG TAB PO SCH (08:34)
[2022-04-13] MEDS: METOPROLOL TARTRATE 50 MG TAB PO SCH ×2 (08:35→21:08)
[2022-04-13] MEDS: THIAMINE HCL 100 MG TAB PO SCH (08:35)
[2022-04-13 08:41] LABS: Anion Gap 5 (3-11); BUN Creatinine Ratio 5.2 (10-20); Blood Urea Nitrogen 3 mg/dl (6-23); Calcium 8.3 mg/dl (8.5-10.1); Carbon Dioxide 35 mmol/L (21-32); Chloride 96 mmol/L (98-107); Creatinine Clr Calc Pharmacy 198.9 ml/min; Est GFR (African American) 127.5 ml/min; Glucose 114 mg/dl (70-99(Fasting)); Potassium 3.1 mmol/L (3.5-5.1); Sodium 136 mmol/L (136-145)
[2022-04-13] MEDS: ACETAMINOPHEN 325 MG TAB PO PRN (08:43)
[2022-04-13 08:56] LABS: Alanine Aminotransferase 190 U/L (7-52); Albumin Globulin Ratio 1.3 (0.9-2); Albumin Level 3.3 gm/dl (3.4-5.0); Alkaline Phosphatase 81 U/L (34-104); Aspartate Aminotransferase 333 U/L (13-39); Bilirubin,Total 5.4 mg/dl (0.2-1.0); Globulin 2.5 gm/dl (2.5-4.0); Lipase 772 U/L (11-82); Magnesium 1.5 mg/dl (1.7-2.4); Phosphorus < 1.0 mg/dl (2.5-4.9); Total Protein 5.8 gm/dl (6.0-8.3)
[2022-04-13] MEDS ORDERED: POTASSIUM PHOS 3 MMOL/1 ML INFUSION IV STA (09:07)
[2022-04-13] MEDS: MAGNESIUM SULFATE / D5W 1 GM/100 ML BAG IV SCH ×2 (09:29→11:28)
[2022-04-13] MEDS ORDERED: POTASSIUM PHOSPHATE 30 MMOL in SODIUM CHLORIDE 0.9% 500 ML IV ONE (09:30)
[2022-04-13 10:18] LABS: Basophils # (auto) 0.03 K/uL (0-0.2); Basophils % (auto) 0.7 %; Eosinophils # (auto) 0.05 K/uL (0-0.50); Eosinophils % (auto) 1.1 %; Immature Granulocytes # (auto) 0.06 K/uL (0.00-0.02); Immature Granulocytes % (auto) 1.4 %; Lymphocytes # (auto) 0.86 K/uL (1.2-3.4); Lymphocytes % (auto) 19.5 %; Monocytes # (auto) 0.23 K/uL (0.24-0.82); Monocytes % (auto) 5.2 %; Neutrophils # (auto) 3.19 K/uL (1.4-6.5); Neutrophils % (auto) 72.1 %; Polychromasia 1+
--- NOTE | 2022-04-13 14:19 | Hospitalist Progress Note ---
Date of Service April 13, 2022 Assessment & Plan (1) A-fib: Plan: Uncontrolled heart rate upon arrival at the ER secondary to illness and medication noncompliance Not on anticoagulation secondary to fall risk Heart rate is controlled and the patient denies any palpitation and/or chest pain or shortness of breath We will continue current medications Rate is controlled Denies any cardiac symptoms Acute pancreatitis Likely secondary to use of alcohol Lipase was elevated to 1300 Patient has been feeling much better with minimal discomfort Appreciate GI input and recommendation Has been tolerating clears and will continue that for today as abdominal pain continues Lipase has decreased abdominal pain is improved Continue current management including clears orally Alcohol withdrawal Having withdrawal symptoms from alcohol with tremors and palpitation No delirium tremens Has been on withdrawal protocol No significant tremors involving the outstretched hands No symptoms of withdrawal and has not been taking any Ativan Alcohol hepatitis LFTs are abnormal secondary to alcohol and fatty liver disease LFTs are getting better We will check LFTs tomorrow-LFTs are a little worse compared with before Complicated UTI, possible sepsis Has been on intravenous cefepime and not Zosyn as mentioned earlier Blood culture is growing gram-positive bacilli Blood and urine cultures are negative We will discontinue antibiotic UGI B differentials include alcoholic gastritis, PUD (history of H. pylori as per records) Continue PPI-had changed to oral Skin wound right flank Continue doxycycline Chronic anemia, hemoglobin at baseline Chronic thrombocytopenia likely from alcoholic cirrhosis given hepatomegaly Prediabetes, hemoglobin A1c of 5.4 last May 2021 Past tobacco abuse PT OT eval once medically stable DVT prophylaxis. SCDs Re: GI bleed Platelet count has been low Full code Discussed with the daughter Admission and Anticipated Discharge Date Admission Date: April 10, 2022 Subjective 04/11/2022 The patient was seen and examined in telemetry unit He has been complaining of abdominal discomfort with nausea but no vomiting Has tremors of the outstretched hands but denies any palpitation and/or confusion No fever and or chills 04/12/2022 The patient was seen and examined in telemetry unit He has been feeling a little better but he still has abdominal distention and pain, no fever and or chills, no nausea and or vomiting Denies any other significant symptoms 04/13/2022 The patient was seen and examined in telemetry unit He has been feeling a little better today Abdominal distention and discomfort persist No fever and or chills and no nausea and/or vomiting Review of Systems Review of Systems: All systems reviewed and are unremarkable except as noted below Gastrointestinal: Abdominal distention with discomfort and nausea Physical Exam Physical Exam: Lying in bed comfortably with mild to moderate abdominal discomfort Constitutional: well developed, well nourished, + ill appearing and + obese Eyes: PERRL, conjunctivae normal, anicteric sclerae ENMT: external ear and nose normal, oropharynx normal Neck: trachea midline, no thyromegaly Respiratory: no respiratory distress Auscultation: + diminished lung sounds; no crackles Cardiovascular: Rate/Rhythm: regular rate and regular rhythm; not tachycardic Heart Sounds: normal S1 and normal S2; no murmur Extremities: + edema (Trace edema bilateral) Gastrointestinal (Abdomen): Inspection/Auscultation: + abdomen distended and normal bowel sounds Percussion/Palpation: + abdomen tender and abdomen soft Musculoskeletal: No acute arthritis in any joint Neurologic: normal touch/pain/proprioception and moves all extremities; no focal motor deficits Psychiatric: A+Ox3, euthymic affect Lymphatic: no cervical or axillary lymphadenopathy Results & Data Results & Data ([facility]) Vital Signs (Past 12 Hours) Vital Signs Temp Pulse Resp BP Pulse Ox O2 Del Method 04/13/22 11:38 36.7 C 93 H 19 144/98 H 95 Room Air 04/13/22 07:40 36.6 C 100 H 19 135/84 94 Room Air 04/13/22 03:11 37 C 91 H 18 132/83 93 Room Air Laboratory Results Short CBC 04/13/22 Range/Units 07:18 WBC 4.42 L (4.8-10.8) K/ul Hgb 12.6 L (14.0-18.0) g/dl Hct 35.8 L (40.1-51.0) % Plt Count 132 (130-400) K/uL BMP 04/13/22 07:18 Sodium 136 Potassium 3.1 L Chloride 96 L Carbon Dioxide 35 H BUN 3 L Creatinine 0.58 L Glucose 114 H Calcium 8.3 L Liver Function 04/13/22 Range/Units 07:18 Total Bilirubin 5.4 H (0.2-1.0) mg/dl AST 333 H (13-39) U/L ALT 190 H (7-52) U/L Alkaline Phosphatase 81 (34-104) U/L Albumin 3.3 L (3.4-5.0) gm/dl Medications Administered Current Inpatient Medications Acetaminophen (Acetaminophen 325 Mg Tab) 325 mg PO Q6H PRN PRN Reason: Mild Pain Stop: 05/10/22 22:29 Last Admin: 04/13/22 08:43 Dose: 325 mg Doxycycline Hyclate (Doxycycline Hyclate 100 Mg Cap) 100 mg PO BID [facility] Stop: 04/18/22 08:59 Last Admin: 04/13/22 08:34 Dose: 100 mg Folic Acid (Folic Acid 1 Mg Tab) 1 mg PO QAM [facility] Stop: 05/11/22 08:59 Last Admin: 04/13/22 08:34 Dose: 1 mg Gabapentin (Gabapentin 600 Mg Tab) 600 mg PO Q24H [facility] Stop: 04/14/22 09:01 Promethazine HCl 12.5 mg/ (Sodium Chloride) 50.5 mls @ 202 mls/hr IV Q6H PRN PRN Reason: Nausea And Vomiting Stop: 05/10/22 20:43 Cefepime HCl 2,000 mg/ Syringe 20 mls @ 5 mls/min IV Q8H [facility]; Protocol Stop: 04/21/22 05:59 Last Admin: 04/13/22 13:35 Dose: 5 mls/min Lactated Ringer's (Lr) 1,000 mls @ 100 mls/hr IV .Q10H [facility] Stop: 05/11/22 00:00 Last Admin: 04/13/22 13:24 Dose: 100 mls/hr Potassium Phosphate 30 mmol/ (Sodium Chloride) 510 mls @ 88 mls/hr IV ONE ONE Stop: 04/13/22 15:17 Last Admin: 04/13/22 09:29 Dose: 88 mls/hr Lorazepam (Lorazepam 2 Mg/1 Ml Vial) 1 mg IV UD PRN; Protocol PRN Reason: EtOH Withdrawal AWSS Score 6,7 Stop: 05/10/22 22:29 Last Admin: 04/11/22 16:34 Dose: 1 mg Lorazepam (Lorazepam 2 Mg/1 Ml Vial) 2 mg IV UD PRN; Protocol PRN Reason: EtOH Withdrawal AWSS Score 8,9 Stop: 05/10/22 22:29 Lorazepam (Lorazepam 2 Mg/1 Ml Vial) 3 mg IV ONCE PRN; Protocol PRN Reason: EtOH Withdrawal AWSS Score 10+ Metoprolol Tartrate (Metoprolol Tartrate 50 Mg Tab) 50 mg PO BID [facility] Stop: 05/11/22 08:59 Last Admin: 04/13/22 08:35 Dose: 50 mg Morphine Sulfate (Morphine Sulfate 4 Mg/Ml 1 Ml Carp\Vial) 4 mg IV Q4H PRN PRN Reason: Pain Stop: 04/24/22 22:29 Last Admin: 04/12/22 19:41 Dose: 4 mg Multivitamins (Multivitamin Tab) 1 tab PO QAM [facility] Stop: 05/11/22 08:59 Last Admin: 04/13/22 08:34 Dose: 1 tab Oxycodone HCl (Oxycodone Hcl Ir 5 Mg Tab (Immediate Release)) 5 mg PO Q4H PRN PRN Reason: Pain Stop: 04/24/22 22:29 Pantoprazole Sodium (Pantoprazole 40 Mg Tab) 40 mg PO BID [facility] Stop: 05/11/22 20:59 Last Admin: 04/13/22 08:34 Dose: 40 mg Thiamine HCl (Thiamine Hcl 100 Mg Tab) 100 mg PO QAM [facility] Stop: 05/11/22 08:59 Last Admin: 04/13/22 08:35 Dose: 100 mg (1) A-fib Atrial fibrillation type: unspecified Qualified Code(s): I48.91 - Unspecified atrial fibrillation
[2022-04-13] MEDS: LORazepam 2 MG/1 ML VIAL IV PRN (21:08)
[2022-04-14 08:04] LABS: Basophils # (auto) 0.04 K/uL (0-0.2); Basophils % (auto) 0.7 %; Eosinophils # (auto) 0.05 K/uL (0-0.50); Eosinophils % (auto) 0.9 %; Hematocrit (blood only) 37.4 % (40.1-51.0); Hemoglobin 13.4 g/dl (14.0-18.0); Immature Granulocytes # (auto) 0.06 K/uL (0.00-0.02); Immature Granulocytes % (auto) 1.1 %; Lymphocytes # (auto) 1.22 K/uL (1.2-3.4); Lymphocytes % (auto) 21.8 %; Mean Corpuscular Hemoglobin 31.5 pg (25.0-34.0); Mean Corpuscular Hgb Conc 35.8 g/dL (32.0-36.0); Mean Platelet Volume 9.9 fL (9.4-12.4); Monocytes # (auto) 0.41 K/uL (0.24-0.82); Monocytes % (auto) 7.3 %; Neutrophils # (auto) 3.82 K/uL (1.4-6.5); Neutrophils % (auto) 68.2 %; Platelet Count 164 K/uL (130-400); RDW Coefficient of Variation 20.8 % (11.5-14.5); RDW Standard Deviation 63.9 fL (36.4-46.3); Red Blood Count 4.25 M/uL (4.63-6.08)
[2022-04-14 08:25] LABS: Anion Gap 8 (3-11); BUN Creatinine Ratio 3.4 (10-20); Blood Urea Nitrogen 2 mg/dl (6-23); Calcium 8.4 mg/dl (8.5-10.1); Carbon Dioxide 30 mmol/L (21-32); Chloride 99 mmol/L (98-107); Creatinine Clr Calc Pharmacy 195.3 ml/min; Est GFR (African American) 126.6 ml/min; Est GFR (Non-African American) 109.3 ml/min; Glucose 120 mg/dl (70-99(Fasting)); Potassium 3.1 mmol/L (3.5-5.1); Sodium 137 mmol/L (136-145)
[2022-04-14 08:36] LABS: Anisocytosis Present; Polychromasia 1+; Target Cells 2+
[2022-04-14 08:42] LABS: Magnesium 1.7 mg/dl (1.7-2.4); Phosphorus < 1.0 mg/dl (2.5-4.9)
[2022-04-14] MEDS ORDERED: POTASSIUM PHOS 3 MMOL/1 ML INFUSION IV STA (08:49)
[2022-04-14] MEDS ORDERED: GABAPENTIN 600 MG TAB PO SCH (09:00)
[2022-04-14] MEDS: LACTATED RINGER'S 1,000 ML IV SCH ×3 (09:03→23:51)
[2022-04-14] MEDS: FOLIC ACID 1 MG TAB PO SCH (09:04)
[2022-04-14] MEDS: DOXYCYCLINE HYCLATE 100 MG CAP PO SCH ×2 (09:04→20:47)
[2022-04-14] MEDS: THIAMINE HCL 100 MG TAB PO SCH (09:05)
[2022-04-14] MEDS: METOPROLOL TARTRATE 50 MG TAB PO SCH ×2 (09:05→20:47)
[2022-04-14] MEDS: MULTIVITAMIN TAB PO SCH (09:05)
[2022-04-14] MEDS: PANTOprazole 40 MG TAB PO SCH ×2 (09:05→20:47)
[2022-04-14] MEDS ORDERED: POTASSIUM PHOSPHATE 30 MMOL in DEXTROSE 5% 500 ML IV ONE (09:30)
[2022-04-14] MEDS: PROMETHAZINE HCL 12.5 MG in SODIUM CHLORIDE 0.9% 50 ML IV PRN ×2 (09:45→21:43)
--- NOTE | 2022-04-14 16:07 | Hospitalist Progress Note ---
Date of Service April 14, 2022 Assessment & Plan (1) A-fib: Plan: Uncontrolled heart rate upon arrival at the ER secondary to illness and medication noncompliance Not on anticoagulation secondary to fall risk Heart rate is controlled and the patient denies any palpitation and/or chest pain or shortness of breath We will continue current medications Rate is controlled Denies any cardiac symptoms Acute pancreatitis Likely secondary to use of alcohol Lipase was elevated to 1300 Patient has been feeling much better with minimal discomfort Appreciate GI input and recommendation Has been tolerating clears and will continue that for today as abdominal pain continues Lipase has decreased abdominal pain is improved Clinically better today with decreasing abdominal pain and distention Has been tolerating clears and bowel is moving Electrolyte imbalance Hypokalemia, hypomagnesemia and hypophosphatemia Has been getting IV replacement Will monitor Alcohol withdrawal Having withdrawal symptoms from alcohol with tremors and palpitation No delirium tremens Has been on withdrawal protocol No significant tremors involving the outstretched hands No symptoms of withdrawal and has not been taking any Ativan No more symptoms of withdrawal Alcohol hepatitis LFTs are abnormal secondary to alcohol and fatty liver disease LFTs are getting better We will check LFTs tomorrow-LFTs are a little worse compared with before We will recheck LFTs tomorrow Complicated UTI, possible sepsis Has been on intravenous cefepime and not Zosyn as mentioned earlier Blood culture is growing gram-positive bacilli Blood and urine cultures are negative We will discontinue antibiotic UGI B differentials include alcoholic gastritis, PUD (history of H. pylori as per records) Continue PPI-had changed to oral Skin wound right flank Continue doxycycline Chronic anemia, hemoglobin at baseline Chronic thrombocytopenia likely from alcoholic cirrhosis given hepatomegaly Prediabetes, hemoglobin A1c of 5.4 last May 2021 Past tobacco abuse PT OT eval once medically stable DVT prophylaxis. SCDs Re: GI bleed Platelet count has been low Full code Discussed with the daughter Admission and Anticipated Discharge Date Admission Date: April 10, 2022 Subjective 04/11/2022 The patient was seen and examined in telemetry unit He has been complaining of abdominal discomfort with nausea but no vomiting Has tremors of the outstretched hands but denies any palpitation and/or confusion No fever and or chills 04/12/2022 The patient was seen and examined in telemetry unit He has been feeling a little better but he still has abdominal distention and pain, no fever and or chills, no nausea and or vomiting Denies any other significant symptoms 04/13/2022 The patient was seen and examined in telemetry unit He has been feeling a little better today Abdominal distention and discomfort persist No fever and or chills and no nausea and/or vomiting 04/14/2022 The patient was seen and examined in telemetry unit He has been much better but he still has abdominal distention and discomfort No nausea and or vomiting Has been tolerating clears Bowel is moving Review of Systems Review of Systems: All systems reviewed and are unremarkable except as noted below Gastrointestinal: Abdominal distention with discomfort and nausea Physical Exam Physical Exam: Lying in bed comfortably with mild to moderate abdominal discomfort Constitutional: well developed, well nourished, + ill appearing and + obese Eyes: PERRL, conjunctivae normal, anicteric sclerae ENMT: external ear and nose normal, oropharynx normal Neck: trachea midline, no thyromegaly Respiratory: no respiratory distress Auscultation: + diminished lung sounds; no crackles Cardiovascular: Rate/Rhythm: regular rate and regular rhythm; not tachycardic Heart Sounds: normal S1 and normal S2; no murmur Extremities: + edema (Trace edema bilateral) Gastrointestinal (Abdomen): Inspection/Auscultation: + abdomen distended and normal bowel sounds Percussion/Palpation: + abdomen tender and abdomen soft Musculoskeletal: No acute arthritis in any joint Neurologic: normal touch/pain/proprioception and moves all extremities; no focal motor deficits Psychiatric: A+Ox3, euthymic affect Lymphatic: no cervical or axillary lymphadenopathy Results & Data Results & Data ([facility]) Vital Signs (Past 12 Hours) Vital Signs Temp Pulse Resp BP BP Pulse Ox O2 Del Method 04/14/22 15:29 36.7 C 92 H 20 119/84 96 Room Air 04/14/22 10:41 36.9 C 95 H 20 110/62 94 Room Air 04/14/22 07:53 36.7 C 103 H 20 134/77 Laboratory Results Short CBC 04/14/22 Range/Units 07:33 WBC 5.60 (4.8-10.8) K/ul Hgb 13.4 L (14.0-18.0) g/dl Hct 37.4 L (40.1-51.0) % Plt Count 164 (130-400) K/uL BMP 04/14/22 07:33 Sodium 137 Potassium 3.1 L Chloride 99 Carbon Dioxide 30 BUN 2 L Creatinine 0.59 L Glucose 120 H Calcium 8.4 L Medications Administered Current Inpatient Medications Acetaminophen (Acetaminophen 325 Mg Tab) 325 mg PO Q6H PRN PRN Reason: Mild Pain Stop: 05/10/22 22:29 Last Admin: 04/13/22 08:43 Dose: 325 mg Doxycycline Hyclate (Doxycycline Hyclate 100 Mg Cap) 100 mg PO BID [facility] Stop: 04/18/22 08:59 Last Admin: 04/14/22 09:04 Dose: 100 mg Folic Acid (Folic Acid 1 Mg Tab) 1 mg PO QAM [facility] Stop: 05/11/22 08:59 Last Admin: 04/14/22 09:04 Dose: 1 mg Promethazine HCl 12.5 mg/ (Sodium Chloride) 50.5 mls @ 202 mls/hr IV Q6H PRN PRN Reason: Nausea And Vomiting Stop: 05/10/22 20:43 Last Infusion: 04/14/22 10:03 Dose: Infused Lactated Ringer's (Lr) 1,000 mls @ 100 mls/hr IV .Q10H [facility] Stop: 05/11/22 00:00 Last Admin: 04/14/22 09:03 Dose: 100 mls/hr Lorazepam (Lorazepam 2 Mg/1 Ml Vial) 1 mg IV UD PRN; Protocol PRN Reason: EtOH Withdrawal AWSS Score 6,7 Stop: 05/10/22 22:29 Last Admin: 04/13/22 21:08 Dose: 1 mg Lorazepam (Lorazepam 2 Mg/1 Ml Vial) 2 mg IV UD PRN; Protocol PRN Reason: EtOH Withdrawal AWSS Score 8,9 Stop: 05/10/22 22:29 Lorazepam (Lorazepam 2 Mg/1 Ml Vial) 3 mg IV ONCE PRN; Protocol PRN Reason: EtOH Withdrawal AWSS Score 10+ Metoprolol Tartrate (Metoprolol Tartrate 50 Mg Tab) 50 mg PO BID [facility] Stop: 05/11/22 08:59 Last Admin: 04/14/22 09:05 Dose: 50 mg Morphine Sulfate (Morphine Sulfate 4 Mg/Ml 1 Ml Carp\Vial) 4 mg IV Q4H PRN PRN Reason: Pain Stop: 04/24/22 22:29 Last Admin: 04/12/22 19:41 Dose: 4 mg Multivitamins (Multivitamin Tab) 1 tab PO QAM [facility] Stop: 05/11/22 08:59 Last Admin: 04/14/22 09:05 Dose: 1 tab Oxycodone HCl (Oxycodone Hcl Ir 5 Mg Tab (Immediate Release)) 5 mg PO Q4H PRN PRN Reason: Pain Stop: 04/24/22 22:29 Pantoprazole Sodium (Pantoprazole 40 Mg Tab) 40 mg PO BID [facility] Stop: 05/11/22 20:59 Last Admin: 04/14/22 09:05 Dose: 40 mg Thiamine HCl (Thiamine Hcl 100 Mg Tab) 100 mg PO QAM [facility] Stop: 05/11/22 08:59 Last Admin: 04/14/22 09:05 Dose: 100 mg (1) A-fib Atrial fibrillation type: unspecified Qualified Code(s): I48.91 - Unspecified atrial fibrillation
[2022-04-14] MEDS: ENOXAPARIN INJ 40 MG/0.4 ML SYR SQ SCH (17:28)
[2022-04-14] MEDS: ACETAMINOPHEN 325 MG TAB PO PRN (20:48)
[2022-04-15 08:01] LABS: Albumin Level 3.2 gm/dl (3.4-5.0); Calcium 8.1 mg/dl (8.5-10.1); Magnesium 1.6 mg/dl (1.7-2.4)
[2022-04-15 08:08] LABS: Albumin Globulin Ratio 1.2 (0.9-2); BUN Creatinine Ratio 6.1 (10-20); Creatinine Clr Calc Pharmacy 174.6 ml/min; Est GFR (African American) 120.9 ml/min; Est GFR (Non-African American) 104.3 ml/min; Globulin 2.7 gm/dl (2.5-4.0); Phosphorus 1.8 mg/dl (2.5-4.9); Total Protein 5.9 gm/dl (6.0-8.3)
[2022-04-15] MEDS ORDERED: POTASSIUM PHOS 3 MMOL/1 ML INFUSION IV STA (08:28)
[2022-04-15] MEDS: POTASSIUM CHLORIDE / WTR 10 MEQ/100 ML PLCT IV SCH ×2 (09:02→10:09)
[2022-04-15] MEDS: PROMETHAZINE HCL 12.5 MG in SODIUM CHLORIDE 0.9% 50 ML IV PRN ×2 (09:33→21:36)
[2022-04-15] MEDS ORDERED: ALUMINUM/MAGNESIUM SUSP 30 ML UDC PO PRN (10:08)
[2022-04-15] MEDS: LACTATED RINGER'S 1,000 ML IV SCH ×2 (10:11→19:37)
[2022-04-15] MEDS: PANTOprazole 40 MG TAB PO SCH (10:12)
[2022-04-15] MEDS: DOXYCYCLINE HYCLATE 100 MG CAP PO SCH ×2 (10:12→19:37)
[2022-04-15] MEDS: FOLIC ACID 1 MG TAB PO SCH (10:12)
[2022-04-15] MEDS: THIAMINE HCL 100 MG TAB PO SCH (10:12)
[2022-04-15] MEDS: MULTIVITAMIN TAB PO SCH (10:13)
[2022-04-15] MEDS: METOPROLOL TARTRATE 50 MG TAB PO SCH ×2 (10:13→19:37)
[2022-04-15] MEDS: ENOXAPARIN INJ 40 MG/0.4 ML SYR SQ SCH (10:13)
[2022-04-15] MEDS ORDERED: POTASSIUM PHOSPHATE 30 MMOL in SODIUM CHLORIDE 0.9% 500 ML IV ONE (10:30)
[2022-04-15] MEDS: PANTOprazole 40 MG in SYRINGE 0 ML IV SCH ×2 (11:12→19:37)
--- NOTE | 2022-04-15 12:41 | Hospitalist Progress Note ---
Date of Service April 15, 2022 Assessment & Plan (1) A-fib: Plan: Uncontrolled heart rate upon arrival at the ER secondary to illness and medication noncompliance Not on anticoagulation secondary to fall risk Heart rate is controlled and the patient denies any palpitation and/or chest pain or shortness of breath We will continue current medications Rate is controlled Denies any cardiac symptoms Acute pancreatitis Likely secondary to use of alcohol Lipase was elevated to 1300 Patient has been feeling much better with minimal discomfort Appreciate GI input and recommendation Has been tolerating clears and will continue that for today as abdominal pain continues Lipase has decreased abdominal pain is improved Clinically better today with decreasing abdominal pain and distention Has been tolerating clears and bowel is moving Still has minimal abdominal discomfort especially in the epigastrium with nausea and vomiting Will change Protonix to IV twice daily and give Maalox as needed for dyspepsia Lipase has been improving and no fever and or chills to suggest any infection We will continue current medications Electrolyte imbalance Hypokalemia, hypomagnesemia and hypophosphatemia Has been getting IV replacement Electrolytes remain low and will supplement and monitor Alcohol withdrawal Having withdrawal symptoms from alcohol with tremors and palpitation No delirium tremens Has been on withdrawal protocol No significant tremors involving the outstretched hands No symptoms of withdrawal and has not been taking any Ativan No more symptoms of withdrawal Alcohol hepatitis LFTs are abnormal secondary to alcohol and fatty liver disease LFTs are getting better We will check LFTs tomorrow-LFTs are a little worse compared with before We will recheck LFTs tomorrow-LFTs are getting better Complicated UTI, possible sepsis Has been on intravenous cefepime and not Zosyn as mentioned earlier Blood culture is growing gram-positive bacilli Blood and urine cultures are negative We will discontinue antibiotic UGI B differentials include alcoholic gastritis, PUD (history of H. pylori as per records) Continue PPI-had changed to oral Skin wound right flank Continue doxycycline Chronic anemia, hemoglobin at baseline Chronic thrombocytopenia likely from alcoholic cirrhosis given hepatomegaly Prediabetes, hemoglobin A1c of 5.4 last May 2021 Past tobacco abuse PT OT eval once medically stable DVT prophylaxis. SCDs Re: GI bleed Platelet count has been low Full code Discussed with the daughter Admission and Anticipated Discharge Date Admission Date: April 10, 2022 Subjective 04/11/2022 The patient was seen and examined in telemetry unit He has been complaining of abdominal discomfort with nausea but no vomiting Has tremors of the outstretched hands but denies any palpitation and/or confusion No fever and or chills 04/12/2022 The patient was seen and examined in telemetry unit He has been feeling a little better but he still has abdominal distention and pain, no fever and or chills, no nausea and or vomiting Denies any other significant symptoms 04/13/2022 The patient was seen and examined in telemetry unit He has been feeling a little better today Abdominal distention and discomfort persist No fever and or chills and no nausea and/or vomiting 04/14/2022 The patient was seen and examined in telemetry unit He has been much better but he still has abdominal distention and discomfort No nausea and or vomiting Has been tolerating clears Bowel is moving 04/15/2022 The patient was seen and examined in telemetry unit Is still complains to have abdominal pain and headache with nausea Denies any fever and or chills Has been tolerating clears Review of Systems Review of Systems: All systems reviewed and are unremarkable except as noted below Gastrointestinal: Abdominal distention with discomfort and nausea Physical Exam Physical Exam: Lying in bed comfortably with mild to moderate abdominal discomfort Constitutional: well developed, well nourished, + ill appearing and + obese Eyes: PERRL, conjunctivae normal, anicteric sclerae ENMT: external ear and nose normal, oropharynx normal Neck: trachea midline, no thyromegaly Respiratory: no respiratory distress Auscultation: + diminished lung sounds; no crackles Cardiovascular: Rate/Rhythm: regular rate and regular rhythm; not tachycardic Heart Sounds: normal S1 and normal S2; no murmur Extremities: + edema (Trace edema bilateral) Gastrointestinal (Abdomen): Inspection/Auscultation: + abdomen distended and normal bowel sounds Percussion/Palpation: + abdomen tender and abdomen soft Abdomen remains soft and mildly tender Musculoskeletal: No acute arthritis in any joint Neurologic: normal touch/pain/proprioception and moves all extremities; no focal motor deficits Psychiatric: A+Ox3, euthymic affect Lymphatic: no cervical or axillary lymphadenopathy Results & Data Results & Data ([facility]) Vital Signs (Past 12 Hours) Vital Signs Temp Pulse Resp BP BP Pulse Ox O2 Del Method 04/15/22 10:58 37.0 C 87 20 113/78 96 Room Air 04/15/22 10:51 Room Air 04/15/22 07:23 36.8 C 95 H 20 154/99 H 95 Room Air 04/15/22 02:36 36.7 C 73 18 116/76 95 Room Air Laboratory Results [facility] 04/15/22 06:53 Sodium 138 Potassium 3.0 L Chloride 100 Carbon Dioxide 33 H BUN 4 L Creatinine 0.66 Glucose 95 Calcium 8.1 L Liver Function 04/15/22 Range/Units 06:53 Total Bilirubin 4.0 H (0.2-1.0) mg/dl AST 139 H (13-39) U/L ALT 121 H (7-52) U/L Alkaline Phosphatase 92 (34-104) U/L Albumin 3.2 L (3.4-5.0) gm/dl Medications Administered Current Inpatient Medications Acetaminophen (Acetaminophen 325 Mg Tab) 325 mg PO Q6H PRN PRN Reason: Mild Pain Stop: 05/10/22 22:29 Last Admin: 04/14/22 20:48 Dose: 325 mg Al Hydrox/Mg Hydrox/Simethicone (Aluminum/Magnesium Susp 30 Ml Udc) 30 ml PO Q6H PRN PRN Reason: Dyspepsia Stop: 05/15/22 10:07 Doxycycline Hyclate (Doxycycline Hyclate 100 Mg Cap) 100 mg PO BID [facility] Stop: 04/18/22 08:59 Last Admin: 04/15/22 10:12 Dose: 100 mg Enoxaparin Sodium (Enoxaparin Inj 40 Mg/0.4 Ml Syr) 40 mg SQ QAM [facility] Stop: 05/14/22 16:14 Last Admin: 04/15/22 10:13 Dose: 40 mg Folic Acid (Folic Acid 1 Mg Tab) 1 mg PO QAM [facility] Stop: 05/11/22 08:59 Last Admin: 04/15/22 10:12 Dose: 1 mg Promethazine HCl 12.5 mg/ (Sodium Chloride) 50.5 mls @ 202 mls/hr IV Q6H PRN PRN Reason: Nausea And Vomiting Stop: 05/10/22 20:43 Last Infusion: 04/15/22 09:48 Dose: Infused Lactated Ringer's (Lr) 1,000 mls @ 100 mls/hr IV .Q10H [facility] Stop: 05/11/22 00:00 Last Admin: 04/15/22 10:11 Dose: 100 mls/hr Potassium Phosphate 30 mmol/ (Sodium Chloride) 510 mls @ 88 mls/hr IV ONE ONE Stop: 04/15/22 16:17 Last Admin: 04/15/22 11:12 Dose: 88 mls/hr Pantoprazole Sodium 40 mg/ (Syringe) 10 mls @ 5 mls/min IV BID [facility] Stop: 05/15/22 10:29 Last Admin: 04/15/22 11:12 Dose: 5 mls/min Lorazepam (Lorazepam 2 Mg/1 Ml Vial) 1 mg IV UD PRN; Protocol PRN Reason: EtOH Withdrawal AWSS Score 6,7 Stop: 05/10/22 22:29 Last Admin: 04/13/22 21:08 Dose: 1 mg Lorazepam (Lorazepam 2 Mg/1 Ml Vial) 2 mg IV UD PRN; Protocol PRN Reason: EtOH Withdrawal AWSS Score 8,9 Stop: 05/10/22 22:29 Lorazepam (Lorazepam 2 Mg/1 Ml Vial) 3 mg IV ONCE PRN; Protocol PRN Reason: EtOH Withdrawal AWSS Score 10+ Metoprolol Tartrate (Metoprolol Tartrate 50 Mg Tab) 50 mg PO BID [facility] Stop: 05/11/22 08:59 Last Admin: 04/15/22 10:13 Dose: 50 mg Multivitamins (Multivitamin Tab) 1 tab PO QAM [facility] Stop: 05/11/22 08:59 Last Admin: 04/15/22 10:13 Dose: 1 tab Oxycodone HCl (Oxycodone Hcl Ir 5 Mg Tab (Immediate Release)) 5 mg PO Q4H PRN PRN Reason: Pain Stop: 04/24/22 22:29 Thiamine HCl (Thiamine Hcl 100 Mg Tab) 100 mg PO QAM [facility] Stop: 05/11/22 08:59 Last Admin: 04/15/22 10:12 Dose: 100 mg (1) A-fib Atrial fibrillation type: unspecified Qualified Code(s): I48.91 - Unspecified atrial fibrillation
[2022-04-15] MEDS: oxyCODONE HCL IR 5 MG TAB (IMMEDIATE RELEASE) PO PRN (19:35)
[2022-04-16] MEDS: oxyCODONE HCL IR 5 MG TAB (IMMEDIATE RELEASE) PO PRN ×2 (05:57→19:59)
[2022-04-16] MEDS: LACTATED RINGER'S 1,000 ML IV SCH (05:57)
[2022-04-16 06:50] LABS: Basophils # (auto) 0.05 K/uL (0-0.2); Basophils % (auto) 1.2 %; Eosinophils # (auto) 0.06 K/uL (0-0.50); Eosinophils % (auto) 1.4 %; Hematocrit (blood only) 36.8 % (40.1-51.0); Hemoglobin 13.1 g/dl (14.0-18.0); Immature Granulocytes # (auto) 0.03 K/uL (0.00-0.02); Immature Granulocytes % (auto) 0.7 %; Lymphocytes # (auto) 1.21 K/uL (1.2-3.4); Lymphocytes % (auto) 28.9 %; Mean Corpuscular Hgb Conc 35.6 g/dL (32.0-36.0); Mean Corpuscular Volume 87.2 fL (80.0-100.0); Mean Platelet Volume 9.5 fL (9.4-12.4); Monocytes # (auto) 0.54 K/uL (0.24-0.82); Monocytes % (auto) 12.9 %; Neutrophils % (auto) 54.9 %; Platelet Count 185 K/uL (130-400); RDW Coefficient of Variation 22.5 % (11.5-14.5); RDW Standard Deviation 68.5 fL (36.4-46.3); Red Blood Count 4.22 M/uL (4.63-6.08); White Blood Count 4.19 K/ul (4.8-10.8)
[2022-04-16 07:09] LABS: Polychromasia 1+; Target Cells 1+
[2022-04-16 07:12] LABS: Albumin Level 3.3 gm/dl (3.4-5.0); Bilirubin,Total 3.4 mg/dl (0.2-1.0); Calcium 8.1 mg/dl (8.5-10.1); Magnesium 1.5 mg/dl (1.7-2.4); Potassium 3.1 mmol/L (3.5-5.1)
[2022-04-16 07:18] LABS: Albumin Globulin Ratio 1.2 (0.9-2); BUN Creatinine Ratio 6.7 (10-20); Creatinine Clr Calc Pharmacy 191.4 ml/min; Est GFR (African American) 125.8 ml/min; Est GFR (Non-African American) 108.5 ml/min; Globulin 2.8 gm/dl (2.5-4.0); Phosphorus 2.7 mg/dl (2.5-4.9); Total Protein 6.1 gm/dl (6.0-8.3)
[2022-04-16] MEDS ORDERED: MAGNESIUM SULFATE / D5W 1 GM/100 ML BAG IV ONE (07:55)
[2022-04-16] MEDS ORDERED: POTASSIUM CHLORIDE CRTAB 20 MEQ TABCR PO STA (07:55)
[2022-04-16] MEDS: POTASSIUM CHLORIDE / WTR 10 MEQ/100 ML PLCT IV SCH ×2 (08:16→09:24)
[2022-04-16] MEDS: ENOXAPARIN INJ 40 MG/0.4 ML SYR SQ SCH (08:17)
[2022-04-16] MEDS: DOXYCYCLINE HYCLATE 100 MG CAP PO SCH ×2 (08:17→20:01)
[2022-04-16] MEDS: METOPROLOL TARTRATE 50 MG TAB PO SCH ×2 (08:17→20:01)
[2022-04-16] MEDS: THIAMINE HCL 100 MG TAB PO SCH (08:18)
[2022-04-16] MEDS: MULTIVITAMIN TAB PO SCH (08:18)
[2022-04-16] MEDS: PANTOprazole 40 MG in SYRINGE 0 ML IV SCH ×2 (08:18→20:00)
[2022-04-16] MEDS: FOLIC ACID 1 MG TAB PO SCH (08:18)
--- NOTE | 2022-04-16 13:04 | Hospitalist Progress Note ---
Date of Service April 16, 2022 Assessment & Plan (1) A-fib: Plan: Uncontrolled heart rate upon arrival at the ER secondary to illness and medication noncompliance Not on anticoagulation secondary to fall risk Heart rate is controlled and the patient denies any palpitation and/or chest pain or shortness of breath We will continue current medications Rate is controlled Denies any cardiac symptoms Acute pancreatitis Likely secondary to use of alcohol Lipase was elevated to 1300 Patient has been feeling much better with minimal discomfort Appreciate GI input and recommendation Has been tolerating clears and will continue that for today as abdominal pain continues Lipase has decreased abdominal pain is improved Clinically better today with decreasing abdominal pain and distention Has been tolerating clears and bowel is moving Still has minimal abdominal discomfort especially in the epigastrium with nausea and vomiting Clinically much better today with less abdominal distention and pain Tolerating liquid diet and will advanced further as tolerated Discussed with the daughter and updated her We will get PT and OT evaluation Complains to have diarrhea Likely secondary to use of antibiotic We will get C. difficile toxin Electrolyte imbalance Hypokalemia, hypomagnesemia and hypophosphatemia Has been getting IV replacement Electrolytes remain low and will supplement and monitor Still requiring supplemental electrolytes We will monitor PRP and electrolyte Alcohol withdrawal Having withdrawal symptoms from alcohol with tremors and palpitation No delirium tremens Has been on withdrawal protocol No significant tremors involving the outstretched hands No symptoms of withdrawal and has not been taking any Ativan No more symptoms of withdrawal Alcohol hepatitis LFTs are abnormal secondary to alcohol and fatty liver disease LFTs are getting better We will check LFTs tomorrow-LFTs are a little worse compared with before We will recheck LFTs tomorrow-LFTs are getting better LFTs are much improved Complicated UTI, possible sepsis Has been on intravenous cefepime and not Zosyn as mentioned earlier Blood culture is growing gram-positive bacilli Blood and urine cultures are negative We will discontinue antibiotic UGI B differentials include alcoholic gastritis, PUD (history of H. pylori as per records) Continue PPI-had changed to oral Skin wound right flank Continue doxycycline Chronic anemia, hemoglobin at baseline Chronic thrombocytopenia likely from alcoholic cirrhosis given hepatomegaly Prediabetes, hemoglobin A1c of 5.4 last May 2021 Past tobacco abuse DVT prophylaxis. SCDs Re: GI bleed Platelet count has been low Full code Discussed with the daughter Admission and Anticipated Discharge Date Admission Date: April 10, 2022 Subjective 04/11/2022 The patient was seen and examined in telemetry unit He has been complaining of abdominal discomfort with nausea but no vomiting Has tremors of the outstretched hands but denies any palpitation and/or confusion No fever and or chills 04/12/2022 The patient was seen and examined in telemetry unit He has been feeling a little better but he still has abdominal distention and pain, no fever and or chills, no nausea and or vomiting Denies any other significant symptoms 04/13/2022 The patient was seen and examined in telemetry unit He has been feeling a little better today Abdominal distention and discomfort persist No fever and or chills and no nausea and/or vomiting 04/14/2022 The patient was seen and examined in telemetry unit He has been much better but he still has abdominal distention and discomfort No nausea and or vomiting Has been tolerating clears Bowel is moving 04/15/2022 The patient was seen and examined in telemetry unit Is still complains to have abdominal pain and headache with nausea Denies any fever and or chills Has been tolerating clears 04/16/2022 The patient was seen and examined in telemetry unit He has been feeling much better Still has abdominal pain and diarrhea Denies any fever and or chills Has been tolerating liquid diet and advanced as tolerated Review of Systems Review of Systems: All systems reviewed and are unremarkable except as noted below Gastrointestinal: Abdominal distention with discomfort and nausea Physical Exam Physical Exam: Lying in bed comfortably with mild to moderate abdominal discomfort Constitutional: well developed, well nourished, + ill appearing and + obese Eyes: PERRL, conjunctivae normal, anicteric sclerae ENMT: external ear and nose normal, oropharynx normal Neck: trachea midline, no thyromegaly Respiratory: no respiratory distress Auscultation: + diminished lung sounds; no crackles Cardiovascular: Rate/Rhythm: regular rate and regular rhythm; not tachycardic Heart Sounds: normal S1 and normal S2; no murmur Extremities: + edema (Trace edema bilateral) Gastrointestinal (Abdomen): Inspection/Auscultation: + abdomen distended and normal bowel sounds Percussion/Palpation: + abdomen tender and abdomen soft Neurologic: normal touch/pain/proprioception and moves all extremities; no focal motor deficits Psychiatric: A+Ox3, euthymic affect Lymphatic: no cervical or axillary lymphadenopathy Results & Data Results & Data ([facility]) Vital Signs (Past 12 Hours) Vital Signs Temp Pulse Resp BP BP Pulse Ox O2 Del Method 04/16/22 11:33 36.9 C 85 17 120/77 96 Room Air 04/16/22 07:55 36.7 C 101 H 20 121/87 95 Room Air 04/16/22 03:20 36.9 C 93 H 22 145/99 H 98 Room Air Laboratory Results Short CBC 04/16/22 Range/Units 06:28 WBC 4.19 L (4.8-10.8) K/ul Hgb 13.1 L (14.0-18.0) g/dl Hct 36.8 L (40.1-51.0) % Plt Count 185 (130-400) K/uL BMP 04/16/22 06:28 Sodium 139 Potassium 3.1 L Chloride 103 Carbon Dioxide 26 BUN 4 L Creatinine 0.60 Glucose 87 Calcium 8.1 L Liver Function 04/16/22 Range/Units 06:28 Total Bilirubin 3.4 H (0.2-1.0) mg/dl AST 114 H (13-39) U/L ALT 103 H (7-52) U/L Alkaline Phosphatase 95 (34-104) U/L Albumin 3.3 L (3.4-5.0) gm/dl Medications Administered Current Inpatient Medications Acetaminophen (Acetaminophen 325 Mg Tab) 325 mg PO Q6H PRN PRN Reason: Mild Pain Stop: 05/10/22 22:29 Last Admin: 04/14/22 20:48 Dose: 325 mg Al Hydrox/Mg Hydrox/Simethicone (Aluminum/Magnesium Susp 30 Ml Udc) 30 ml PO Q6H PRN PRN Reason: Dyspepsia Stop: 05/15/22 10:07 Doxycycline Hyclate (Doxycycline Hyclate 100 Mg Cap) 100 mg PO BID [facility] Stop: 04/18/22 08:59 Last Admin: 04/16/22 08:17 Dose: 100 mg Enoxaparin Sodium (Enoxaparin Inj 40 Mg/0.4 Ml Syr) 40 mg SQ QAM [facility] Stop: 05/14/22 16:14 Last Admin: 04/16/22 08:17 Dose: 40 mg Folic Acid (Folic Acid 1 Mg Tab) 1 mg PO QAM [facility] Stop: 05/11/22 08:59 Last Admin: 04/16/22 08:18 Dose: 1 mg Promethazine HCl 12.5 mg/ (Sodium Chloride) 50.5 mls @ 202 mls/hr IV Q6H PRN PRN Reason: Nausea And Vomiting Stop: 05/10/22 20:43 Last Infusion: 04/15/22 22:05 Dose: Infused Pantoprazole Sodium 40 mg/ (Syringe) 10 mls @ 5 mls/min IV BID [facility] [place] Stop: 05/15/22 10:29 Last Admin: 04/16/22 08:18 Dose: 5 mls/min Lorazepam (Lorazepam 2 Mg/1 Ml Vial) 1 mg IV UD PRN; Protocol PRN Reason: EtOH Withdrawal AWSS Score 6,7 Stop: 05/10/22 22:29 Last Admin: 04/13/22 21:08 Dose: 1 mg Lorazepam (Lorazepam 2 Mg/1 Ml Vial) 2 mg IV UD PRN; Protocol PRN Reason: EtOH Withdrawal AWSS Score 8,9 Stop: 05/10/22 22:29 Lorazepam (Lorazepam 2 Mg/1 Ml Vial) 3 mg IV ONCE PRN; Protocol PRN Reason: EtOH Withdrawal AWSS Score 10+ Metoprolol Tartrate (Metoprolol Tartrate 50 Mg Tab) 50 mg PO BID [facility] Stop: 05/11/22 08:59 Last Admin: 04/16/22 08:17 Dose: 50 mg Multivitamins (Multivitamin Tab) [facility] [place] Stop: 05/11/22 08:59 Last Admin: 04/16/22 08:18 Dose: 1 tab Oxycodone HCl (Oxycodone Hcl Ir 5 Mg Tab (Immediate Release)) 5 mg PO Q4H PRN PRN Reason: Pain Stop: 04/24/22 22:29 Last Admin: 04/16/22 05:57 Dose: 5 mg Thiamine HCl (Thiamine Hcl 100 Mg Tab) 100 mg PO QAM [facility] Stop: 05/11/22 08:59 Last Admin: 04/16/22 08:18 Dose: 100 mg (1) A-fib Atrial fibrillation type: unspecified Qualified Code(s): I48.91 - Unspecified atrial fibrillation
[2022-04-17] MEDS: oxyCODONE HCL IR 5 MG TAB (IMMEDIATE RELEASE) PO PRN (00:21)
[2022-04-17 06:05] LABS: Basophils # (auto) 0.04 K/uL (0-0.2); Eosinophils # (auto) 0.06 K/uL (0-0.50); Eosinophils % (auto) 1.5 %; Hematocrit (blood only) 39.8 % (40.1-51.0); Hemoglobin 13.9 g/dl (14.0-18.0); Immature Granulocytes # (auto) 0.03 K/uL (0.00-0.02); Immature Granulocytes % (auto) 0.8 %; Lymphocytes # (auto) 1.16 K/uL (1.2-3.4); Lymphocytes % (auto) 29.2 %; Mean Corpuscular Hemoglobin 30.9 pg (25.0-34.0); Mean Corpuscular Hgb Conc 34.9 g/dL (32.0-36.0); Mean Corpuscular Volume 88.4 fL (80.0-100.0); Mean Platelet Volume 9.8 fL (9.4-12.4); Monocytes # (auto) 0.58 K/uL (0.24-0.82); Monocytes % (auto) 14.6 %; Neutrophils % (auto) 52.9 %; Platelet Count 202 K/uL (130-400); RDW Coefficient of Variation 22.8 % (11.5-14.5); RDW Standard Deviation 69.5 fL (36.4-46.3); White Blood Count 3.97 K/ul (4.8-10.8)
[2022-04-17 06:22] LABS: Albumin Level 3.4 gm/dl (3.4-5.0); Bilirubin,Total 2.8 mg/dl (0.2-1.0); Calcium 8.2 mg/dl (8.5-10.1); Magnesium 1.8 mg/dl (1.7-2.4); Potassium 3.4 mmol/L (3.5-5.1)
[2022-04-17 06:28] LABS: Albumin Globulin Ratio 1.3 (0.9-2); BUN Creatinine Ratio 11.9 (10-20); Creatinine Clr Calc Pharmacy 190.7 ml/min; Est GFR (African American) 126.6 ml/min; Est GFR (Non-African American) 109.3 ml/min; Globulin 2.7 gm/dl (2.5-4.0); Phosphorus 2.8 mg/dl (2.5-4.9); Total Protein 6.1 gm/dl (6.0-8.3)
[2022-04-17 06:32] LABS: Anisocytosis Present; Target Cells 1+
[2022-04-17] MEDS ORDERED: POTASSIUM CHLORIDE CRTAB 20 MEQ TABCR PO STA (07:51)
[2022-04-17] MEDS: METOPROLOL TARTRATE 50 MG TAB PO SCH (07:56)
[2022-04-17] MEDS: MULTIVITAMIN TAB PO SCH (08:05)
[2022-04-17] MEDS: PANTOprazole 40 MG in SYRINGE 0 ML IV SCH ×2 (08:05→21:17)
[2022-04-17] MEDS: FOLIC ACID 1 MG TAB PO SCH (08:05)
[2022-04-17] MEDS: DOXYCYCLINE HYCLATE 100 MG CAP PO SCH ×2 (08:05→21:18)
[2022-04-17] MEDS: ENOXAPARIN INJ 40 MG/0.4 ML SYR SQ SCH (08:05)
[2022-04-17] MEDS: THIAMINE HCL 100 MG TAB PO SCH (08:05)
[2022-04-17] MEDS ORDERED: METOPROLOL TARTRATE 25 MG TAB PO ONE (09:40)
--- NOTE | 2022-04-17 14:40 | Hospitalist Progress Note ---
Date of Service April 17, 2022 Assessment & Plan (1) A-fib: Plan: Uncontrolled heart rate upon arrival at the ER secondary to illness and medication noncompliance Not on anticoagulation secondary to fall risk Heart rate is controlled and the patient denies any palpitation and/or chest pain or shortness of breath We will continue current medications Rate is controlled Denies any cardiac symptoms Acute pancreatitis Likely secondary to use of alcohol Lipase was elevated to 1300 Patient has been feeling much better with minimal discomfort Appreciate GI input and recommendation Has been tolerating clears and will continue that for today as abdominal pain continues Lipase has decreased abdominal pain is improved Clinically better today with decreasing abdominal pain and distention Has been tolerating clears and bowel is moving Still has minimal abdominal discomfort especially in the epigastrium with nausea and vomiting Clinically much better today with less abdominal distention and pain Tolerating liquid diet and will advanced further as tolerated Discussed with the daughter and updated her We will get PT and OT evaluation-initial PT recommended rehab but will need repeat PT evaluation since she is much better Minimal abdominal pain without nausea or vomiting and tolerating regular diet Plan to discharge home tomorrow Complains to have diarrhea Likely secondary to use of antibiotic We will get C. difficile toxin-negative No more diarrhea Electrolyte imbalance Hypokalemia, hypomagnesemia and hypophosphatemia Has been getting IV replacement Electrolytes remain low and will supplement and monitor Still requiring supplemental electrolytes We will monitor PRP and electrolyte Potassium supplemented orally We will recheck tomorrow Alcohol withdrawal Having withdrawal symptoms from alcohol with tremors and palpitation No delirium tremens Has been on withdrawal protocol No significant tremors involving the outstretched hands No symptoms of withdrawal and has not been taking any Ativan No more symptoms of withdrawal Alcohol hepatitis LFTs are abnormal secondary to alcohol and fatty liver disease LFTs are getting better We will check LFTs tomorrow-LFTs are a little worse compared with before We will recheck LFTs tomorrow-LFTs are getting better LFTs are much improved Complicated UTI, possible sepsis Has been on intravenous cefepime and not Zosyn as mentioned earlier Blood culture is growing gram-positive bacilli Blood and urine cultures are negative We will discontinue antibiotic UGI B differentials include alcoholic gastritis, PUD (history of H. pylori as per records) Continue PPI-had changed to oral Skin wound right flank Continue doxycycline Chronic anemia, hemoglobin at baseline Chronic thrombocytopenia likely from alcoholic cirrhosis given hepatomegaly Prediabetes, hemoglobin A1c of 5.4 last May 2021 Past tobacco abuse DVT prophylaxis. SCDs Re: GI bleed Platelet count has been low Full code Discussed with the daughter Continue PT and OT and likely discharge tomorrow Admission and Anticipated Discharge Date Admission Date: April 10, 2022 Subjective 04/11/2022 The patient was seen and examined in telemetry unit He has been complaining of abdominal discomfort with nausea but no vomiting Has tremors of the outstretched hands but denies any palpitation and/or confusi on No fever and or chills 04/12/2022 The patient was seen and examined in telemetry unit He has been feeling a little better but he still has abdominal distention and pain, no fever and or chills, no nausea and or vomiting Denies any other significant symptoms 04/13/2022 The patient was seen and examined in telemetry unit He has been feeling a little better today Abdominal distention and discomfort persist No fever and or chills and no nausea and/or vomiting 04/14/2022 The patient was seen and examined in telemetry unit He has been much better but he still has abdominal distention and discomfort No nausea and or vomiting Has been tolerating clears Bowel is moving 04/15/2022 The patient was seen and examined in telemetry unit Is still complains to have abdominal pain and headache with nausea Denies any fever and or chills Has been tolerating clears 04/16/2022 The patient was seen and examined in telemetry unit He has been feeling much better Still has abdominal pain and diarrhea Denies any fever and or chills Has been tolerating liquid diet and advanced as tolerated 04/17/2022 The patient was seen and examined in telemetry unit He has been much better but he still has pain in the abdomen especially at nighttime He has not had physical therapy yet and has not been out of bed Denies any nausea and or vomiting and has been tolerating regular diet Review of Systems Review of Systems: All systems reviewed and are unremarkable except as noted below Gastrointestinal: Abdominal distention with discomfort and nausea Physical Exam Physical Exam: Lying in bed comfortably Constitutional: well developed, well nourished, + ill appearing and + obese Eyes: PERRL, conjunctivae normal, anicteric sclerae ENMT: external ear and nose normal, oropharynx normal Neck: trachea midline, no thyromegaly Respiratory: no respiratory distress Auscultation: + diminished lung sounds; no crackles Cardiovascular: Rate/Rhythm: regular rate and regular rhythm; not tachycardic Heart Sounds: normal S1 and normal S2; no murmur Extremities: + edema (Trace edema bilateral) Gastrointestinal (Abdomen): Inspection/Auscultation: + abdomen distended (Mildly distended) and normal bowel sounds Percussion/Palpation: + abdomen tender (Minimally tender) and abdomen soft Neurologic: normal touch/pain/proprioception and moves all extremities; no focal motor deficits Psychiatric: A+Ox3, euthymic affect Lymphatic: no cervical or axillary lymphadenopathy Results & Data Results & Data ([facility]) Vital Signs (Past 12 Hours) Vital Signs Temp Pulse Resp BP Pulse Ox O2 Del Method 04/17/22 11:57 37.2 C 89 18 123/83 97 Room Air 04/17/22 10:07 110/74 04/17/22 07:38 36.5 C 85 20 149/116 H 99 Room Air 04/17/22 03:09 37.3 C 81 18 124/86 95 Room Air Laboratory Results Short CBC 04/17/22 Range/Units 05:31 WBC 3.97 L (4.8-10.8) K/ul Hgb 13.9 L (14.0-18.0) g/dl Hct 39.8 L (40.1-51.0) % Plt Count 202 (130-400) K/uL BMP 04/17/22 05:31 Sodium 138 Potassium 3.4 L Chloride 105 Carbon Dioxide 25 BUN 7 Creatinine 0.59 L Glucose 95 Calcium 8.2 L Liver Function 04/17/22 Range/Units 05:31 Total Bilirubin 2.8 H (0.2-1.0) mg/dl AST 84 H (13-39) U/L ALT 84 H (7-52) U/L Alkaline Phosphatase 91 (34-104) U/L Albumin 3.4 (3.4-5.0) gm/dl Medications Administered Current Inpatient Medications Acetaminophen (Acetaminophen 325 Mg Tab) 325 mg PO Q6H PRN PRN Reason: Mild Pain Stop: 05/10/22 22:29 Last Admin: 04/14/22 20:48 Dose: 325 mg Al Hydrox/Mg Hydrox/Simethicone (Aluminum/Magnesium Susp 30 Ml Udc) 30 ml PO Q6H PRN PRN Reason: Dyspepsia Stop: 05/15/22 10:07 Doxycycline Hyclate (Doxycycline Hyclate 100 Mg Cap) 100 mg PO BID [facility] Stop: 04/18/22 08:59 Last Admin: 04/17/22 08:05 Dose: 100 mg Enoxaparin Sodium (Enoxaparin Inj 40 Mg/0.4 Ml Syr) 40 mg SQ QAM [facility] Stop: 05/14/22 16:14 Last Admin: 04/17/22 08:05 Dose: 40 mg Folic Acid (Folic Acid 1 Mg Tab) 1 mg PO QAM [facility] Stop: 05/11/22 08:59 Last Admin: 04/17/22 08:05 Dose: 1 mg Promethazine HCl 12.5 mg/ (Sodium Chloride) 50.5 mls @ 202 mls/hr IV Q6H PRN PRN Reason: Nausea And Vomiting Stop: 05/10/22 20:43 Last Infusion: 04/15/22 22:05 Dose: Infused Pantoprazole Sodium 40 mg/ (Syringe) 10 mls @ 5 mls/min IV BID [facility] Stop: 05/15/22 10:29 Last Admin: 04/17/22 08:05 Dose: 5 mls/min Lorazepam (Lorazepam 2 Mg/1 Ml Vial) 1 mg IV UD PRN; Protocol PRN Reason: EtOH Withdrawal AWSS Score 6,7 Stop: 05/10/22 22:29 Last Admin: 04/13/22 21:08 Dose: 1 mg Lorazepam (Lorazepam 2 Mg/1 Ml Vial) 2 mg IV UD PRN; Protocol PRN Reason: EtOH Withdrawal AWSS Score 8,9 Stop: 05/10/22 22:29 Lorazepam (Lorazepam 2 Mg/1 Ml Vial) 3 mg IV ONCE PRN; Protocol PRN Reason: EtOH Withdrawal AWSS Score 10+ Metoprolol Tartrate (Metoprolol Tartrate 25 Mg Tab) 75 mg PO BID [facility] Stop: 05/17/22 20:59 Multivitamins (Multivitamin Tab) [facility] [place] Stop: 05/11/22 08:59 Last Admin: 04/17/22 08:05 Dose: 1 tab Oxycodone HCl (Oxycodone Hcl Ir 5 Mg Tab (Immediate Release)) 5 mg PO Q4H PRN PRN Reason: Pain Stop: 04/24/22 22:29 Last Admin: 04/17/22 00:21 Dose: 5 mg Thiamine HCl (Thiamine Hcl 100 Mg Tab) 100 mg PO [facility] Stop: 05/11/22 08:59 Last Admin: 04/17/22 08:05 Dose: 100 mg (1) A-fib Atrial fibrillation type: unspecified Qualified Code(s): I48.91 - Unspecified atrial fibrillation
[2022-04-17] MEDS: METOPROLOL TARTRATE 25 MG TAB PO SCH (21:18)
[2022-04-17] MEDS: ACETAMINOPHEN 325 MG TAB PO PRN (21:20)
[2022-04-18 08:11] LABS: Calcium 8.4 mg/dl (8.5-10.1); Potassium 3.7 mmol/L (3.5-5.1)
[2022-04-18] MEDS: PANTOprazole 40 MG in SYRINGE 0 ML IV SCH (08:16)
[2022-04-18] MEDS: MULTIVITAMIN TAB PO SCH (08:16)
[2022-04-18] MEDS: FOLIC ACID 1 MG TAB PO SCH (08:16)
[2022-04-18] MEDS: THIAMINE HCL 100 MG TAB PO SCH (08:16)
[2022-04-18] MEDS: METOPROLOL TARTRATE 25 MG TAB PO SCH (08:16)
[2022-04-18 08:17] LABS: Creatinine Clr Calc Pharmacy 184.5 ml/min; Est GFR (African American) 124.9 ml/min; Est GFR (Non-African American) 107.8 ml/min
[2022-04-18] MEDS: ENOXAPARIN INJ 40 MG/0.4 ML SYR SQ SCH (08:22)
--- NOTE | 2022-04-18 10:34 | Hospitalist Progress Note ---
Date of Service April 18, 2022 Assessment & Plan (1) Pancreatitis: Plan: Per Dr. Sr's notes with addendum (1) A-fib: Plan: Uncontrolled heart rate upon arrival at the ER secondary to illness and medication noncompliance Not on anticoagulation secondary to fall risk Metoprolol tartrate increased to 75 mg p.o. twice daily Heart rate controlled Monitor as an outpatient Acute pancreatitis Likely secondary to use of alcohol Lipase was elevated to 1300, trended down Abdominal pain improved Counseled regarding alcohol cessation Patient verbalized understanding and agreement Diarrhea Likely secondary to use of antibiotic We will get C. difficile toxin-negative Diarrhea resolved Electrolyte imbalance Hypokalemia, hypomagnesemia and hypophosphatemia Replaced Alcohol withdrawal Having withdrawal symptoms from alcohol with tremors and palpitation No delirium tremens Has been on withdrawal protocol Resolved Alcohol hepatitis LFTs are abnormal secondary to alcohol and fatty liver disease LFTs are much improved Complicated UTI, possible sepsis, ruled out Has been on intravenous cefepime We will discontinue antibiotic UGI B differentials include alcoholic gastritis, PUD (history of H. pylori as per records) Continue PPI-had changed to oral Monitor as an outpatient Skin wound right flank Completed doxycycline 9 mg p.o. twice daily x1 week Chronic anemia hemoglobin at baseline Chronic thrombocytopenia likely from alcoholic cirrhosis given hepatomegaly Prediabetes hemoglobin A1c of 5.4 last May 2021 Past tobacco abuse Full code plan of care discussed with patient in detail and at length all questions answered He is understanding, agreeable, comfortable with the plan of care Admission and Anticipated Discharge Date Admission Date: April 10, 2022 Subjective Follow-up for Renny. fib in RVR, acute pancreatitis, etc. Seen resting in bed, comfortable, not in distress Translation service utilized to communicate with patient States he feels fine overall No chest pain, palpitations, shortness of breath, dizziness Ambulating in the room, walking to the bathroom with no problems Very minimal abdominal discomfort, no nausea, tolerating diet well No other new symptoms States he is ready and would like to be discharged today Review of Systems Review of Systems: all noted and negative except for above Physical Exam Physical Exam: General- oriented x 3, not in distress, speaks in sentences with no effort or accessory muscle use Eyes- anicteric Neck- no JVD Lungs- clear breath sounds bilaterally, no rales/wheezes Heart- normal rate, regular rhythm; no murmurs Abdomen- normal bowel sounds, nondistended, soft, nontender Extremities- no pretibial edema, no calf tenderness Neuro- alert, oriented x 3; no gross focal neurologic deficits Skin- warm & dry Results & Data Results & Data ([facility]) Vital Signs (Past 12 Hours) Vital Signs Temp Pulse Pulse Resp BP Pulse Ox O2 Del Method 04/18/22 07:41 79 04/18/22 07:25 36.5 C 89 17 123/81 95 Room Air 04/18/22 03:30 36.8 C 83 14 118/83 98 Room Air 04/17/22 22:40 36.9 C 89 15 115/77 97 Room Air all noted and reviewed including below
--- NOTE | 2022-04-18 16:55 | Discharge Summary ---
Discharge Summary Date of Service April 18, 2022 Notes For Next Care Provider Further management, work-up and follow-up for severe hepatic steatosis, kidney cyst as an outpatient Please refer to full CT report Medication Changes From Visit INCREASE METOPROLOL TARTRATE FROM 50MG TWICE A DAY TO 75MG TWICE A DAY PROTONIX - FOR POSSIBLE GASTRITIS, TAKE AT LEAST 30 MINUTES BEFORE BREAKFAST AND DINNER MULTIVITAMINS - TAKE DAILY Admission HPI Per Admitting Provider History obtained from patient, family, and records. History somewhat limited from patient secondary to language barrier. Medical history significant for A. fib not on anticoagulation secondary to fall risk, history H. pylori, fatty liver disease, chronic anemia (baseline hemoglobin 12-13), chronic thrombocytopenia, prediabetes, alcohol abuse, ongoing tobacco abuse, medication noncompliance. Two confinements last year for alcohol intoxication. Recent confinement last month for new onset A. fib in the setting of alcohol abuse. Patient discharged on metoprolol Rx. Anticoagulation not recommended by cardiology given patient's fall risk from alcohol abuse. Patient started drinking again shortly after hospital discharge. Not compliant with beta-norma. Patient started feeling sick this week. Achy abdominal pain with coffee-ground emesis. No fever, no chills, no chest pain, no shortness of breath, no headache. Patient not sure about black or bloody stools. Patient unable to get out of bed. Patient found at home by family covered in urine and feces. Patient brought to the ER for evaluation. Medical History as above 2021 EGD was normal, biopsy positive for H. 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 Admission Exam Per Admitting Provider GENERAL: Uncomfortable, unkempt, morbidly obese, tremulous, no respiratory distress SKIN: Pallor,, warm HEENT: Pale palpebral conjunctivae, no ptosis, dried coffee-ground emesis over the mouth angles, dry buccal mucosa NECK : Supple, short neck, no tenderness CHEST : Decreased breath sounds, no tenderness HEART : Tachycardic, irregular, no obvious murmurs ABDOMEN: Erythematous right flank with skin breakdown, some distention, epigastric tenderness EXTREMITIES : No LE swelling, no LE tenderness, no other conspicuous deformities noted NEUROLOGIC : Coherent, no facial asymmetry, tremulous, gait and stance not assessed Principal Dx & Hospital Course #1 = Principal Diagnosis (1) Pancreatitis: Per Dr. Sr's notes with addendum (1) A-fib: Plan: Uncontrolled heart rate upon arrival at the ER secondary to illness and medication noncompliance Not on anticoagulation secondary to fall risk Metoprolol tartrate increased to 75 mg p.o. twice daily Heart rate controlled Monitor as an outpatient Acute pancreatitis Likely secondary to use of alcohol Lipase was elevated to 1300, trended down Abdominal pain improved Counseled regarding alcohol cessation Patient verbalized understanding and agreement Diarrhea Likely secondary to use of antibiotic We will get C. difficile toxin-negative Diarrhea resolved Electrolyte imbalance Hypokalemia, hypomagnesemia and hypophosphatemia Replaced Alcohol withdrawal Having withdrawal symptoms from alcohol with tremors and palpitation No delirium tremens Has been on withdrawal protocol Resolved Alcohol hepatitis LFTs are abnormal secondary to alcohol and fatty liver disease LFTs are much improved Complicated UTI, possible sepsis, ruled out Has been on intravenous cefepime We will discontinue antibiotic UGI B differentials include alcoholic gastritis, PUD (history of H. pylori as per records) Continue PPI-had changed to oral Monitor as an outpatient Skin wound right flank Completed doxycycline 9 mg p.o. twice daily x1 week Abnormal CT Findings Liver: The contrast-enhanced liver is enlarged, measuring 28.6 cm in length. The liver demonstrates diffusely demonstrated attenuation consistent with severe hepatic steatosis. There is no intrahepatic biliary ductal dilatation. The hepatic veins and portal veins are patent. Kidneys: The contrast enhanced kidneys are normal in size and without hydronephrosis. The kidneys enhance symmetrically. A 12 mm cortical hypodensity in the interpolar right kidney is unchanged. The second represents a cyst but cannot be definitively characterized due to small size and streak artifact. Further work up, management, and ff up as outpatient Chronic anemia hemoglobin at baseline Chronic thrombocytopenia likely from alcoholic cirrhosis given hepatomegaly Prediabetes hemoglobin A1c of 5.4 last May 2021 Past tobacco abuse Full code plan of care discussed with patient in detail and at length all questions answered He is understanding, agreeable, comfortable with the plan of care Discharge Exam General- oriented x 3, not in distress, speaks in sentences with no effort or accessory muscle use Eyes- anicteric Neck- no JVD Lungs- clear breath sounds bilaterally, no rales/wheezes Heart- normal rate, regular rhythm; no murmurs Abdomen- normal bowel sounds, nondistended, soft, nontender Extremities- no pretibial edema, no calf tenderness Neuro- alert, oriented x 3; no gross focal neurologic deficits Skin- warm & dry Updated Medication List Medication Instructions Recorded Confirmed Type metoprolol tartrate 75 mg tablet 75 mg PO BID 30 days #60 tabs 04/18/22 Rx multivitamin with folic acid 400 1 tab PO QAM 30 days #30 tabs 04/18/22 Rx mcg tablet (Daily-Cosme (with folic acid)) pantoprazole 40 mg tablet,delayed 40 mg PO BID 30 days #60 tabs 04/18/22 Rx release (Protonix) Hospital Stay Data Consultations 04/10/22 19:14 ED Decision to Admit Stat 04/10/22 22:30 Consult Gastroenterology Routine Diagnostic Imagining Performed 04/10/22 20:47 COMPARISON STUDY: Abdominal CT dated 03/07/2022 TECHNIQUE: Following the IV administration of 110 cc of Optiray 320, CT scan of the abdomen and pelvis is performed from the lung bases to the proximal femora. Images are reviewed in the axial, sagittal, and coronal planes. IV contrast was administered without complication. A dose lowering technique was utilized adhering to the principles of ALARA. The examination is degraded by large body habitus, and by streak artifact from the body wall abutting the CT gantry. There is also motion artifact. CT DOSE: 1863.40 mGy.cm FINDINGS: Lung bases: The heart is top normal in size and without pericardial effusion. There are coronary artery calcifications. The lung bases are clear. There is a small hiatal hernia. Liver: The contrast-enhanced liver is enlarged, measuring 28.6 cm in length. The liver demonstrates diffusely demonstrated attenuation consistent with severe hepatic steatosis. There is no intrahepatic biliary ductal dilatation. The hepatic veins and portal veins are patent. Gallbladder: Unremarkable. Spleen: Normal in size and attenuation. Pancreas: Question mild infiltration around the head of the pancreas. The gland enhances throughout and the duct is normal in caliber. Adrenal glands: Unremarkable. Kidneys: The contrast enhanced kidneys are normal in size and without hydronephrosis. The kidneys enhance symmetrically. A 12 mm cortical hypodensity in the interpolar right kidney is unchanged. The second represents a cyst but cannot be definitively characterized due to small size and streak artifact. Abdominal vasculature: The abdominal aorta is normal in course and caliber noting scattered foci of atherosclerotic calcification. Bowel: There is no bowel obstruction. The appendix is not identified. Peritoneum: There is no intraperitoneal free air or abdominal ascites. There is a fat-containing umbilical hernia. Lymphadenopathy: None. Pelvic viscera: The bladder, prostate, and seminal vesicles are normal as visualized. There are bilateral fat-containing inguinal hernias. Skeletal structures: The skeletal structures are osteopenic. There is moderate lumbosacral spondylosis. No lytic or blastic lesions are seen. IMPRESSION: 1. Streak and motion compromised examination. 2. Question mild infiltration around the pancreatic head. Correlate with clinical and laboratory findings for evidence of acute pancreatitis. 3. Hepatomegaly and severe hepatic steatosis. 4. Additional findings as above. ACT 112: Negative or not required by law. Electronically signed by: Anam Hoffmann M.D. 04/10/2022 9:43 PM Pending Results Patient Have Any Pending Studies at Discharge: No Discharge Instructions Given to Patient (Per Discharging Provider) PLEASE REFER TO YOUR NEW MEDICATION LIST AND FOLLOW INSTRUCTIONS CAREFULLY. YOUR NEW MEDICATIONS INCLUDE: INCREASE METOPROLOL TARTRATE FROM 50MG TWICE A DAY TO 75MG TWICE A DAY PROTONIX - FOR POSSIBLE GASTRITIS, TAKE AT LEAST 30 MINUTES BEFORE BREAKFAST AND DINNER MULTIVITAMINS - TAKE DAILY DRINK PLENTY OF WATER DAILY. NO ALCOHOL/SMOKING. DO NOT TAKE MEDICATIONS UNDER THE CLASS OF NSAIDS INCLUDING IBUPROFEN, NAPROXEN, ETC. THESE CAN CAUSE GASTRITIS. PLEASE CALL YOUR PRIMARY CARE PHYSICIAN OR RETURN TO THE ER IF WITH WORSENING OF SYMPTOMS, INCLUDING CHEST PAIN, SHORTNESS OF BREATH, PALPITATIONS, DIZZINESS, ABDOMINAL PAIN, NAUSEA/VOMITING, BLOOD IN THE STOOLS OR BLACK STOOLS, ETC FOLLOW UP WITH PRIMARY CARE PHYSICIAN OUTLINED ABOVE. Total Time Total Time Spent Total Time Spent (In Minutes): > 30 minutes
== END 2022-04-18 13:26 | disposition home or self-care (01) | DRG 896 ==
LOC: ED 15:08 → SUATTDRO 20:49 → 2S 20:49